=== PATIENT | female | born 1960 | race African-American/Black ===

== ENCOUNTER 2019-07-04 12:22 | Inpatient (IN) | payer OTHER ==
[2019-07-04 13:42] LABS: ABSOLUTE LYMPHOCYTES (AUTO) 1.2 10^3/uL (0.5-4.7); ABSOLUTE MONOCYTES (AUTO) 0.6 10^3/uL (0.1-1.4); ABSOLUTE NEUT (AUTO) 2.5 10^3/uL (1.7-8.2); BASOPHILS % (AUTO) 0.4 % (0-2); EOSINOPHILS % (AUTO) 0.9 % (0-6); HEMOGLOBIN 12.8 g/dL (12.0-15.5); LYMPHOCYTES % (AUTO) 27.7 % (13-45); MEAN CORPUSCULAR HEMOGLOBIN 32.1 pg (27.0-33.4); MEAN CORPUSCULAR HGB CONC 34.6 g/dL (32.0-36.0); MEAN CORPUSCULAR VOLUME 93 fl (80-97); MONOCYTES % (AUTO) 13.3 % (3-13); PLATELET COUNT 297 10^3/uL (150-450); RED BLOOD COUNT 3.99 10^6/uL (3.72-5.28); RED CELL DISTRIBUTION WIDTH 15.7 % (11.5-14.0); SEGMENTED NEUTROPHILS % (AUTO) 57.7 % (42-78); TOTAL CELLS COUNTED % (AUTO) 100 %; WHITE BLOOD COUNT 4.3 10^3/uL (4.0-10.5)
[2019-07-04] MEDS: NORMAL SALINE 1000 ML 1,000 ML IV PRN (13:52)
[2019-07-04 14:01] LABS: ALBUMIN 4.1 g/dL (3.5-5.0); ALKALINE PHOSPHATASE 257 U/L (38-126); ANION GAP 11 (5-19); ASPARTATE AMINO TRANSFERASE 298 U/L (14-36); BILIRUBIN,DIRECT 10.6 mg/dL (0.0-0.4); BILIRUBIN,TOTAL 12.2 mg/dL (0.2-1.3); BLOOD UREA NITROGEN 12 mg/dL (7-20); CALCIUM 9.6 mg/dL (8.4-10.2); CARBON DIOXIDE 29 mmol/L (22-30); CHLORIDE 94 mmol/L (98-107); GLUCOSE 91 mg/dL (75-110); POTASSIUM 3.5 mmol/L (3.6-5.0); TOTAL PROTEIN 7.4 g/dL (6.3-8.2)
[2019-07-04 14:25] LABS: APPEARANCE,URINE CLEAR; BILIRUBIN,URINE SMALL (NEGATIVE); COLOR,URINE DARK YELLOW; GLUCOSE, URINE NEGATIVE (NEGATIVE); KETONES,URINE TRACE mg/dL (NEGATIVE); LEUKOCYTE ESTERASE,URINE SMALL (NEGATIVE); NITRITE,URINE NEGATIVE (NEGATIVE); PROTEIN,URINE NEGATIVE (NEGATIVE); URINE SPECIFIC GRAVITY 1.005; UROBILINOGEN,URINE NEGATIVE mg/dL (<2.0)
--- NOTE | 2019-07-04 15:43 | RADIOLOGY REPORT (SQ) ---
EXAM DESCRIPTION: CHEST 2 VIEWS COMPLETED DATE/TIME: 07/04/2019 3:33 pm REASON FOR STUDY: abdominal pain COMPARISON: None. EXAM PARAMETERS: NUMBER OF VIEWS: two views TECHNIQUE: Digital Frontal and Lateral radiographic views of the chest acquired. RADIATION DOSE: NA LIMITATIONS: none FINDINGS: LUNGS AND PLEURA: No opacities, masses or pneumothorax. No pleural effusion. MEDIASTINUM AND HILAR STRUCTURES: No masses or contour abnormalities. HEART AND VASCULAR STRUCTURES: Heart normal size. No evidence for failure. BONES: No acute findings. HARDWARE: None in the chest. OTHER: No other significant finding. IMPRESSION: NO ACUTE RADIOGRAPHIC FINDING IN THE CHEST. TECHNICAL DOCUMENTATION: JOB ID: [id number] [employer]- All Rights Reserved Reading location - IP/workstation name: [email or web address]
--- NOTE | 2019-07-04 15:51 | RADIOLOGY REPORT (SQ) ---
EXAM DESCRIPTION: CT ABD/PELVIS WITH IV ONLY COMPLETED DATE/TIME: 07/04/2019 3:36 pm REASON FOR STUDY: abdominal pain COMPARISON: None. TECHNIQUE: CT scan of the abdomen and pelvis performed using helical scanning technique with dynamic intravenous contrast injection. No oral contrast. Images reviewed with lung, soft tissue, and bone windows. Reconstructed coronal and sagittal MPR images reviewed. Delayed images for evaluation of the urinary system also acquired. All images stored on PACS. All CT scanners at this facility use dose modulation, iterative reconstruction, and/or weight based d osing when appropriate to reduce radiation dose to as low as reasonably achievable (ALARA). [facility]: Dose Right [facility]: CareDose [facility]: Dose Right [facility]: Teradose 4D [facility]: VENNCOMM CONTRAST TYPE AND DOSE: contrast/concentration: Isovue 350.00 mg/ml; Total Contrast Delivered: 88.0 ml; Total Saline Delivered: 70.0 ml RENAL FUNCTION: BUN 12 creatinine 0.89. RADIATION DOSE: CT Rad equipment meets quality standard of care and radiation dose reduction techniq ues were employed. CTDIvol: 8.1 - 9.4 mGy. DLP: 908 mGy-cm.. LIMITATIONS: None. FINDINGS: LOWER CHEST: No significant findings. No nodules or infiltrates. LIVER: Normal size. No masses. Mild dilation of the intrahepatic bile ducts. The common bile duct i s distended with maximum transverse diameter of 1.5 cm. SPLEEN: Normal size. No focal lesions. PANCREAS: Indistinct low-attenuation lesion in the head and uncinate process, measuring approximately 2.3 x 3.1 cm. No significant calcifications. No adjacent inflammation or peripancreatic fluid collec tions. Pancreatic duct not dilated. GALLBLADDER: No identified stones by CT criteria. No inflammatory changes to suggest cholecystitis. ADRENAL GLANDS: No significant masses or asymmetry. RIGHT KIDNEY AND URETER: No solid masses. No significant calcifications. No hydronephrosis or hyd roureter. LEFT KIDNEY AND URETER: No solid masses. No significant calcifications. No hydronephrosis or hydr oureter. AORTA AND VESSELS: No aneurysm. No dissection. Renal arteries, SMA, celiac without stenosis. 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 Multiple serpiginous contrast filled vessels consistent with collateral vessels. The superior mesen teric vein and splenic vein are patent. RETROPERITONEUM: No retroperitoneal adenopathy, hemorrhage or masses. BOWEL AND PERITONEAL CAVITY: No masses or inflammatory changes. No free fluid or peritoneal masses. APPENDIX: Normal. PELVIS: No mass. No free fluid. Normal bladder. ABDOMINAL WALL: No masses. No hernias. BONES: No significant or acute findings. OTHER: No other significant finding. IMPRESSION: 1. INDISTINCT LOW-ATTENUATION LESION IN THE HEAD AND UNCINATE PROCESS OF THE PANCREAS CONCERNING FOR PANCREATIC TUMOR. THERE IS OCCLUSION OF THE PORTAL VEIN NEAR THE JUNCTION WITH THE SPLENIC VEIN AND SUPERIOR MESENTERIC VEIN WITH NUMEROUS COLLATERAL VESSELS. THERE IS ALSO DILATION OF THE COMMON BILE DUCT. RECOMMEND FURTHER EVALUATION WITH MRI OF THE PANCREAS AND MRCP. 2. NO OTHER SIGNIFICANT OR ACUTE FINDING IN THE ABDOMEN OR PELVIS ON CT SCAN WITH IV CONTRAST. TECHNICAL DOCUMENTATION: JOB ID: [id number] Quality ID # [id number]: Final reports with documentation of one or more dose reduction techniques (e.g., Au tomated exposure control, adjustment of the mA and/or kV according to patient size, use of iterative reconstruction technique) 2010 [employer]- All Rights Reserved Reading location - IP/workstation name: [email or web address]
[2019-07-04] MEDS ORDERED: PHYTONADIONE INJ 10 MG/1 ML AMPULE SUBCUT ONE (20:30)
--- NOTE | 2019-07-04 21:45 | PDOC H&P ---
History of Present Illness Admission Date/PCP: 07/04/19 12:22 JOSE ANTONIO FINNEY MD History of Present Illness: DICKSON PANIAGUA is a 59 year old female.Patient came to the office for the first time as a new patient to establish with us in the office, she has multiple complaints, she has a history of vitiligo which is widespread. She complained of abdominal pain, that radiated to the back, weight loss, she said she was in the emergency room at [facility], she was diagnosed with constipation, she was prescribed MiraLAX for constipation. On examination in the office she was very jaundiced, I was particularly concerned about the weight loss, with jaundice but the abdomen was benign on examination I suspected a pancreatic lesion, she was admitted directly from the office to the hospital for further evaluation., The blood work that was done demonstrated elevated serum bilirubin at 12.6 mostly direct bilirubin. The alkaline phosphatase was elevated, the liver enzymes were elevated as well. The CT scan of the abdomen and pelvis with contrast was obtained ,it demonstrated indistinct low attenuation lesion in the head and the uncinate process of the pancreas that measures 2.3 cm x 3.1 cm Past Medical History Cardiac Medical History: Reports: Hypertension Skin Medical History: Reports: Other - vitiligo Social History Smoking Status: Never Smoker Frequency of Alcohol Use: None Hx Recreational Drug Use: No Drugs: None Hx Prescription Drug Abuse: No Family History Parental Family History Reviewed: Yes Children Family History Reviewed: Yes Sibling(s) Family History Reviewed.: Yes Medication/Allergy Home Medications: Hydrochlorothiazide [Hydrodiuril 25 mg Tablet] 25 mg PO DAILY 07/04/19 Telmisartan [Micardis 80 mg Tablet] 80 mg PO DAILY 07/04/19 Allergies/Adverse Reactions: hydroxyzine [From Atarax] Allergy (Verified 07/04/19 13:45) sulfamethoxazole [From Septra] Allergy (Verified 07/04/19 13:45) trimethoprim [From Septra] Allergy (Verified 07/04/19 13:45) Review of Systems Constitutional: ABSENT: chills, fever(s), headache(s), weight gain, weight loss Eyes: ABSENT: visual disturbances Ears: ABSENT: hearing changes Cardiovascular: ABSENT: chest pain, dyspnea on exertion, edema, orthropnea, palpitations Respiratory: ABSENT: cough, hemoptysis Gastrointestinal: PRESENT: abdominal pain, constipation. ABSENT: diarrhea, hematemesis, hematochezia, nausea, vomiting Genitourinary: ABSENT: dysuria, hematuria Musculoskeletal: ABSENT: joint swelling Integumentary: ABSENT: rash, wounds Neurological: ABSENT: abnormal gait, abnormal speech, confusion, dizziness, focal weakness, syncope Psychiatric: ABSENT: anxiety, depression, homidical ideation, suicidal ideation Endocrine: ABSENT: cold intolerance, heat intolerance, menstrual abnormalities, polydipsia, polyuria Hematologic/Lymphatic: ABSENT: easy bleeding, easy bruising, lymphadenopathy Physical Exam Vital Signs: Temp Pulse Resp BP Pulse Ox 97.9 F 93 16 149/91 H 100 07/04/19 13:01 07/04/19 19:00 07/04/19 13:01 07/04/19 13:01 07/04/19 13:01 Intake & Output 07/03/19 07/04/19 07/05/19 06:59 06:59 06:59 Output Total 1050 Balance -1050 Weight 77.2 kg General appearance: PRESENT: no acute distress, well-developed, well-nourished Head exam: PRESENT: atraumatic, normocephalic Eye exam: PRESENT: PERRLA, scleral icterus Ear exam: PRESENT: normal external ear exam Mouth exam: PRESENT: moist, tongue midline Neck exam: PRESENT: full ROM Respiratory exam: PRESENT: clear to auscultation anoop Cardiovascular exam: PRESENT: RRR, +S1, +S2 Pulses: PRESENT: normal dorsalis pedis pul, +2 pedal pulses bilateral Vascular exam: PRESENT: normal capillary refill GI/Abdominal exam: PRESENT: normal bowel sounds, soft Rectal exam: PRESENT: deferred Neurological exam: PRESENT: alert, awake, oriented to person, oriented to place, oriented to time, oriented to situation, CN II-XII grossly intact Psychiatric exam: PRESENT: appropriate affect, normal mood Skin exam: PRESENT: dry, intact, warm Results Laboratory Results: 07/04/19 13:26 07/04/19 13:26 07/04/19 07/04/19 07/04/19 13:26 13:26 14:10 WBC 4.3 RBC 3.99 Hgb 12.8 Hct 37.0 MCV 93 MCH 32.1 MCHC 34.6 RDW 15.7 H Plt Count 297 Seg Neutrophils % 57.7 Lymphocytes % 27.7 Monocytes % 13.3 H Eosinophils % 0.9 Basophils % 0.4 Absolute Neutrophils 2.5 Absolute Lymphocytes 1.2 Absolute Monocytes 0.6 Absolute Eosinophils 0.0 Absolute Basophils 0.0 Sodium 133.5 L Potassium 3.5 L Chloride 94 L Carbon Dioxide 29 Anion Gap 11 BUN 12 Creatinine 0.89 Est GFR ( Amer) > 60 Est GFR (Non-Af Amer) > 60 Glucose 91 Calcium 9.6 Total Bilirubin 12.2 H AST 298 H Alkaline Phosphatase 257 H Total Protein 7.4 Albumin 4.1 Urine Color DARK YELLOW Urine Appearance CLEAR Urine pH 7.0 Ur Specific Abbott 1.005 Urine Protein NEGATIVE Urine Glucose (UA) NEGATIVE Urine Ketones TRACE H Urine Blood NEGATIVE Urine Nitrite NEGATIVE Ur Leukocyte Esterase SMALL H Urine WBC (Auto) 8 Urine RBC (Auto) 1 Impressions: Abdomen/Pelvis CT 07/04/19 00:00 IMPRESSION: 1. INDISTINCT LOW-ATTENUATION LESION IN THE HEAD AND UNCINATE PROCESS OF THE PANCREAS CONCERNING FOR PANCREATIC TUMOR. THERE IS OCCLUSION OF THE PORTAL VEIN NEAR THE JUNCTION WITH THE SPLENIC VEIN AND SUPERIOR MESENTERIC VEIN WITH NUMEROUS COLLATERAL VESSELS. THERE IS ALSO DILATION OF THE COMMON BILE DUCT. RECOMMEND FURTHER EVALUATION WITH MRI OF THE PANCREAS AND MRCP. 2. NO OTHER SIGNIFICANT OR ACUTE FINDING IN THE ABDOMEN OR PELVIS ON CT SCAN WITH IV CONTRAST. Chest X-Ray 07/04/19 00:00 IMPRESSION: NO ACUTE RADIOGRAPHIC FINDING IN THE CHEST. 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
[2019-07-04] MEDS: CEFAZOLIN 1 GM/D5W RTU 1 GM/50 ML RTUPB IV SCH (21:47)
[2019-07-04] MEDS: ENALAPRILAT DIHYDRATE INJ/PF 2.5 MG/2 ML SDV IV SCH (22:18)
[2019-07-04] MEDS: HYDROMORPHONE HCL INJ/PF 2 MG/ML AMPULE IV PRN (22:19)
[2019-07-05] MEDS: NORMAL SALINE 1000 ML 1,000 ML IV PRN ×3 (00:31→23:08)
[2019-07-05] MEDS: ENALAPRILAT DIHYDRATE INJ/PF 2.5 MG/2 ML SDV IV SCH ×4 (00:33→17:13)
[2019-07-05] MEDS: HYDROMORPHONE HCL INJ/PF 2 MG/ML AMPULE IV PRN ×2 (03:41→10:52)
[2019-07-05] MEDS: CEFAZOLIN 1 GM/D5W RTU 1 GM/50 ML RTUPB IV SCH ×4 (03:42→22:15)
[2019-07-05 06:33] LABS: INTERNATIONAL RATION (INR) 1.09; PROTHROMBIN TIME 14.1 SEC (11.4-15.4)
[2019-07-05] MEDS: ONDANSETRON HCL INJ/PF 4 MG/2 ML SDV IV PRN (11:00)
[2019-07-05] MEDS ORDERED: SUCCINYLCHOLINE CHLORIDE INJ 200 MG/10 ML VIAL ONE (12:51)
[2019-07-05] MEDS ORDERED: FENTANYL CITRATE INJ/PF 100 MCG/2 ML AMPUL ONE ×2 (18:18→19:53)
[2019-07-05] MEDS ORDERED: MIDAZOLAM 2 MG/2 ML INJ ONE (18:18)
[2019-07-05] MEDS ORDERED: PROPOFOL INJ 200 MG/20 ML VIAL IV ONE (18:18)
[2019-07-05] MEDS ORDERED: ONDANSETRON HCL INJ/PF 4 MG/2 ML SDV ONE (18:18)
[2019-07-05] MEDS ORDERED: FENTANYL CITRATE INJ/PF 100 MCG/2 ML AMPUL IV PRN ×3 (19:22)
[2019-07-05] MEDS ORDERED: OXYCODONE-ACETAMINOPHEN 5-325 MG TABLET PO PRN ×2 (19:22)
[2019-07-05] MEDS ORDERED: MEPERIDINE HCL/PF INJ 25 MG/1 ML DISP.SYRIN IV PRN (19:22)
[2019-07-05] MEDS ORDERED: MORPHINE SULFATE 10 MG/ML INJ IV PRN (19:22)
[2019-07-05] MEDS ORDERED: PROMETHAZINE HCL INJ 25 MG/1 ML VIAL IV PRN ×2 (19:22)
[2019-07-05] MEDS ORDERED: ONDANSETRON HCL INJ/PF 4 MG/2 ML SDV IV PRN (19:22)
[2019-07-05] MEDS ORDERED: DIPHENHYDRAMINE HCL 50 MG/ML VIAL IV PRN (19:22)
[2019-07-05] MEDS ORDERED: GLUCAGON,HUMAN RECOMB 1 MG INJ ONE (19:44)
--- NOTE | 2019-07-05 20:15 | PDOC CONSULTATION ---
Consultation Consult Date: 07/04/19 Provider Consulted: JOSE ANTONIO FINNEY History of Present Illness Admission Date/PCP: 07/04/19 12:22 JOSE ANTONIO FINNEY MD History of Present Illness: DICKSON PANIAGUA is a 59 year old female Patient who was admitted to the hospital on 07/04/2019 with jaundice, abdominal pain and weight loss. She has been having abdominal pain for the last 4 to 6 weeks. She has pain every day sometimes increasing after food but even without eating. She has lost about 20 pounds. Her urine is also been very dark. On admission a total bilirubin was 12 with a direct of 10, AST of 298 and alkaline phosphatase of 257. CAT scan of her abdomen showed a low-attenuation lesion in the head and uncinate process of the pancreas. 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 The common bile duct was also dilated. Past Medical History Cardiac Medical History: Reports: Hypertension Skin Medical History: Reports: Other - vitiligo Social History Smoking Status: Never Smoker Frequency of Alcohol Use: None Hx Recreational Drug Use: No Drugs: None Hx Prescription Drug Abuse: No Family History Parental Family History Reviewed: No Children Family History Reviewed: NA Sibling(s) Family History Reviewed.: NA Medication/Allergy Home Medications: Hydrochlorothiazide [Hydrodiuril 25 mg Tablet] 25 mg PO DAILY 07/04/19 Telmisartan [Micardis 80 mg Tablet] 80 mg PO DAILY 07/04/19 Allergies/Adverse Reactions: hydroxyzine [From Atarax] Allergy (Verified 07/04/19 13:45) sulfamethoxazole [From Septra] Allergy (Verified 07/04/19 13:45) trimethoprim [From Septra] Allergy (Verified 07/04/19 13:45) Review of Systems All systems: reviewed and no additional remarkable complaints except as stated Physical Exam Vital Signs: Temp Pulse Resp BP Pulse Ox 97.2 F 94 16 176/95 H 66 L 07/05/19 17:28 07/05/19 17:28 07/05/19 17:28 07/05/19 17:28 07/05/19 17:28 Intake & Output 07/04/19 07/05/19 07/06/19 06:59 06:59 06:59 Intake Total 1360 1100 Output Total 1450 1400 Balance -90 -300 Weight 80.8 kg Exam: General: Patient is alert and looks well. HEENT: There is no pallor but she is jaundiced. PERRLA. Oropharynx normal Respiratory: No chest deformity. No respiratory distress. Chest wall palpitation was unremarkable. Breath sounds were normal Cardiovascular: Heart sounds 1 and 2 normal with no murmurs. Abdominal: Not distended. Soft and nontender. Liver and spleen not palpable. No ascites demonstrated. Bowel sounds active. Rectal examination was deferred. Extremities: No edema Neurological: Alert and oriented x4. Grossly nonfocal. Normal speech Skin: No significant rash Psychological: Normal affect Results Laboratory Results: 07/04/19 13:26 07/04/19 13:26 Impressions: Abdomen/Pelvis CT 07/04/19 00:00 IMPRESSION: 1. INDISTINCT LOW-ATTENUATION LESION IN THE HEAD AND UNCINATE PROCESS OF THE PANCREAS CONCERNING FOR PANCREATIC TUMOR. THERE IS OCCLUSION OF THE PORTAL VEIN NEAR THE JUNCTION WITH THE SPLENIC VEIN AND SUPERIOR MESENTERIC VEIN WITH NUMEROUS COLLATERAL VESSELS. THERE IS ALSO DILATION OF THE COMMON BILE DUCT. RECOMMEND FURTHER EVALUATION WITH MRI OF THE PANCREAS AND MRCP. 2. NO OTHER SIGNIFICANT OR ACUTE FINDING IN THE ABDOMEN OR PELVIS ON CT SCAN WITH IV CONTRAST. Chest X-Ray 07/04/19 00:00 IMPRESSION: NO ACUTE RADIOGRAPHIC FINDING IN THE CHEST. Assessment & Plan - Diagnosis (1) Obstructive jaundice Is this a current diagnosis for this admission?: Yes Plan: She has a pancreatic lesion which likely explains her obstructive jaundice. The need for an ERCP with drainage was explained to the patient and her family and they are in agreement. She will eventually need an endoscopic ultrasound and more definite treatment for her disease. 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
--- NOTE | 2019-07-05 20:19 | Operative Report ---
Operative Report DATE OF SURGERY: 07/05/19 Operative Report: Pre-op diagnosis: Obstructive jaundice and pancreatic lesion on CAT scan Post-op diagnosis: 1. Normal proximal pancreatic duct 2. Common bile duct not cannulated Surgery: ERCP Medications: As per anesthesia Tissue removed: None Procedure: After informed consent obtained from patient, the throat was sprayed with Hurricane and conscious sedation was achieved. The ERCP endoscope was then inserted into the esophagus blindly and advanced into the stomach. The duodenum was entered and the ampulla was identified. Using the triple-lumen sphincterotomy catheter attempts were made to freely cannulate the common bile duct. The pancreatic duct was cannulated and the pancreatogram showed normal mid and proximal pancreatic duct. Multiple attempts at cannulating the common bile ducts were unsuccessful. Patient had a twisty duodenum which made it d ifficult to keep the ampulla in position. She did develop some periampullary edema. Findings Common bile duct: Not cannulated Intrahepatic ducts: Not opacified Pancreatic duct: Normal proximal and mid pancreatic duct Plan: We will suggest referral to [facility] for repeat ERCP, drainage and endoscopic ultrasound OPERATION: .
--- NOTE | 2019-07-05 20:48 | PDOC PROGRESS REPORT ---
Subjective Progress Note for:: 07/05/19 Subjective:: Patient was seen by the bedside, she had ERCP done today, the common bile duct could not be cannulated, the plan is to transfer patient to tertiary care Reason For Visit: JAUNDICE,ABDOMINAL PAIN,WEIGHT LOSS Physical Exam Vital Signs: Temp Pulse Resp BP Pulse Ox 97.2 F 94 16 176/95 H 66 L 07/05/19 17:28 07/05/19 17:28 07/05/19 17:28 07/05/19 17:28 07/05/19 17:28 Intake & Output 07/04/19 07/05/19 07/06/19 06:59 06:59 06:59 Intake Total 1360 1100 Output Total 1450 1400 Balance -90 -300 Weight 80.8 kg General appearance: PRESENT: no acute distress Eye exam: PRESENT: PERRLA Respiratory exam: PRESENT: clear to auscultation anoop Cardiovascular exam: PRESENT: +S1, +S2 GI/Abdominal exam: PRESENT: soft Neurological exam: PRESENT: alert Results Laboratory Results: 07/04/19 13:26 07/04/19 13:26 Impressions: Abdomen/Pelvis CT 07/04/19 00:00 IMPRESSION: 1. INDISTINCT LOW-ATTENUATION LESION IN THE HEAD AND UNCINATE PROCESS OF THE PANCREAS CONCERNING FOR PANCREATIC TUMOR. THERE IS OCCLUSION OF THE PORTAL VEIN NEAR THE JUNCTION WITH THE SPLENIC VEIN AND SUPERIOR MESENTERIC VEIN WITH NUMEROUS COLLATERAL VESSELS. THERE IS ALSO DILATION OF THE COMMON BILE DUCT. RECOMMEND FURTHER EVALUATION WITH MRI OF THE PANCREAS AND MRCP. 2. NO OTHER SIGNIFICANT OR ACUTE FINDING IN THE ABDOMEN OR PELVIS ON CT SCAN WITH IV CONTRAST. Chest X-Ray 07/04/19 00:00 IMPRESSION: NO ACUTE RADIOGRAPHIC FINDING IN THE CHEST. 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
[2019-07-05] MEDS ORDERED: METOCLOPRAMIDE HCL INJ/PF 10 MG/2 ML SDV ONE (21:23)
[2019-07-05 21:26] LABS: ALBUMIN 3.6 g/dL (3.5-5.0); ALKALINE PHOSPHATASE 223 U/L (38-126); ANION GAP 15 (5-19); ASPARTATE AMINO TRANSFERASE 271 U/L (14-36); BILIRUBIN,TOTAL 11.5 mg/dL (0.2-1.3); BLOOD UREA NITROGEN 12 mg/dL (7-20); CALCIUM 9.2 mg/dL (8.4-10.2); CARBON DIOXIDE 22 mmol/L (22-30); CHLORIDE 100 mmol/L (98-107); GLUCOSE 94 mg/dL (75-110); POTASSIUM 3.7 mmol/L (3.6-5.0); TOTAL PROTEIN 6.7 g/dL (6.3-8.2)
[2019-07-06] MEDS: ENALAPRILAT DIHYDRATE INJ/PF 2.5 MG/2 ML SDV IV SCH ×5 (00:23→23:49)
[2019-07-06] MEDS: HYDROMORPHONE HCL INJ/PF 2 MG/ML AMPULE IV PRN ×4 (01:58→20:58)
[2019-07-06] MEDS: CEFAZOLIN 1 GM/D5W RTU 1 GM/50 ML RTUPB IV SCH ×3 (03:41→15:10)
--- NOTE | 2019-07-06 08:20 | RADIOLOGY REPORT (SQ) ---
EXAM DESCRIPTION: NO CHG FLUORO; ENDO CATH/BILIARY DUCT COMPLETED DATE/TIME: 07/05/2019 8:29 pm REASON FOR STUDY: ERCP ATTEMPTED IN OR FLUOROSCOPY TIME: 1.5 minutes 3 Images saved to PACS TECHNIQUE: Intra-operative images acquired during surgical procedure to evaluate progress. NUMBER OF IMAGES: 3 LIMITATIONS: Limited intraoperative fluoroscopic images. FINDINGS: Limited intraoperative fluoroscopic images demonstrate evidence of ERCP. Endoscope overli es upper abdomen. There is cannulation of the CBD with partial opacification. Please see operative report for detailed description of the procedure. IMPRESSION: IMAGE(S) OBTAINED DURING PROCEDURE. COMMENT: Quality ID [id number]: Final reports for procedures using fluoroscopy that document radiation exp osure indices, or exposure time and number of fluorographic images (if radiation exposure indices are not available) Please consult full operative report of the attending physician for description of the procedure. TECHNICAL DOCUMENTATION: JOB ID: [id number] [employer]- All Rights Reserved COMPARISON: None. 07/04/2019 PROCEDURE: Limited intraoperative fluoroscopic images Reading location - IP/workstation name: [email or web address]
--- NOTE | 2019-07-06 08:20 | RADIOLOGY REPORT (SQ) ---
EXAM DESCRIPTION: NO CHG FLUORO; ENDO CATH/BILIARY DUCT COMPLETED DATE/TIME: 07/05/2019 8:29 pm REASON FOR STUDY: ERCP ATTEMPTED IN OR FLUOROSCOPY TIME: 1.5 minutes 3 Images saved to PACS TECHNIQUE: Intra-operative images acquired during surgical procedure to evaluate progress. NUMBER OF IMAGES: 3 LIMITATIONS: Limited intraoperative fluoroscopic images. FINDINGS: Limited intraoperative fluoroscopic images demonstrate evidence of ERCP. Endoscope overli es upper abdomen. There is cannulation of the CBD with partial opacification. Please see operative report for detailed description of the procedure. IMPRESSION: IMAGE(S) OBTAINED DURING PROCEDURE. COMMENT: Quality ID [id number]: Final reports for procedures using fluoroscopy that document radiation exp osure indices, or exposure time and number of fluorographic images (if radiation exposure indices are not available) Please consult full operative report of the attending physician for description of the procedure. TECHNICAL DOCUMENTATION: JOB ID: [id number] [employer]- All Rights Reserved COMPARISON: None. 07/04/2019 PROCEDURE: Limited intraoperative fluoroscopic images Reading location - IP/workstation name: [email or web address]
[2019-07-06] MEDS: NORMAL SALINE 1000 ML 1,000 ML IV PRN ×2 (09:12→20:19)
[2019-07-06] MEDS ORDERED: BISACODYL 5 MG TABEC PO ONE (13:00)
--- NOTE | 2019-07-06 14:40 | EKG REPORT ---
SEVERITY:- ABNORMAL ECG - SINUS RHYTHM BORDERLINE INFERIOR Q WAVES CONSIDER POSTERIOR INFARCT BORDERLINE PROLONGED QT INTERVAL : Confirmed by: Allan Johnson 06-Jul-2019 14:39:59
--- NOTE | 2019-07-06 16:13 | PDOC TRANSFER SUMMARY ---
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 Is this a current diagnosis for this admission?: Yes (4) Vitiligo Is this a current diagnosis for this admission?: Yes - Transfer Medications Home Medications: Hydrochlorothiazide [Hydrodiuril 25 mg Tablet] 25 mg PO DAILY 07/04/19 Telmisartan [Micardis 80 mg Tablet] 80 mg PO DAILY 07/04/19 Transfer Medications: Current Medications Dicyclomine HCl (Bentyl 20 Mg Tablet) 20 mg PO QID [facility] Stop: 08/05/19 16:59 Enalaprilat (Vasotec Inj/Pf 2.5 Mg/2 Ml Sdv) 2.5 mg IV Q6 [facility] Stop: 08/03/19 21:59 Last Admin: 07/06/19 12:05 Dose: 2.5 mg Documented by: Hydromorphone HCl (Dilaudid Inj/Pf 2 Mg/Ml Ampule) 1 mg IV Q4HP PRN PRN Reason: FOR PAIN Stop: 07/11/19 21:44 Last Admin: 07/06/19 09:07 Dose: 1 mg Documented by: Sodium Chloride (Nacl 0.9% 1000 Ml Iv Soln) 1,000 mls @ 100 mls/hr IV CONTINUOUS PRN PRN Reason: THIS MED IS NOT "PRN" Stop: 08/03/19 13:07 Last Admin: 07/06/19 09:12 Dose: 100 mls/hr Documented by: Cefazolin Sodium/Dextrose (Ancef Rtu 1 Gm/D5w 50 Ml Premix Bag) 1 gm in 50 mls @ 100 mls/hr IV Q6A [facility] Stop: 07/11/19 21:59 Last Admin: 07/06/19 15:10 Dose: 100 mls/hr Documented by: Ondansetron HCl (Zofran Inj/Pf 4 Mg/2 Ml Sdv) 4 mg IV Q4HP PRN PRN Reason: FOR NAUSEA/VOMITING Stop: 08/04/19 02:18 Last Admin: 07/05/19 11:00 Dose: 4 mg Documented by: - Allergies Allergies/Adverse Reactions: hydroxyzine [From Atarax] Allergy (Verified 07/04/19 13:45) sulfamethoxazole [From Septra] Allergy (Verified 07/04/19 13:45) trimethoprim [From Septra] Allergy (Verified 07/04/19 13:45) Hospital Course Hospital Course: Patient 59-year-old female she came to the office for the first time as a new patient to establish with us in the office, she has multiple complaints, she has a history of vitiligo, hypertension. She complain of abdominal pain, that radiated to the back, weight loss, she also stated that she was at the emergency room at [facility] for evaluation of abdominal pain, she said KUB was done and she was diagnosed with constipation she was then prescribed MiraLAX. On examination in the office she was found to be very jaundiced, I was particularly concerned about the weight loss and the jaundice, the abdominal examination in the office was benign, I suspected a pancreatic lesion she was admitted directly from the office to the hospital for further evaluation. The blood work that was done demonstrated elevated serum bilirubin at 12.6 mostly direct bilirubin, the alkaline phosphatase, liver enzymes were also elevated. The CAT scan of the abdomen and pelvis with contrast was obtained it demonstrated indistinct low-attenuation lesion at the head of the pancreas and the uncinate process that measures 2.3 cm x 3.1 cm .. She was seen by GI she underwent ERCP on 07/05/2019 with the intent to stent the common bile duct, it was difficult to cannulate the common bile duct. The plan is to transfer the patient to [facility] for essentially convolution of the common bile duct and also for endoscopy ultrasound of the lesion on the head of the pancreas to make a diagnosis. Physical Exam Vital Signs: Temp Pulse Resp BP Pulse Ox 97.6 F 98 18 149/85 H 99 07/06/19 11:51 07/06/19 14:00 07/06/19 11:51 07/06/19 11:51 07/06/19 11:51 Intake & Output 07/05/19 07/06/19 07/07/19 06:59 06:59 06:59 Intake Total 1360 4450 1050 Output Total 1450 3100 Balance -90 1350 1050 Weight 80.8 kg 81.6 kg General appearance: PRESENT: no acute distress, well-developed, well-nourished Head exam: PRESENT: atraumatic, normocephalic Eye exam: PRESENT: PERRLA, scleral icterus Ear exam: PRESENT: normal external ear exam Respiratory exam: PRESENT: clear to auscultation anoop Cardiovascular exam: PRESENT: RRR, +S1, +S2 Pulses: PRESENT: normal dorsalis pedis pul Vascular exam: PRESENT: normal capillary refill GI/Abdominal exam: PRESENT: normal bowel sounds, soft Rectal exam: PRESENT: deferred Extremities exam: PRESENT: full ROM Neurological exam: PRESENT: alert, awake, oriented to person, oriented to place, oriented to time, oriented to situation, CN II-XII grossly intact Psychiatric exam: PRESENT: appropriate affect, normal mood Skin exam: PRESENT: dry, intact, warm Results Laboratory Results: 07/04/19 13:26 07/05/19 05:52 07/05/19 05:52 Sodium 136.7 L Potassium 3.7 Chloride 100 Carbon Dioxide 22 Anion Gap 15 BUN 12 Creatinine 0.73 Est GFR ( Amer) > 60 Est GFR (Non-Af Amer) > 60 Glucose 94 Calcium 9.2 Total Bilirubin 11.5 H AST 271 H Alkaline Phosphatase 223 H Total Protein 6.7 Albumin 3.6 Impressions: Abdomen/Pelvis CT 07/04/19 00:00 IMPRESSION: 1. INDISTINCT LOW-ATTENUATION LESION IN THE HEAD AND UNCINATE PROCESS OF THE PANCREAS CONCERNING FOR PANCREATIC TUMOR. THERE IS OCCLUSION OF THE PORTAL VEIN NEAR THE JUNCTION WITH THE SPLENIC VEIN AND SUPERIOR MESENTERIC VEIN WITH NUMEROUS COLLATERAL VESSELS. THERE IS ALSO DILATION OF THE COMMON BILE DUCT. RECOMMEND FURTHER EVALUATION WITH MRI OF THE PANCREAS AND MRCP. 2. NO OTHER SIGNIFICANT OR ACUTE FINDING IN THE ABDOMEN OR PELVIS ON CT SCAN WITH IV CONTRAST. Chest X-Ray 07/04/19 00:00 IMPRESSION: NO ACUTE RADIOGRAPHIC FINDING IN THE CHEST. Catheter Placement 07/05/19 00:00 IMPRESSION: IMAGE(S) OBTAINED DURING PROCEDURE. Fluoroscopy 07/05/19 00:00
[2019-07-06] MEDS ORDERED: DICYCLOMINE HCL 20 MG TABLET PO ONE (16:15)
[2019-07-06] MEDS: DICYCLOMINE HCL 20 MG TABLET PO SCH (21:31)
[2019-07-07] MEDS: ENALAPRILAT DIHYDRATE INJ/PF 2.5 MG/2 ML SDV IV SCH ×4 (05:50→23:54)
[2019-07-07] MEDS: NORMAL SALINE 1000 ML 1,000 ML IV PRN ×2 (07:23→17:45)
[2019-07-07] MEDS: DICYCLOMINE HCL 20 MG TABLET PO SCH ×4 (09:21→21:16)
[2019-07-07] MEDS: HYDROMORPHONE HCL INJ/PF 2 MG/ML AMPULE IV PRN ×2 (11:45→22:41)
[2019-07-08] MEDS ORDERED: HYDROCHLOROTHIAZIDE 25 MG TABLET PO ONE ×2 (02:45→05:30)
[2019-07-08] MEDS: DICYCLOMINE HCL 20 MG TABLET PO SCH ×4 (09:23→22:04)
[2019-07-08] MEDS: LOSARTAN POTASSIUM 50 MG TABLET PO SCH (09:23)
[2019-07-08] MEDS ORDERED: (PENDING PHARMACY ID) (Telmisartan [Micardis 80 Mg Tablet] 80 MG) PO SCH (10:00)
[2019-07-08] MEDS: HYDROMORPHONE HCL INJ/PF 2 MG/ML AMPULE IV PRN ×2 (10:14→17:43)
[2019-07-08] MEDS: ONDANSETRON HCL INJ/PF 4 MG/2 ML SDV IV PRN ×2 (10:15→17:42)
[2019-07-09] MEDS: HYDROMORPHONE HCL INJ/PF 2 MG/ML AMPULE IV PRN ×5 (00:37→23:44)
[2019-07-09] MEDS: ONDANSETRON HCL INJ/PF 4 MG/2 ML SDV IV PRN ×3 (00:38→15:24)
[2019-07-09] MEDS: DICYCLOMINE HCL 20 MG TABLET PO SCH ×4 (09:05→21:00)
[2019-07-09] MEDS: HYDROCHLOROTHIAZIDE 25 MG TABLET PO SCH (09:05)
[2019-07-09] MEDS: LOSARTAN POTASSIUM 50 MG TABLET PO SCH (09:05)
--- NOTE | 2019-07-09 15:25 | PDOC PROGRESS REPORT ---
Subjective Progress Note for:: 07/09/19 Subjective:: Patient was supposed to be transferred to [facility] for further evaluation of obstructive jaundice, she was accepted in transfer that was back on Thursday of this week but no bed is available. I spoke to the transfer center at [facility] and they have me speak to the GI physician if patient could be transferred to [facility] on Thursday for diagnostic evaluation of the disease process and she will be transferred back to this hospital because there is no bed available to accept the patient The plan tentatively is for patient to leave on Thursday morning for [facility] endoscopy suite for ERCP with possible ultrasound endoscopy and stenting of the common bile duct and subsequently have patient transfer back to [facility] Reason For Visit: JAUNDICE,ABDOMINAL PAIN,WEIGHT LOSS Physical Exam Vital Signs: Temp Pulse Resp BP Pulse Ox 97.5 F 86 19 160/95 H 99 07/09/19 15:17 07/09/19 15:17 07/09/19 15:17 07/09/19 15:17 07/09/19 15:17 Intake & Output 07/08/19 07/09/19 07/10/19 06:59 06:59 06:59 Intake Total 2220 170 960 Output Total 3000 1900 300 Balance -780 -1730 660 Weight 78.7 kg 77.2 kg Results Laboratory Results: 07/04/19 13:26 07/05/19 05:52 Impressions: Abdomen/Pelvis CT 07/04/19 00:00 IMPRESSION: 1. INDISTINCT LOW-ATTENUATION LESION IN THE HEAD AND UNCINATE PROCESS OF THE PANCREAS CONCERNING FOR PANCREATIC TUMOR. THERE IS OCCLUSION OF THE PORTAL VEIN NEAR THE JUNCTION WITH THE SPLENIC VEIN AND SUPERIOR MESENTERIC VEIN WITH NUMEROUS COLLATERAL VESSELS. THERE IS ALSO DILATION OF THE COMMON BILE DUCT. RECOMMEND FURTHER EVALUATION WITH MRI OF THE PANCREAS AND MRCP. 2. NO OTHER SIGNIFICANT OR ACUTE FINDING IN THE ABDOMEN OR PELVIS ON CT SCAN WITH IV CONTRAST. Chest X-Ray 07/04/19 00:00 IMPRESSION: NO ACUTE RADIOGRAPHIC FINDING IN THE CHEST. Catheter Placement 07/05/19 00:00 IMPRESSION: IMAGE(S) OBTAINED DURING PROCEDURE. Fluoroscopy 07/05/19 00:00 IMPRESSION: IMAGE(S) OBTAINED DURING PROCEDURE. 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
[2019-07-09] MEDS ORDERED: DIPHENHYDRAMINE HCL 25 MG CAPSULE PO ONE (23:30)
[2019-07-10] MEDS: HYDROMORPHONE HCL INJ/PF 2 MG/ML AMPULE IV PRN ×4 (07:44→22:47)
[2019-07-10] MEDS: LOSARTAN POTASSIUM 50 MG TABLET PO SCH (09:18)
[2019-07-10] MEDS: HYDROCHLOROTHIAZIDE 25 MG TABLET PO SCH (09:18)
[2019-07-10] MEDS: DICYCLOMINE HCL 20 MG TABLET PO SCH ×4 (09:18→22:47)
[2019-07-10] MEDS: ONDANSETRON HCL INJ/PF 4 MG/2 ML SDV IV PRN (22:47)
[2019-07-11] MEDS: HYDROMORPHONE HCL INJ/PF 2 MG/ML AMPULE IV PRN ×2 (05:02→21:40)
[2019-07-11] MEDS: ONDANSETRON HCL INJ/PF 4 MG/2 ML SDV IV PRN (05:02)
[2019-07-11] MEDS: HYDROCHLOROTHIAZIDE 25 MG TABLET PO SCH (10:18)
[2019-07-11] MEDS: DICYCLOMINE HCL 20 MG TABLET PO SCH ×4 (10:18→21:29)
[2019-07-11] MEDS: LOSARTAN POTASSIUM 50 MG TABLET PO SCH (10:18)
[2019-07-12] MEDS: HYDROCHLOROTHIAZIDE 25 MG TABLET PO SCH (09:10)
[2019-07-12] MEDS: DICYCLOMINE HCL 20 MG TABLET PO SCH ×3 (09:10→17:27)
[2019-07-12] MEDS: LOSARTAN POTASSIUM 50 MG TABLET PO SCH (09:10)
[2019-07-12 10:16] LABS: ABSOLUTE BASOPHILS # (AUTO) 0.1 10^3/uL (0.0-0.2); ABSOLUTE MONOCYTES (AUTO) 0.7 10^3/uL (0.1-1.4); ABSOLUTE NEUT (AUTO) 9.6 10^3/uL (1.7-8.2); BASOPHILS % (AUTO) 0.7 % (0-2); EOSINOPHILS % (AUTO) 0.1 % (0-6); HEMATOCRIT 36.7 % (36.0-47.0); HEMOGLOBIN 12.6 g/dL (12.0-15.5); LYMPHOCYTES % (AUTO) 8.8 % (13-45); MEAN CORPUSCULAR HEMOGLOBIN 31.4 pg (27.0-33.4); MEAN CORPUSCULAR HGB CONC 34.3 g/dL (32.0-36.0); MEAN CORPUSCULAR VOLUME 91 fl (80-97); MONOCYTES % (AUTO) 6.5 % (3-13); PLATELET COUNT 334 10^3/uL (150-450); RED BLOOD COUNT 4.02 10^6/uL (3.72-5.28); RED CELL DISTRIBUTION WIDTH 16.5 % (11.5-14.0); SEGMENTED NEUTROPHILS % (AUTO) 83.9 % (42-78); TOTAL CELLS COUNTED % (AUTO) 100 %; WHITE BLOOD COUNT 11.5 10^3/uL (4.0-10.5)
[2019-07-12 10:36] LABS: ALBUMIN 3.9 g/dL (3.5-5.0); ALKALINE PHOSPHATASE 568 U/L (38-126); ANION GAP 15 (5-19); ASPARTATE AMINO TRANSFERASE 273 U/L (14-36); BILIRUBIN,DIRECT 11.1 mg/dL (0.0-0.4); BILIRUBIN,TOTAL 12.7 mg/dL (0.2-1.3); BLOOD UREA NITROGEN 27 mg/dL (7-20); CALCIUM 9.6 mg/dL (8.4-10.2); CARBON DIOXIDE 26 mmol/L (22-30); CHLORIDE 98 mmol/L (98-107); GLUCOSE 198 mg/dL (75-110); POTASSIUM 3.6 mmol/L (3.6-5.0); TOTAL PROTEIN 7.2 g/dL (6.3-8.2)
[2019-07-12] MEDS ORDERED: POLYETHYLENE GLYCOL 3350 POWDER 17 GM/1 PACKET PO PRN (11:54)
[2019-07-12] MEDS: ONDANSETRON HCL INJ/PF 4 MG/2 ML SDV IV PRN (15:43)
[2019-07-12 17:40] VITALS: BP 176/95
--- NOTE | 2019-07-12 17:51 | PDOC DISCHARGE SUMMARY ---
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 Is this a current diagnosis for this admission?: Yes (4) Vitiligo Is this a current diagnosis for this admission?: Yes (5) Obstruction of bile duct Is this a current diagnosis for this admission?: Yes - Additional Information Resuscitation Status: Full Code Home Medications: Hydrochlorothiazide [Hydrodiuril 25 mg Tablet] 25 mg PO DAILY 07/04/19 Telmisartan [Micardis 80 mg Tablet] 80 mg PO DAILY 07/04/19 History of Present Illness History of Present Illness: DICKSON PANIAGUA is a 59 year old female.Patient came to the office for the first time as a new patient to establish with us in the office, she has multiple complaints, she has a history of vitiligo which is widespread. She complained of abdominal pain, that radiated to the back, weight loss, she said she was in the emergency room at [facility], she was diagnosed with constipation, she was prescribed MiraLAX for constipation. On examination in the office she was very jaundiced, I was particularly concerned about the weight loss, with jaundice but the abdomen was benign on examination I suspected a pancreatic lesion, she was admitted directly from the office to the hospital for further evaluation., The blood work that was done demonstrated elevated serum bilirubin at 12.6 mostly direct bilirubin. The alkaline phosphatase was elevated, the liver enzymes were elevated as well. The CT scan of the abdomen and pelvis with contrast was obtained ,it demonstrated indistinct low attenuation lesion in the head and the uncinate process of the pancreas that measures 2.3 cm x 3.1 cm Hospital Course Hospital Course: Patient was admitted initially on July 04 from the office for evaluation of obstructive jaundice, CAT scan of the abdomen and pelvis with IV contrast was obtained it demonstrated a mass at the head of the pancreas, consultation was o btained from GI Dr. Long, ERCP was done but he could not cannulate the common bile duct he recommended that patient should be transferred to tertiary care. I called [facility] last Thursday, she was accepted in transfer but no bed was available, on Thursday the plan was change that patient be transferred to outpatient GI endoscopy suite for endoscopy ultrasonography. She went to [facility] yesterday for the procedure, the endosonographic finding, a round Rge mass was identified in the pancreatic head, the mass was hypoechoic, it measured 30 mm in maximal cross sectional diameter, the outer margins were irregular. Fine- needle biopsy was performed, final cytology results are pending. The endosonographic appearance was said to be consistent with adenocarcinoma ,ERCP was done, the common bile duct was cannulated with a short nose traction sphincterotome a stent was inserted in the common bile duct the stricture was a malignant stricture Physical Exam Vital Signs: Temp Pulse Resp BP Pulse Ox 97.7 F 105 H 18 166/89 H 98 07/12/19 15:24 07/12/19 15:24 07/12/19 15:24 07/12/19 15:24 07/12/19 15:24 Intake & Output 07/11/19 07/12/19 07/13/19 06:59 06:59 06:59 Intake Total 1142 Output Total 1400 Balance -258 Weight 79.5 kg General appearance: PRESENT: no acute distress, well-developed, well-nourished Head exam: PRESENT: atraumatic, normocephalic Eye exam: PRESENT: conjunctiva pink, EOMI, PERRLA Ear exam: PRESENT: normal external ear exam Mouth exam: PRESENT: moist, tongue midline Neck exam: PRESENT: full ROM Respiratory exam: PRESENT: clear to auscultation anoop Cardiovascular exam: PRESENT: RRR, +S1, +S2 Pulses: PRESENT: normal dorsalis pedis pul, +2 pedal pulses bilateral Vascular exam: PRESENT: normal capillary refill GI/Abdominal exam: PRESENT: normal bowel sounds, soft Rectal exam: PRESENT: deferred Neurological exam: PRESENT: alert, awake, oriented to person, oriented to place, oriented to time, oriented to situation, CN II-XII grossly intact Psychiatric exam: PRESENT: appropriate affect, normal mood Skin exam: PRESENT: dry, intact, warm Results Laboratory Results: 07/12/19 09:55 07/12/19 09:55 07/12/19 07/12/19 09:55 09:55 WBC 11.5 H RBC 4.02 Hgb 12.6 Hct 36.7 MCV 91 MCH 31.4 MCHC 34.3 RDW 16.5 H Plt Count 334 Seg Neutrophils % 83.9 H Lymphocytes % 8.8 L Monocytes % 6.5 Eosinophils % 0.1 Basophils % 0.7 Absolute Neutrophils 9.6 H Absolute Lymphocytes 1.0 Absolute Monocytes 0.7 Absolute Eosinophils 0.0 Absolute Basophils 0.1 Sodium 138.5 Potassium 3.6 Chloride 98 Carbon Dioxide 26 Anion Gap 15 BUN 27 H Creatinine 1.40 H Est GFR ( Amer) 47 L Est GFR (Non-Af Amer) 39 L Glucose 198 H Calcium 9.6 Total Bilirubin 12.7 H AST 273 H Alkaline Phosphatase 568 H Total Protein 7.2 Albumin 3.9 Impressions: Abdomen/Pelvis CT 07/04/19 00:00 IMPRESSION: 1. INDISTINCT LOW-ATTENUATION LESION IN THE HEAD AND UNCINATE PROCESS OF THE PANCREAS CONCERNING FOR PANCREATIC TUMOR. THERE IS OCCLUSION OF THE PORTAL VEIN NEAR THE JUNCTION WITH THE SPLENIC VEIN AND SUPERIOR MESENTERIC VEIN WITH NUMEROUS COLLATERAL VESSELS. THERE IS ALSO DILATION OF THE COMMON BILE DUCT. RECOMMEND FURTHER EVALUATION WITH MRI OF THE PANCREAS AND MRCP. 2. NO OTHER SIGNIFICANT OR ACUTE FINDING IN THE ABDOMEN OR PELVIS ON CT SCAN WITH IV CONTRAST. Chest X-Ray 07/04/19 00:00 IMPRESSION: NO ACUTE RADIOGRAPHIC FINDING IN THE CHEST. Catheter Placement 07/05/19 00:00 IMPRESSION: IMAGE(S) OBTAINED DURING PROCEDURE. Fluoroscopy 07/05/19 00:00 IMPRESSION: IMAGE(S) OBTAINED DURING PROCEDURE. Qualifiers - * PATIENT BEING DISCHARGED WITH ANY OF THE FOLLOWING DIAGNOSIS: No VTE patient discharged on overlapping Therapy?: No Reason(s) for not prescribing Overlap Therapy:: Not indicated Stroke Pt being discharged on Anti-thrombolytic therapy?: No Reason(s) for not prescribing Anti-thrombolytic therapy:: Not indicated Stroke Pt being discharged on Anti-coagulation therapy?: No Reason(s) for not prescribing Anti-coagulation therapy:: Not indicated Stroke Pt being discharged on Statins?: No Reason(s) for not prescribing Statins therapy:: Not indicated CO Pt being discharged on Aspirin therapy?: No Reason(s) for not prescribing Aspirin therapy:: Not indicated CO Pt being discharged on Statins?: No Reason(s) for not prescribing Statin therapy:: Not indicated CO Pt discharged ACEI/ARBS?: No Reason(s) for not prescribing ACEI/ARBS:: Not indicated Acute Heart Failure - Is this a Heart Failure Patient?: No d) Discharged on evidence-based Beta mehul(carvedilol, sustained release metoprolol succinate, or bisoprolol)?: Yes Reason(s) not discharged on Aldosterone antagonist for LVEF < 35%: Allergy Plan Discharge Plan: Patient will be referred to oncology outpatient for continuity of care
== END 2019-07-12 18:56 | disposition short-term general hospital (02) | DRG 374 ==
LOC: 3S 12:22
PROVIDERS: ADMIT Internal Medicine; ATTEND Internal Medicine
PROC: 0FJB8ZZ Inspection of Hepatobiliary Duct, Via Natural or Artificial Opening Endoscopic (ICD-10-PCS; principal; 2019-07-05 16:30)
DX: D37.8 Neoplasm of uncertain behavior of other specified digestive organs (principal); K83.1 Obstruction of bile duct; I10 Essential (primary) hypertension; L80 Vitiligo; K59.00 Constipation, unspecified; R63.4 Abnormal weight loss; Z88.1 Allergy status to other antibiotic agents; Z88.2 Allergy status to sulfonamides; Z88.8 Allergy status to other drugs, medicaments and biological substances; Z68.29 Body mass index [BMI] 29.0-29.9, adult
CPT/HCPCS: 36415; 43260; 71046; 732; 74177; 74328; 80048; 80053; 80076; 81001; 85025; 85610; 86301; 93005; 93010; J0330; J0690; J1170; J1610; J2250; J2405; J2704; J2765; J3010; J3430; J3490; J7030

== ENCOUNTER → 2019-07-24 | Outpatient (CLI) | payer OTHER ==
--- NOTE | 2019-07-25 14:30 | RADIOLOGY REPORT (SQ) ---
EXAM DESCRIPTION: MRI ABDOMEN COMBO COMPLETED DATE/TIME: 07/24/2019 7:02 pm REASON FOR STUDY: (C25.0)MALIGNANT NEOPLASM OF HEAD OF PANCREAS C25.0 MALIGNANT NEOPLASM OF HEAD OF PANCREAS COMPARISON: 07/04/2019 CT. 07/24/2019 CT images from PET-CT. TECHNIQUE: T1, T1 in and out of phase, T2 fat sat, T1 post gadolinium sequences with attention to th e pancreas. CONTRAST TYPE AND DOSE: 20 mL Dotarem. RENAL FUNCTION: Not needed. LIMITATIONS: None. FINDINGS: LIVER: Normal size. No masses. No dilated ducts. CBD normal. SPLEEN: Normal size. No focal lesions. PANCREAS: Enlarged pancreatic head and uncinate process, consistent with mass here. This measures up to 3.5 cm and maximal dimension in the transverse plane. Pancreatic body and tail look normal. Salomon creatic duct does not look significantly dilated. Regional peripancreatic soft tissue edema. Mass a ppears to involve the portal confluence, which is ill-defined. Enhancement is seen within the liver in the right and left portal veins, however. Left portal venous flow is probably diminished. There is artifact in the common duct which appears to be related to a stent. Mild pneumobilia noted. GALLBLADDER: Pneumobilia, otherwise unremarkable. ADRENAL GLANDS: No significant masses or asymmetry. RIGHT KIDNEY AND URETER: No masses. No hydronephrosis. LEFT KIDNEY AND URETER: No masses. No hydronephrosis. AORTA AND VESSELS: As above. Major arterial structures look patent. RETROPERITONEUM: No retroperitoneal adenopathy, hemorrhage or masses. BOWEL: Large amount of stool. No bowel obstruction suggested. ABDOMINAL WALL AND PERITONEUM: No hernias. No free fluid. BONES: No acute or significant findings. OTHER: No other significant finding. IMPRESSION: 1. Known pancreatic head mass. Peripancreatic edema without drainable collection. 2. Biliary stent now in place with pneumobilia. TECHNICAL DOCUMENTATION: JOB ID: [id number] [employer]- All Rights Reserved Reading location - IP/workstation name: [email or web address]
--- NOTE | 2019-07-26 11:14 | RADIOLOGY REPORT (SQ) ---
EXAM DESCRIPTION: PET CT SKULL/THIGH COMPLETED DATE/TIME: 07/24/2019 9:12 pm REASON FOR STUDY: (C25.0)MALIGNANT NEOPLASM OF HEAD OF PANCREAS C25.0 MALIGNANT NEOPLASM OF HEAD OF PANCREAS COMPARISON: MRI abdomen 07/24/2019 CT abdomen pelvis 07/04/2019 RADIONUCLIDE AND DOSE: 10.5 mCi F18 FDG The route of agent administration: Intravenous FASTING BLOOD SUGAR: 79 mg/dl CONTRAST TYPE AND DOSE: No CT contrast given. TECHNIQUE: Blood glucose level was verified. Above dose of FDG was injected intravenously. 2-D seg mented attenuation correction images were obtained from the base of the skull to the midthighs. Nonc ontrast CT images were obtained for attenuation correction and fusion with emission images. CT image s were performed without oral or intravenous contrast and are not sensitive for parenchymal lesions. A series of overlapping emission PET images were obtained. Images reviewed and manipulated at [facility] work station by the radiologist. Images stored on PACS. LIMITATIONS: None. FINDINGS: HEAD AND NECK: No areas of abnormal metabolic activity in the soft tissues of the head and neck. CHEST: No areas of abnormal metabolic activity in the chest. ABDOMEN AND PELVIS: Patient has a biopsy proven adenocarcinoma of the pancreatic head. Along the diane carrie aspect of the pancreatic head spur hypermetabolic 3 x 2 cm mass is present with SUV of 10.0. No upper abdominal hypermetabolic lymph nodes along the celiac, SMA or para aortic region. Patency o f the splenic vein/portal vein cannot be commented on, on this non contrasted study. No hypermetabol ic liver lesions worrisome for liver metastatic disease. There is air in the biliary tree from commo n bile duct wall stent placement. PROXIMAL LOWER EXTREMITIES: No areas of abnormal metabolic activity in the soft tissues of the lower extremities. BONES: No abnormal metabolic activity in the visualized skeleton. ADDITIONAL CT FINDINGS: 1 cm nodule left lower pole thyroid. OTHER: Liver background activity 2.7 SUV. Blood pool background activity 2.1 SUV IMPRESSION: No PET-CT evidence of widespread metastatic disease. Hypermetabolic pancreatic head les ion, known biopsy-proven pancreatic adenocarcinoma TECHNICAL DOCUMENTATION: JOB ID: [id number] [employer]- All Rights Reserved Reading location - IP/workstation name: [email or web address]
== END ==
LOC: RAD 16:12
PROVIDERS: ATTEND Internal Medicine
DX: C25.0 Malignant neoplasm of head of pancreas (principal); E04.1 Nontoxic single thyroid nodule
CPT/HCPCS: 74183; 78815; A9576; A9552

== ENCOUNTER 2019-08-02 10:11 | Day surgery (SDC) | payer OTHER ==
[~2019-08-02 10:11] MED LIST: ACETAMINOPHEN 325 MG TABLET PO PRN; BUPIVACAINE HCL 0.25% /EPINEPHRINE INJ/PF 30 ML SDV ONE; CEFAZOLIN 1 GM/D5W RTU 1 GM/50 ML RTUPB IV ONE; CEFAZOLIN 1 GM/D5W RTU 1 GM/50 ML RTUPB IV PRN
[2019-08-02] MEDS ORDERED: ONDANSETRON HCL INJ/PF 4 MG/2 ML SDV ONE ×2 (11:23→12:25)
[2019-08-02] MEDS ORDERED: METOCLOPRAMIDE HCL INJ/PF 10 MG/2 ML SDV ONE (11:23)
[2019-08-02] MEDS ORDERED: MIDAZOLAM 2 MG/2 ML INJ ONE (12:25)
[2019-08-02] MEDS ORDERED: PROPOFOL INJ 200 MG/20 ML VIAL IV ONE (12:25)
[2019-08-02] MEDS ORDERED: FENTANYL CITRATE INJ/PF 100 MCG/2 ML AMPUL ONE (12:25)
[2019-08-02] MEDS ORDERED: FENTANYL CITRATE INJ/PF 100 MCG/2 ML AMPUL IV PRN ×3 (13:16)
[2019-08-02] MEDS ORDERED: MORPHINE SULFATE 10 MG/ML INJ IV PRN (13:16)
[2019-08-02] MEDS ORDERED: PROMETHAZINE HCL INJ 25 MG/1 ML VIAL IV PRN ×2 (13:16)
[2019-08-02] MEDS ORDERED: HEPARIN SOD (PORCINE) 100 UNIT/ML 1 ML VIAL IV ONE (13:23)
[2019-08-02] MEDS ORDERED: BUPIVACAINE HCL 0.25% /EPINEPHRINE INJ/PF 30 ML SDV INFIL ONE (13:23)
--- NOTE | 2019-08-02 14:09 | Operative Report ---
Nonrecallable Operative Report DATE OF SURGERY: 08/02/19 PREOPERATIVE DIAGNOSIS: pancreatic cancer POSTOPERATIVE DIAGNOSIS: pancreatic cancer OPERATION: portacath placement left chest SURGEON: EFFIE SEPULVEDA ANESTHESIA: Moderate Sedation TISSUE REMOVED OR ALTERED: none COMPLICATIONS: none ESTIMATED BLOOD LOSS: 0 INTRAOPERATIVE FINDINGS: see procedure note PROCEDURE: Patient was brought to the operating when awake alert stable condition placed in the upper table supine position given IV sedation for the procedure. After appropriate timeout and site verification a subclavian stick was made in the left subclavian site and the subclavian area with access. Through the 16-gauge needle the J-wire was placed and confirmed to lie in the superior vena cava on fluoroscopy. The needle was removed. The dilator introducer was passed over the wire into the subclavian vein and then superior vena cava. The dilator was removed. The Port-A-Cath catheter was then placed into the introducer and confirmed good position and the introducer was peeled away. A second incision was made on the left anterior chest wall after anesthetizing the skin with 1% lidocaine with epinephrine. Incision was approximately 4 cm long a subcutaneous pocket was then fashioned with Bovie cautery to allow for the port. The port easily fit into the pocket. Using the tunnel maker supplied with the kit it was attached to the catheter at the subclavian stick site and tunneled from that site to the Port-A-Cath pocket. The catheter was then attached to the port. It was then flushed with normal saline and withdrew well and confirmed good position using fluoroscopy. The subcutaneous tissue was then closed over the port with interrupted 3-0 Vicryl sutures and the skin was closed with intracuticular 4-0 Monocryl Steri- Strips completed the procedure estimated blood loss was negligible, sponge and needle counts were correct x2 Patient was transferred recovery in stable condition
--- NOTE | 2019-08-02 14:12 | Discharge Summary ---
Discharge Summary (SDC) - Discharge Final Diagnosis: Pancreatic cancer Date of Surgery: 08/02/19 Discharge Date: 08/02/19 Condition: Fair Forms: ASU Anesthesia D/C Instruction, Discharge POC-Surgical Service Referrals: EFFIE SEPULVEDA MD [ACTIVE STAFF] - 08/10/19 8:45 am Discharge Diet: As Tolerated Discharge Activity: Activity As Tolerated Report the Following to Your Physician Immediately: Increase in Pain - Patient is a follow-up with me in 1 to 2 weeks, Unusual Bleeding
--- NOTE | 2019-08-02 14:45 | RADIOLOGY REPORT (SQ) ---
EXAM DESCRIPTION: CHEST SINGLE VIEW COMPLETED DATE/TIME: 08/02/2019 2:32 pm REASON FOR STUDY: Post Port-A-Cath placement COMPARISON: 07/04/2019 NUMBER OF VIEWS: One view. TECHNIQUE: Single frontal radiographic view of the chest acquired. LIMITATIONS: None. FINDINGS: LUNGS AND PLEURA: No opacities, masses or pneumothorax. No pleural effusion. MEDIASTINUM AND HILAR STRUCTURES: No masses. Contour normal. HEART AND VASCULAR STRUCTURES: Heart normal in size. Normal vasculature. BONES: No acute findings. HARDWARE: Kjsgko-W-Amud is in place. Port overlies the left medial chest wall. Catheter tip overlie s the SVC. OTHER: No other significant finding. IMPRESSION: No acute findings following port placement. TECHNICAL DOCUMENTATION: JOB ID: [id number] [employer]- All Rights Reserved Reading location - IP/workstation name: [email or web address]
--- NOTE | 2019-08-02 14:53 | RADIOLOGY REPORT (SQ) ---
EXAM DESCRIPTION: FLUORO/CV PLACEMENT COMPLETED DATE/TIME: 08/02/2019 2:45 pm REASON FOR STUDY: PORTACATH PLCMT LEFT SIDE ASST WITH FLUORO IN OR C25.0 MALIGNANT NEOPLASM OF HEAD OF PANCREAS COMPARISON: 07/04/2019 FLUOROSCOPY TIME: 1.2 minutes Spot images saved to PACS. TECHNIQUE: Intra-operative images acquired during surgical procedure to evaluate progress. NUMBER OF IMAGES: 3 LIMITATIONS: None. FINDINGS: Fluoroscopy was provided for intraoperative procedure. Please refer to the operative repo rt for further discussion. IMPRESSION: IMAGE(S) OBTAINED DURING PROCEDURE. COMMENT: Quality ID [id number]: Final reports for procedures using fluoroscopy that document radiation exp osure indices, or exposure time and number of fluorographic images (if radiation exposure indices are not available) Please consult full operative report of the attending physician for description of the procedure. TECHNICAL DOCUMENTATION: JOB ID: [id number] [employer]- All Rights Reserved Reading location - IP/workstation name: [email or web address]
[2019-08-02 15:55] VITALS: BP 159/98
--- NOTE | 2019-08-02 20:56 | EKG REPORT ---
SEVERITY:- BORDERLINE ECG - SINUS RHYTHM LVH BY VOLTAGE BORDERLINE PROLONGED QT INTERVAL : Confirmed by: Gabby Maguire MD 02-Aug-2019 20:55:23
== END 2019-08-02 15:35 | disposition home or self-care (01) ==
LOC: OROUT 10:11
PROVIDERS: ATTEND Surgery
DX: C25.0 Malignant neoplasm of head of pancreas (principal); I10 Essential (primary) hypertension; E11.9 Type 2 diabetes mellitus without complications; Z88.2 Allergy status to sulfonamides; Z79.899 Other long term (current) drug therapy
CPT/HCPCS: 36561; 36415; 82962; 84132; 77001; 71045; 93005; 93010; C1788; J2250; J3490; J0690; J3010; J2765; J2405; J2704; J1642

== ENCOUNTER 2019-09-28 09:42 | Inpatient (IN) | payer OTHER ==
[2019-09-28] MEDS ORDERED: ACETAMINOPHEN 325 MG TABLET PO ONE (10:25)
[2019-09-28] MEDS ORDERED: VANCOMYCIN HCL INJ 1000 MG VIAL IV ONE (10:37)
[2019-09-28] MEDS ORDERED: CEFEPIME 2 GM/D5W RTU 2 GM/50 ML RTUPB IV ONE (10:37)
[2019-09-28] MEDS ORDERED: NORMAL SALINE IV ONE (10:39)
[2019-09-28] MEDS ORDERED: KETOROLAC TROMETHAMINE INJ/PF 30 MG/1 ML SDV IV ONE (10:39)
[2019-09-28 11:09] LABS: VENOUS BLOOD BASE EXCESS 1.6 mmol/L; VENOUS BLOOD HCO3 24.8 mmol/L (20-32); VENOUS BLOOD PCO2 34.5 mmHg (35-63); VENOUS BLOOD PH 7.47 (7.30-7.42)
[2019-09-28 11:12] LABS: HEMATOCRIT 23.9 % (36.0-47.0); HEMOGLOBIN 8.2 g/dL (12.0-15.5); MEAN CORPUSCULAR HEMOGLOBIN 32.3 pg (27.0-33.4); MEAN CORPUSCULAR HGB CONC 34.2 g/dL (32.0-36.0); MEAN CORPUSCULAR VOLUME 95 fl (80-97); RED BLOOD COUNT 2.52 10^6/uL (3.72-5.28); RED CELL DISTRIBUTION WIDTH 18.6 % (11.5-14.0)
[2019-09-28 11:13] LABS: INTERNATIONAL RATION (INR) 1.38
[2019-09-28] MEDS ORDERED: ONDANSETRON HCL INJ/PF 4 MG/2 ML SDV IV ONE (11:25)
[2019-09-28] MEDS ORDERED: HYDROMORPHONE HCL INJ/PF 2 MG/ML AMPULE IV ONE (11:25)
--- NOTE | 2019-09-28 11:28 | RADIOLOGY REPORT (SQ) ---
EXAM DESCRIPTION: CHEST SINGLE VIEW COMPLETED DATE/TIME: 09/28/2019 10:54 am REASON FOR STUDY: febrile, neutropenic COMPARISON: 08/02/2019 NUMBER OF VIEWS: One view. TECHNIQUE: Single frontal radiographic view of the chest acquired. LIMITATIONS: None. FINDINGS: LUNGS AND PLEURA: No opacities, masses or pneumothorax. No pleural effusion. MEDIASTINUM AND HILAR STRUCTURES: No masses. Contour normal. HEART AND VASCULAR STRUCTURES: Heart normal in size. Normal vasculature. BONES: No acute findings. HARDWARE: [id number] remains in place. OTHER: No other significant finding. IMPRESSION: NO SIGNIFICANT RADIOGRAPHIC FINDING IN THE CHEST. TECHNICAL DOCUMENTATION: JOB ID: [id number] [employer]- All Rights Reserved Reading location - IP/workstation name: [email or web address]
[2019-09-28 11:31] LABS: ALBUMIN 3.1 g/dL (3.5-5.0); ALKALINE PHOSPHATASE 72 U/L (38-126); ANION GAP 12 (5-19); ASPARTATE AMINO TRANSFERASE 43 U/L (14-36); BILIRUBIN,DIRECT 0.3 mg/dL (0.0-0.4); BILIRUBIN,TOTAL 0.8 mg/dL (0.2-1.3); BLOOD UREA NITROGEN 11 mg/dL (7-20); CALCIUM 8.5 mg/dL (8.4-10.2); CARBON DIOXIDE 23 mmol/L (22-30); CHLORIDE 103 mmol/L (98-107); GLUCOSE 105 mg/dL (75-110); TOTAL PROTEIN 6.5 g/dL (6.3-8.2)
[2019-09-28 11:40] LABS: PLATELET COUNT 93 10^3/uL (150-450); POTASSIUM 2.8 mmol/L (3.6-5.0); WHITE BLOOD COUNT 1.8 10^3/uL (4.0-10.5)
[2019-09-28 11:43] LABS: ABSOLUTE LYMPHOCYTES# (MANUAL) 0.3 10^3/uL (0.5-4.7); ABSOLUTE MONOCYTES # (MANUAL) 0.5 10^3/uL (0.1-1.4); BASOPHILS % (MANUAL) 0 % (0-2); EOSINOPHILS % (MANUAL) 0 % (0-6); LYMPHOCYTES % (MANUAL) 8 % (13-45); SEGMENTED NEUTROPHILS % (MAN) 58 % (42-78); TOTAL CELLS COUNTED 50
[2019-09-28 11:46] LABS: ANISOCYTOSIS 1+; POLYCHROMASIA 1+
[2019-09-28 11:47] LABS: MONOCYTES % (MANUAL) 28 % (3-13); PLATELET COMMENT DECREASED; PLATELET LARGE PRESENT
[2019-09-28 12:34] LABS: A TYPE INFLUENZA AG NEGATIVE (NEGATIVE); B INFLUENZA AG NEGATIVE (NEGATIVE)
[2019-09-28] MEDS ORDERED: POTASSIUM CHLORIDE 10 MEQ CAPSULE.ER PO ONE (14:24)
[2019-09-28] MEDS ORDERED: POTASSI CL 20 MEQ/50 ML RIDER 20 MEQ/50 ML RTUPB IV ONE (14:24)
--- NOTE | 2019-09-28 14:55 | ER Document Report ---
Entered by TIARRA TSANG SCRIBE 09/28/19 1038 Acting as scribe for:LEONIE PANIAGUA IV, MD ED Fever - General Chief Complaint: Fever Stated Complaint: FEVER Time Seen by Provider: 09/28/19 10:21 Mode of Arrival: Ambulatory Information source: Patient Notes: 59-year-old female with stage III pancreatic cancer on FOLFIRINOX chemotherapy for two weeks that presents to the emergency department today with complaints of fevers. Patient's oncologist, Dr. Benjamin called ahead with concerns for sepsis. Patient had a temperature of 104 in his office with a heart rate of 125. Patient complains of generalized body aches with associated chills. TRAVEL OUTSIDE OF THE [place] IN LAST 30 DAYS: No - Related Data Allergies/Adverse Reactions: hydroxyzine [From Atarax] Allergy (Verified 09/28/19 09:55) sulfamethoxazole [From Septra] Allergy (Verified 09/28/19 09:55) trimethoprim [From Septra] Allergy (Verified 09/28/19 09:55) Past Medical History - General Information source: Patient - Social History Smoking Status: Never Smoker Cigarette use (# per day): No Chew tobacco use (# tins/day): No Frequency of alcohol use: None Drug Abuse: None Lives with: Family Family History: Reviewed & Not Pertinent Patient has suicidal ideation: No Patient has homicidal ideation: No - Past Medical History Cardiac Medical History: Reports: Hx Hypertension Malignancy Medical History: Reports: Hx Pancreatic Cancer - Immunizations Hx Diphtheria, Pertussis, Tetanus Vaccination: No Review of Systems - Review of Systems Constitutional: See HPI, Fever EENT: No symptoms reported Cardiovascular: No symptoms reported Respiratory: No symptoms reported Gastrointestinal: No symptoms reported Genitourinary: No symptoms reported Female Genitourinary: No symptoms reported Musculoskeletal: No symptoms reported Skin: No symptoms reported Hematologic/Lymphatic: No symptoms reported Neurological/Psychological: No symptoms reported -: Yes All other systems reviewed and negative Physical Exam - Vital signs Vitals: Temp Pulse Resp BP Pulse Ox 103.0 F H 127 H 24 H 148/87 H 94 09/28/19 09:47 09/28/19 09:47 09/28/19 09:47 09/28/19 09:47 09/28/19 09:47 - Notes Notes: Physical Exam: General: Alert, chronically ill-appearing, uncomfortable. HEENT: Normocephalic. Atraumatic. PERRL. Extraocular movements intact. Oropharynx clear. Neck: Supple. Non-tender. Respiratory: No respiratory distress. Clear and equal breath sounds bilaterally. Port in left upper chest. Cardiovascular: Regular rate and rhythm. Abdominal: Normal Inspection. Non-tender. No distension. Normal Bowel Sounds. Back: No gross abnormalities. Extremities: Moves all four extremities. Upper extremities: Normal inspection. Normal ROM. Lower extremities: Normal inspection. No edema. Normal ROM. Neurological: Normal cognition. AAOx4. Normal speech. Psychological: Normal affect. Normal Mood. Skin: Hot to the touch. Dry. Normal color. Course - Vital Signs Vital signs: Temp Pulse Resp BP Pulse Ox 103.0 F H 127 H 20 139/81 H 94 09/28/19 09:47 09/28/19 09:47 09/28/19 15:01 09/28/19 15:01 09/28/19 15:01 - Laboratory Result Diagrams: 09/28/19 10:40 09/28/19 10:40 Laboratory results interpreted by me: 09/28/19 09/28/19 09/28/19 10:40 10:40 10:40 WBC 1.8 L RBC 2.52 L Hgb 8.2 L Hct 23.9 L RDW 18.6 H Plt Count 93 L Lymphocytes % (Manual) 8 L Monocytes % (Manual) 28 H Abs Neuts (Manual) 1.0 L Abs Lymphs (Manual) 0.3 L PT 17.0 H VBG pH VBG pCO2 Potassium 2.8 L* Est GFR (MDRD) Non-Af 57 L POC Glucose AST 43 H Albumin 3.1 L 09/28/19 09/28/19 10:40 10:56 WBC RBC Hgb Hct RDW Plt Count Lymphocytes % (Manual) Monocytes % (Manual) Abs Neuts (Manual) Abs Lymphs (Manual) PT VBG pH 7.47 H VBG pCO2 34.5 L Potassium Est GFR (MDRD) Non-Af POC Glucose 119 H AST Albumin - Consults DR. BENJAMIN Time consulted: 09:36 - DR. BENJAMIN SPOKE WITH THIS MD VIA PHONE TO INFORM THAT PT WAS COMING POV FROM HER OFFICE RE: FEVER, NEUTROPENIA, WEAKNESS, STAGE 3 PANCREATIC CA, ON CHEMO Reason for consultation: 09/28/19 14:35 DR. BENJAMIN REQUESTED PT BE INITIALLY SEEN AND WORK UP/TREATMENT BE STARTED IN ED THEN ADMIT TO HOSPITALIST SERVICE; STATED HE WILL SEE PT IN CONSULT Consulted provider: will see as inpatient DR. HAMPTON Time consulted: 14:54 Reason for consultation: 09/28/19 14:54 ADMISSION FOR FEVER, NEUTROPENIA, HYPOKALEMIA, CHEMO PT Consulted provider: will see as inpatient Discharge - Discharge Clinical Impression: Neutropenia, Sepsis, Hypokalemia Condition: Serious Disposition: ADMITTED INPATIENT Admitting Provider: [facility] Admitted: [facility] I personally performed the services described in the documentation, reviewed and edited the documentation which was dictated to the scribe in my presence, and it accurately records my words and actions.
[2019-09-28] MEDS ORDERED: TIGECYCLINE IV SCH (15:30)
[2019-09-28] MEDS ORDERED: NORMAL SALINE IV SCH (15:30)
[2019-09-28] MEDS ORDERED: LORAZEPAM 0.5 MG TABLET PO PRN (15:40)
[2019-09-28] MEDS ORDERED: (PENDING PHARMACY ID) (Sennosides [Senokot] 17.2 MG) PO SCH (15:45)
[2019-09-28 16:17] LABS: APPEARANCE,URINE SLIGHTLY-CLOUDY; BILIRUBIN,URINE NEGATIVE (NEGATIVE); COLOR,URINE YELLOW; GLUCOSE, URINE 50 mg/dL (NEGATIVE); KETONES,URINE TRACE mg/dL (NEGATIVE); PROTEIN,URINE 30 mg/dL (NEGATIVE); URINE SPECIFIC GRAVITY 1.015; UROBILINOGEN,URINE NEGATIVE mg/dL (<2.0)
[2019-09-28 16:23] LABS: AMYLASE 36 U/L (30-110); ANION GAP 10 (5-19); BLOOD UREA NITROGEN 12 mg/dL (7-20); CALCIUM 7.6 mg/dL (8.4-10.2); CARBON DIOXIDE 21 mmol/L (22-30); CHLORIDE 106 mmol/L (98-107); GLUCOSE 117 mg/dL (75-110); PHOSPHORUS 3.4 mg/dL (2.5-4.5); POTASSIUM 3.1 mmol/L (3.6-5.0)
[2019-09-28 16:31] LABS: URINE AMPHETAMINES SCREEN NEGATIVE; URINE BARBITURATES SCREEN NEGATIVE; URINE BENZODIAZEPINES SCREEN NEGATIVE; URINE COCAINE SCREEN NEGATIVE; URINE METHADONE SCREEN NEGATIVE; URINE PHENCYCLIDINE SCREEN NEGATIVE
[2019-09-28 16:33] LABS: URINE MARIJUANA (THC) SCREEN UNCONFIRMED POSITIVE
[2019-09-28 16:41] LABS: INTERNATIONAL RATION (INR) 1.55; PROTHROMBIN TIME 18.8 SEC (11.4-15.4)
[2019-09-28 16:42] LABS: PARTIAL THROMBOPLASTIN TIME 37.7 SEC (23.5-35.8)
[2019-09-28 16:50] LABS: TROPONIN I 0.015 ng/mL
[2019-09-28 16:55] LABS: FREE T4 (FREE THYROXINE) 1.75 ng/dL (0.78-2.19)
[2019-09-28 16:57] LABS: CREATINE KINASE MB < 0.22 ng/mL (<4.55)
[2019-09-28 17:12] LABS: THYROID STIMULATING HORMONE < 0.01 uIU/mL (0.47-4.68)
[2019-09-28] MEDS ORDERED: PIPERACILLIN SODIUM/TAZOBACTAM 3.375 GM in NORMAL SALINE 100 ML IV SCH (18:00)
[2019-09-28] MEDS ORDERED: OXYCODONE HCL SR 10 MG TABLET PO SCH (18:00)
[2019-09-28] MEDS ORDERED: PROMETHAZINE HCL 25 MG TABLET PO SCH (18:00)
[2019-09-28] MEDS: DOCUSATE SODIUM 100 MG CAPSULE PO SCH (18:04)
[2019-09-28] MEDS: CEFEPIME 2 GM/D5W RTU 2 GM/50 ML RTUPB IV SCH (18:06)
[2019-09-28] MEDS: NORMAL SALINE 1000 ML 1,000 ML IV PRN (18:06)
--- NOTE | 2019-09-28 22:20 | PDOC H&P ---
History of Present Illness Admission Date/PCP: 09/28/19 15:11 ROZ HAMPTON MD History of Present Illness: DICKSON PANIAGUA is a 59 year old female, she has malignant neoplasm of the head of the pancreas on neoadjuvant chemotherapy, on active chemotherapy, she was at the oncologist office, Dr. Benjamin, she was referred to the emergency room because she had a high fever with temperature of 104 associated with pancytopenia. The white blood cell count was 1.8, absolute neutrophil count was 1000, there is no focal source of infection, because she is neutropenic associated with chemotherapy and fever, she was referred for inpatient care. Past Medical History Cardiac Medical History: Reports: Hypertension Malignancy Medical History: Reports: Pancreatic Cancer Social History Lives with: Family Smoking Status: Never Smoker Electronic Cigarette use?: No Frequency of Alcohol Use: None Hx Recreational Drug Use: Yes Drugs: Marijuana Hx Prescription Drug Abuse: No - Advance Directive Resuscitation Status: Full Code Family History Family History: Reviewed & Not Pertinent Parental Family History Reviewed: Yes Children Family History Reviewed: Yes Sibling(s) Family History Reviewed.: Yes Medication/Allergy Home Medications: Hydrochlorothiazide [Hydrodiuril 12.5 mg Tablet] 12.5 mg PO DAILY 09/28/19 Linaclotide [Linzess 145 Mcg Capsule] 145 mcg PO DAILY 09/28/19 Lorazepam [Ativan 0.5 mg Tablet] 0.52 mg PO Q6HP PRN 09/28/19 Metoclopramide HCl [Reglan 10 mg Tablet] 5 mg PO MEALS 09/28/19 Oxycodone HCl [Oxy-Ir 5 mg Tablet] 10 mg PO 5XDP PRN 09/28/19 Oxycodone HCl [Oxycodone HCl ER] 20 mg PO Q12 09/28/19 Potassium Chloride [Klor-Con M20] 20 meq PO BID 09/28/19 Promethazine HCl [Phenergan 25 mg Tablet] 25 mg PO Q6HP PRN 09/28/19 Valsartan [Diovan] 320 mg PO DAILY 09/28/19 Allergies/Adverse Reactions: hydroxyzine [From Atarax] Allergy (Verified 09/28/19 09:55) sulfamethoxazole [From Septra] Allergy (Verified 09/28/19 09:55) trimethoprim [From Septra] Allergy (Verified 09/28/19 09:55) Review of Systems Constitutional: PRESENT: fever(s) Eyes: ABSENT: visual disturbances Ears: ABSENT: hearing changes Cardiovascular: ABSENT: chest pain, dyspnea on exertion, edema, orthropnea, palpitations Respiratory: ABSENT: cough, hemoptysis Gastrointestinal: ABSENT: abdominal pain, constipation, diarrhea, hematemesis, hematochezia, nausea, vomiting Genitourinary: ABSENT: dysuria, hematuria Musculoskeletal: ABSENT: joint swelling Integumentary: ABSENT: rash, wounds Neurological: ABSENT: abnormal gait, abnormal speech, confusion, dizziness, focal weakness, syncope Psychiatric: ABSENT: anxiety, depression, homidical ideation, suicidal ideation Endocrine: ABSENT: cold intolerance, heat intolerance, menstrual abnormalities, polydipsia, polyuria Hematologic/Lymphatic: ABSENT: easy bleeding, easy bruising, lymphadenopathy Physical Exam Vital Signs: Temp Pulse Resp BP Pulse Ox 99.1 F 96 20 134/75 H 97 09/28/19 19:58 09/28/19 19:58 09/28/19 19:58 09/28/19 19:58 09/28/19 19:58 Intake & Output 09/27/19 09/28/19 09/29/19 06:59 06:59 06:59 Intake Total 2039 Balance 2039 Weight 66.3 kg General appearance: PRESENT: no acute distress, well-developed, well-nourished Head exam: PRESENT: atraumatic, normocephalic Eye exam: PRESENT: conjunctiva pink, EOMI, PERRLA Ear exam: PRESENT: normal external ear exam Mouth exam: PRESENT: moist, tongue midline Neck exam: PRESENT: full ROM Respiratory exam: PRESENT: clear to auscultation anoop Cardiovascular exam: PRESENT: RRR, +S1, +S2 Pulses: PRESENT: normal dorsalis pedis pul, +2 pedal pulses bilateral Vascular exam: PRESENT: normal capillary refill GI/Abdominal exam: PRESENT: normal bowel sounds, soft Rectal exam: PRESENT: deferred Neurological exam: PRESENT: alert, awake, oriented to person, oriented to place, oriented to time, oriented to situation, CN II-XII grossly intact Psychiatric exam: PRESENT: appropriate affect, normal mood Skin exam: PRESENT: dry, intact, warm Results Laboratory Results: 09/28/19 10:40 09/28/19 15:45 09/28/19 09/28/19 09/28/19 10:40 10:40 10:40 WBC 1.8 L RBC 2.52 L Hgb 8.2 L Hct 23.9 L MCV 95 MCH 32.3 MCHC 34.2 RDW 18.6 H Plt Count 93 L Seg Neutrophils % Not Reportable VBG pH VBG pCO2 VBG HCO3 VBG Base Excess Sodium 137.6 Potassium 2.8 L* Chloride 103 Carbon Dioxide 23 Anion Gap 12 BUN 11 Creatinine 1.00 Est GFR ( Amer) > 60 Glucose 105 Lactic Acid 1.2 Calcium 8.5 Phosphorus Magnesium Total Bilirubin 0.8 AST 43 H Alkaline Phosphatase 72 Ammonia Total Protein 6.5 Albumin 3.1 L Amylase Lipase TSH Free T4 Urine Color Urine Appearance Urine pH Ur Specific [place] Urine Protein Urine Glucose (UA) Urine Ketones Urine Blood Urine Nitrite Ur Leukocyte Esterase Urine WBC (Auto) Urine RBC (Auto) 09/28/19 09/28/19 09/28/19 10:40 15:40 15:45 WBC RBC Hgb Hct MCV MCH MCHC RDW Plt Count Seg Neutrophils % VBG pH 7.47 H VBG pCO2 34.5 L VBG HCO3 24.8 VBG Base Excess 1.6 Sodium 137.4 Potassium 3.1 L Chloride 106 Carbon Dioxide 21 L Anion Gap 10 BUN 12 Creatinine 0.96 Est GFR ( Amer) > 60 Glucose 117 H Lactic Acid Calcium 7.6 L Phosphorus 3.4 Magnesium 1.4 L Total Bilirubin AST Alkaline Phosphatase Ammonia Total Protein Albumin Amylase 36 Lipase 171.1 TSH Free T4 Urine Color YELLOW Urine Appearance SLIGHTLY-CLOUDY Urine pH 6.0 Ur Specific [place] 1.015 Urine Protein 30 H Urine Glucose (UA) 50 H Urine Ketones TRACE H Urine Blood NEGATIVE Urine Nitrite Ur Leukocyte Esterase Urine WBC (Auto) Urine RBC (Auto) 4 09/28/19 09/28/19 09/28/19 15:45 15:45 15:45 WBC RBC Hgb Hct MCV MCH MCHC RDW Plt Count Seg Neutrophils % VBG pH VBG pCO2 VBG HCO3 VBG Base Excess Sodium Potassium Chloride Carbon Dioxide Anion Gap BUN Creatinine Est GFR ( Amer) Glucose Lactic Acid Calcium Phosphorus Magnesium Total Bilirubin AST Alkaline Phosphatase Ammonia < 8.7 L Total Protein Albumin Amylase Lipase TSH < 0.01 L Free T4 1.75 Urine Color Cancelled Urine Appearance Cancelled Urine pH Cancelled Ur Specific [place] Cancelled Urine Protein Cancelled Urine Glucose (UA) Cancelled Urine Ketones Cancelled Urine Blood Cancelled Urine Nitrite Cancelled Ur Leukocyte Esterase Cancelled Urine WBC (Auto) Cancelled Urine RBC (Auto) Cancelled 09/28/19 09/28/19 09/28/19 10:40 15:45 15:45 Creatine Kinase 33 CK-MB (CK-2) Troponin I 0.018 NT-Pro-B Natriuret Pep 1820 H 09/28/19 09/28/19 15:45 21:37 Creatine Kinase 32 CK-MB (CK-2) < 0.22 Troponin I 0.015 NT-Pro-B Natriuret Pep Impressions: Chest X-Ray 09/28/19 10:41 IMPRESSION: NO SIGNIFICANT RADIOGRAPHIC FINDING IN THE CHEST. Assessment & Plan - Diagnosis (1) Neutropenic fever Is this a current diagnosis for this admission?: Yes Plan: She does not have absolute neutropenia defined as neutrophil below 500 but she has neutropenic fever, empirically on IV antibiotic ceftriaxone and vancomycin. There is no evidence of sepsis yet (2) Pancytopenia due to chemotherapy Is this a current diagnosis for this admission?: Yes (3) Adenocarcinoma of head of pancreas Is this a current diagnosis for this admission?: Yes Plan: Per oncology (4) Essential (primary) hypertension Is this a current diagnosis for this admission?: Yes
[2019-09-28 22:21] LABS: CREATINE KINASE MB < 0.22 ng/mL (<4.55); TROPONIN I < 0.012 ng/mL
[2019-09-28] MEDS: OXYCODONE HCL SR 10 MG TABLET PO SCH (22:59)
[2019-09-28] MEDS: PROMETHAZINE HCL INJ 25 MG/1 ML VIAL IV SCH (23:00)
[2019-09-28] MEDS: ONDANSETRON HCL INJ/PF 4 MG/2 ML SDV IV SCH (23:00)
[2019-09-28] MEDS: METOCLOPRAMIDE HCL INJ/PF 10 MG/2 ML SDV IV SCH (23:01)
--- NOTE | 2019-09-28 23:59 | EKG REPORT ---
SEVERITY:- OTHERWISE NORMAL ECG - SINUS TACHYCARDIA : Confirmed by: Allan Johnson 28-Sep-2019 23:58:44
[2019-09-29] MEDS: CEFEPIME 2 GM/D5W RTU 2 GM/50 ML RTUPB IV SCH ×3 (01:05→17:03)
[2019-09-29] MEDS: NORMAL SALINE 1000 ML 1,000 ML IV PRN (01:07)
[2019-09-29 05:58] LABS: HEMATOCRIT 22.3 % (36.0-47.0); MEAN CORPUSCULAR HEMOGLOBIN 32.6 pg (27.0-33.4); MEAN CORPUSCULAR HGB CONC 34.2 g/dL (32.0-36.0); MEAN CORPUSCULAR VOLUME 95 fl (80-97); RED BLOOD COUNT 2.34 10^6/uL (3.72-5.28); RED CELL DISTRIBUTION WIDTH 18.4 % (11.5-14.0)
[2019-09-29 06:04] LABS: PLATELET COUNT 86 10^3/uL (150-450)
[2019-09-29 06:24] LABS: ALBUMIN 2.7 g/dL (3.5-5.0); ALKALINE PHOSPHATASE 62 U/L (38-126); ASPARTATE AMINO TRANSFERASE 37 U/L (14-36); BILIRUBIN,DIRECT 0.3 mg/dL (0.0-0.4); BILIRUBIN,TOTAL 0.7 mg/dL (0.2-1.3); CHOLESTEROL 112.79 mg/dL (0-200); TRIGLYCERIDES 108 mg/dL (<150)
[2019-09-29 06:35] LABS: DIRECT LDL 48 mg/dL (<100)
[2019-09-29 06:37] LABS: ABSOLUTE MONOCYTES # (MANUAL) 1.1 10^3/uL (0.1-1.4); BAND NEUTROPHILS % (MANUAL) 2 % (3-5); BASOPHILS % (MANUAL) 1 % (0-2); EOSINOPHILS % (MANUAL) 0 % (0-6); LYMPHOCYTES % (MANUAL) 33 % (13-45); MONOCYTES % (MANUAL) 35 % (3-13); SEGMENTED NEUTROPHILS % (MAN) 29 % (42-78); TOTAL CELLS COUNTED 100
[2019-09-29 06:39] LABS: ANISOCYTOSIS 2+; PLATELET COMMENT DECREASED; POLYCHROMASIA SLIGHT; TOXIC VACUOLATION PRESENT
[2019-09-29 06:40] LABS: CREATINE KINASE MB < 0.22 ng/mL (<4.55); TROPONIN I < 0.012 ng/mL
[2019-09-29 06:41] LABS: HEMOGLOBIN 7.6 g/dL (12.0-15.5)
--- NOTE | 2019-09-29 07:59 | PDOC CONSULTATION ---
Consultation Consult Date: 09/29/19 Provider Consulted: ADELSO BENJAMIN Consult reason:: Hematology/Oncology consultation was requested for patient on active chemo for pancreatic cancer who presented with neutropenic fever. History of Present Illness Admission Date/PCP: 09/28/19 15:11 ROZ HAMPTON MD History of Present Illness: DICKSON PANIAGUA is a 59 year old female who was diagnosed with pancreatic cancer in Jun of this year after obstructive jaundice. Stent was placed, but surgical resection was not possible. She was started on valentin-adjuvant chemotherapy with FOLFOX9/09/2019. Most recent dose was cycle #4 on 09/14/2019. She presented to the office yesterday with fevers and chills and was sent to ED with concerns for neutropenic sepsis. She was found to have ANC of 1.0 and temp of 103.0. She was started on Cefapime and Vanc and cultures are now pending. Today, patient states that she is feeling better. No specific complaints. Breathing well. Pain controlled with meds. Nausea controlled with meds. Poor appetite, some increased mucus production with cough. Past Medical History Cardiac Medical History: Reports: Hypertension Denies: Coronary Artery Disease, Myocardial Infarction Pulmonary Medical History: Denies: Asthma, Bronchitis, Chronic Obstructive Pulmonary Disease (COPD), Pneumonia Neurological Medical History: Denies: Seizures Malignancy Medical History: Reports: Pancreatic Cancer Musculoskeltal Medical History: Denies: Arthritis Skin Medical History: Reports: Other - vitiligo Hematology: Denies: Anemia - BORDERLINE Past Surgical History Past Surgical History: Reports: Other - ERCP with biliary stent placement Social History Lives with: Family Smoking Status: Never Smoker Electronic Cigarette use?: No Frequency of Alcohol Use: None Hx Recreational Drug Use: Yes Drugs: Marijuana Hx Prescription Drug Abuse: No Past Social History Note: . 3 kids. - Advance Directive Resuscitation Status: Full Code Family History Family History: Reviewed & Not Pertinent Parental Family History Reviewed: Yes - Mother with lung cancer. Children Family History Reviewed: No Sibling(s) Family History Reviewed.: Yes - Brother and sister with cancers Medication/Allergy Home Medications: Hydrochlorothiazide [Hydrodiuril 12.5 mg Tablet] 12.5 mg PO DAILY 09/28/19 Linaclotide [Linzess 145 Mcg Capsule] 145 mcg PO DAILY 09/28/19 Lorazepam [Ativan 0.5 mg Tablet] 0.52 mg PO Q6HP PRN 09/28/19 Metoclopramide HCl [Reglan 10 mg Tablet] 5 mg PO MEALS 09/28/19 Oxycodone HCl [Oxy-Ir 5 mg Tablet] 10 mg PO 5XDP PRN 09/28/19 Oxycodone HCl [Oxycodone HCl ER] 20 mg PO Q12 09/28/19 Potassium Chloride [Klor-Con M20] 20 meq PO BID 09/28/19 Promethazine HCl [Phenergan 25 mg Tablet] 25 mg PO Q6HP PRN 09/28/19 Valsartan [Diovan] 320 mg PO DAILY 09/28/19 Allergies/Adverse Reactions: hydroxyzine [From Atarax] Allergy (Verified 09/28/19 09:55) sulfamethoxazole [From Septra] Allergy (Verified 09/28/19 09:55) trimethoprim [From Septra] Allergy (Verified 09/28/19 09:55) Review of Systems Constitutional: PRESENT: fever(s), headache(s) Eyes: ABSENT: visual disturbances Ears: ABSENT: hearing changes Nose, Mouth, and Throat: ABSENT: sore throat Cardiovascular: ABSENT: chest pain Respiratory: PRESENT: as per HPI Gastrointestinal: PRESENT: nausea Genitourinary: ABSENT: dysuria Integumentary: ABSENT: rash Neurological: PRESENT: weakness. ABSENT: confusion Hematologic/Lymphatic: ABSENT: easy bleeding Physical Exam Vital Signs: Temp Pulse Resp BP Pulse Ox 100.4 F 96 20 152/82 H 95 09/29/19 03:30 09/29/19 03:30 09/29/19 03:30 09/29/19 03:30 09/29/19 03:30 Intake & Output 09/28/19 09/29/19 09/30/19 06:59 06:59 06:59 Intake Total 3254 Balance 3254 Weight 69.5 kg General appearance: PRESENT: no acute distress, well-developed, well-nourished Exam: 59 tear old female with vitiligo. Head exam: PRESENT: normocephalic Eye exam: PRESENT: EOMI Mouth exam: PRESENT: tongue midline Neck exam: ABSENT: lymphadenopathy, tenderness Respiratory exam: PRESENT: clear to auscultation anoop, unlabored Cardiovascular exam: PRESENT: RRR GI/Abdominal exam: PRESENT: soft. ABSENT: tenderness Extremities exam: ABSENT: pedal edema Musculoskeletal exam: PRESENT: normal inspection Neurological exam: PRESENT: alert, awake Psychiatric exam: PRESENT: appropriate affect Skin exam: PRESENT: other - vitiligo Results Laboratory Results: 09/29/19 04:37 09/28/19 15:45 09/28/19 09/28/19 09/28/19 10:40 10:40 10:40 WBC 1.8 L RBC 2.52 L Hgb 8.2 L Hct 23.9 L MCV 95 MCH 32.3 MCHC 34.2 RDW 18.6 H Plt Count 93 L Seg Neutrophils % Not Reportable VBG pH VBG pCO2 VBG HCO3 VBG Base Excess Sodium 137.6 Potassium 2.8 L* Chloride 103 Carbon Dioxide 23 Anion Gap 12 BUN 11 Creatinine 1.00 Est GFR ( Amer) > 60 Glucose 105 Lactic Acid 1.2 Calcium 8.5 Phosphorus Magnesium Total Bilirubin 0.8 AST 43 H Alkaline Phosphatase 72 Ammonia Total Protein 6.5 Albumin 3.1 L Triglycerides Cholesterol LDL Cholesterol Direct VLDL Cholesterol HDL Cholesterol Amylase Lipase TSH Free T4 Urine Color Urine Appearance Urine pH Ur Specific [place] Urine Protein Urine Glucose (UA) Urine Ketones Urine Blood Urine Nitrite Ur Leukocyte Esterase Urine WBC (Auto) Urine RBC (Auto) 09/28/19 09/28/19 09/28/19 10:40 15:40 15:45 WBC RBC Hgb Hct MCV MCH MCHC RDW Plt Count Seg Neutrophils % VBG pH 7.47 H VBG pCO2 34.5 L VBG HCO3 24.8 VBG Base Excess 1.6 Sodium 137.4 Potassium 3.1 L Chloride 106 Carbon Dioxide 21 L Anion Gap 10 BUN 12 Creatinine 0.96 Est GFR ( Amer) > 60 Glucose 117 H Lactic Acid Calcium 7.6 L Phosphorus 3.4 Magnesium 1.4 L Total Bilirubin AST Alkaline Phosphatase Ammonia Total Protein Albumin Triglycerides Cholesterol LDL Cholesterol Direct VLDL Cholesterol HDL Cholesterol Amylase 36 Lipase 171.1 TSH Free T4 Urine Color YELLOW Urine Appearance SLIGHTLY-CLOUDY Urine pH 6.0 Ur Specific [place] 1.015 Urine Protein 30 H Urine Glucose (UA) 50 H Urine Ketones TRACE H Urine Blood NEGATIVE Urine Nitrite Ur Leukocyte Esterase Urine WBC (Auto) Urine RBC (Auto) 4 09/28/19 09/28/19 09/28/19 15:45 15:45 15:45 WBC RBC Hgb Hct MCV MCH MCHC RDW Plt Count Seg Neutrophils % VBG pH VBG pCO2 VBG HCO3 VBG Base Excess Sodium Potassium Chloride Carbon Dioxide Anion Gap BUN Creatinine Est GFR ( Amer) Glucose Lactic Acid Calcium Phosphorus Magnesium Total Bilirubin AST Alkaline Phosphatase Ammonia < 8.7 L Total Protein Albumin Triglycerides Cholesterol LDL Cholesterol Direct VLDL Cholesterol HDL Cholesterol Amylase Lipase TSH < 0.01 L Free T4 1.75 Urine Color Cancelled Urine Appearance Cancelled Urine pH Cancelled Ur Specific [place] Cancelled Urine Protein Cancelled Urine Glucose (UA) Cancelled Urine Ketones Cancelled Urine Blood Cancelled Urine Nitrite Cancelled Ur Leukocyte Esterase Cancelled Urine WBC (Auto) Cancelled Urine RBC (Auto) Cancelled 09/29/19 09/29/19 04:37 04:37 WBC 3.0 L RBC 2.34 L Hgb 7.6 L Hct 22.3 L MCV 95 MCH 32.6 MCHC 34.2 RDW 18.4 H Plt Count 86 L Seg Neutrophils % Not Reportable VBG pH VBG pCO2 VBG HCO3 VBG Base Excess Sodium Potassium Chloride Carbon Dioxide Anion Gap BUN Creatinine Est GFR ( Amer) Glucose Lactic Acid Calcium Phosphorus Magnesium Total Bilirubin 0.7 AST 37 H Alkaline Phosphatase 62 Ammonia Total Protein 6.0 L Albumin 2.7 L Triglycerides 108 Cholesterol 112.79 LDL Cholesterol Direct 48 VLDL Cholesterol 22.0 HDL Cholesterol 35 L Amylase Lipase TSH Free T4 Urine Color Urine Appearance Urine pH Ur Specific [place] Urine Protein Urine Glucose (UA) Urine Ketones Urine Blood Urine Nitrite Ur Leukocyte Esterase Urine WBC (Auto) Urine RBC (Auto) 09/28/19 09/28/19 09/28/19 10:40 15:45 15:45 Creatine Kinase 33 CK-MB (CK-2) Troponin I 0.018 NT-Pro-B Natriuret Pep 1820 H 09/28/19 09/28/19 09/28/19 15:45 21:37 21:37 Creatine Kinase 32 CK-MB (CK-2) < 0.22 < 0.22 Troponin I 0.015 < 0.012 NT-Pro-B Natriuret Pep 09/29/19 09/29/19 04:37 04:37 Creatine Kinase 30 CK-MB (CK-2) < 0.22 Troponin I < 0.012 NT-Pro-B Natriuret Pep Impressions: Chest X-Ray 09/28/19 10:41 IMPRESSION: NO SIGNIFICANT RADIOGRAPHIC FINDING IN THE CHEST. Assessment & Plan - Diagnosis (1) Neutropenia Qualifiers: Neutropenia type: secondary to cancer chemotherapy Qualified Code(s): D70.1 - Agranulocytosis secondary to cancer chemotherapy; T45.1X5A - Adverse effect of antineoplastic and immunosuppressive drugs, initial encounter Is this a current diagnosis for this admission?: Yes Plan: This should resolve within 24-48 hours. However, I believe she would do better overall with a few doses of G-CSF. I will start today and continue until ANC >1.0. Hopefully only 1-2 doses needed. (2) Sepsis Qualifiers: Sepsis type: sepsis due to unspecified organism Is this a current diagnosis for this admission?: Yes Plan: With neutropenia. She will continue Cefapime and Vanc. Await cultures. (3) Adenocarcinoma of head of pancreas Is this a current diagnosis for this admission?: Yes Plan: FOLFOX chemotherapy currently on hold. - Plan Summary Plan Summary: All questions answered. Dr. Benjamin will return tomorrow. Please call with any questions or concerns. Will continue her home pain and nausea regimen. Will offer blood transfusion to the patient, as this may help her overall fatigue.
[2019-09-29] MEDS: ONDANSETRON HCL INJ/PF 4 MG/2 ML SDV IV SCH ×3 (08:28→22:54)
[2019-09-29] MEDS: PROMETHAZINE HCL INJ 25 MG/1 ML VIAL IV SCH ×3 (08:28→22:54)
[2019-09-29] MEDS: METOCLOPRAMIDE HCL INJ/PF 10 MG/2 ML SDV IV SCH ×3 (08:28→22:54)
[2019-09-29] MEDS: DOCUSATE SODIUM 100 MG CAPSULE PO SCH (09:33)
[2019-09-29] MEDS: VANCOMYCIN HCL 1,250 MG in DEXTROSE 5%-WATER 250 ML IV SCH (11:25)
[2019-09-29] MEDS: OXYCODONE HCL SR 10 MG TABLET PO SCH ×2 (11:25→22:54)
--- NOTE | 2019-09-29 13:02 | PDOC PROGRESS REPORT ---
Subjective Progress Note for:: 09/29/19 Subjective:: Patient seen by the bedside, she has no fevers, the white blood cell is 3000 today Reason For Visit: PANCYTOPENIA,FEVER,MALIGNANT NEOPLASM OF THE HEAD Physical Exam Vital Signs: Temp Pulse Resp BP Pulse Ox 98.3 F 90 16 141/84 H 100 09/29/19 07:56 09/29/19 07:56 09/29/19 07:56 09/29/19 07:56 09/29/19 07:56 Intake & Output 09/28/19 09/29/19 09/30/19 06:59 06:59 06:59 Intake Total 3254 Balance 3254 Weight 69.5 kg General appearance: PRESENT: no acute distress Eye exam: PRESENT: PERRLA Respiratory exam: PRESENT: clear to auscultation anoop Cardiovascular exam: PRESENT: +S1, +S2 GI/Abdominal exam: PRESENT: soft Neurological exam: PRESENT: alert, CN II-XII grossly intact Results Laboratory Results: 09/29/19 04:37 09/28/19 15:45 09/28/19 09/28/19 09/28/19 15:40 15:45 15:45 WBC RBC Hgb Hct MCV MCH MCHC RDW Plt Count Seg Neutrophils % Sodium 137.4 Potassium 3.1 L Chloride 106 Carbon Dioxide 21 L Anion Gap 10 BUN 12 Creatinine 0.96 Est GFR ( Amer) > 60 Glucose 117 H Calcium 7.6 L Phosphorus 3.4 Magnesium 1.4 L Total Bilirubin AST Alkaline Phosphatase Ammonia Total Protein Albumin Triglycerides Cholesterol LDL Cholesterol Direct VLDL Cholesterol HDL Cholesterol Amylase 36 Lipase 171.1 TSH < 0.01 L Free T4 1.75 Urine Color YELLOW Urine Appearance SLIGHTLY-CLOUDY Urine pH 6.0 Ur Specific [place] 1.015 Urine Protein 30 H Urine Glucose (UA) 50 H Urine Ketones TRACE H Urine Blood NEGATIVE Urine Nitrite Ur Leukocyte Esterase Urine WBC (Auto) Urine RBC (Auto) 4 Blood Type Antibody Screen 09/28/19 09/28/19 09/29/19 15:45 15:45 04:37 WBC 3.0 L RBC 2.34 L Hgb 7.6 L Hct 22.3 L MCV 95 MCH 32.6 MCHC 34.2 RDW 18.4 H Plt Count 86 L Seg Neutrophils % Not Reportable Sodium Potassium Chloride Carbon Dioxide Anion Gap BUN Creatinine Est GFR ( Amer) Glucose Calcium Phosphorus Magnesium Total Bilirubin AST Alkaline Phosphatase Ammonia < 8.7 L Total Protein Albumin Triglycerides Cholesterol LDL Cholesterol Direct VLDL Cholesterol HDL Cholesterol Amylase Lipase TSH Free T4 Urine Color Cancelled Urine Appearance Cancelled Urine pH Cancelled Ur Specific [place] Cancelled Urine Protein Cancelled Urine Glucose (UA) Cancelled Urine Ketones Cancelled Urine Blood Cancelled Urine Nitrite Cancelled Ur Leukocyte Esterase Cancelled Urine WBC (Auto) Cancelled Urine RBC (Auto) Cancelled Blood Type Antibody Screen 09/29/19 09/29/19 04:37 10:10 WBC RBC Hgb Hct MCV MCH MCHC RDW Plt Count Seg Neutrophils % Sodium Potassium Chloride Carbon Dioxide Anion Gap BUN Creatinine Est GFR ( Amer) Glucose Calcium Phosphorus Magnesium Total Bilirubin 0.7 AST 37 H Alkaline Phosphatase 62 Ammonia Total Protein 6.0 L Albumin 2.7 L Triglycerides 108 Cholesterol 112.79 LDL Cholesterol Direct 48 VLDL Cholesterol 22.0 HDL Cholesterol 35 L Amylase Lipase TSH Free T4 Urine Color Urine Appearance Urine pH Ur Specific [place] Urine Protein Urine Glucose (UA) Urine Ketones Urine Blood Urine Nitrite Ur Leukocyte Esterase Urine WBC (Auto) Urine RBC (Auto) Blood Type A POSITIVE Antibody Screen NEGATIVE 09/28/19 09/28/19 09/28/19 10:40 15:45 15:45 Creatine Kinase 33 CK-MB (CK-2) Troponin I 0.018 NT-Pro-B Natriuret Pep 1820 H 09/28/19 09/28/19 09/28/19 15:45 21:37 21:37 Creatine Kinase 32 CK-MB (CK-2) < 0.22 < 0.22 Troponin I 0.015 < 0.012 NT-Pro-B Natriuret Pep 09/29/19 09/29/19 04:37 04:37 Creatine Kinase 30 CK-MB (CK-2) < 0.22 Troponin I < 0.012 NT-Pro-B Natriuret Pep Impressions: Chest X-Ray 09/28/19 10:41 IMPRESSION: NO SIGNIFICANT RADIOGRAPHIC FINDING IN THE CHEST. Assessment & Plan - Diagnosis (1) Neutropenic fever Is this a current diagnosis for this admission?: Yes Plan: Continue empiric treatment (2) Pancytopenia due to chemotherapy Is this a current diagnosis for this admission?: Yes (3) Adenocarcinoma of head of pancreas Is this a current diagnosis for this admission?: Yes Plan: Per oncology (4) Essential (primary) hypertension Is this a current diagnosis for this admission?: Yes - Time Time Spent with patient: 25-34 minutes
[2019-09-29 13:27] LABS: PATH REVIEW PATHOLOGIST REVIEWED
[2019-09-30] MEDS: CEFEPIME 2 GM/D5W RTU 2 GM/50 ML RTUPB IV SCH ×3 (01:51→18:37)
[2019-09-30 04:40] LABS: HEMOGLOBIN 9.7 g/dL (12.0-15.5); PLATELET COUNT 100 10^3/uL (150-450)
[2019-09-30 04:41] LABS: HEMATOCRIT 27.6 % (36.0-47.0); MEAN CORPUSCULAR HGB CONC 35.1 g/dL (32.0-36.0); MEAN CORPUSCULAR VOLUME 91 fl (80-97); RED BLOOD COUNT 3.02 10^6/uL (3.72-5.28); RED CELL DISTRIBUTION WIDTH 17.8 % (11.5-14.0); WHITE BLOOD COUNT 3.4 10^3/uL (4.0-10.5)
[2019-09-30 04:51] LABS: ALBUMIN 2.9 g/dL (3.5-5.0); ALKALINE PHOSPHATASE 71 U/L (38-126); ASPARTATE AMINO TRANSFERASE 39 U/L (14-36); BILIRUBIN,DIRECT 0.3 mg/dL (0.0-0.4); TOTAL PROTEIN 6.1 g/dL (6.3-8.2)
[2019-09-30 05:01] LABS: ABSOLUTE LYMPHOCYTES# (MANUAL) 0.9 10^3/uL (0.5-4.7); ABSOLUTE MONOCYTES # (MANUAL) 1.1 10^3/uL (0.1-1.4); BAND NEUTROPHILS % (MANUAL) 2 % (3-5); BASOPHILS % (MANUAL) 0 % (0-2); EOSINOPHILS % (MANUAL) 5 % (0-6); LYMPHOCYTES % (MANUAL) 26 % (13-45); MONOCYTES % (MANUAL) 31 % (3-13); NUCLEATED RED BLOOD CELLS 1 /100 WBC (0); SEGMENTED NEUTROPHILS % (MAN) 36 % (42-78); TOTAL CELLS COUNTED 100
[2019-09-30 05:02] LABS: ANISOCYTOSIS 2+; PLATELET COMMENT DECREASED; POLYCHROMASIA SLIGHT
[2019-09-30] MEDS: PROMETHAZINE HCL INJ 25 MG/1 ML VIAL IV SCH ×3 (06:30→22:26)
[2019-09-30] MEDS: ONDANSETRON HCL INJ/PF 4 MG/2 ML SDV IV SCH ×3 (06:30→22:26)
[2019-09-30] MEDS: METOCLOPRAMIDE HCL INJ/PF 10 MG/2 ML SDV IV SCH ×3 (06:30→22:26)
--- NOTE | 2019-09-30 08:58 | PDOC PROGRESS REPORT ---
Subjective Progress Note for:: 09/30/19 Subjective:: Pt doing better, looks much better today Reason For Visit: PANCYTOPENIA,FEVER,MALIGNANT NEOPLASM OF THE HEAD Physical Exam Vital Signs: Temp Pulse Resp BP Pulse Ox 98.8 F 88 16 138/87 H 97 09/30/19 08:00 09/30/19 08:00 09/30/19 08:00 09/30/19 08:00 09/30/19 08:00 Intake & Output 09/29/19 09/30/19 10/01/19 06:59 06:59 06:59 Intake Total 3254 2582 300 Balance 3254 2582 300 Weight 69.5 kg 70.4 kg General appearance: PRESENT: no acute distress, well-developed, well-nourished Head exam: PRESENT: atraumatic, normocephalic Eye exam: PRESENT: conjunctiva pink, EOMI, PERRLA. ABSENT: scleral icterus Ear exam: PRESENT: normal external ear exam Mouth exam: PRESENT: moist, tongue midline Neck exam: ABSENT: carotid bruit, JVD, lymphadenopathy, thyromegaly Respiratory exam: PRESENT: clear to auscultation anoop. ABSENT: rales, rhonchi, wheezes Cardiovascular exam: PRESENT: RRR. ABSENT: diastolic murmur, rubs, systolic murmur Pulses: PRESENT: normal dorsalis pedis pul Vascular exam: PRESENT: normal capillary refill GI/Abdominal exam: PRESENT: normal bowel sounds, soft. ABSENT: distended, guarding, mass, organolmegaly, rebound, tenderness Rectal exam: PRESENT: deferred Extremities exam: PRESENT: full ROM. ABSENT: calf tenderness, clubbing, pedal edema Neurological exam: PRESENT: alert, awake, oriented to person, oriented to place, oriented to time, oriented to situation, CN II-XII grossly intact. ABSENT: motor sensory deficit Psychiatric exam: PRESENT: appropriate affect, normal mood. ABSENT: homicidal ideation, suicidal ideation Skin exam: PRESENT: dry, intact, warm. ABSENT: cyanosis, rash Results Laboratory Results: 09/30/19 04:20 09/28/19 15:45 09/29/19 09/30/19 09/30/19 10:10 04:20 04:20 WBC 3.4 L RBC 3.02 L Hgb 9.7 L D Hct 27.6 L MCV 91 D MCH 32.0 MCHC 35.1 RDW 17.8 H Plt Count 100 L Seg Neutrophils % Not Reportable Total Bilirubin 1.0 AST 39 H Alkaline Phosphatase 71 Total Protein 6.1 L Albumin 2.9 L Blood Type A POSITIVE Antibody Screen NEGATIVE 09/28/19 09/28/19 09/28/19 10:40 15:45 15:45 Creatine Kinase 33 CK-MB (CK-2) Troponin I 0.018 NT-Pro-B Natriuret Pep 1820 H 09/28/19 09/28/19 09/28/19 15:45 21:37 21:37 Creatine Kinase 32 CK-MB (CK-2) < 0.22 < 0.22 Troponin I 0.015 < 0.012 NT-Pro-B Natriuret Pep 09/29/19 09/29/19 04:37 04:37 Creatine Kinase 30 CK-MB (CK-2) < 0.22 Troponin I < 0.012 NT-Pro-B Natriuret Pep Impressions: Chest X-Ray 09/28/19 10:41 IMPRESSION: NO SIGNIFICANT RADIOGRAPHIC FINDING IN THE CHEST. Assessment & Plan - Diagnosis (1) Neutropenic fever Is this a current diagnosis for this admission?: Yes Plan: Getting better, d/c vancomycin, cont cefepime for now. If pt fever free x 24 hours can d/c home w/ oral atbx (2) Pancytopenia due to chemotherapy Is this a current diagnosis for this admission?: Yes Plan: Transfusion given, no longer neutropenic so d/c'd precaustions - Time Time Spent with patient: 35 or more minutes
[2019-09-30] MEDS: SENNOSIDES/DOCUSATE 8.6-50 MG 1 EACH TABLET PO SCH (09:44)
[2019-09-30] MEDS: OXYCODONE HCL SR 10 MG TABLET PO SCH ×2 (10:22→22:27)
[2019-09-30] MEDS: VANCOMYCIN HCL 1,250 MG in DEXTROSE 5%-WATER 250 ML IV SCH (10:30)
--- NOTE | 2019-09-30 12:57 | PDOC PROGRESS REPORT ---
Subjective Progress Note for:: 09/30/19 Subjective:: She was seen by the bedside, she seems to be responding to treatment, the white blood cell increased the vancomycin was discontinued today Reason For Visit: PANCYTOPENIA,FEVER,MALIGNANT NEOPLASM OF THE HEAD Physical Exam Vital Signs: Temp Pulse Resp BP Pulse Ox 98.8 F 88 16 138/87 H 97 09/30/19 08:00 09/30/19 08:00 09/30/19 08:00 09/30/19 08:00 09/30/19 08:00 Intake & Output 09/29/19 09/30/19 10/01/19 06:59 06:59 06:59 Intake Total 3254 2582 710 Balance 3254 2582 710 Weight 69.5 kg 70.4 kg General appearance: PRESENT: no acute distress Eye exam: PRESENT: PERRLA Respiratory exam: PRESENT: clear to auscultation anoop Cardiovascular exam: PRESENT: +S1, +S2 GI/Abdominal exam: PRESENT: soft Neurological exam: PRESENT: alert Results Laboratory Results: 09/30/19 04:20 09/28/19 15:45 09/29/19 09/30/19 09/30/19 10:10 04:20 04:20 WBC 3.4 L RBC 3.02 L Hgb 9.7 L D Hct 27.6 L MCV 91 D MCH 32.0 MCHC 35.1 RDW 17.8 H Plt Count 100 L Seg Neutrophils % Not Reportable Total Bilirubin 1.0 AST 39 H Alkaline Phosphatase 71 Total Protein 6.1 L Albumin 2.9 L Blood Type A POSITIVE Antibody Screen NEGATIVE 09/28/19 15:40 Clean Catch Midstream Urine Culture - Final NO GROWTH 2 DAYS 09/28/19 09/28/19 09/28/19 10:40 15:45 15:45 Creatine Kinase 33 CK-MB (CK-2) Troponin I 0.018 NT-Pro-B Natriuret Pep 1820 H 09/28/19 09/28/19 09/28/19 15:45 21:37 21:37 Creatine Kinase 32 CK-MB (CK-2) < 0.22 < 0.22 Troponin I 0.015 < 0.012 NT-Pro-B Natriuret Pep 09/29/19 09/29/19 04:37 04:37 Creatine Kinase 30 CK-MB (CK-2) < 0.22 Troponin I < 0.012 NT-Pro-B Natriuret Pep Impressions: Chest X-Ray 09/28/19 10:41 IMPRESSION: NO SIGNIFICANT RADIOGRAPHIC FINDING IN THE CHEST. Assessment & Plan - Diagnosis (1) Neutropenic fever Is this a current diagnosis for this admission?: Yes Plan: Continue treatment (2) Pancytopenia due to chemotherapy Is this a current diagnosis for this admission?: Yes (3) Adenocarcinoma of head of pancreas Is this a current diagnosis for this admission?: Yes Plan: Per oncology (4) Essential (primary) hypertension Is this a current diagnosis for this admission?: Yes - Time Time Spent with patient: 35 or more minutes Level of Care: IMCU
[2019-09-30] MEDS: NORMAL SALINE 1000 ML 1,000 ML IV PRN (22:32)
[2019-10-01] MEDS: CEFEPIME 2 GM/D5W RTU 2 GM/50 ML RTUPB IV SCH ×3 (01:47→19:04)
[2019-10-01] MEDS: PROMETHAZINE HCL INJ 25 MG/1 ML VIAL IV SCH ×3 (06:03→22:08)
[2019-10-01] MEDS: METOCLOPRAMIDE HCL INJ/PF 10 MG/2 ML SDV IV SCH ×3 (06:03→22:08)
[2019-10-01] MEDS: ONDANSETRON HCL INJ/PF 4 MG/2 ML SDV IV SCH ×3 (06:03→22:08)
[2019-10-01 07:14] LABS: HEMATOCRIT 26.7 % (36.0-47.0); HEMOGLOBIN 9.3 g/dL (12.0-15.5); MEAN CORPUSCULAR HEMOGLOBIN 31.8 pg (27.0-33.4); MEAN CORPUSCULAR HGB CONC 34.9 g/dL (32.0-36.0); MEAN CORPUSCULAR VOLUME 91 fl (80-97); PLATELET COUNT 107 10^3/uL (150-450); RED BLOOD COUNT 2.93 10^6/uL (3.72-5.28); RED CELL DISTRIBUTION WIDTH 18.2 % (11.5-14.0); WHITE BLOOD COUNT 4.2 10^3/uL (4.0-10.5)
[2019-10-01 07:31] LABS: ALBUMIN 2.8 g/dL (3.5-5.0); ALKALINE PHOSPHATASE 61 U/L (38-126); ASPARTATE AMINO TRANSFERASE 38 U/L (14-36); BILIRUBIN,DIRECT 0.3 mg/dL (0.0-0.4)
[2019-10-01 07:55] LABS: ABSOLUTE LYMPHOCYTES# (MANUAL) 1.1 10^3/uL (0.5-4.7); ABSOLUTE MONOCYTES # (MANUAL) 1.1 10^3/uL (0.1-1.4); BASOPHILS % (MANUAL) 0 % (0-2); EOSINOPHILS % (MANUAL) 3 % (0-6); LYMPHOCYTES % (MANUAL) 26 % (13-45); METAMYELOCYTES % (MANUAL) 2 % (0-1); NUCLEATED RED BLOOD CELLS 2 /100 WBC (0); SEGMENTED NEUTROPHILS % (MAN) 44 % (42-78); TOTAL CELLS COUNTED 100
[2019-10-01 07:57] LABS: ANISOCYTOSIS 1+; HELMET CELLS SLIGHT; PLATELET COMMENT DECREASED; SMUDGE CELLS PRESENT
[2019-10-01 07:58] LABS: TOXIC GRANULATION 1+
[2019-10-01 08:01] LABS: MONOCYTES % (MANUAL) 25 % (3-13)
[2019-10-01] MEDS: OXYCODONE-ACETAMINOPHEN 5-325 MG TABLET PO PRN (10:06)
[2019-10-01] MEDS: SENNOSIDES/DOCUSATE 8.6-50 MG 1 EACH TABLET PO SCH (10:06)
[2019-10-01] MEDS: VANCOMYCIN HCL 1,250 MG in DEXTROSE 5%-WATER 250 ML IV SCH (10:07)
[2019-10-01] MEDS: OXYCODONE HCL SR 10 MG TABLET PO SCH ×2 (10:16→22:08)
[2019-10-01] MEDS ORDERED: LEVALBUTEROL HCL NEB 0.63 MG/3 ML AMPUL NEB PRN (10:20)
[2019-10-01] MEDS ORDERED: GUAIFENESIN SYRP 200 MG/10 ML UDC PO PRN (10:20)
--- NOTE | 2019-10-01 10:20 | PDOC PROGRESS REPORT ---
Subjective Progress Note for:: 10/01/19 Subjective:: Patient is currently doing fair Patient recently diagnosed with a pancreatic cancers not able to get the surgery started on chemotherapy patients came with a neutropenic fever and pancytopenia Patient initially put on IV antibiotics currently DC the vancomycin Patient is feeling very weak Patient is complaining some mucus secretions Denied any short of breath Discussed with the patient's family and the bedside and discussed with the patient's son regarding the patient's current condition and the CODE STATUS Reason For Visit: PANCYTOPENIA,FEVER,MALIGNANT NEOPLASM OF THE HEAD Physical Exam Vital Signs: Temp Pulse Resp BP Pulse Ox 98.5 F 92 18 159/84 H 98 10/01/19 07:40 10/01/19 07:40 10/01/19 07:40 10/01/19 07:40 10/01/19 07:40 Intake & Output 09/30/19 10/01/19 10/02/19 06:59 06:59 06:59 Intake Total 2582 2235 Output Total 2 Balance 2582 2233 Weight 70.4 kg 70.2 kg General appearance: PRESENT: no acute distress, thin Head exam: PRESENT: atraumatic, normocephalic Eye exam: PRESENT: conjunctiva pink, EOMI, PERRLA. ABSENT: scleral icterus Ear exam: PRESENT: normal external ear exam Mouth exam: PRESENT: moist, tongue midline Neck exam: PRESENT: full ROM. ABSENT: carotid bruit, JVD, lymphadenopathy, thyromegaly Respiratory exam: PRESENT: decreased breath sounds Cardiovascular exam: PRESENT: RRR. ABSENT: diastolic murmur, rubs, systolic murmur Pulses: PRESENT: normal dorsalis pedis pul, +2 pedal pulses bilateral Vascular exam: PRESENT: normal capillary refill GI/Abdominal exam: PRESENT: normal bowel sounds, soft. ABSENT: distended, guarding, mass, organolmegaly, rebound, tenderness Rectal exam: PRESENT: deferred Neurological exam: PRESENT: alert, awake, oriented to person. ABSENT: motor sensory deficit Psychiatric exam: PRESENT: appropriate affect, normal mood. ABSENT: homicidal ideation, suicidal ideation Skin exam: PRESENT: dry, intact, warm. ABSENT: cyanosis, rash Results Laboratory Results: 10/01/19 07:06 09/28/19 15:45 10/01/19 10/01/19 07:06 07:06 WBC 4.2 RBC 2.93 L Hgb 9.3 L Hct 26.7 L MCV 91 MCH 31.8 MCHC 34.9 RDW 18.2 H Plt Count 107 L Seg Neutrophils % Not Reportable Total Bilirubin 1.0 AST 38 H Alkaline Phosphatase 61 Total Protein 6.0 L Albumin 2.8 L 09/28/19 15:40 Clean Catch Midstream Urine Culture - Final NO GROWTH 2 DAYS 09/28/19 09/28/19 09/28/19 10:40 15:45 15:45 Creatine Kinase 33 CK-MB (CK-2) Troponin I 0.018 NT-Pro-B Natriuret Pep 1820 H 09/28/19 09/28/19 09/28/19 15:45 21:37 21:37 Creatine Kinase 32 CK-MB (CK-2) < 0.22 < 0.22 Troponin I 0.015 < 0.012 NT-Pro-B Natriuret Pep 09/29/19 09/29/19 04:37 04:37 Creatine Kinase 30 CK-MB (CK-2) < 0.22 Troponin I < 0.012 NT-Pro-B Natriuret Pep Impressions: Chest X-Ray 09/28/19 10:41 IMPRESSION: NO SIGNIFICANT RADIOGRAPHIC FINDING IN THE CHEST. Assessment & Plan - Diagnosis (1) Neutropenic fever Is this a current diagnosis for this admission?: Yes (2) Pancytopenia due to chemotherapy Is this a current diagnosis for this admission?: Yes (3) Adenocarcinoma of head of pancreas Is this a current diagnosis for this admission?: Yes (4) Essential (primary) hypertension Is this a current diagnosis for this admission?: Yes - Time Time Spent with patient: 15-24 minutes Level of Care: IMCU Medications reviewed and adjusted accordingly: Yes Anticipated discharge: Other Within: Other - Plan Summary Plan Summary: Continues to IV cefepime Reports some nebulizer treatment as needed for the mucus secretions Give liquid Mucinex
[2019-10-01] MEDS: NORMAL SALINE 1000 ML 1,000 ML IV PRN ×2 (13:00→22:07)
[2019-10-02] MEDS: CEFEPIME 2 GM/D5W RTU 2 GM/50 ML RTUPB IV SCH ×3 (01:49→17:46)
[2019-10-02 04:42] LABS: HEMATOCRIT 27.4 % (36.0-47.0); HEMOGLOBIN 9.5 g/dL (12.0-15.5); MEAN CORPUSCULAR HGB CONC 34.8 g/dL (32.0-36.0); MEAN CORPUSCULAR VOLUME 92 fl (80-97); PLATELET COUNT 114 10^3/uL (150-450); RED BLOOD COUNT 2.98 10^6/uL (3.72-5.28); RED CELL DISTRIBUTION WIDTH 17.7 % (11.5-14.0); WHITE BLOOD COUNT 5.2 10^3/uL (4.0-10.5)
[2019-10-02 04:58] LABS: ANION GAP 9 (5-19); BLOOD UREA NITROGEN 7 mg/dL (7-20); CALCIUM 8.5 mg/dL (8.4-10.2); CARBON DIOXIDE 20 mmol/L (22-30); CHLORIDE 113 mmol/L (98-107); GLUCOSE 75 mg/dL (75-110)
[2019-10-02 05:01] LABS: POTASSIUM 2.8 mmol/L (3.6-5.0)
[2019-10-02 05:35] LABS: ABSOLUTE LYMPHOCYTES# (MANUAL) 1.7 10^3/uL (0.5-4.7); ABSOLUTE MONOCYTES # (MANUAL) 0.8 10^3/uL (0.1-1.4); ANISOCYTOSIS 1+; BASOPHILS % (MANUAL) 0 % (0-2); EOSINOPHILS % (MANUAL) 2 % (0-6); LYMPHOCYTES % (MANUAL) 32 % (13-45); MONOCYTES % (MANUAL) 15 % (3-13); PLATELET COMMENT DECREASED; SEGMENTED NEUTROPHILS % (MAN) 51 % (42-78); TOTAL CELLS COUNTED 100
[2019-10-02] MEDS: POTASSIUM CHLORIDE 20 MEQ/50 ML RTU IV SCH ×2 (05:38→08:27)
[2019-10-02] MEDS: OXYCODONE-ACETAMINOPHEN 5-325 MG TABLET PO PRN ×2 (06:03→14:53)
[2019-10-02] MEDS: ONDANSETRON HCL INJ/PF 4 MG/2 ML SDV IV SCH ×3 (08:00→23:11)
[2019-10-02] MEDS: PROMETHAZINE HCL INJ 25 MG/1 ML VIAL IV SCH ×3 (08:00→23:11)
[2019-10-02] MEDS: METOCLOPRAMIDE HCL INJ/PF 10 MG/2 ML SDV IV SCH ×3 (08:00→23:11)
[2019-10-02] MEDS: NORMAL SALINE 1000 ML 1,000 ML IV PRN ×2 (08:17→19:41)
--- NOTE | 2019-10-02 09:19 | PDOC PROGRESS REPORT ---
Subjective Progress Note for:: 10/02/19 Subjective:: Patient is currently doing fair Patient's still has some secretion and cough Patient still have a sleep issue at night Patient's potassium is low Denied any chest pain no short of breath Reason For Visit: PANCYTOPENIA,FEVER,MALIGNANT NEOPLASM OF THE HEAD Physical Exam Vital Signs: Temp Pulse Resp BP Pulse Ox 98.1 F 89 18 150/82 H 97 10/02/19 07:23 10/02/19 07:23 10/02/19 07:23 10/02/19 07:23 10/02/19 07:23 Intake & Output 10/01/19 10/02/19 10/03/19 06:59 06:59 06:59 Intake Total 2235 2487 1050 Output Total 2 Balance 2233 2487 1050 Weight 70.2 kg 65.4 kg General appearance: PRESENT: no acute distress, well-developed, well-nourished Head exam: PRESENT: atraumatic, normocephalic Eye exam: PRESENT: conjunctiva pink, EOMI, PERRLA. ABSENT: scleral icterus Ear exam: PRESENT: normal external ear exam Mouth exam: PRESENT: moist, tongue midline Neck exam: PRESENT: full ROM. ABSENT: carotid bruit, JVD, lymphadenopathy, thyromegaly Respiratory exam: PRESENT: clear to auscultation anoop Cardiovascular exam: PRESENT: RRR. ABSENT: diastolic murmur, rubs, systolic murmur Pulses: PRESENT: normal dorsalis pedis pul, +2 pedal pulses bilateral Vascular exam: PRESENT: normal capillary refill GI/Abdominal exam: PRESENT: normal bowel sounds, soft. ABSENT: distended, guarding, mass, organolmegaly, rebound, tenderness Rectal exam: PRESENT: deferred Neurological exam: PRESENT: alert, awake, oriented to person, oriented to place, oriented to time, oriented to situation, CN II-XII grossly intact. ABSENT: motor sensory deficit Psychiatric exam: PRESENT: appropriate affect, normal mood. ABSENT: homicidal ideation, suicidal ideation Skin exam: PRESENT: dry, intact, warm. ABSENT: cyanosis, rash Results Laboratory Results: 10/02/19 03:55 10/02/19 03:55 10/02/19 10/02/19 03:55 03:55 WBC 5.2 RBC 2.98 L Hgb 9.5 L Hct 27.4 L MCV 92 MCH 32.0 MCHC 34.8 RDW 17.7 H Plt Count 114 L Seg Neutrophils % Not Reportable Sodium 142.4 Potassium 2.8 L* Chloride 113 H Carbon Dioxide 20 L Anion Gap 9 BUN 7 Creatinine 0.72 Est GFR ( Amer) > 60 Glucose 75 Calcium 8.5 09/28/19 09/28/19 09/28/19 10:40 15:45 15:45 Creatine Kinase 33 CK-MB (CK-2) Troponin I 0.018 NT-Pro-B Natriuret Pep 1820 H 09/28/19 09/28/19 09/28/19 15:45 21:37 21:37 Creatine Kinase 32 CK-MB (CK-2) < 0.22 < 0.22 Troponin I 0.015 < 0.012 NT-Pro-B Natriuret Pep 09/29/19 09/29/19 04:37 04:37 Creatine Kinase 30 CK-MB (CK-2) < 0.22 Troponin I < 0.012 NT-Pro-B Natriuret Pep Impressions: Chest X-Ray 09/28/19 10:41 IMPRESSION: NO SIGNIFICANT RADIOGRAPHIC FINDING IN THE CHEST. Assessment & Plan - Diagnosis (1) Neutropenic fever Is this a current diagnosis for this admission?: Yes Plan: Currently afebrile White count is stable Continues to IV antibiotic (2) Pancytopenia due to chemotherapy Is this a current diagnosis for this admission?: Yes Plan: Currently follow with the oncology (3) Adenocarcinoma of head of pancreas Is this a current diagnosis for this admission?: Yes (4) Essential (primary) hypertension Is this a current diagnosis for this admission?: Yes Plan: Currently all stable (5) Hypokalemia Is this a current diagnosis for this admission?: Yes Plan: Placed the potassium check a magnesium - Time Time Spent with patient: 15-24 minutes Level of Care: IMCU Medications reviewed and adjusted accordingly: Yes Anticipated discharge: Other Within: Other - Plan Summary Plan Summary: Replace the potassium Melatonin at night
[2019-10-02] MEDS ORDERED: POTASSIUM CHLORIDE 20 MEQ PACKET PO ONE (09:30)
[2019-10-02] MEDS: SENNOSIDES/DOCUSATE 8.6-50 MG 1 EACH TABLET PO SCH (09:56)
[2019-10-02] MEDS: OXYCODONE HCL SR 10 MG TABLET PO SCH ×2 (10:03→23:11)
[2019-10-02 14:57] LABS: POTASSIUM 3.5 mmol/L (3.6-5.0)
[2019-10-02] MEDS ORDERED: SENNOSIDES/DOCUSATE 8.6-50 MG 1 EACH TABLET PO ONE (21:15)
[2019-10-03] MEDS: CEFEPIME 2 GM/D5W RTU 2 GM/50 ML RTUPB IV SCH ×3 (01:39→17:01)
[2019-10-03] MEDS: NORMAL SALINE 1000 ML 1,000 ML IV PRN (04:47)
[2019-10-03] MEDS: NYSTATIN 500000 UNIT/5 ML UDCUP PO SCH ×3 (05:40→17:01)
[2019-10-03 06:03] LABS: HEMATOCRIT 24.9 % (36.0-47.0); HEMOGLOBIN 8.6 g/dL (12.0-15.5); MEAN CORPUSCULAR HEMOGLOBIN 31.9 pg (27.0-33.4); MEAN CORPUSCULAR HGB CONC 34.4 g/dL (32.0-36.0); MEAN CORPUSCULAR VOLUME 93 fl (80-97); PLATELET COUNT 125 10^3/uL (150-450); RED BLOOD COUNT 2.68 10^6/uL (3.72-5.28); RED CELL DISTRIBUTION WIDTH 18.3 % (11.5-14.0); WHITE BLOOD COUNT 5.4 10^3/uL (4.0-10.5)
[2019-10-03 06:23] LABS: ANION GAP 6 (5-19); BLOOD UREA NITROGEN 7 mg/dL (7-20); CALCIUM 8.2 mg/dL (8.4-10.2); CARBON DIOXIDE 22 mmol/L (22-30); CHLORIDE 110 mmol/L (98-107); POTASSIUM 3.1 mmol/L (3.6-5.0)
[2019-10-03 06:33] LABS: GLUCOSE 64 mg/dL (75-110)
[2019-10-03 06:35] LABS: ABSOLUTE LYMPHOCYTES# (MANUAL) 1.2 10^3/uL (0.5-4.7); ANISOCYTOSIS 1+; BAND NEUTROPHILS % (MANUAL) 5 % (3-5); BASOPHILS % (MANUAL) 0 % (0-2); EOSINOPHILS % (MANUAL) 3 % (0-6); HYPOCHROMASIA 1+; LYMPHOCYTES % (MANUAL) 23 % (13-45); MONOCYTES % (MANUAL) 19 % (3-13); PLATELET COMMENT DECREASED; SEGMENTED NEUTROPHILS % (MAN) 50 % (42-78); TOTAL CELLS COUNTED 100
--- NOTE | 2019-10-03 08:15 | PDOC PROGRESS REPORT ---
Subjective Progress Note for:: 10/03/19 Subjective:: Potassium was still low this morning I gave another 40 mEq of IV potassium. But I discussed with patient and family that she looks good enough to go home today. Reason For Visit: PANCYTOPENIA,FEVER,MALIGNANT NEOPLASM OF THE HEAD Physical Exam Vital Signs: Temp Pulse Resp BP Pulse Ox 97.6 F 85 20 157/84 H 97 10/03/19 04:19 10/03/19 07:00 10/03/19 04:19 10/03/19 04:19 10/03/19 04:19 Intake & Output 10/02/19 10/03/19 10/04/19 06:59 06:59 06:59 Intake Total 2487 4000 Balance 2487 4000 Weight 65.4 kg 63.3 kg General appearance: PRESENT: no acute distress, well-developed, well-nourished Head exam: PRESENT: atraumatic, normocephalic Eye exam: PRESENT: conjunctiva pink, EOMI, PERRLA. ABSENT: scleral icterus Ear exam: PRESENT: normal external ear exam Mouth exam: PRESENT: moist, tongue midline Neck exam: ABSENT: carotid bruit, JVD, lymphadenopathy, thyromegaly Respiratory exam: PRESENT: clear to auscultation anoop. ABSENT: rales, rhonchi, wheezes Cardiovascular exam: PRESENT: RRR. ABSENT: diastolic murmur, rubs, systolic murmur Pulses: PRESENT: normal dorsalis pedis pul Vascular exam: PRESENT: normal capillary refill GI/Abdominal exam: PRESENT: normal bowel sounds, soft. ABSENT: distended, guarding, mass, organolmegaly, rebound, tenderness Rectal exam: PRESENT: deferred Extremities exam: PRESENT: full ROM. ABSENT: calf tenderness, clubbing, pedal edema Neurological exam: PRESENT: alert, awake, oriented to person, oriented to place, oriented to time, oriented to situation, CN II-XII grossly intact. ABSENT: motor sensory deficit Psychiatric exam: PRESENT: appropriate affect, normal mood. ABSENT: homicidal ideation, suicidal ideation Skin exam: PRESENT: dry, intact, warm. ABSENT: cyanosis, rash Results Laboratory Results: 10/03/19 04:49 10/03/19 04:49 10/02/19 10/03/19 10/03/19 14:30 04:49 04:49 WBC 5.4 RBC 2.68 L Hgb 8.6 L Hct 24.9 L MCV 93 MCH 31.9 MCHC 34.4 RDW 18.3 H Plt Count 125 L Seg Neutrophils % Not Reportable Sodium 137.7 Potassium 3.5 L 3.1 L Chloride 110 H Carbon Dioxide 22 Anion Gap 6 BUN 7 Creatinine 0.69 Est GFR ( Amer) > 60 Glucose 64 L Calcium 8.2 L Magnesium 1.7 09/28/19 09/28/19 09/28/19 10:40 15:45 15:45 Creatine Kinase 33 CK-MB (CK-2) Troponin I 0.018 NT-Pro-B Natriuret Pep 1820 H 09/28/19 09/28/19 09/28/19 15:45 21:37 21:37 Creatine Kinase 32 CK-MB (CK-2) < 0.22 < 0.22 Troponin I 0.015 < 0.012 NT-Pro-B Natriuret Pep 09/29/19 09/29/19 04:37 04:37 Creatine Kinase 30 CK-MB (CK-2) < 0.22 Troponin I < 0.012 NT-Pro-B Natriuret Pep Impressions: Chest X-Ray 09/28/19 10:41 IMPRESSION: NO SIGNIFICANT RADIOGRAPHIC FINDING IN THE CHEST. Assessment & Plan - Diagnosis (1) Neutropenic fever Is this a current diagnosis for this admission?: Yes Plan: Improved, patient can have antibiotics changed to Levaquin now (2) Pancytopenia due to chemotherapy Is this a current diagnosis for this admission?: Yes Plan: Improved, plan for continued therapy this week if possible - Time Time Spent with patient: 35 or more minutes
[2019-10-03] MEDS: ONDANSETRON HCL INJ/PF 4 MG/2 ML SDV IV SCH ×2 (08:30→14:12)
[2019-10-03] MEDS: METOCLOPRAMIDE HCL INJ/PF 10 MG/2 ML SDV IV SCH ×2 (08:30→14:12)
[2019-10-03] MEDS: PROMETHAZINE HCL INJ 25 MG/1 ML VIAL IV SCH ×2 (08:30→14:12)
[2019-10-03] MEDS: OXYCODONE HCL SR 10 MG TABLET PO SCH (10:15)
[2019-10-03] MEDS: POTASSIUM CHLORIDE 20 MEQ/50 ML RTU IV SCH ×2 (10:15→14:12)
[2019-10-03] MEDS: SENNOSIDES/DOCUSATE 8.6-50 MG 1 EACH TABLET PO SCH ×2 (10:16→17:01)
[2019-10-03 19:12] LABS: ANION GAP 8 (5-19); BLOOD UREA NITROGEN 8 mg/dL (7-20); CARBON DIOXIDE 21 mmol/L (22-30); CHLORIDE 111 mmol/L (98-107); GLUCOSE 122 mg/dL (75-110); POTASSIUM 3.7 mmol/L (3.6-5.0)
[2019-10-03 20:16] VITALS: BP 138/87
--- NOTE | 2019-10-03 20:57 | PDOC DISCHARGE SUMMARY ---
Impression - Admit/DC Date/PCP Admission Date/Primary Care Provider: 09/28/19 15:11 ROZ HAMPTON MD Discharge Date: 10/03/19 - Discharge Diagnosis (1) Neutropenic fever Is this a current diagnosis for this admission?: Yes (2) Pancytopenia due to chemotherapy Is this a current diagnosis for this admission?: Yes (3) Adenocarcinoma of head of pancreas Is this a current diagnosis for this admission?: Yes (4) Essential (primary) hypertension Is this a current diagnosis for this admission?: Yes - Additional Information Resuscitation Status: Full Code Discharge Diet: As Tolerated Discharge Activity: Activity As Tolerated, Bedrest Referrals: ROZ HAMPTON MD [Primary Care Provider] - 10/13/19 2:15 pm Home Medications: RX: Hydrochlorothiazide [Hydrodiuril 12.5 mg Tablet] 12.5 mg PO DAILY 09/28/19 RX: Lorazepam [Ativan 0.5 mg Tablet] 0.52 mg PO Q6HP PRN 09/28/19 RX: Oxycodone HCl [Oxy-Ir 5 mg Tablet] 10 mg PO 5XDP PRN 09/28/19 RX: Oxycodone HCl [Oxycodone HCl ER] 20 mg PO Q12 09/28/19 RX: Potassium Chloride [Klor-Con M20] 20 meq PO BID 09/28/19 RX: Promethazine HCl [Phenergan 25 mg Tablet] 25 mg PO Q6HP PRN 09/28/19 RX: Valsartan [Diovan] 320 mg PO DAILY 09/28/19 History of Present Illiness History of Present Illness: DICKSON PANIAGUA is a 59 year old female, she has malignant neoplasm of the head of the pancreas on neoadjuvant chemotherapy, on active chemotherapy, she was at the oncologist office, Dr. Benjamin, she was referred to the emergency room because she had a high fever with temperature of 104 associated with pancytopenia. The white blood cell count was 1.8, absolute neutrophil count was 1000, there is no focal source of infection, because she is neutropenic associated with chemotherapy and fever, she was referred for inpatient care. Hospital Course Hospital Course: Patient was admitted for the management of neutropenic fever, she has history of malignant neoplasm of the head of the pancreas, she was empirically treated with intravenous antibiotic cefepime and vancomycin no specific bacteria was culture from the blood or from any body fluid. She responded very well to treatment, she was treated with blood transfusion she had pancytopenia related to chemotherapy. She was seen by our oncologist Dr. Benjamin on this admission. She had episode of hypokalemia this was replaced intravenously she be discharged home today for continued outpatient treatment. Physical Exam Vital Signs: Temp Pulse Resp BP Pulse Ox 98.7 F 90 18 138/87 H 97 10/03/19 20:09 10/03/19 20:09 10/03/19 20:09 10/03/19 20:09 10/03/19 20:09 Intake & Output 10/02/19 10/03/19 10/04/19 06:59 06:59 06:59 Intake Total 2487 4000 1920 Balance 2487 4000 1920 Weight 65.4 kg 63.3 kg General appearance: PRESENT: no acute distress Eye exam: PRESENT: PERRLA Respiratory exam: PRESENT: clear to auscultation anoop Cardiovascular exam: PRESENT: +S1, +S2 GI/Abdominal exam: PRESENT: soft Neurological exam: PRESENT: alert, CN II-XII grossly intact Results Laboratory Results: WBC 5.4 10^3/uL (4.0-10.5) 10/03/19 04:49 RBC 2.68 10^6/uL (3.72-5.28) L 10/03/19 04:49 Hgb 8.6 g/dL (12.0-15.5) L 10/03/19 04:49 Hct 24.9 % (36.0-47.0) L 10/03/19 04:49 MCV 93 fl (80-97) 10/03/19 04:49 MCH 31.9 pg (27.0-33.4) 10/03/19 04:49 MCHC 34.4 g/dL (32.0-36.0) 10/03/19 04:49 RDW 18.3 % (11.5-14.0) H 10/03/19 04:49 Plt Count 125 10^3/uL (150-450) L 10/03/19 04:49 Lymph % (Auto) Not Reportable 10/03/19 04:49 [place] % (Auto) Not Reportable 10/03/19 04:49 Eos % (Auto) Not Reportable 10/03/19 04:49 Baso % (Auto) Not Reportable 10/03/19 04:49 Absolute Neuts (auto) Not Reportable 10/03/19 04:49 Absolute Lymphs (auto) Not Reportable 10/03/19 04:49 Absolute Monos (auto) Not Reportable 10/03/19 04:49 Absolute Eos (auto) Not Reportable 10/03/19 04:49 Absolute Basos (auto) Not Reportable 10/03/19 04:49 Total Counted 100 10/03/19 04:49 Seg Neutrophils % Not Reportable 10/03/19 04:49 Seg Neuts % (Manual) 50 % (42-78) 10/03/19 04:49 Band Neutrophils % 5 % (3-5) 10/03/19 04:49 Lymphocytes % (Manual) 23 % (13-45) 10/03/19 04:49 Atypical Lymphs % 6 % (0) 09/28/19 10:40 Monocytes % (Manual) 19 % (3-13) H 10/03/19 04:49 Eosinophils % (Manual) 3 % (0-6) 10/03/19 04:49 Basophils % (Manual) 0 % (0-2) 10/03/19 04:49 Metamyelocytes % 2 % (0-1) H 10/01/19 07:06 Abs Neuts (Manual) 3.0 10^3/uL (1.7-8.2) 10/03/19 04:49 Abs Lymphs (Manual) 1.2 10^3/uL (0.5-4.7) 10/03/19 04:49 Abs Monocytes (Manual) 1.0 10^3/uL (0.1-1.4) 10/03/19 04:49 Absolute Eos (Manual) 0.2 10^3/uL (0.0-0.6) 10/03/19 04:49 Abs Basophils (Manual) 0.0 10^3/uL (0.0-0.2) 10/03/19 04:49 Nucleated RBCs 2 /100 WBC (0) 10/01/19 07:06 Smudge Cells PRESENT 10/01/19 07:06 Toxic Granulation 1+ 10/01/19 07:06 Toxic Vacuolation PRESENT 09/29/19 04:37 Dohle Bodies PRESENT 09/30/19 04:20 Large Platelets PRESENT 09/28/19 10:40 Platelet Comment DECREASED 10/03/19 04:49 Polychromasia SLIGHT 09/30/19 04:20 Hypochromasia 1+ 10/03/19 04:49 Anisocytosis 1+ 10/03/19 04:49 Helmet Cells SLIGHT 10/01/19 07:06 PT 18.8 SEC (11.4-15.4) H 09/28/19 16:25 INR 1.55 09/28/19 16:25 APTT 37.7 SEC (23.5-35.8) H 09/28/19 16:25 VBG pH 7.47 (7.30-7.42) H 09/28/19 10:40 VBG pCO2 34.5 mmHg (35-63) L 09/28/19 10:40 VBG HCO3 24.8 mmol/L (20-32) 09/28/19 10:40 VBG Base Excess 1.6 mmol/L 09/28/19 10:40 Sodium 140.4 mmol/L (137-145) 10/03/19 18:47 Potassium 3.7 mmol/L (3.6-5.0) 10/03/19 18:47 Chloride 111 mmol/L (98-107) H 10/03/19 18:47 Carbon Dioxide 21 mmol/L (22-30) L 10/03/19 18:47 Anion Gap 8 (5-19) 10/03/19 18:47 BUN 8 mg/dL (7-20) 10/03/19 18:47 Creatinine 0.72 mg/dL (0.52-1.25) 10/03/19 18:47 Est GFR ( Amer) > 60 (>60) 10/03/19 18:47 Est GFR (MDRD) Non-Af > 60 (>60) 10/03/19 18:47 Glucose 122 mg/dL (75-110) H 10/03/19 18:47 POC Glucose 106 mg/dL (70-110) 10/03/19 09:14 Hemoglobin A1c % 5.8 % (4.7-6.0) 09/29/19 04:37 Lactic Acid 1.2 mmol/L (0.7-2.1) 09/28/19 10:40 Calcium 9.0 mg/dL (8.4-10.2) 10/03/19 18:47 Phosphorus 3.4 mg/dL (2.5-4.5) 09/28/19 15:45 Magnesium 1.7 mg/dL (1.6-2.3) 10/02/19 14:30 Total Bilirubin 1.0 mg/dL (0.2-1.3) 10/01/19 07:06 Direct Bilirubin 0.3 mg/dL (0.0-0.4) 10/01/19 07:06 Neonat Total Bilirubin Not Reportable 10/01/19 07:06 Neonat Direct Bilirubin Not Reportable 10/01/19 07:06 Neonat Indirect Bili Not Reportable 10/01/19 07:06 AST 38 U/L (14-36) H 10/01/19 07:06 ALT 20 U/L (<35) 10/01/19 07:06 Alkaline Phosphatase 61 U/L (38-126) 10/01/19 07:06 Ammonia < 8.7 umol/L (9-33) L 09/28/19 15:45 Creatine Kinase 30 U/L (30-135) 09/29/19 04:37 CK-MB (CK-2) < 0.22 ng/mL (<4.55) 09/29/19 04:37 Troponin I < 0.012 ng/mL 09/29/19 04:37 NT-Pro-B Natriuret Pep 1820 pg/mL (<125) H 09/28/19 15:45 Total Protein 6.0 g/dL (6.3-8.2) L 10/01/19 07:06 Albumin 2.8 g/dL (3.5-5.0) L 10/01/19 07:06 Triglycerides 108 mg/dL (<150) 09/29/19 04:37 Cholesterol 112.79 mg/dL (0-200) 09/29/19 04:37 LDL Cholesterol Direct 48 mg/dL (<100) 09/29/19 04:37 VLDL Cholesterol 22.0 mg/dL (10-31) 09/29/19 04:37 HDL Cholesterol 35 mg/dL (>40) L 09/29/19 04:37 Amylase 36 U/L (30-110) 09/28/19 15:45 Lipase 171.1 U/L (23-300) 09/28/19 15:45 TSH < 0.01 uIU/mL (0.47-4.68) L 09/28/19 15:45 Free T4 1.75 ng/dL (0.78-2.19) 09/28/19 15:45 Urine Color Cancelled 09/28/19 15:45 Urine Appearance Cancelled 09/28/19 15:45 Urine pH Cancelled 09/28/19 15:45 Ur Specific [place] Cancelled 09/28/19 15:45 Urine Protein Cancelled 09/28/19 15:45 Urine Glucose (UA) Cancelled 09/28/19 15:45 Urine Ketones Cancelled 09/28/19 15:45 Urine Blood Cancelled 09/28/19 15:45 Urine Nitrite Cancelled 09/28/19 15:45 Urine Nitrite (Reflex) NEGATIVE (NEGATIVE) 09/28/19 15:40 Urine Bilirubin Cancelled 09/28/19 15:45 Urine Urobilinogen Cancelled 09/28/19 15:45 Ur Leukocyte Esterase Cancelled 09/28/19 15:45 Leukocyte Esterase Rfl LARGE (NEGATIVE) H 09/28/19 15:40 Urine WBC (Auto) Cancelled 09/28/19 15:45 Urine RBC (Auto) Cancelled 09/28/19 15:45 U Hyaline Cast (Auto) Cancelled 09/28/19 15:45 Urine Bacteria (Auto) Cancelled 09/28/19 15:45 Urine Red Cell Clumps Cancelled 09/28/19 15:45 Urine WBC (Reflex) 52 /HPF 09/28/19 15:40 Urine WBC Clumps Cancelled 09/28/19 15:45 Squamous Epi Cells Auto Cancelled 09/28/19 15:45 U Non-Squamous Epis Auto Cancelled 09/28/19 15:45 Calcium Carbonate Cryst Cancelled 09/28/19 15:45 Calcium Phosphate Cryst Cancelled 09/28/19 15:45 Calcium Oxalate Cr Auto Cancelled 09/28/19 15:45 Leucine Crystals Cancelled 09/28/19 15:45 Cystine Crystals Cancelled 09/28/19 15:45 Uric Acid Cryst (Auto) Cancelled 09/28/19 15:45 Triple Phos Cryst (Auto) Cancelled 09/28/19 15:45 Tyrosine Crystals Cancelled 09/28/19 15:45 Amorphous Sediment Auto Cancelled 09/28/19 15:45 Cellular Casts Cancelled 09/28/19 15:45 Epithelial Casts (Auto) Cancelled 09/28/19 15:45 Fatty Casts Cancelled 09/28/19 15:45 Granular Casts (Auto) Cancelled 09/28/19 15:45 Waxy Casts (Auto) Cancelled 09/28/19 15:45 Broad Casts Cancelled 09/28/19 15:45 RBC Casts (Auto) Cancelled 09/28/19 15:45 WBC Casts (Auto) Cancelled 09/28/19 15:45 Urine Mucus (Auto) Cancelled 09/28/19 15:45 U Trichomonas (Auto) Cancelled 09/28/19 15:45 Ur Yeast w Hyphae Cancelled 09/28/19 15:45 Urine Yeast (Budding) Cancelled 09/28/19 15:45 Urine Ascorbic Acid Cancelled 09/28/19 15:45 Urine Opiates Screen UNCONFIRMED POSITIVE 09/28/19 15:40 Urine Methadone Screen NEGATIVE 09/28/19 15:40 Ur Barbiturates Screen NEGATIVE 09/28/19 15:40 Ur Phencyclidine Scrn NEGATIVE 09/28/19 15:40 Ur Amphetamines Screen NEGATIVE 09/28/19 15:40 U Benzodiazepines Scrn NEGATIVE 09/28/19 15:40 Urine Cocaine Screen NEGATIVE 09/28/19 15:40 U Marijuana (THC) Screen UNCONFIRMED POSITIVE 09/28/19 15:40 Influenza A (Rapid) NEGATIVE (NEGATIVE) 09/28/19 11:54 Influenza B (Rapid) NEGATIVE (NEGATIVE) 09/28/19 11:54 Slides for Path Review PATHOLOGIST REVIEWED 09/28/19 10:40 Blood Type A POSITIVE 09/29/19 10:10 Blood Type Confirm A POSITIVE 09/29/19 10:16 Antibody Screen NEGATIVE 09/29/19 10:10 Crossmatch See Detail 09/29/19 10:10 09/28/19 09/28/19 09/28/19 10:40 15:45 15:45 CK-MB (CK-2) < 0.22 Troponin I 0.018 0.015 NT-Pro-B Natriuret Pep 1820 H 09/28/19 09/29/19 21:37 04:37 CK-MB (CK-2) < 0.22 < 0.22 Troponin I < 0.012 < 0.012 NT-Pro-B Natriuret Pep Impressions: Chest X-Ray 09/28/19 10:41 IMPRESSION: NO SIGNIFICANT RADIOGRAPHIC FINDING IN THE CHEST. Stroke Is this a Stroke Patient?: No Acute Heart Failure - Is this a Heart Failure Patient?: No
[2019-10-04 13:22] LABS: PATH REVIEW PATHOLOGIST REVIEWED
== END 2019-10-03 22:19 | disposition home or self-care (01) | DRG 809 ==
LOC: ER 09:42 → EH 15:11 → 3N 16:18
PROVIDERS: ADMIT Internal Medicine; ATTEND Internal Medicine
PROC: 30233N1 Transfusion of Nonautologous Red Blood Cells into Peripheral Vein, Percutaneous Approach (ICD-10-PCS; principal; 2019-09-29)
DX: D70.1 Agranulocytosis secondary to cancer chemotherapy (principal); C25.9 Malignant neoplasm of pancreas, unspecified; D61.810 Antineoplastic chemotherapy induced pancytopenia; T45.1X5A Adverse effect of antineoplastic and immunosuppressive drugs, initial encounter; R50.81 Fever presenting with conditions classified elsewhere; E87.6 Hypokalemia; I10 Essential (primary) hypertension; L80 Vitiligo
CPT/HCPCS: 36415; 36430; 71045; 80048; 80053; 80061; 80076; 80307; 81001; 82140; 82150; 82550; 82553; 82803; 82962; 83036; 83605; 83690; 83735; 83880; 84100; 84132; 84439; 84443; 84484; 85025; 85610; 85730; 86850; 86900; 86901; 86920; 87040; 87086; 87804; 93005; 93010; 96365; 96366; 96367; 96375; 99284; J0692; J1170; J1642; J1885; J2405; J2550; J2765; J3370; J3480; J3490; J7030; J7060; P9016

== ENCOUNTER 2019-11-01 14:12 | Inpatient (IN) | payer OTHER ==
[2019-11-01] MEDS ORDERED: NORMAL SALINE 1000 ML 1,000 ML IV ONE (14:29)
--- NOTE | 2019-11-01 14:31 | ER Document Report ---
ED Medical Screen (RME) - General Chief Complaint: Weakness Stated Complaint: WEAKNESS,DIZZINESS,ABDOMINAL PAIN Time Seen by Provider: 11/01/19 14:27 Primary Care Provider: ADELSO CAR MD [Primary Care Provider] - Follow up as needed Mode of Arrival: Ambulatory Notes: 59-year-old female presented to ED for possible admission for dehydration. She was sent over by Dr. Car her oncologist. He states he saw her yesterday and today and she got IV fluids both states that she was still dehydrated. He states she has been nausea and vomiting with diarrhea. He states if you had any questions for her care to please call [phone]. He states do not order any CAT scans. Patient is alert and oriented respirations regular nonlabored she is spitting into a bag. She is here with her . She is not vomiting at this time. I have greeted and performed a rapid initial assessment of this patient. A comprehensive ED assessment and evaluation of the patient, analysis of test results and completion of medical decision making process will be conducted by an additional ED providers. TRAVEL OUTSIDE OF THE [place] IN LAST 30 DAYS: No - Related Data Allergies/Adverse Reactions: hydroxyzine [From Atarax] Allergy (Verified 09/28/19 09:55) sulfamethoxazole [From Septra] Allergy (Verified 09/28/19 09:55) trimethoprim [From Septra] Allergy (Verified 09/28/19 09:55) Past Medical History - Past Medical History Cardiac Medical History: Reports: Hx Hypertension Denies: Hx Coronary Artery Disease, Hx Heart Attack Pulmonary Medical History: Denies: Hx Asthma, Hx Bronchitis, Hx COPD, Hx Pneumonia Neurological Medical History: Denies: Hx Cerebrovascular Accident, Hx Seizures Malignancy Medical History: Reports: Hx Pancreatic Cancer Musculoskeltal Medical History: Denies Hx Arthritis Past Surgical History: Reports: Other - ERCP with biliary stent placement - Immunizations Hx Diphtheria, Pertussis, Tetanus Vaccination: No Physical Exam - Vital signs Vitals: Temp Pulse Resp BP Pulse Ox 98.1 F 96 18 146/80 H 95 11/01/19 14:20 11/01/19 14:20 11/01/19 14:20 11/01/19 14:20 11/01/19 14:20 Course - Vital Signs Vital signs: Temp Pulse Resp BP Pulse Ox 98.1 F 96 18 146/80 H 95 11/01/19 14:20 11/01/19 14:20 11/01/19 14:20 11/01/19 14:20 11/01/19 14:20 Doctor's Discharge - Discharge Referrals: ADELSO CAR MD [Primary Care Provider] - Follow up as needed
[2019-11-01 16:21] LABS: HEMATOCRIT 26.6 % (36.0-47.0); MEAN CORPUSCULAR HEMOGLOBIN 32.6 pg (27.0-33.4); MEAN CORPUSCULAR VOLUME 96 fl (80-97); PLATELET COUNT 178 10^3/uL (150-450); RED BLOOD COUNT 2.77 10^6/uL (3.72-5.28); RED CELL DISTRIBUTION WIDTH 21.5 % (11.5-14.0); WHITE BLOOD COUNT 1.9 10^3/uL (4.0-10.5)
--- NOTE | 2019-11-01 16:38 | ER Document Report ---
ED General - General Chief Complaint: General Weakness Stated Complaint: WEAKNESS,DIZZINESS,ABDOMINAL PAIN Time Seen by Provider: 11/01/19 14:27 Mode of Arrival: Ambulatory Information source: Patient, Relative Notes: This 59-year-old female history of pancreatic cancer presents to the emergency department with complaints of diarrhea some nausea and vomiting. She reports little bit of vomiting not much. She also reports she took Imodium yesterday and it did help some. Patient just had 5 cycles of chemotherapy. Last chemo was October 26. She is under the care of Dr. Benjamin who gave her a total of 3 L of IV fluids in the past 2 days. Patient reports she is feels extremely fatigued and dehydrated. Patient was diagnosed with pancreatic cancer in June. She denies pain at this time. Reports she takes oxycodone for the pain is not due for another dose until 11:00 tonight. TRAVEL OUTSIDE OF THE [place] IN LAST 30 DAYS: No - HPI Onset: Other Onset/Duration: Persistent Quality of pain: No pain Associated symptoms: Diarrhea, Nausea, Vomiting Exacerbated by: Denies Relieved by: Denies Similar symptoms previously: Yes Recently seen / treated by doctor: Yes - Related Data Allergies/Adverse Reactions: hydroxyzine [From Atarax] Allergy (Verified 09/28/19 09:55) sulfamethoxazole [From Septra] Allergy (Verified 09/28/19 09:55) trimethoprim [From Septra] Allergy (Verified 09/28/19 09:55) Past Medical History - General Information source: Patient - Social History Smoking Status: Unknown if Ever Smoked Frequency of alcohol use: None Drug Abuse: None Lives with: Family Family History: Reviewed & Not Pertinent Patient has suicidal ideation: No Patient has homicidal ideation: No - Past Medical History Cardiac Medical History: Reports: Hx Hypertension Denies: Hx Coronary Artery Disease, Hx Heart Attack Pulmonary Medical History: Denies: Hx Asthma, Hx Bronchitis, Hx COPD, Hx Pneumonia Neurological Medical History: Denies: Hx Cerebrovascular Accident, Hx Seizures Malignancy Medical History: Reports: Hx Pancreatic Cancer Musculoskeletal Medical History: Denies Hx Arthritis Past Surgical History: Reports: Other - ERCP with biliary stent placement - Immunizations Hx Diphtheria, Pertussis, Tetanus Vaccination: No Review of Systems - Review of Systems Notes: Review HPI for review of systems., All other systems negative Physical Exam - Vital signs Vitals: Temp Pulse Resp BP Pulse Ox 98.1 F 96 18 146/80 H 95 11/01/19 14:20 11/01/19 14:20 11/01/19 14:20 11/01/19 14:20 11/01/19 14:20 - General General appearance: Alert In distress: None - HEENT Head: Normocephalic Extraocular movements intact: Yes Neck: Normal, Supple - Respiratory Respiratory status: No respiratory distress Chest status: Nontender Breath sounds: Normal Chest palpation: Normal - Cardiovascular Rhythm: Regular Heart sounds: Normal auscultation Murmur: No - Abdominal Inspection: Normal Distension: No distension Tenderness: Nontender - Extremities General upper extremity: Normal ROM General lower extremity: Normal ROM - Neurological Neuro grossly intact: Yes Cognition: Normal Orientation: AAOx4 [place] Coma Scale Eye Opening: Spontaneous [place] Coma Scale Verbal: Oriented [place] Coma Scale Motor: Obeys Commands [place] Coma Scale Total: 15 Speech: Normal - Psychological Associated symptoms: Normal affect, Normal mood - Skin Skin Temperature: Warm Skin Moisture: Dry Skin Color: Other - Vitiligo Course - Re-evaluation Re-evalutation: 11/01/19 16:41 This 59-year-old female with history of pancreatic cancer presents emergency department sent over by Dr. Nguyen for possible dehydration. Patient has had some nausea vomiting and diarrhea in the past couple days. She just finished 4 cycles of chemotherapy. She did take Imodium which helped a little bit. Repor ts nausea vomiting just a little bit. Patient reports she feels extremely fatigued and dehydrated. Denies pain at this time 11/01/19 17:[address] Nguyen reviewed patient labs. Patient neutropenic. He agree's patient should be admitted. Reverse isolation initiated. Contacted Qasim Garcia for admission he came to the ER right away and agrees with admission but we discovered that the patient is a patient of Dr. Huntley's. Dr. Huntley page through the hospital cell operator. Dr. Huntley consulted and agrees with admission. Patient to be admitted as inpatient to [facility]. Family aware. 11/01/19 16:00 11/01/19 16:00 MCV 96 fl (80-97) 11/01/19 16:00 MCH 32.6 pg (27.0-33.4) 11/01/19 16:00 MCHC 34.0 g/dL (32.0-36.0) 11/01/19 16:00 RDW 21.5 % (11.5-14.0) H 11/01/19 16:00 Seg Neutrophils % Not Reportable 11/01/19 16:00 Chloride 108 mmol/L (98-107) H 11/01/19 16:00 Carbon Dioxide 24 mmol/L (22-30) 11/01/19 16:00 Anion Gap 8 (5-19) 11/01/19 16:00 Est GFR ( Amer) > 60 (>60) 11/01/19 16:00 Glucose 78 mg/dL (75-110) 11/01/19 16:00 Calcium 8.3 mg/dL (8.4-10.2) L 11/01/19 16:00 Total Bilirubin 0.5 mg/dL (0.2-1.3) 11/01/19 16:00 AST 35 U/L (14-36) 11/01/19 16:00 Alkaline Phosphatase 49 U/L (38-126) 11/01/19 16:00 Total Protein 6.2 g/dL (6.3-8.2) L 11/01/19 16:00 Albumin 2.9 g/dL (3.5-5.0) L 11/01/19 16:00 Lipase 95.3 U/L (23-300) 11/01/19 16:00 Urine Color STRAW 11/01/19 17:20 Urine Appearance CLEAR 11/01/19 17:20 Urine pH 7.0 (5.0-9.0) 11/01/19 17:20 Ur Specific [place] 1.006 11/01/19 17:20 Urine Protein NEGATIVE mg/dL (NEGATIVE) 11/01/19 17:20 Urine Glucose (UA) NEGATIVE mg/dL (NEGATIVE) 11/01/19 17:20 Urine Ketones NEGATIVE mg/dL (NEGATIVE) 11/01/19 17:20 Urine Blood NEGATIVE (NEGATIVE) 11/01/19 17:20 Urine RBC (Auto) 0 /HPF 11/01/19 17:20 Dictation of this chart was performed using voice recognition software; therefore, there may be some unintended grammatical errors. - Vital Signs Vital signs: Temp Pulse Resp BP Pulse Ox 98.3 F 90 18 147/96 H 98 11/01/19 20:04 11/01/19 20:04 11/01/19 20:04 11/01/19 20:04 11/01/19 20:04 - Laboratory Result Diagrams: 11/01/19 16:00 11/01/19 16:00 Laboratory results interpreted by me: 11/01/19 11/01/19 16:00 16:00 WBC 1.9 L RBC 2.77 L Hgb 9.0 L Hct 26.6 L RDW 21.5 H Seg Neuts % (Manual) 38 L Lymphocytes % (Manual) 58 H Monocytes % (Manual) 2 L Abs Neuts (Manual) 0.7 L Abs Monocytes (Manual) 0.0 L Potassium 3.5 L Chloride 108 H Calcium 8.3 L Total Protein 6.2 L Albumin 2.9 L - Consults qasim garcia Time consulted: 17:36 Reason for consultation: 11/01/19 17:36 dehydration, fatigue, history of pancreatic cancer just finished 4 rounds of chemo. Consulted provider: will come to ER Dr. Huntley Time consulted: 17:40 Reason for consultation: 11/01/19 17:40 Pancreatic cancer dehydration fatigue Consulted provider: will see as inpatient Discharge - Discharge Clinical Impression: Dehydration Fatigue Qualifiers: Fatigue type: unspecified Qualified Code(s): R53.83 - Other fatigue Pancreatic cancer Qualifiers: Pancreatic malignancy location: unspecified Qualified Code(s): C25.9 - Malignant neoplasm of pancreas, unspecified Neutropenia Qualifiers: Neutropenia type: unspecified Qualified Code(s): D70.9 - Neutropenia, unspecified Condition: Stable Disposition: ADMITTED INPATIENT Admitting Provider: [place] Unit Admitted: [facility]
[2019-11-01 16:42] LABS: ALBUMIN 2.9 g/dL (3.5-5.0); ALKALINE PHOSPHATASE 49 U/L (38-126); ANION GAP 8 (5-19); ASPARTATE AMINO TRANSFERASE 35 U/L (14-36); BILIRUBIN,DIRECT 0.2 mg/dL (0.0-0.4); BILIRUBIN,TOTAL 0.5 mg/dL (0.2-1.3); BLOOD UREA NITROGEN 9 mg/dL (7-20); CALCIUM 8.3 mg/dL (8.4-10.2); CARBON DIOXIDE 24 mmol/L (22-30); CHLORIDE 108 mmol/L (98-107); GLUCOSE 78 mg/dL (75-110); POTASSIUM 3.5 mmol/L (3.6-5.0); TOTAL PROTEIN 6.2 g/dL (6.3-8.2)
[2019-11-01 16:48] LABS: ABSOLUTE LYMPHOCYTES# (MANUAL) 1.1 10^3/uL (0.5-4.7); BASOPHILS % (MANUAL) 2 % (0-2); EOSINOPHILS % (MANUAL) 0 % (0-6); LYMPHOCYTES % (MANUAL) 58 % (13-45); MONOCYTES % (MANUAL) 2 % (3-13); SEGMENTED NEUTROPHILS % (MAN) 38 % (42-78); TOTAL CELLS COUNTED 50
[2019-11-01 16:51] LABS: ANISOCYTOSIS 2+; PLATELET COMMENT ADEQUATE; TEAR DROP CELLS SLIGHT
[2019-11-01] MEDS ORDERED: ONDANSETRON HCL INJ/PF 4 MG/2 ML SDV IV ONE (17:32)
[2019-11-01 17:53] LABS: APPEARANCE,URINE CLEAR; BILIRUBIN,URINE NEGATIVE (NEGATIVE); COLOR,URINE STRAW; GLUCOSE, URINE NEGATIVE (NEGATIVE); KETONES,URINE NEGATIVE (NEGATIVE); PROTEIN,URINE NEGATIVE (NEGATIVE); URINE SPECIFIC GRAVITY 1.006; UROBILINOGEN,URINE NEGATIVE mg/dL (<2.0)
[2019-11-01] MEDS ORDERED: PROMETHAZINE HCL 25 MG TABLET PO PRN (21:24)
[2019-11-01] MEDS ORDERED: LORAZEPAM 0.5 MG TABLET PO PRN (21:24)
[2019-11-01] MEDS ORDERED: PROTEASE PO SCH (21:30)
[2019-11-01] MEDS ORDERED: LIPASE PO SCH (21:30)
[2019-11-01] MEDS ORDERED: AMYLASE PO SCH (21:30)
[2019-11-01] MEDS ORDERED: (PENDING PHARMACY ID) (Guaifenesin [Mucinex] 1,200 MG) PO SCH (21:30)
--- NOTE | 2019-11-01 21:30 | PDOC H&P ---
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 She was referred to the emergency room by the oncologist, she was evaluated, she was found to be dehydrated, the hemogram demonstrated bicytopenia with leukopenia and anemia. Because of the poor clinical state hospital admission was advised by the emergency room providers I was called to admit the patient to the hospital. Past Medical History Cardiac Medical History: Reports: Hypertension Malignancy Medical History: Reports: Pancreatic Cancer Past Surgical History Past Surgical History: Reports: Other - ERCP with biliary stent placement Social History Lives with: Family Smoking Status: Never Smoker Frequency of Alcohol Use: None Hx Recreational Drug Use: Yes Drugs: Marijuana Hx Prescription Drug Abuse: No - Advance Directive Resuscitation Status: Full Code Family History Family History: Reviewed & Not Pertinent Parental Family History Reviewed: Yes Children Family History Reviewed: Yes Sibling(s) Family History Reviewed.: Yes Medication/Allergy Home Medications: Guaifenesin [Mucinex] 1,200 mg PO Q12@0700,1900 11/01/19 Hydrochlorothiazide [Hydrodiuril 12.5 mg Tablet] 12.5 mg PO QAM 11/01/19 Lipase/Protease/Amylase [Creon Dr 12,000 Units Capsule] 2 cap PO MEALS 11/01/19 Lorazepam [Ativan 0.5 mg Tablet] 0.5 mg PO Q6HP PRN 11/01/19 Oxycodone HCl [Oxy-Ir 5 mg Tablet] 5 mg PO DAILY@2300 11/01/19 Oxycodone HCl [Oxycodone HCl ER] 10 mg PO DAILY@1100 11/01/19 Potassium Chloride [Klor-Con M20] 20 meq PO DAILY@1500 11/01/19 Promethazine HCl [Phenergan 25 mg Tablet] 25 mg PO Q6HP PRN 11/01/19 Valsartan [Diovan] 320 mg PO QAM 11/01/19 Allergies/Adverse Reactions: hydroxyzine [From Atarax] Allergy (Verified 09/28/19 09:55) sulfamethoxazole [From Septra] Allergy (Verified 09/28/19 09:55) trimethoprim [From Septra] Allergy (Verified 09/28/19 09:55) Review of Systems Constitutional: ABSENT: chills, fever(s), headache(s), weight gain, weight loss Eyes: ABSENT: visual disturbances Ears: ABSENT: hearing changes Cardiovascular: ABSENT: chest pain, dyspnea on exertion, edema, orthropnea, palpitations Respiratory: ABSENT: cough, hemoptysis Gastrointestinal: PRESENT: diarrhea, vomiting Genitourinary: ABSENT: dysuria, hematuria Musculoskeletal: ABSENT: joint swelling Integumentary: ABSENT: rash, wounds Neurological: ABSENT: abnormal gait, abnormal speech, confusion, dizziness, focal weakness, syncope Psychiatric: ABSENT: anxiety, depression, homidical ideation, suicidal ideation Endocrine: ABSENT: cold intolerance, heat intolerance, menstrual abnormalities, polydipsia, polyuria Hematologic/Lymphatic: ABSENT: easy bleeding, easy bruising, lymphadenopathy Physical Exam Vital Signs: Temp Pulse Resp BP Pulse Ox 98.3 F 90 18 147/96 H 98 11/01/19 20:04 11/01/19 20:04 11/01/19 20:04 11/01/19 20:04 11/01/19 20:04 Intake & Output 10/31/19 11/01/19 11/02/19 06:59 06:59 06:59 Intake Total 1000 Balance 1000 Weight 63.4 kg General appearance: PRESENT: no acute distress Eye exam: PRESENT: PERRLA Mouth exam: PRESENT: dry mucosa Respiratory exam: PRESENT: clear to auscultation anoop Cardiovascular exam: PRESENT: +S1, +S2 Vascular exam: PRESENT: normal capillary refill GI/Abdominal exam: PRESENT: normal bowel sounds, soft Rectal exam: PRESENT: deferred Neurological exam: PRESENT: alert, CN II-XII grossly intact Psychiatric exam: PRESENT: appropriate affect, normal mood Skin exam: PRESENT: dry, intact, warm Results Laboratory Results: 11/01/19 16:00 11/01/19 16:00 11/01/19 11/01/19 11/01/19 16:00 16:00 17:20 WBC 1.9 L RBC 2.77 L Hgb 9.0 L Hct 26.6 L MCV 96 MCH 32.6 MCHC 34.0 RDW 21.5 H Plt Count 178 Seg Neutrophils % Not Reportable Sodium 139.8 Potassium 3.5 L Chloride 108 H Carbon Dioxide 24 Anion Gap 8 BUN 9 Creatinine 0.55 Est GFR ( Amer) > 60 Glucose 78 Calcium 8.3 L Total Bilirubin 0.5 AST 35 Alkaline Phosphatase 49 Total Protein 6.2 L Albumin 2.9 L Lipase 95.3 Urine Color STRAW Urine Appearance CLEAR Urine pH 7.0 Ur Specific [place] 1.006 Urine Protein NEGATIVE Urine Glucose (UA) NEGATIVE Urine Ketones NEGATIVE Urine Blood NEGATIVE Urine RBC (Auto) 0 Assessment & Plan - Diagnosis (1) Dehydration Is this a current diagnosis for this admission?: Yes Plan: This is secondary to chemotherapy, treated with IV fluid for rehydration (2) Bicytopenia Is this a current diagnosis for this admission?: Yes (3) Anemia Qualifiers: Anemia type: bone marrow failure Bone marrow failure anemia type: pancytopenia, antineoplastic chemotherapy-induced Qualified Code(s): D61.810 - Antineoplastic chemotherapy induced pancytopenia; T45.1X5A - Adverse effect of antineoplastic and immunosuppressive drugs, initial encounter Is this a current diagnosis for this admission?: Yes (4) Neutropenia Qualifiers: Neutropenia type: unspecified Qualified Code(s): D70.9 - Neutropenia, unspecified Is this a current diagnosis for this admission?: Yes (5) Adenocarcinoma of head of pancreas Is this a current diagnosis for this admission?: Yes Plan: Per oncology
[2019-11-01 22:41] LABS: INTERNATIONAL RATION (INR) 1.05; PROTHROMBIN TIME 13.7 SEC (11.4-15.4)
[2019-11-01 22:42] LABS: PARTIAL THROMBOPLASTIN TIME 31.7 SEC (23.5-35.8)
[2019-11-01] MEDS: POTASSI CL 20 MEQ/D5NS 1L 20 MEQ/1,000 ML RTUINJ IV PRN (23:00)
[2019-11-01] MEDS: ENOXAPARIN SODIUM INJ 40 MG/0.4 ML DISP.SYRIN SUBCUT SCH (23:00)
[2019-11-01] MEDS ORDERED: OXYCODONE HCL IR 5 MG TABLET PO SCH (23:00)
[2019-11-01 23:14] LABS: AMYLASE < 30 U/L (30-110)
[2019-11-01 23:28] LABS: FREE T4 (FREE THYROXINE) 0.89 ng/dL (0.78-2.19)
[2019-11-01 23:42] LABS: THYROID STIMULATING HORMONE 0.77 uIU/mL (0.47-4.68)
[2019-11-02 05:14] LABS: HEMATOCRIT 22.7 % (36.0-47.0); MEAN CORPUSCULAR HEMOGLOBIN 32.6 pg (27.0-33.4); MEAN CORPUSCULAR HGB CONC 34.4 g/dL (32.0-36.0); MEAN CORPUSCULAR VOLUME 95 fl (80-97); PLATELET COUNT 137 10^3/uL (150-450); RED BLOOD COUNT 2.39 10^6/uL (3.72-5.28); RED CELL DISTRIBUTION WIDTH 21.1 % (11.5-14.0)
[2019-11-02 05:41] LABS: ALBUMIN 2.4 g/dL (3.5-5.0); ALKALINE PHOSPHATASE 48 U/L (38-126); ANION GAP 8 (5-19); ASPARTATE AMINO TRANSFERASE 27 U/L (14-36); BILIRUBIN,DIRECT 0.2 mg/dL (0.0-0.4); BILIRUBIN,TOTAL 0.4 mg/dL (0.2-1.3); BLOOD UREA NITROGEN 6 mg/dL (7-20); CALCIUM 7.9 mg/dL (8.4-10.2); CARBON DIOXIDE 23 mmol/L (22-30); CHLORIDE 110 mmol/L (98-107); CHOLESTEROL 124.28 mg/dL (0-200); GLUCOSE 91 mg/dL (75-110); TOTAL PROTEIN 5.2 g/dL (6.3-8.2); TRIGLYCERIDES 122 mg/dL (<150)
[2019-11-02 05:44] LABS: HEMOGLOBIN 7.8 g/dL (12.0-15.5)
[2019-11-02 05:50] LABS: BASOPHILS % (MANUAL) 0 % (0-2); EOSINOPHILS % (MANUAL) 3 % (0-6); LYMPHOCYTES % (MANUAL) 50 % (13-45); MONOCYTES % (MANUAL) 2 % (3-13); SEGMENTED NEUTROPHILS % (MAN) 44 % (42-78); TOTAL CELLS COUNTED 100
[2019-11-02 05:52] LABS: ANISOCYTOSIS 3+; DIRECT LDL 56 mg/dL (<100); PLATELET COMMENT DECREASED
[2019-11-02 05:53] LABS: VLDL CHOLESTEROL 24.4 mg/dL (10-31)
[2019-11-02 05:56] LABS: OVALOCYTES SLIGHT; TEAR DROP CELLS SLIGHT
[2019-11-02] MEDS ORDERED: ACETAMINOPHEN 650 MG SUPP.RECT PR PRN ×2 (06:41→06:43)
[2019-11-02] MEDS ORDERED: (PENDING PHARMACY ID) (Valsartan [Diovan] 320 MG) PO SCH (08:00)
[2019-11-02 08:37] LABS: APPEARANCE,URINE CLEAR; BILIRUBIN,URINE NEGATIVE (NEGATIVE); COLOR,URINE STRAW; GLUCOSE, URINE NEGATIVE (NEGATIVE); KETONES,URINE NEGATIVE (NEGATIVE); LEUKOCYTE ESTERASE,URINE NEGATIVE (NEGATIVE); NITRITE,URINE NEGATIVE (NEGATIVE); PROTEIN,URINE NEGATIVE (NEGATIVE); UROBILINOGEN,URINE NEGATIVE mg/dL (<2.0)
[2019-11-02] MEDS ORDERED: ACETAMINOPHEN 325 MG TABLET PO PRN (08:47)
[2019-11-02] MEDS ORDERED: DIPHENHYDRAMINE HCL 50 MG/ML VIAL IV PRN (08:48)
[2019-11-02] MEDS: VALSARTAN 160 MG TABLET PO SCH (08:53)
[2019-11-02 09:08] LABS: URINE AMPHETAMINES SCREEN NEGATIVE; URINE BARBITURATES SCREEN NEGATIVE; URINE BENZODIAZEPINES SCREEN NEGATIVE; URINE COCAINE SCREEN NEGATIVE; URINE MARIJUANA (THC) SCREEN NEGATIVE; URINE METHADONE SCREEN NEGATIVE; URINE PHENCYCLIDINE SCREEN NEGATIVE
[2019-11-02] MEDS: GUAIFENESIN 600 MG TABLET.SA PO SCH ×2 (09:14→18:22)
[2019-11-02] MEDS: POTASSIUM CHLORIDE 10 MEQ TABLET.ER PO SCH ×5 (09:14→18:22)
--- NOTE | 2019-11-02 09:21 | PDOC CONSULTATION ---
Consultation Consult Date: 11/02/19 Attending physician:: ROZ HAMPTON Provider Consulted: ADELSO CAR Consult reason:: Severe dehydration, weakness in the setting of stage III pancreatic cancer History of Present Illness Admission Date/PCP: 11/01/19 17:47 Patient complains of: Dehydration, weakness History of Present Illness: DICKSON PANIAGUA is a 59 year old female with known history of stage III unresectable pancreatic cancer received thus far 7 cycles of FOLFOX chemotherapy, has had improvement in symptoms and looked good last week, we gave her her seventh dose and she was supposed to go to [facility] for another surgical evaluation in November 14. Unfortunately, after getting chemo last week she ended up coming in with severe dehydration and weakness, she came Thursday initially and we gave her 2 L of IV fluids with antiemetics, hoping she would improve and she came yesterday we can give her 2 L in the office but still she was so weak she could not get out of the wheelchair, therefore we sent her to the ED for admission. There she was given hydration and a contacted Dr. Hampton for admission. She fit criteria for admission because of the severe dehydration. Past Medical History Cardiac Medical History: Reports: Hypertension Denies: Coronary Artery Disease, Myocardial Infarction Pulmonary Medical History: Denies: Asthma, Bronchitis, Chronic Obstructive Pulmonary Disease (COPD), Pneumonia Neurological Medical History: Denies: Seizures Malignancy Medical History: Reports: Pancreatic Cancer Musculoskeltal Medical History: Denies: Arthritis Hematology: Denies: Anemia - BORDERLINE Past Surgical History Past Surgical History: Reports: Other - ERCP with biliary stent placement Social History Information Source: Patient Lives with: Family Smoking Status: Never Smoker Frequency of Alcohol Use: None Hx Recreational Drug Use: Yes Drugs: None Hx Prescription Drug Abuse: No - Advance Directive Resuscitation Status: Full Code Family History Family History: Reviewed & Not Pertinent Parental Family History Reviewed: Yes Children Family History Reviewed: Yes Sibling(s) Family History Reviewed.: Yes Medication/Allergy Home Medications: Guaifenesin [Mucinex] 1,200 mg PO Q12@0700,1900 11/01/19 Hydrochlorothiazide [Hydrodiuril 12.5 mg Tablet] 12.5 mg PO QAM 11/01/19 Lipase/Protease/Amylase [Creon Dr 12,000 Units Capsule] 4 cap PO MEALS 11/01/19 Lorazepam [Ativan 0.5 mg Tablet] 0.5 mg PO Q6HP PRN 11/01/19 Oxycodone HCl [Oxy-Ir 5 mg Tablet] 5 mg PO DAILY@2300 11/01/19 Oxycodone HCl [Oxycodone HCl ER] 10 mg PO DAILY@1100 11/01/19 Potassium Chloride [Klor-Con M20] 20 meq PO DAILY@1500 11/01/19 Promethazine HCl [Phenergan 25 mg Tablet] 25 mg PO Q6HP PRN 11/01/19 Valsartan [Diovan] 320 mg PO QAM 11/01/19 Allergies/Adverse Reactions: hydroxyzine [From Atarax] Allergy (Verified 09/28/19 09:55) sulfamethoxazole [From Septra] Allergy (Verified 09/28/19 09:55) trimethoprim [From Septra] Allergy (Verified 09/28/19 09:55) Review of Systems Constitutional: ABSENT: chills, fever(s), headache(s), weight gain, weight loss Eyes: ABSENT: visual disturbances Ears: ABSENT: hearing changes Cardiovascular: ABSENT: chest pain, dyspnea on exertion, edema, orthropnea, palpitations Respiratory: ABSENT: cough, hemoptysis Gastrointestinal: ABSENT: abdominal pain, constipation, diarrhea, hematemesis, hematochezia, nausea, vomiting Genitourinary: ABSENT: dysuria, hematuria Musculoskeletal: ABSENT: joint swelling Integumentary: ABSENT: rash, wounds Neurological: ABSENT: abnormal gait, abnormal speech, confusion, dizziness, focal weakness, syncope Psychiatric: ABSENT: anxiety, depression, homidical ideation, suicidal ideation Endocrine: ABSENT: cold intolerance, heat intolerance, polydipsia, polyuria Hematologic/Lymphatic: ABSENT: easy bleeding, easy bruising Physical Exam Vital Signs: Temp Pulse Resp BP Pulse Ox 98.3 F 83 17 149/83 H 99 11/02/19 07:43 11/02/19 07:43 11/02/19 07:43 11/02/19 07:43 11/02/19 07:43 Intake & Output 11/01/19 11/02/19 11/03/19 06:59 06:59 06:59 Intake Total 1747 Balance 1747 Weight 65.8 kg General appearance: PRESENT: no acute distress, well-developed, well-nourished Head exam: PRESENT: atraumatic, normocephalic Eye exam: PRESENT: conjunctiva pink, EOMI, PERRLA. ABSENT: scleral icterus Ear exam: PRESENT: normal external ear exam Mouth exam: PRESENT: moist, tongue midline Neck exam: ABSENT: carotid bruit, JVD, lymphadenopathy, thyromegaly Respiratory exam: PRESENT: clear to auscultation anoop. ABSENT: rales, rhonchi, wheezes Cardiovascular exam: PRESENT: RRR. ABSENT: diastolic murmur, rubs, systolic murmur Pulses: PRESENT: normal dorsalis pedis pul Vascular exam: PRESENT: normal capillary refill GI/Abdominal exam: PRESENT: normal bowel sounds, soft. ABSENT: distended, guarding, mass, organolmegaly, rebound, tenderness Rectal exam: PRESENT: deferred Extremities exam: PRESENT: full ROM. ABSENT: calf tenderness, clubbing, pedal edema Neurological exam: PRESENT: alert, awake, oriented to person, oriented to place, oriented to time, oriented to situation, CN II-XII grossly intact. ABSENT: motor sensory deficit Psychiatric exam: PRESENT: appropriate affect, normal mood. ABSENT: homicidal ideation, suicidal ideation Skin exam: PRESENT: dry, intact, warm. ABSENT: cyanosis, rash Results Laboratory Results: 11/02/19 04:40 11/02/19 04:40 11/01/19 11/01/19 11/01/19 16:00 16:00 17:20 WBC 1.9 L RBC 2.77 L Hgb 9.0 L Hct 26.6 L MCV 96 MCH 32.6 MCHC 34.0 RDW 21.5 H Plt Count 178 Seg Neutrophils % Not Reportable Sodium 139.8 Potassium 3.5 L Chloride 108 H Carbon Dioxide 24 Anion Gap 8 BUN 9 Creatinine 0.55 Est GFR ( Amer) > 60 Glucose 78 Calcium 8.3 L Phosphorus Magnesium Total Bilirubin 0.5 AST 35 Alkaline Phosphatase 49 Total Protein 6.2 L Albumin 2.9 L Triglycerides Cholesterol LDL Cholesterol Direct VLDL Cholesterol HDL Cholesterol Amylase Lipase 95.3 TSH Free T4 Urine Color STRAW Urine Appearance CLEAR Urine pH 7.0 Ur Specific [place] 1.006 Urine Protein NEGATIVE Urine Glucose (UA) NEGATIVE Urine Ketones NEGATIVE Urine Blood NEGATIVE Urine Nitrite Ur Leukocyte Esterase Urine WBC (Auto) Urine RBC (Auto) 0 11/01/19 11/01/19 11/02/19 22:24 22:24 04:40 WBC 2.0 L RBC 2.39 L Hgb 7.8 L Hct 22.7 L MCV 95 MCH 32.6 MCHC 34.4 RDW 21.1 H Plt Count 137 L Seg Neutrophils % Not Reportable Sodium Potassium Chloride Carbon Dioxide Anion Gap BUN Creatinine Est GFR ( Amer) Glucose Calcium Phosphorus 2.0 L Magnesium 1.8 Total Bilirubin AST Alkaline Phosphatase Total Protein Albumin Triglycerides Cholesterol LDL Cholesterol Direct VLDL Cholesterol HDL Cholesterol Amylase < 30 L Lipase 100.2 TSH 0.77 Free T4 0.89 Urine Color Urine Appearance Urine pH Ur Specific [place] Urine Protein Urine Glucose (UA) Urine Ketones Urine Blood Urine Nitrite Ur Leukocyte Esterase Urine WBC (Auto) Urine RBC (Auto) 11/02/19 11/02/19 04:40 05:56 WBC RBC Hgb Hct MCV MCH MCHC RDW Plt Count Seg Neutrophils % Sodium 140.5 Potassium 3.0 L* Chloride 110 H Carbon Dioxide 23 Anion Gap 8 BUN 6 L Creatinine 0.56 Est GFR ( Amer) > 60 Glucose 91 Calcium 7.9 L Phosphorus Magnesium Total Bilirubin 0.4 AST 27 Alkaline Phosphatase 48 Total Protein 5.2 L Albumin 2.4 L Triglycerides 122 Cholesterol 124.28 LDL Cholesterol Direct 56 VLDL Cholesterol 24.4 HDL Cholesterol 42 Amylase Lipase TSH Free T4 Urine Color STRAW Urine Appearance CLEAR Urine pH 7.0 Ur Specific [place] 1.010 Urine Protein NEGATIVE Urine Glucose (UA) NEGATIVE Urine Ketones NEGATIVE Urine Blood NEGATIVE Urine Nitrite NEGATIVE Ur Leukocyte Esterase NEGATIVE Urine WBC (Auto) 1 Urine RBC (Auto) 1 11/01/19 11/01/19 11/01/19 22:24 22:24 22:24 Creatine Kinase 25 L CK-MB (CK-2) 0.26 Troponin I < 0.012 11/02/19 11/02/19 04:00 04:40 Creatine Kinase 21 L CK-MB (CK-2) Troponin I < 0.012 Assessment & Plan - Diagnosis (1) Dehydration Is this a current diagnosis for this admission?: Yes Plan: GERD and nausea, chemo induced, severe, needs another 24 hours of hydration at least. She is getting better. (2) Nausea Is this a current diagnosis for this admission?: Yes Plan: Secondary to both the pancreatic cancer as well as dehydration from the chemo, continue with hydration and antiemetics as needed (3) Pancreatic cancer Qualifiers: Pancreatic malignancy location: body of pancreas Qualified Code(s): C25.1 - Malignant neoplasm of body of pancreas Is this a current diagnosis for this admission?: Yes Plan: Patient will be getting surgical evaluation soon (4) Pain, neoplasm-related Is this a current diagnosis for this admission?: Yes Plan: Continue with home oxycodone regimen (5) Anemia Qualifiers: Anemia type: bone marrow failure Bone marrow failure anemia type: pancytopenia, antineoplastic chemotherapy-induced Qualified Code(s): D61.810 - Antineoplastic chemotherapy induced pancytopenia; T45.1X5A - Adverse effect of antineoplastic and immunosuppressive drugs, initial encounter Is this a current diagnosis for this admission?: Yes Plan: Anemia related to chemotherapy, neutropenia related to chemotherapy, give 1 unit of packed red blood cell today, patient is afebrile so no antibiotics needed, will follow. - Time Time Spent: Greater than 70 Minutes - Inpatient Certification Based on my medical assessment, after consideration of the patient's comorbidities, presenting symptoms, or acuity I expect that the services needed warrant INPATIENT care.: Yes I certify that my determination is in accordance with my understanding of Medicare's requirements for reasonable and necessary INPATIENT services [42 CFR 412.3e].: Yes Medical Necessity: Risk of Complication if Not Cared For in Hospital
[2019-11-02] MEDS: OXYCODONE HCL IR 5 MG TABLET PO PRN (09:31)
[2019-11-02] MEDS: POTASSI CL 20 MEQ/D5NS 1L 20 MEQ/1,000 ML RTUINJ IV PRN ×2 (10:38→22:17)
[2019-11-02] MEDS: ENOXAPARIN SODIUM INJ 40 MG/0.4 ML DISP.SYRIN SUBCUT SCH (12:41)
[2019-11-02] MEDS: OXYCODONE HCL SR 10 MG TABLET PO SCH (12:53)
[2019-11-02 14:23] LABS: APPEARANCE,URINE CLEAR; BILIRUBIN,URINE NEGATIVE (NEGATIVE); COLOR,URINE STRAW; GLUCOSE, URINE NEGATIVE (NEGATIVE); KETONES,URINE NEGATIVE (NEGATIVE); LEUKOCYTE ESTERASE,URINE SMALL (NEGATIVE); NITRITE,URINE NEGATIVE (NEGATIVE); PROTEIN,URINE NEGATIVE (NEGATIVE); URINE SPECIFIC GRAVITY 1.008; UROBILINOGEN,URINE NEGATIVE mg/dL (<2.0)
[2019-11-02] MEDS ORDERED: (PENDING PHARMACY ID) (Potassium Chloride [Klor-Con M20] 20 MEQ) PO SCH (15:00)
--- NOTE | 2019-11-02 17:18 | PDOC PROGRESS REPORT ---
Subjective Progress Note for:: 11/02/19 Subjective:: Patient seen by the bedside, the blood work showed hypokalemia Reason For Visit: CHEMOTHERAPY RELATED BICYTOPENIA, MALIGNANT Physical Exam Vital Signs: Temp Pulse Resp BP Pulse Ox 98.0 F 73 17 171/92 H 99 11/02/19 16:01 11/02/19 16:01 11/02/19 16:01 11/02/19 16:01 11/02/19 16:01 Intake & Output 11/01/19 11/02/19 11/03/19 06:59 06:59 06:59 Intake Total 1747 300 Balance 1747 300 Weight 65.8 kg General appearance: PRESENT: no acute distress Eye exam: PRESENT: PERRLA Respiratory exam: PRESENT: clear to auscultation anoop Cardiovascular exam: PRESENT: +S1, +S2 GI/Abdominal exam: PRESENT: soft Neurological exam: PRESENT: alert Results Laboratory Results: 11/02/19 04:40 11/02/19 04:40 11/01/19 11/01/19 11/01/19 17:20 22:24 22:24 WBC RBC Hgb Hct MCV MCH MCHC RDW Plt Count Seg Neutrophils % Sodium Potassium Chloride Carbon Dioxide Anion Gap BUN Creatinine Est GFR ( Amer) Glucose Calcium Phosphorus 2.0 L Magnesium 1.8 Total Bilirubin AST Alkaline Phosphatase Total Protein Albumin Triglycerides Cholesterol LDL Cholesterol Direct VLDL Cholesterol HDL Cholesterol Amylase < 30 L Lipase 100.2 TSH 0.77 Free T4 0.89 Urine Color STRAW Urine Appearance CLEAR Urine pH 7.0 Ur Specific [place] 1.006 Urine Protein NEGATIVE Urine Glucose (UA) NEGATIVE Urine Ketones NEGATIVE Urine Blood NEGATIVE Urine Nitrite Ur Leukocyte Esterase Urine WBC (Auto) Urine RBC (Auto) 0 Blood Type Antibody Screen 11/02/19 11/02/19 11/02/19 04:40 04:40 05:56 WBC 2.0 L RBC 2.39 L Hgb 7.8 L Hct 22.7 L MCV 95 MCH 32.6 MCHC 34.4 RDW 21.1 H Plt Count 137 L Seg Neutrophils % Not Reportable Sodium 140.5 Potassium 3.0 L* Chloride 110 H Carbon Dioxide 23 Anion Gap 8 BUN 6 L Creatinine 0.56 Est GFR ( Amer) > 60 Glucose 91 Calcium 7.9 L Phosphorus Magnesium Total Bilirubin 0.4 AST 27 Alkaline Phosphatase 48 Total Protein 5.2 L Albumin 2.4 L Triglycerides 122 Cholesterol 124.28 LDL Cholesterol Direct 56 VLDL Cholesterol 24.4 HDL Cholesterol 42 Amylase Lipase TSH Free T4 Urine Color STRAW Urine Appearance CLEAR Urine pH 7.0 Ur Specific [place] 1.010 Urine Protein NEGATIVE Urine Glucose (UA) NEGATIVE Urine Ketones NEGATIVE Urine Blood NEGATIVE Urine Nitrite NEGATIVE Ur Leukocyte Esterase NEGATIVE Urine WBC (Auto) 1 Urine RBC (Auto) 1 Blood Type Antibody Screen 11/02/19 11/02/19 09:58 13:17 WBC RBC Hgb Hct MCV MCH MCHC RDW Plt Count Seg Neutrophils % Sodium Potassium Chloride Carbon Dioxide Anion Gap BUN Creatinine Est GFR ( Amer) Glucose Calcium Phosphorus Magnesium Total Bilirubin AST Alkaline Phosphatase Total Protein Albumin Triglycerides Cholesterol LDL Cholesterol Direct VLDL Cholesterol HDL Cholesterol Amylase Lipase TSH Free T4 Urine Color STRAW Urine Appearance CLEAR Urine pH 7.0 Ur Specific [place] 1.008 Urine Protein NEGATIVE Urine Glucose (UA) NEGATIVE Urine Ketones NEGATIVE Urine Blood NEGATIVE Urine Nitrite NEGATIVE Ur Leukocyte Esterase SMALL H Urine WBC (Auto) 7 Urine RBC (Auto) 0 Blood Type A POSITIVE Antibody Screen NEGATIVE 11/01/19 11/01/19 11/01/19 22:24 22:24 22:24 Creatine Kinase 25 L CK-MB (CK-2) 0.26 Troponin I < 0.012 11/02/19 11/02/19 11/02/19 04:00 04:40 09:58 Creatine Kinase 21 L 22 L CK-MB (CK-2) Troponin I < 0.012 11/02/19 09:58 Creatine Kinase CK-MB (CK-2) Troponin I < 0.012 Assessment & Plan - Diagnosis (1) Dehydration Is this a current diagnosis for this admission?: Yes (2) Bicytopenia Is this a current diagnosis for this admission?: Yes (3) Anemia Qualifiers: Anemia type: bone marrow failure Bone marrow failure anemia type: pancytopenia, antineoplastic chemotherapy-induced Qualified Code(s): D61.810 - Antineoplastic chemotherapy induced pancytopenia; T45.1X5A - Adverse effect of antineoplastic and immunosuppressive drugs, initial encounter Is this a current diagnosis for this admission?: Yes Plan: Transfuse packed red blood cells (4) Neutropenia Qualifiers: Neutropenia type: unspecified Qualified Code(s): D70.9 - Neutropenia, unspecified Is this a current diagnosis for this admission?: Yes (5) Adenocarcinoma of head of pancreas Is this a current diagnosis for this admission?: Yes (6) Hypokalemia Is this a current diagnosis for this admission?: Yes Plan: Replace potassium - Time Time Spent with patient: 35 or more minutes Level of Care: IMCU
[2019-11-03] MEDS: OXYCODONE HCL IR 5 MG TABLET PO PRN ×2 (00:42→22:15)
[2019-11-03 05:34] LABS: ABSOLUTE EOSINOPHILS # (AUTO) 0.1 10^3/uL (0.0-0.6); ABSOLUTE MONOCYTES (AUTO) 0.2 10^3/uL (0.1-1.4); ABSOLUTE NEUT (AUTO) 1.6 10^3/uL (1.7-8.2); BASOPHILS % (AUTO) 0.5 % (0-2); EOSINOPHILS % (AUTO) 2.8 % (0-6); HEMATOCRIT 27.7 % (36.0-47.0); HEMOGLOBIN 9.4 g/dL (12.0-15.5); LYMPHOCYTES % (AUTO) 33.9 % (13-45); MEAN CORPUSCULAR HEMOGLOBIN 31.2 pg (27.0-33.4); MEAN CORPUSCULAR HGB CONC 34.1 g/dL (32.0-36.0); MEAN CORPUSCULAR VOLUME 92 fl (80-97); MONOCYTES % (AUTO) 8.2 % (3-13); PLATELET COUNT 133 10^3/uL (150-450); RED BLOOD COUNT 3.02 10^6/uL (3.72-5.28); RED CELL DISTRIBUTION WIDTH 22.7 % (11.5-14.0); SEGMENTED NEUTROPHILS % (AUTO) 54.6 % (42-78); TOTAL CELLS COUNTED % (AUTO) 100 %
[2019-11-03 05:55] LABS: ALBUMIN 2.4 g/dL (3.5-5.0); ALKALINE PHOSPHATASE 47 U/L (38-126); ASPARTATE AMINO TRANSFERASE 26 U/L (14-36); BILIRUBIN,DIRECT 0.1 mg/dL (0.0-0.4); BILIRUBIN,TOTAL 0.3 mg/dL (0.2-1.3); BLOOD UREA NITROGEN 3 mg/dL (7-20); CALCIUM 8.4 mg/dL (8.4-10.2); CARBON DIOXIDE 24 mmol/L (22-30); CHLORIDE 112 mmol/L (98-107); GLUCOSE 139 mg/dL (75-110); POTASSIUM 4.1 mmol/L (3.6-5.0); TOTAL PROTEIN 5.3 g/dL (6.3-8.2)
[2019-11-03 06:29] LABS: ANION GAP 4 (5-19)
[2019-11-03] MEDS: POTASSI CL 20 MEQ/D5NS 1L 20 MEQ/1,000 ML RTUINJ IV PRN (08:11)
[2019-11-03] MEDS: VALSARTAN 160 MG TABLET PO SCH (08:53)
[2019-11-03] MEDS: GUAIFENESIN 600 MG TABLET.SA PO SCH ×2 (08:54→21:37)
[2019-11-03] MEDS: OXYCODONE HCL SR 10 MG TABLET PO SCH (11:08)
[2019-11-03] MEDS: ENOXAPARIN SODIUM INJ 40 MG/0.4 ML DISP.SYRIN SUBCUT SCH (11:10)
[2019-11-03] MEDS: POTASSIUM CHLORIDE 10 MEQ TABLET.ER PO SCH (14:59)
--- NOTE | 2019-11-03 19:59 | PDOC DISCHARGE SUMMARY ---
Impression - Admit/DC Date/PCP Admission Date/Primary Care Provider: 11/01/19 17:47 Discharge Date: 11/04/19 - Discharge Diagnosis (1) Dehydration Is this a current diagnosis for this admission?: Yes (2) Bicytopenia Is this a current diagnosis for this admission?: Yes (3) Anemia Is this a current diagnosis for this admission?: Yes (4) Neutropenia Is this a current diagnosis for this admission?: Yes (5) Adenocarcinoma of head of pancreas Is this a current diagnosis for this admission?: Yes (6) Hypokalemia Is this a current diagnosis for this admission?: Yes - Additional Information Resuscitation Status: Full Code Referrals: ADELSO CAR MD [ACTIVE STAFF] - Follow up as needed Home Medications: Guaifenesin [Mucinex] 1,200 mg PO Q12@0700,1900 11/01/19 Hydrochlorothiazide [Hydrodiuril 12.5 mg Tablet] 12.5 mg PO QAM 11/01/19 Lipase/Protease/Amylase [Creon Dr 12,000 Units Capsule] 2 cap PO MEALS 11/01/19 Lorazepam [Ativan 0.5 mg Tablet] 0.5 mg PO Q6HP PRN 11/01/19 Oxycodone HCl [Oxy-Ir 5 mg Tablet] 5 mg PO DAILY@2300 11/01/19 Oxycodone HCl [Oxycodone HCl ER] 10 mg PO DAILY@1100 11/01/19 Potassium Chloride [Klor-Con M20] 20 meq PO DAILY@1500 11/01/19 Promethazine HCl [Phenergan 25 mg Tablet] 25 mg PO Q6HP PRN 11/01/19 Valsartan [Diovan] 320 mg PO QAM 11/01/19 History of Present Illiness History of Present Illness: DICKSON PANIAGUA is a 59 year old female, She has malignant neoplasm of the head of the pancreas on active chemotherapy, she developed vomiting ,diarrhea related to the chemotherapy, she was seen at the oncology office she was treated with IV fluid despite the intervention she remains dehydrated with extreme fatigue, no energy. She was referred to the emergency room by the oncologist, she was evaluated, she was found to be dehydrated, the hemogram demonstrated bicytopenia with leukopenia and anemia. Because of the poor clinical state hospital admission was advised by the emergency room providers I was called to admit the patient to the hospital. Hospital Course Hospital Course: Patient was admitted for the management of dehydration, chemotherapy related, history of malignant neoplasm of the of the pancreas. She was treated with IV fluid, normal saline with denominational of volume there was associated hypokalemia,This was corrected with replacement therapy. She was also seen by the treating oncologist, she received a unit of red blood cells Physical Exam Vital Signs: Temp Pulse Resp BP Pulse Ox 97.9 F 89 17 167/101 H 99 11/03/19 15:10 11/03/19 15:10 11/03/19 15:10 11/03/19 15:10 11/03/19 15:10 Intake & Output 11/02/19 11/03/19 11/04/19 06:59 06:59 06:59 Intake Total 1747 1300 2287 Balance 1747 1300 2287 Weight 65.8 kg 66.2 kg General appearance: PRESENT: no acute distress Eye exam: PRESENT: PERRLA Respiratory exam: PRESENT: clear to auscultation anoop Cardiovascular exam: PRESENT: +S1, +S2 GI/Abdominal exam: PRESENT: soft Neurological exam: PRESENT: alert, CN II-XII grossly intact Results Laboratory Results: WBC 3.0 10^3/uL (4.0-10.5) L 11/03/19 04:35 RBC 3.02 10^6/uL (3.72-5.28) L 11/03/19 04:35 Hgb 9.4 g/dL (12.0-15.5) L 11/03/19 04:35 Hct 27.7 % (36.0-47.0) L 11/03/19 04:35 MCV 92 fl (80-97) 11/03/19 04:35 MCH 31.2 pg (27.0-33.4) 11/03/19 04:35 MCHC 34.1 g/dL (32.0-36.0) 11/03/19 04:35 RDW 22.7 % (11.5-14.0) H 11/03/19 04:35 Plt Count 133 10^3/uL (150-450) L 11/03/19 04:35 Lymph % (Auto) 33.9 % (13-45) 11/03/19 04:35 [place] % (Auto) 8.2 % (3-13) 11/03/19 04:35 Eos % (Auto) 2.8 % (0-6) 11/03/19 04:35 Baso % (Auto) 0.5 % (0-2) 11/03/19 04:35 Absolute Neuts (auto) 1.6 10^3/uL (1.7-8.2) L 11/03/19 04:35 Absolute Lymphs (auto) 1.0 10^3/uL (0.5-4.7) 11/03/19 04:35 Absolute Monos (auto) 0.2 10^3/uL (0.1-1.4) 11/03/19 04:35 Absolute Eos (auto) 0.1 10^3/uL (0.0-0.6) 11/03/19 04:35 Absolute Basos (auto) 0.0 10^3/uL (0.0-0.2) 11/03/19 04:35 Total Counted 100 11/02/19 04:40 Seg Neutrophils % 54.6 % (42-78) 11/03/19 04:35 Seg Neuts % (Manual) 44 % (42-78) 11/02/19 04:40 Lymphocytes % (Manual) 50 % (13-45) H 11/02/19 04:40 Atypical Lymphs % 1 % (0) 11/02/19 04:40 Monocytes % (Manual) 2 % (3-13) L 11/02/19 04:40 Eosinophils % (Manual) 3 % (0-6) 11/02/19 04:40 Basophils % (Manual) 0 % (0-2) 11/02/19 04:40 Abs Neuts (Manual) 0.9 10^3/uL (1.7-8.2) L 11/02/19 04:40 Abs Lymphs (Manual) 1.0 10^3/uL (0.5-4.7) 11/02/19 04:40 Abs Monocytes (Manual) 0.0 10^3/uL (0.1-1.4) L 11/02/19 04:40 Absolute Eos (Manual) 0.1 10^3/uL (0.0-0.6) 11/02/19 04:40 Abs Basophils (Manual) 0.0 10^3/uL (0.0-0.2) 11/02/19 04:40 Platelet Comment DECREASED 11/02/19 04:40 Anisocytosis 3+ 11/02/19 04:40 Tear Drop Cells SLIGHT 11/02/19 04:40 Ovalocytes SLIGHT 11/02/19 04:40 PT 13.7 SEC (11.4-15.4) 11/01/19 22:24 INR 1.05 11/01/19 22:24 APTT 31.7 SEC (23.5-35.8) 11/01/19 22:24 Sodium 139.9 mmol/L (137-145) 11/03/19 05:00 Potassium 4.1 mmol/L (3.6-5.0) 11/03/19 05:00 Chloride 112 mmol/L (98-107) H 11/03/19 05:00 Carbon Dioxide 24 mmol/L (22-30) 11/03/19 05:00 Anion Gap 4 (5-19) L 11/03/19 05:00 BUN 3 mg/dL (7-20) L 11/03/19 05:00 Creatinine 0.57 mg/dL (0.52-1.25) 11/03/19 05:00 Est GFR ( Amer) > 60 (>60) 11/03/19 05:00 Est GFR (MDRD) Non-Af > 60 (>60) 11/03/19 05:00 Glucose 139 mg/dL (75-110) H 11/03/19 05:00 Hemoglobin A1c % 5.6 % (4.7-6.0) 11/02/19 04:40 Calcium 8.4 mg/dL (8.4-10.2) 11/03/19 05:00 Phosphorus 2.0 mg/dL (2.5-4.5) L 11/01/19 22:24 Magnesium 1.8 mg/dL (1.6-2.3) 11/01/19 22:24 Total Bilirubin 0.3 mg/dL (0.2-1.3) 11/03/19 05:00 Direct Bilirubin 0.1 mg/dL (0.0-0.4) 11/03/19 05:00 Neonat Total Bilirubin Not Reportable 11/03/19 05:00 Neonat Direct Bilirubin Not Reportable 11/03/19 05:00 Neonat Indirect Bili Not Reportable 11/03/19 05:00 AST 26 U/L (14-36) 11/03/19 05:00 ALT 18 U/L (<35) 11/03/19 05:00 Alkaline Phosphatase 47 U/L (38-126) 11/03/19 05:00 Creatine Kinase 22 U/L (30-135) L 11/02/19 09:58 CK-MB (CK-2) 0.26 ng/mL (<4.55) 11/01/19 22:24 Troponin I < 0.012 ng/mL 11/02/19 09:58 Total Protein 5.3 g/dL (6.3-8.2) L 11/03/19 05:00 Albumin 2.4 g/dL (3.5-5.0) L 11/03/19 05:00 Triglycerides 122 mg/dL (<150) 11/02/19 04:40 Cholesterol 124.28 mg/dL (0-200) 11/02/19 04:40 LDL Cholesterol Direct 56 mg/dL (<100) 11/02/19 04:40 VLDL Cholesterol 24.4 mg/dL (10-31) 11/02/19 04:40 HDL Cholesterol 42 mg/dL (>40) 11/02/19 04:40 Amylase < 30 U/L (30-110) L 11/01/19 22:24 Lipase 100.2 U/L (23-300) 11/01/19 22:24 TSH 0.77 uIU/mL (0.47-4.68) 11/01/19 22:24 Free T4 0.89 ng/dL (0.78-2.19) 11/01/19 22:24 Urine Color STRAW 11/02/19 13:17 Urine Appearance CLEAR 11/02/19 13:17 Urine pH 7.0 (5.0-9.0) 11/02/19 13:17 Ur Specific Bronson 1.008 11/02/19 13:17 Urine Protein NEGATIVE mg/dL (NEGATIVE) 11/02/19 13:17 Urine Glucose (UA) NEGATIVE mg/dL (NEGATIVE) 11/02/19 13:17 Urine Ketones NEGATIVE mg/dL (NEGATIVE) 11/02/19 13:17 Urine Blood NEGATIVE (NEGATIVE) 11/02/19 13:17 Urine Nitrite NEGATIVE (NEGATIVE) 11/02/19 13:17 Urine Nitrite (Reflex) NEGATIVE (NEGATIVE) 11/01/19 17:20 Urine Bilirubin NEGATIVE (NEGATIVE) 11/02/19 13:17 Urine Urobilinogen NEGATIVE mg/dL (<2.0) 11/02/19 13:17 Ur Leukocyte Esterase SMALL (NEGATIVE) H 11/02/19 13:17 Leukocyte Esterase Rfl NEGATIVE (NEGATIVE) 11/01/19 17:20 Urine WBC (Auto) 7 /HPF 11/02/19 13:17 Urine RBC (Auto) 0 /HPF 11/02/19 13:17 U Hyaline Cast (Auto) 1 /LPF 11/01/19 17:20 Urine Bacteria (Auto) TRACE /HPF 11/02/19 13:17 Urine WBC (Reflex) < 1 /HPF 11/01/19 17:20 Squamous Epi Cells Auto 2 /HPF 11/02/19 13:17 Urine Mucus (Auto) RARE /LPF 11/02/19 13:17 Urine Ascorbic Acid NEGATIVE (NEGATIVE) 11/02/19 13:17 Urine Opiates Screen NEGATIVE 11/02/19 05:56 Urine Methadone Screen NEGATIVE 11/02/19 05:56 Ur Barbiturates Screen NEGATIVE 11/02/19 05:56 Ur Phencyclidine Scrn NEGATIVE 11/02/19 05:56 Ur Amphetamines Screen NEGATIVE 11/02/19 05:56 U Benzodiazepines Scrn NEGATIVE 11/02/19 05:56 Urine Cocaine Screen NEGATIVE 11/02/19 05:56 U Marijuana (THC) Screen NEGATIVE 11/02/19 05:56 Blood Type A POSITIVE 11/02/19 09:58 Antibody Screen NEGATIVE 11/02/19 09:58 Crossmatch See Detail 11/02/19 09:58 11/01/19 11/01/19 11/02/19 22:24 22:24 04:00 CK-MB (CK-2) 0.26 Troponin I < 0.012 < 0.012 11/02/19 09:58 CK-MB (CK-2) Troponin I < 0.012 Stroke Is this a Stroke Patient?: No Acute Heart Failure - Is this a Heart Failure Patient?: No
[2019-11-04 06:12] LABS: ABSOLUTE EOSINOPHILS # (AUTO) 0.1 10^3/uL (0.0-0.6); ABSOLUTE LYMPHOCYTES (AUTO) 1.3 10^3/uL (0.5-4.7); ABSOLUTE MONOCYTES (AUTO) 0.4 10^3/uL (0.1-1.4); ABSOLUTE NEUT (AUTO) 1.8 10^3/uL (1.7-8.2); BASOPHILS % (AUTO) 0.4 % (0-2); EOSINOPHILS % (AUTO) 2.5 % (0-6); HEMATOCRIT 28.1 % (36.0-47.0); HEMOGLOBIN 9.7 g/dL (12.0-15.5); LYMPHOCYTES % (AUTO) 36.4 % (13-45); MEAN CORPUSCULAR HEMOGLOBIN 31.5 pg (27.0-33.4); MEAN CORPUSCULAR HGB CONC 34.6 g/dL (32.0-36.0); MEAN CORPUSCULAR VOLUME 91 fl (80-97); MONOCYTES % (AUTO) 12.2 % (3-13); PLATELET COUNT 125 10^3/uL (150-450); RED BLOOD COUNT 3.08 10^6/uL (3.72-5.28); RED CELL DISTRIBUTION WIDTH 22.7 % (11.5-14.0); SEGMENTED NEUTROPHILS % (AUTO) 48.5 % (42-78); TOTAL CELLS COUNTED % (AUTO) 100 %; WHITE BLOOD COUNT 3.7 10^3/uL (4.0-10.5)
[2019-11-04] MEDS: GUAIFENESIN 600 MG TABLET.SA PO SCH (06:17)
[2019-11-04 06:37] LABS: ALBUMIN 2.6 g/dL (3.5-5.0); ALKALINE PHOSPHATASE 55 U/L (38-126); ASPARTATE AMINO TRANSFERASE 31 U/L (14-36); BILIRUBIN,DIRECT 0.3 mg/dL (0.0-0.4); BILIRUBIN,TOTAL 0.6 mg/dL (0.2-1.3); BLOOD UREA NITROGEN 5 mg/dL (7-20); CALCIUM 8.8 mg/dL (8.4-10.2); POTASSIUM 3.8 mmol/L (3.6-5.0); TOTAL PROTEIN 5.5 g/dL (6.3-8.2)
[2019-11-04 06:42] LABS: CARBON DIOXIDE 25 mmol/L (22-30); CHLORIDE 111 mmol/L (98-107)
[2019-11-04 06:58] LABS: ANION GAP 4 (5-19); GLUCOSE 61 mg/dL (75-110)
[2019-11-04] MEDS: OXYCODONE HCL IR 5 MG TABLET PO PRN (08:00)
[2019-11-04] MEDS: VALSARTAN 160 MG TABLET PO SCH (08:00)
[2019-11-04 08:25] VITALS: BP 158/98
--- NOTE | 2019-11-04 08:40 | PDOC PROGRESS REPORT ---
Subjective Progress Note for:: 11/04/19 Subjective:: Patient is planned to be discharged today, was doing better over the last 24 hours. Reason For Visit: CHEMOTHERAPY RELATED BICYTOPENIA, MALIGNANT Physical Exam Vital Signs: Temp Pulse Resp BP Pulse Ox 98.2 F 97 16 158/98 H 98 11/04/19 08:06 11/04/19 08:06 11/04/19 08:06 11/04/19 08:06 11/04/19 08:06 Intake & Output 11/03/19 11/04/19 11/05/19 06:59 06:59 06:59 Intake Total 1300 2287 Balance 1300 2287 Weight 66.2 kg 65.4 kg General appearance: PRESENT: no acute distress, well-developed, well-nourished Head exam: PRESENT: atraumatic, normocephalic Eye exam: PRESENT: conjunctiva pink, EOMI, PERRLA. ABSENT: scleral icterus Ear exam: PRESENT: normal external ear exam Mouth exam: PRESENT: moist, tongue midline Neck exam: ABSENT: carotid bruit, JVD, lymphadenopathy, thyromegaly Respiratory exam: PRESENT: clear to auscultation anoop. ABSENT: rales, rhonchi, wheezes Cardiovascular exam: PRESENT: RRR. ABSENT: diastolic murmur, rubs, systolic murmur Pulses: PRESENT: normal dorsalis pedis pul Vascular exam: PRESENT: normal capillary refill GI/Abdominal exam: PRESENT: normal bowel sounds, soft. ABSENT: distended, guarding, mass, organolmegaly, rebound, tenderness Rectal exam: PRESENT: deferred Extremities exam: PRESENT: full ROM. ABSENT: calf tenderness, clubbing, pedal edema Neurological exam: PRESENT: alert, awake, oriented to person, oriented to place, oriented to time, oriented to situation, CN II-XII grossly intact. ABSENT: motor sensory deficit Psychiatric exam: PRESENT: appropriate affect, normal mood. ABSENT: homicidal ideation, suicidal ideation Skin exam: PRESENT: dry, intact, warm. ABSENT: cyanosis, rash Results Laboratory Results: 11/04/19 05:30 11/04/19 05:30 11/04/19 11/04/19 05:30 05:30 WBC 3.7 L RBC 3.08 L Hgb 9.7 L Hct 28.1 L MCV 91 MCH 31.5 MCHC 34.6 RDW 22.7 H Plt Count 125 L Seg Neutrophils % 48.5 Sodium 139.8 Potassium 3.8 Chloride 111 H Carbon Dioxide 25 Anion Gap 4 L BUN 5 L Creatinine 0.63 Est GFR ( Amer) > 60 Glucose 61 L Calcium 8.8 Total Bilirubin 0.6 AST 31 Alkaline Phosphatase 55 Total Protein 5.5 L Albumin 2.6 L 11/01/19 11/01/19 11/01/19 22:24 22:24 22:24 Creatine Kinase 25 L CK-MB (CK-2) 0.26 Troponin I < 0.012 11/02/19 11/02/19 11/02/19 04:00 04:40 09:58 Creatine Kinase 21 L 22 L CK-MB (CK-2) Troponin I < 0.012 11/02/19 09:58 Creatine Kinase CK-MB (CK-2) Troponin I < 0.012 Assessment & Plan - Diagnosis (1) Dehydration Is this a current diagnosis for this admission?: Yes Plan: Improved, plan for fluids though on Thursday next week (2) Nausea Is this a current diagnosis for this admission?: Yes Plan: Continue with oral antiemetics at home (3) Pancreatic cancer Qualifiers: Pancreatic malignancy location: body of pancreas Qualified Code(s): C25.1 - Malignant neoplasm of body of pancreas Is this a current diagnosis for this admission?: Yes Plan: Next follow-up will be at [facility] on 11/14. But she will see us next week for continued hydration. (4) Pain, neoplasm-related Is this a current diagnosis for this admission?: Yes Plan: Continue with oral pain medication she has enough at home (5) Anemia Qualifiers: Anemia type: bone marrow failure Bone marrow failure anemia type: pancytopenia, antineoplastic chemotherapy-induced Qualified Code(s): D61.810 - Antineoplastic chemotherapy induced pancytopenia; T45.1X5A - Adverse effect of antineoplastic and immunosuppressive drugs, initial encounter Is this a current diagnosis for this admission?: Yes Plan: Count stable - Time Time Spent with patient: 25-34 minutes
[2019-11-04] MEDS: ENOXAPARIN SODIUM INJ 40 MG/0.4 ML DISP.SYRIN SUBCUT SCH (09:23)
== END 2019-11-04 10:20 | disposition home or self-care (01) | DRG 809 ==
LOC: ER 14:12 → EH 17:47 → 3W 21:32
PROVIDERS: ADMIT Internal Medicine; ATTEND Internal Medicine
PROC: 30233N1 Transfusion of Nonautologous Red Blood Cells into Peripheral Vein, Percutaneous Approach (ICD-10-PCS; principal; 2019-11-02)
DX: D61.810 Antineoplastic chemotherapy induced pancytopenia (principal); C25.1 Malignant neoplasm of body of pancreas; E86.0 Dehydration; G89.3 Neoplasm related pain (acute) (chronic); E87.6 Hypokalemia; I10 Essential (primary) hypertension; T45.1X5A Adverse effect of antineoplastic and immunosuppressive drugs, initial encounter; R19.7 Diarrhea, unspecified; R11.2 Nausea with vomiting, unspecified; Z88.2 Allergy status to sulfonamides; Z88.8 Allergy status to other drugs, medicaments and biological substances
CPT/HCPCS: 36415; 36430; 80053; 80061; 80307; 81001; 82150; 82550; 82553; 82962; 83036; 83690; 83735; 84100; 84439; 84443; 84484; 85025; 85610; 85730; 86850; 86900; 86901; 86920; 87040; 87086; 96360; 99284; J1200; J1650; J3480; J7030; P9016

== ENCOUNTER → 2020-02-07 | Outpatient (CLI) | payer OTHER ==
--- NOTE | 2020-02-07 11:25 | RADIOLOGY REPORT (SQ) ---
EXAM DESCRIPTION: CT CHEST WITH; CT ABD/PELVIS WITH IV ONLY COMPLETED DATE/TIME: 02/07/2020 9:18 am REASON FOR STUDY: (C25.0)MALIGNANT NEOPLASM OF HEAD OF PANCREAS C25.0 MALIGNANT NEOPLASM OF HEAD OF PANCREAS COMPARISON: CT abdomen pelvis 07/04/2019 PET-CT 07/24/2019 MRI abdomen 07/24/2019 CONTRAST TYPE AND DOSE: contrast/concentration: Isovue 350.00 mg/ml; Total Contrast Delivered: 71.0 ml; Total Saline Delivered: 66.0 ml RENAL FUNCTION: GFR > 60. TECHNIQUE: CT scan of the chest performed using helical scanning technique with dynamic intravenous contrast injection. Images reviewed with lung, soft tissue and bone windows. Reconstructed coronal a nd sagittal MPR images reviewed. All images stored on PACS. CT scan of the abdomen and pelvis performed with intravenous and without oral contrastusing helical s nori technique with dynamic intravenous contrast injection. Images reviewed with lung, soft tissu e and bone windows. Reconstructed coronal and sagittal MPR images reviewed. Delayed images for eval uation of the urinary system also acquired and evaluated. All images stored on PACS. All CT scanners at this facility use dose modulation, iterative reconstruction, and/or weight based d osing when appropriate to reduce radiation dose to as low as reasonably achievable (ALARA). [facility]: Dose Right [facility]: CareDose [facility]: Dose Right [facility]: Teradose 4D [facility]: [employer] RADIATION DOSE: CT Rad equipment meets quality standard of care and radiation dose reduction techniq ues were employed. CTDIvol: 4.4 - 4.6 mGy. DLP: 877 mGy-cm. . LIMITATIONS: None. FINDINGS: CHEST: LUNGS AND PLEURA: No opacities, nodules, masses. No pneumothorax. No effusions. HILAR AND MEDIASTINAL STRUCTURES: No identified masses or abnormal nodes. HEART AND VASCULAR STRUCTURES: No aneurysm or dissection. No central pulmonary emboli. No pericardi al effusion. HARDWARE: Left permanent central line tip superior vena cava THYROID AND OTHER SOFT TISSUES: Heterogeneous enlarged thyroid BONES: No significant finding. OTHER: No other significant finding. ABDOMEN AND PELVIS: LIVER: There is air in left-sided intrahepatic bile ducts due to patent common bile duct stent. No b iliary ductal dilatation.No gross liver parenchymal metastatic lesions. There is re- cannulization o f the portal vein with heterogeneous liver profusion. SPLEEN: 14 cm in length. No focal lesions. Spontaneous left splenorenal shunt best shown on coronal images 39-43 PANCREAS: Tumor at the pancreatic head encasing the distal common bile duct stent measures 5 cm trans verse by 2.8 cm AP (was 3 x 2.3 cm on 07/04/2019) remainder of the pancreas otherwise unremarkable GALLBLADDER: No ADRENAL GLANDS: No significant masses or asymmetry. RIGHT KIDNEY AND URETER: No solid masses. No significant calcification. No hydronephrosis or hydroure ter. LEFT KIDNEY AND URETER: No solid masses. No significant calcification. No hydronephrosis or hydrouret er. AORTA AND VESSELS: No aneurysm. No dissection. Renal arteries, SMA, celiac without stenosis. RETROPERITONEUM: No retroperitoneal adenopathy, hemorrhage or masses. BOWEL AND PERITONEAL CAVITY: No masses or inflammatory changes. No free fluid or peritoneal masses. APPENDIX: Normal. ABDOMINAL WALL: No masses. No hernias. PELVIS: No mass or free fluid. Normal bladder. Fibroid uterus BONES: No significant or acute findings. OTHER: No other significant finding. IMPRESSION: Increase in size of primary pancreatic mass No CT evidence of widespread metastatic disease to the chest abdomen or pelvis TECHNICAL DOCUMENTATION: JOB ID: [id number] Quality ID # [id number]: Final reports with documentation of one or more dose reduction techniques (e.g., Au tomated exposure control, adjustment of the mA and/or kV according to patient size, use of iterative reconstruction technique) 2010 [employer]- All Rights Reserved Reading location - IP/workstation name: [id number]
== END ==
LOC: RAD 08:25
PROVIDERS: ATTEND Physician Assistant Medical
DX: C25.0 Malignant neoplasm of head of pancreas (principal)
CPT/HCPCS: 71260; 74177; 82565

== ENCOUNTER → 2020-04-03 | Outpatient (CLI) | payer OTHER ==
--- NOTE | 2020-04-03 09:26 | RADIOLOGY REPORT (SQ) ---
EXAM DESCRIPTION: CT CHEST WITH; CT ABD/PELVIS WITH IV ONLY IMAGES COMPLETED DATE/TIME: 04/03/2020 8:39 am REASON FOR STUDY: PANCREATIC CA (C25.0) C25.0 MALIGNANT NEOPLASM OF HEAD OF PANCREAS CONTRAST TYPE AND DOSE: contrast/concentration: Isovue 350.00 mg/ml; Total Contrast Delivered: 62.0 ml; Total Saline Delivered: 65.0 ml RENAL FUNCTION: Creatinine 0.7 COMPARISON: None. TECHNIQUE: CT scan of the chest performed using helical scanning technique with dynamic intravenous contrast injection. Images reviewed with lung, soft tissue and bone windows. Reconstructed coronal a nd sagittal MPR images reviewed. All images stored on PACS. All CT scanners at this facility use dose modulation, iterative reconstruction, and/or weight based d osing when appropriate to reduce radiation dose to as low as reasonably achievable (ALARA). [facility]: Dose Right [facility]: CareDose [facility]: Dose Right [facility]: Teradose 4D [facility]: [employer] RADIATION DOSE: CT Rad equipment meets quality standard of care and radiation dose reduction techniq ues were employed. CTDIvol: 4.5 - 5.2 mGy. DLP: 899 mGy-cm. . LIMITATIONS: None. FINDINGS: AXILLAE: No adenopathy. CHEST WALL: No masses. No subcutaneous air. LUNGS: No nodules or masses. No pneumothorax. No infiltrates. PLEURA: No effusions. No calcifications. THYROID: Stable in appearance with small bilateral thyroid nodules. HILAR AND MEDIASTINAL STRUCTURES: No identified masses or abnormal nodes. AORTA AND GREAT VESSELS: No aneurysm. No dissection. PULMONARY ARTERIES: No identified pulmonary emboli. Study not optimized for the pulmonary arteries. HEART: No pericardial effusion. HARDWARE AND LIFELINES: [id number] is in place. BONES: No significant finding. OTHER: No other significant finding. IMPRESSION: Stable CT of the chest. No evidence of metastatic disease. Stable thyroid nodules. COMPARISON: None. RADIATION DOSE: CT Rad equipment meets quality standard of care and radiation dose reduction techniq ues were employed. CTDIvol: 4.5 - 5.2 mGy. DLP: 899 mGy-cm. mGy. TECHNIQUE: CT scan of the abdomen and pelvis performed with intravenous and oral contrast using shira franc scanning technique with dynamic intravenous contrast injection. Images reviewed with lung, soft tissue and bone windows. Reconstructed coronal and sagittal MPR images reviewed. Delayed images for evaluation of the urinary system also acquired and evaluated. All images stored on PACS. All CT scanners at this facility use dose modulation, iterative reconstruction, and/or weight based d osing when appropriate to reduce radiation dose to as low as reasonably achievable (ALARA). [facility]: Dose Right [facility]: [employer] [facility]: Dose Right [facility]: Teradose 4D [facility]: [employer] FINDINGS: LIVER: Persistent pneumobilia. Common bile duct stent remains in place. SPLEEN: Normal size. No focal lesions. PANCREAS: Persistent fullness around the pancreatic head with some peripancreatic edema. There is be en very little change in appearance of the pancreas and surrounding tissue since prior study. Measur ed at the same level pancreatic lesion now measures 2.8 x 4.3 cm compared to 2.8 x 4.[address] udy. GALLBLADDER: Contracted. ADRENAL GLANDS: No significant masses or asymmetry. RIGHT KIDNEY AND URETER: No solid masses. No significant calcifications. No hydronephrosis or hyd roureter. LEFT KIDNEY AND URETER: No solid masses. No significant calcifications. No hydronephrosis or hydr oureter. AORTA AND VESSELS: No aneurysm. No dissection. Renal arteries, SMA, celiac without stenosis. RETROPERITONEUM: No retroperitoneal adenopathy, hemorrhage or masses. LARGE AND SMALL BOWEL: No dilatation. No masses. No wall thickening. APPENDIX: Not visualized. ABDOMINAL WALL: No hernia or masses. PERITONEAL CAVITY: Small peritoneal lymph nodes are identified. Largest measures approximate 11.6 mm . These are nonspecific but most likely reactive. PELVIS: Calcified uterine fibroids. BONES: No significant or acute findings. OTHER: No other significant finding. IMPRESSION: Pancreatic head mass is slightly smaller in size. Common bile duct stent remains patent . Pneumobilia is unchanged. TECHNICAL DOCUMENTATION: JOB ID: [id number] Quality ID # [id number]: Final reports with documentation of one or more dose reduction techniques (e.g., Au tomated exposure control, adjustment of the mA and/or kV according to patient size, use of iterative reconstruction technique) 2010 [employer]- All Rights Reserved Reading location - IP/workstation name: [email or web address]
== END ==
LOC: RAD 07:59
PROVIDERS: ATTEND Internal Medicine
DX: C25.0 Malignant neoplasm of head of pancreas (principal)
CPT/HCPCS: 71260; 74177; 82565

== ENCOUNTER → 2020-06-01 | Outpatient (CLI) | payer OTHER ==
--- NOTE | 2020-06-01 11:38 | RADIOLOGY REPORT (SQ) ---
EXAM DESCRIPTION: CT CHEST WITH IMAGES COMPLETED DATE/TIME: 06/01/2020 10:04 am REASON FOR STUDY: C25.0 MALIGNANT NEOPLASM OF HEAD OF PANCREAS C25.0 MALIGNANT NEOPLASM OF HEAD OF PANCREAS COMPARISON: CT of the chest with contrast from 04/03/2020. TECHNIQUE: CT scan of the chest performed using helical scanning technique with dynamic intravenous contrast injection. Images reviewed with lung, soft tissue and bone windows. Reconstructed coronal and sagittal MPR and MIP images reviewed. All images stored on PACS. All CT scanners at this facility use dose modulation, iterative reconstruction, and/or weight based d osing when appropriate to reduce radiation dose to as low as reasonably achievable (ALARA). [facility]: Dose Right [facility]: CareDose [facility]: Dose Right [facility]: Teradose 4D [facility]: [employer] CONTRAST TYPE AND DOSE: 74 mL Omnipaque 350- low osmolar. RENAL FUNCTION: Creatinine 0.7 milligrams/deciliter LIMITATIONS: None. FINDINGS: LUNGS AND PLEURA: The trachea and main bronchi are patent. There are several bilateral pu lmonary nodules that are new or have increased in size from from the 04/03/2020 CT ; these include the nodular opacity in the right upper lobe that abuts the interlobar fissure, the 5 mm perifissural nod ule in the right upper lobe (image 50 of series 6), the 4 mm nodule in the right middle lobe (image 6 4 of series 6), the subpleural nodular opacities in the right lower lobe (images 70 and 73 of series 6), the 4 mm irregular nodule in the superior segment of the right lower lobe (image 47 of series 6), the 5 mm nodule in the right lower lobe (image 86 of series 6), and the 9 mm nodular opacity in the left upper lobe that abuts the pleura (image 41 of series 6). There is no acute consolidation, ground-glass opacification of pleural effusion. HILAR AND MEDIASTINAL STRUCTURES: There is no adenopathy or mass. HEART AND VASCULAR STRUCTURES: No aneurysm or dissection of the abdominal aorta. HARDWARE: The tip of the left subclavian vein approach single-lumen port terminates within the SVC. UPPER ABDOMEN: Refer to the separate report of the CT of the abdomen. THYROID AND OTHER SOFT TISSUES: The thyroid gland is heterogeneous. There is no supraclavicular or a xillary adenopathy. BONES: No fracture or osseous lesion. OTHER: No other finding. IMPRESSION: There are several new and/or enlarging pulmonary nodules that are concerning for metasta ses. TECHNICAL DOCUMENTATION: JOB ID: [id number] Quality ID # [id number]: Final reports with documentation of one or more dose reduction techniques (e.g., Au tomated exposure control, adjustment of the mA and/or kV according to patient size, use of iterative reconstruction technique) 2010 [employer]- All Rights Reserved Reading location - IP/workstation name: [email or web address]
--- NOTE | 2020-06-01 12:43 | RADIOLOGY REPORT (SQ) ---
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 TECHNIQUE: CT scan of the abdomen and pelvis performed using helical scanning technique with dynamic intravenous contrast injection. No oral contrast. Images reviewed with lung, soft tissue, and bone windows. Reconstructed coronal and sagittal MPR images reviewed. Delayed images for evaluation of the urinary system also acquired. All images stored on PACS. All CT scanners at this facility use dose modulation, iterative reconstruction, and/or weight based d osing when appropriate to reduce radiation dose to as low as reasonably achievable (ALARA). [facility]: Dose Right [facility]: CareDose [facility]: Dose Right [facility]: Teradose 4D [facility]: [employer] CONTRAST TYPE AND DOSE: Contrast/concentration: Isovue 350.00 mmol/ml; Total Contrast Delivered: 74. 0 ml; Total Saline Delivered: 67.0 ml RENAL FUNCTION: Creatinine 0.7 milligrams/deciliter RADIATION DOSE: CT Rad equipment meets quality standard of care and radiation dose reduction techniq ues were employed. CTDIvol: 4.6 - 5.5 mGy. DLP: 988 mGy-cm. LIMITATIONS: None. FINDINGS: LOWER CHEST: Refer to the separate report of the CT of the chest. LIVER: Heterogeneous enhancement pattern of the hepatic parenchyma with pneumobilia. The portal vein s are patent. There is no discrete hepatic mass. SPLEEN: The spleen is borderline enlarged and it measures 13 cm in the craniocaudal diameter. There is an 11 mm accessory splenule medial to the spleen. PANCREAS: The area of low attenuation in the region of the pancreatic head has decreased in size and it measures 2.6 cm in transverse diameter compared to 4.3 cm on the prior CT. The degree of dilatati on of the pancreatic duct has increased and it measures 4.5 mm compared to less than 3 mm on the prio r CT. GALLBLADDER: Stable CBD stent and pneumobilia. There is no abnormality of the gallbladder that is ap parent on CT. ADRENAL GLANDS: No mass or asymmetry. RIGHT KIDNEY AND URETER: No solid mass, hydronephrosis, nephrolithiasis, hydroureter or ureterolithia sis. LEFT KIDNEY AND URETER: No solid mass, hydronephrosis, nephrolithiasis, hydroureter or ureterolithias is. 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 RETROPERITONEUM: No retroperitoneal adenopathy, hemorrhage or mass. BOWEL AND PERITONEAL CAVITY: Trace amount of free intraperitoneal fluid and stable nonenlarged based on size criteria mesenteric lymph nodes. There is no bowel obstruction, bowel wall thickening or per icolonic/ perienteric inflammation. APPENDIX: Normal. PELVIS: Calcified uterine fibroids. The urinary bladder is nondistended. ABDOMINAL WALL: No mass or hernia. BONES: Degenerative spondylosis and facet arthropathy of the lumbar spine. OTHER: No other finding. IMPRESSION: The area of low attenuation in the region of the pancreatic head has decreased in size c ompared to the prior CT and it measures 2.6 cm in transverse diameter compared to 4.3. The degree of dilatation of the pancreatic duct has increased and it measures 4.5 mm compared to less than 3 mm on the prior CT. The position of the metallic stent in the CBD is unchanged as is the heterogeneous en hancement pattern of the hepatic parenchyma, pneumobilia, and occlusion of the extrahepatic portal ve in and splenic vein. TECHNICAL DOCUMENTATION: JOB ID: [id number] Quality ID # [id number]: Final reports with documentation of one or more dose reduction techniques (e.g., Au tomated exposure control, adjustment of the mA and/or kV according to patient size, use of iterative reconstruction technique) 2010 [employer]- All Rights Reserved Reading location - IP/workstation name: [email or web address]
== END ==
LOC: RAD 09:14
PROVIDERS: ATTEND Internal Medicine
DX: C25.0 Malignant neoplasm of head of pancreas (principal); R91.8 Other nonspecific abnormal finding of lung field
CPT/HCPCS: 71260; 74177; 82565

== ENCOUNTER → 2020-09-07 | Outpatient (CLI) | payer OTHER ==
--- NOTE | 2020-09-07 11:10 | RADIOLOGY REPORT (SQ) ---
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 Images reviewed with lung, soft tissue and bone windows. Reconstructed coronal and sagittal MPR and MIP images reviewed. All images stored on PACS. All CT scanners at this facility use dose modulation, iterative reconstruction, and/or weight based d osing when appropriate to reduce radiation dose to as low as reasonably achievable (ALARA). [facility]: Dose Right [facility]: CareDose [facility]: Dose Right [facility]: Teradose 4D [facility]: Smart [employer] CONTRAST TYPE AND DOSE: See abdomen RENAL FUNCTION: Creatinine 1.2 RADIATION DOSE: . LIMITATIONS: None. FINDINGS: LUNGS AND PLEURA: There are multiple bilateral pulmonary nodules, some of which demonstrat e minimal interval increase in size. Previously resonance previously referenced right upper lobe nod ule along the major fissure measures 7.7 mm, previously 5 mm (series 6, image 49). Minimal interval change in the right middle lobe nodule measuring 4.7 mm, previously 4 mm (series 6, image 67). Stabl e previously described subpleural nodules along the right lower lobe. Stable 4 mm nodule along the s uperior segment of the right lower lobe (series 6, image 42). Minimal interval change in the right l ower lobe nodule measuring 6.5 mm, previously 5 mm (series 6, image 80). Stable 9 mm left upper lobe pulmonary nodule abutting the pleural surface medially (series 6, image 42). There are multiple ill -defined nodular opacities within the left lower lobe which demonstrate minimal interval change. For reference left lower lobe subpleural nodule measuring 7 mm (series 6, image 69), previously 5 mm. N o definite new discrete nodules or masses. No focal consolidation. No pleural effusion or pneumotho rax. HILAR AND MEDIASTINAL STRUCTURES: No identified masses or abnormal nodes. HEART AND VASCULAR STRUCTURES: No aneurysm or dissection. No central pulmonary emboli. No pericardi al effusion. HARDWARE: Left-sided chest for with catheter tip at SVC. UPPER ABDOMEN: See separate report of the CT of the abdomen. THYROID AND OTHER SOFT TISSUES: No masses. No adenopathy. BONES: No significant finding. OTHER: No other significant finding. IMPRESSION: 1. No evidence of acute intrathoracic process. 2. Multiple bilateral pulmonary nodules, some of which demonstrate minimal interval increase in size compared to prior exam and as detailed above. No new discrete nodules or masses. TECHNICAL DOCUMENTATION: JOB ID: [id number] Quality ID # [id number]: Final reports with documentation of one or more dose reduction techniques (e.g., Au tomated exposure control, adjustment of the mA and/or kV according to patient size, use of iterative reconstruction technique) 2010 [employer]- All Rights Reserved Reading location - IP/workstation name: [email or web address]
--- NOTE | 2020-09-07 11:35 | RADIOLOGY REPORT (SQ) ---
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 No oral contrast. Images reviewed with lung, soft tissue, and bone windows. Reconstructed coronal and sagittal MPR images reviewed. Delayed images for evaluation of the urinary system also acquired. All images stored on PACS. All CT scanners at this facility use dose modulation, iterative reconstruction, and/or weight based d osing when appropriate to reduce radiation dose to as low as reasonably achievable (ALARA). [facility]: Dose Right [facility]: CareDose [facility]: Dose Right [facility]: Teradose 4D [facility]: [employer] CONTRAST TYPE AND DOSE: contrast/concentration: Isovue 350.00 mmol/ml; Total Contrast Delivered: 80. 0 ml; Total Saline Delivered: 40.0 ml RENAL FUNCTION: Creatinine 1.2 RADIATION DOSE: CT Rad equipment meets quality standard of care and radiation dose reduction techniq ues were employed. CTDIvol: 4.4 - 4.5 mGy. DLP: 807 mGy-cm.. LIMITATIONS: None. FINDINGS: LOWER CHEST: See separate report of the CT of the chest. LIVER: Pneumobilia within the left hepatic lobe. There is increased biliary ductal dilation within t he right hepatic lobe compared to prior exam. CBD stent appears in unchanged position and appears pa tent. No new discrete hepatic lesions. SPLEEN: Normal size. No focal lesions. PANCREAS: Pancreatic atrophy with increased dilation of the pancreatic duct measuring 9.2 mm, previou sly 4.5 mm. Unchanged fullness at the pancreatic head. No peripancreatic fluid. GALLBLADDER: Gas within the gallbladder lumen, likely from CBD stent. ADRENAL GLANDS: No significant masses or asymmetry. RIGHT KIDNEY AND URETER: No solid masses. No significant calcifications. No hydronephrosis or hyd roureter. LEFT KIDNEY AND URETER: No solid masses. No significant calcifications. No hydronephrosis or hydr oureter. AORTA AND VESSELS: No aneurysm. Scattered vascular calcifications. Occlusion of the portal vein, st able. Prominence of the left renal vein, possibly secondary to mass effect from the pancreatic lesio n. Celiac, SMA and bilateral renal arteries are patent. RADHA is opacified. RETROPERITONEUM: No retroperitoneal hemorrhage or mass. BOWEL AND PERITONEAL CAVITY: No evidence of intestinal obstruction. No focal bowel wall thickening. Moderate stool throughout the colon. CBD stent with distal tip in the duodenum lumen. APPENDIX: Normal. PELVIS: Multiple uterine leiomyoma, some of which demonstrate calcifications. Urinary bladder is dec ompressed. No pelvic free fluid. ABDOMINAL WALL: No masses. No hernias. BONES: No acute bony abnormality. No suspicious lytic or blastic osseous lesions. Lower lumbar face t arthropathy. OTHER: No other significant finding. IMPRESSION: 1. Mildly increased right hepatic lobe biliary ductal dilatation. Recommend correlatio n with LFTs. CBD stent appears patent and in expected location. 2. Pancreatic atrophy with increased ductal dilation measuring 9.2 mm, previously 4.5 mm. Grossly s table ill-defined fullness of the pancreatic head lesion. 3. No other evidence of intra-abdominal/pelvic metastatic disease. TECHNICAL DOCUMENTATION: JOB ID: [id number] Quality ID # 436: Final reports with documentation of one or more dose reduction techniques (e.g., Au tomated exposure control, adjustment of the mA and/or kV according to patient size, use of iterative reconstruction technique) 2010 [employer]- All Rights Reserved Reading location - IP/workstation name: [email or web address]
== END ==
LOC: RAD 08:59
PROVIDERS: ATTEND Physician Assistant Medical
DX: C25.0 Malignant neoplasm of head of pancreas (principal); R91.8 Other nonspecific abnormal finding of lung field
CPT/HCPCS: 71260; 74177; 82565

== ENCOUNTER 2020-10-20 14:55 | Inpatient (IN) | payer OTHER ==
--- NOTE | 2020-10-20 15:05 | ER Document Report ---
ED Medical Screen (RME) - General Chief Complaint: Flank Pain Stated Complaint: RIGHT FLANK PAIN Time Seen by Provider: 10/20/20 15:02 Primary Care Provider: CHELO IRVING PA-C [Primary Care Provider] - Follow up as needed Mode of Arrival: Wheelchair Information source: Patient Notes: 60-year-old female presented to ED for increasing pain in her right flank upper abdomen area. She does have pancreatic cancer stage IV diabetes. Is on Gemzar chemo she is also on insulin. States she is also having vaginal bleeding and both of her feet are swollen. Will get blood urine put her on the monitor and she will be seen by another provider. Is on oxycodone 10 mg long-acting twice a day and OxyContin 5 mg every 4 hours as needed. Will be ordered to hold mo rphine IV at this time as well as labs and IV fluids. I have greeted and performed a rapid initial assessment of this patient. A comprehensive ED assessment and evaluation of the patient, analysis of test results and completion of medical decision making process will be conducted by an additional ED providers. TRAVEL OUTSIDE OF THE [place] IN LAST 30 DAYS: No - Related Data Allergies/Adverse Reactions: hydroxyzine [From Atarax] Allergy (Verified 09/28/19 09:55) sulfamethoxazole [From Septra] Allergy (Verified 09/28/19 09:55) trimethoprim [From Septra] Allergy (Verified 09/28/19 09:55) Past Medical History - Past Medical History Cardiac Medical History: Reports: Hx Hypertension Denies: Hx Coronary Artery Disease, Hx Heart Attack Pulmonary Medical History: Denies: Hx Asthma, Hx Bronchitis, Hx COPD, Hx Pneumonia Neurological Medical History: Denies: Hx Cerebrovascular Accident, Hx Seizures Malignancy Medical History: Reports: Hx Pancreatic Cancer Musculoskeltal Medical History: Denies Hx Arthritis Past Surgical History: Reports: Other - ERCP with biliary stent placement - Immunizations Hx Diphtheria, Pertussis, Tetanus Vaccination: No Physical Exam - Vital signs Vitals: Temp Pulse Resp BP Pulse Ox 98 F 120 H 22 H 128/59 H 100 10/20/20 14:58 10/20/20 14:58 10/20/20 14:58 10/20/20 14:58 10/20/20 14:58 Course - Vital Signs Vital signs: Temp Pulse Resp BP Pulse Ox 98 F 120 H 22 H 128/59 H 100 10/20/20 14:58 10/20/20 14:58 10/20/20 14:58 10/20/20 14:58 10/20/20 14:58 Doctor's Discharge - Discharge Referrals: CHELO IRVING, [facility] [Primary Care Provider] - Follow up as needed
[2020-10-20] MEDS ORDERED: MORPHINE SULFATE 10 MG/ML INJ IV ONE (15:06)
[2020-10-20] MEDS ORDERED: NORMAL SALINE 1000 ML 1,000 ML IV ONE (15:06)
[2020-10-20] MEDS ORDERED: HYDROMORPHONE HCL INJ/PF 2 MG/ML AMPULE IV ONE ×3 (15:39→19:18)
--- NOTE | 2020-10-20 15:41 | ER Document Report ---
ED General - General Chief Complaint: Flank Pain Stated Complaint: RIGHT FLANK PAIN Time Seen by Provider: 10/20/20 15:02 Mode of Arrival: Wheelchair Notes: Patient presents with history of pancreatic cancer on chemotherapy biliary stent in the past, coming in with abdominal pain right side rating around the right flank going on for about 3 days worsening to the point where now she cannot eat or drink anything and is nauseated. This is refractory to her home doses of oxycodone. She is getting chemotherapy and is a patient of Dr. Gordon hinson. She had a normal bowel movement today and takes Linzess. She also has had vaginal bleeding for over 2 months known to be from endometrial polyps which are slightly increased in the last few days. Not on a blood thinner. Already seeing [facility] for this. Denies fever jaundice or icterus. TRAVEL OUTSIDE OF THE [place] IN LAST 30 DAYS: No - Related Data Allergies/Adverse Reactions: hydroxyzine [From Atarax] Allergy (Verified 09/28/19 09:55) sulfamethoxazole [From Septra] Allergy (Verified 09/28/19 09:55) trimethoprim [From Septra] Allergy (Verified 09/28/19 09:55) Past Medical History - General Information source: Patient - Social History Smoking Status: Unknown if Ever Smoked Family History: Reviewed & Not Pertinent - Past Medical History Cardiac Medical History: Reports: Hx Hypertension Denies: Hx Coronary Artery Disease, Hx Heart Attack Pulmonary Medical History: Denies: Hx Asthma, Hx Bronchitis, Hx COPD, Hx Pneumonia Neurological Medical History: Denies: Hx Cerebrovascular Accident, Hx Seizures Malignancy Medical History: Reports: Hx Pancreatic Cancer Musculoskeletal Medical History: Denies Hx Arthritis Past Surgical History: Reports: Other - ERCP with biliary stent placement - Immunizations Hx Diphtheria, Pertussis, Tetanus Vaccination: No Review of Systems - Review of Systems Notes: REVIEW OF SYSTEMS GEN: Denies fever, chills, weight loss ENT: Denies sore throat, nasal discharge, ear pain EYES: Denies blurry vision, eye pain, discharge CV: Denies chest pain, palpitations, edema RESP: Denies cough, shortness of breath, wheezing GI: See HPI MSK: Denies joint pain/swelling, edema, SKIN: Denies rash, skin lesions LYMPH: Denies swollen glands/lymph nodes NEURO: Denies headache, focal weakness or numbness, dizziness PSYCH: Denies depression, suicidal or homicidal ideation PHYSICAL EXAMINATION General: No acute distress, well-nourished Head: Atraumatic, normocephalic ENT: Mouth normal, oropharynx moist, no exudates or tonsillar enlargement Eyes: Conjunctiva normal, pupils equal, lids normal Neck: No JVD, supple, no guarding CVS: Normal rate, regular rhythm, no murmurs Resp: No resp distress, equal and normal breath sounds bilaterally GI: Diffuse right-sided abdominal pain g Ext: No deformities, no edema, normal range of motion in upper and lower ext Back: No CVA or midline TTP Skin: No rash, warm Lymphatic: No lymphadeopathy noted Neuro: Awake, alert. Face symmetric. GCS 15. Physical Exam - Vital signs Vitals: Temp Pulse Resp BP Pulse Ox 98 F 120 H 22 H 128/59 H 100 10/20/20 14:58 10/20/20 14:58 10/20/20 14:58 10/20/20 14:58 10/20/20 14:58 Course - Re-evaluation Re-evalutation: 10/20/20 19:35 Patient presents with uncontrolled abdominal pain related to pancreatic cancer as well as dehydration. Given fluids and Dilaudid several times. She does have a biliary stent but her LFTs do not indicate stent obstruction or cholangitis. Her white count is coming down and she had chemo 5 days ago so I expect will continue to drop. I discussed her with Dr. Squires from hematology oncology who agrees with admission for uncontrolled pain if necessary. The CT is read and shows an enlarging mass with slightly worse intrahepatic biliary obstruction. She was discussed with [facility] to admit. - Vital Signs Vital signs: Temp Pulse Resp BP Pulse Ox 98 F 120 H 22 H 128/59 H 100 10/20/20 14:58 10/20/20 14:58 10/20/20 14:58 10/20/20 14:58 10/20/20 14:58 - Laboratory Result Diagrams: 10/20/20 16:10 10/20/20 16:10 Laboratory results interpreted by me: 10/20/20 10/20/20 16:10 16:10 WBC 3.5 L RBC 2.68 L Hgb 8.3 L Hct 25.0 L RDW 18.6 H Band Neutrophils % 7 H Chloride 112 H Carbon Dioxide 15 L BUN 27 H Est GFR ( Amer) 53 L Est GFR (MDRD) Non-Af 44 L Glucose 177 H Direct Bilirubin 0.7 H Alkaline Phosphatase 201 H Albumin 3.0 L Lipase < 10.0 L - Diagnostic Test Radiology reviewed: Image reviewed, Reports reviewed Discharge - Discharge Clinical Impression: Cancer related pain Condition: Fair Disposition: ADMITTED INPATIENT Admitting Provider: [facility] Unit Admitted: Medical Floor
[2020-10-20 16:44] LABS: HEMOGLOBIN 8.3 g/dL (12.0-15.5); MEAN CORPUSCULAR HEMOGLOBIN 31.1 pg (27.0-33.4); MEAN CORPUSCULAR HGB CONC 33.3 g/dL (32.0-36.0); MEAN CORPUSCULAR VOLUME 94 fl (80-97); PLATELET COUNT 236 10^3/uL (150-450); RED BLOOD COUNT 2.68 10^6/uL (3.72-5.28); RED CELL DISTRIBUTION WIDTH 18.6 % (11.5-14.0); WHITE BLOOD COUNT 3.5 10^3/uL (4.0-10.5)
[2020-10-20 17:06] LABS: ABSOLUTE LYMPHOCYTES# (MANUAL) 0.5 10^3/uL (0.5-4.7); ABSOLUTE MONOCYTES # (MANUAL) 0.3 10^3/uL (0.1-1.4); BAND NEUTROPHILS % (MANUAL) 7 % (3-5); BASOPHILS % (MANUAL) 0 % (0-2); EOSINOPHILS % (MANUAL) 0 % (0-6); LYMPHOCYTES % (MANUAL) 13 % (13-45); MONOCYTES % (MANUAL) 9 % (3-13); SEGMENTED NEUTROPHILS % (MAN) 70 % (42-78); TOTAL CELLS COUNTED 100
[2020-10-20 17:08] LABS: ANISOCYTOSIS 1+; OVALOCYTES SLIGHT; PLATELET COMMENT ADEQUATE
[2020-10-20 17:24] LABS: ALKALINE PHOSPHATASE 201 U/L (38-126); ANION GAP 14 (5-19); ASPARTATE AMINO TRANSFERASE 19 U/L (14-36); BILIRUBIN,DIRECT 0.7 mg/dL (0.0-0.4); BILIRUBIN,TOTAL 1.3 mg/dL (0.2-1.3); BLOOD UREA NITROGEN 27 mg/dL (7-20); CALCIUM 8.7 mg/dL (8.4-10.2); CARBON DIOXIDE 15 mmol/L (22-30); CHLORIDE 112 mmol/L (98-107); GLUCOSE 177 mg/dL (75-110); POTASSIUM 3.6 mmol/L (3.6-5.0); TOTAL PROTEIN 7.1 g/dL (6.3-8.2)
--- NOTE | 2020-10-20 18:55 | RADIOLOGY REPORT (SQ) ---
EXAM DESCRIPTION: CT ABDOMEN and pelvis IV CONTRAST ONLY IMAGES COMPLETED DATE/TIME: 10/20/2020 5:15 pm REASON FOR STUDY: panc CA h/o anoop stent. COMPARISON: 09/07/2020. 06/01/2020. 04/03/2020. 02/07/2020. PET CT, 07/24/2019. CT abdomen and pelvi s 07/04/2019. TECHNIQUE: CT scan of the abdomen and pelvis performed with intravenous and without oral contrast us ing helical scanning technique with dynamic intravenous contrast injection. Images reviewed with lung , soft tissue, and bone windows. Reconstructed coronal and sagittal MPR images reviewed. Delayed imag es for evaluation of the urinary system also acquired and evaluated. All images stored on PACS. All CT scanners at this facility use dose modulation, iterative reconstruc tion, and/or weight based dosing when appropriate to reduce radiation dose to as low as reasonably ac hievable (ALARA). [facility]: Dose Right [facility]: CareDose [facility]: Dose Right [facility]: Teradose 4D [facility]: [employer] CONTRAST TYPE AND DOSE: contrast/concentration: Isovue 350.00 mmol/ml; Total Contrast Delivered: 65. 0 ml; Total Saline Delivered: 65.0 ml RENAL FUNCTION: Creatinine 1.25 today. RADIATION DOSE: CT Rad equipment meets quality standard of care and radiation dose reduction techniq ues were employed. CTDIvol: 4.8 - 5.3 mGy. DLP: 543 mGy-cm. . LIMITATIONS: None. FINDINGS: LOWER CHEST: Patchy ground-glass nodules/opacities in the left lower lobe and right middle lobe have increased in number and size since previous examination. No focal confluent consolidation or pleural effusion. LIVER: Liver has normal size and contour. No focal hepatic mass. Diffuse periportal edema/soft tiss ue unchanged from prior. There is persistent pneumobilia. The pancreatic stent remains present in t he common bile duct. 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 Hepatic veins are patent. SPLEEN: Normal size. No focal lesions. PANCREAS: There is worsening ductal dilation in the pancreas with pancreatic duct measuring up to 12 mm diameter. An ill-defined pancreatic head mass has increased in size since August, difficult to m easure separately from the pancreatic parenchyma, however the pancreatic head measures 5.3 x 3.6 cm, previously 4.4 x 3.1 cm. There is soft tissue encasing the IVC at the level of the pancreatic head a nd partially encasing the superior mesenteric vein. This is similar to previous. GALLBLADDER: Moderate gallbladder distention with no calcified gallstones. There is diffuse gallblad brittanie wall thickening and pericholecystic fluid. ADRENAL GLANDS: No significant masses or asymmetry. RIGHT KIDNEY AND URETER: No solid masses. No significant calcifications. No hydronephrosis or hyd roureter. LEFT KIDNEY AND URETER: No solid masses. No significant calcifications. No hydronephrosis or hydr oureter. AORTA AND VESSELS: No aneurysm. No dissection. Renal arteries, SMA, celiac without stenosis. RETROPERITONEUM: No retroperitoneal adenopathy, hemorrhage or masses. BOWEL AND PERITONEAL CAVITY: There is diffuse colon wall thickening. Interval development of a small amount of ascites. No definite peritoneal nodularity. No pneumoperitoneum. No bowel obstruction. APPENDIX: Not visualized. ABDOMINAL WALL: No masses. No hernias. PELVIS: Leiomyomatous uterus. No adnexal mass. Urinary bladder has normal contour. No bladder wal l thickening or intraluminal bladder mass. Calcified pelvic phleboliths. No pelvic adenopathy. BONES: Spondylosis and degenerative disc disease in the thoracolumbar spine. No suspicious bone lesi on. OTHER: Leiomyomatous uterus. Urinary bladder has normal contour and appearance. No bladder wall thi ckening, intraluminal bladder mass or debris. IMPRESSION: 1. There is increasing size of the ill-defined mass at the pancreatic head since previous examination 09/07/2020. Worsening pancreatic ductal dilation. No evidence of biliary obstruction. 2. New small amount of ascites. 3. Gallbladder wall thickening and diffuse colon wall thickening is probably reactive secondary to as cites. Cannot entirely exclude colitis or cholecystitis. Clinical correlation with patient's labora tory values recommended. 4. Increasing patchy ground-glass nodules in the lower lungs bilaterally may represent increasing met astatic disease. Infectious/inflammatory process is not entirely excluded. COVID 19 pneumonia could have this appearance. TECHNICAL DOCUMENTATION: JOB ID: [id number] Quality ID # [id number]: Final reports with documentation of one or more dose reduction techniques (e.g., Au tomated exposure control, adjustment of the mA and/or kV according to patient size, use of iterative reconstruction technique) 2010 [employer]- All Rights Reserved Reading location - IP/workstation name: [email or web address]
[2020-10-20 19:32] LABS: APPEARANCE,URINE SLIGHTLY-CLOUDY; BILIRUBIN,URINE NEGATIVE (NEGATIVE); COLOR,URINE YELLOW; GLUCOSE, URINE NEGATIVE (NEGATIVE); KETONES,URINE NEGATIVE (NEGATIVE); LEUKOCYTE ESTERASE,URINE NEGATIVE (NEGATIVE); NITRITE,URINE NEGATIVE (NEGATIVE); PROTEIN,URINE 30 mg/dL (NEGATIVE); URINE SPECIFIC GRAVITY 1.025
[2020-10-20 19:44] LABS: URINE AMPHETAMINES SCREEN NEGATIVE; URINE BARBITURATES SCREEN NEGATIVE; URINE BENZODIAZEPINES SCREEN NEGATIVE; URINE COCAINE SCREEN NEGATIVE; URINE MARIJUANA (THC) SCREEN NEGATIVE; URINE METHADONE SCREEN NEGATIVE; URINE PHENCYCLIDINE SCREEN NEGATIVE
[2020-10-20] MEDS: HYDROMORPHONE HCL INJ/PF 2 MG/ML AMPULE IV PRN ×2 (22:42→23:34)
[2020-10-21] MEDS: HYDROMORPHONE HCL INJ/PF 2 MG/ML AMPULE IV PRN ×5 (02:30→12:17)
[2020-10-21] MEDS ORDERED: OXYCODONE HCL IR 5 MG TABLET PO PRN (06:47)
[2020-10-21] MEDS ORDERED: (PENDING PHARMACY ID) (Linaclotide 145 MCG Capsule) PO SCH (07:00)
[2020-10-21] MEDS: NORMAL SALINE 1000 ML 1,000 ML IV PRN ×3 (08:48→18:22)
[2020-10-21] MEDS ORDERED: OXYCODONE HCL SR 10 MG TABLET PO SCH (10:00)
[2020-10-21] MEDS: ENOXAPARIN SODIUM INJ 40 MG/0.4 ML DISP.SYRIN SUBCUT SCH (10:25)
--- NOTE | 2020-10-21 12:49 | PDOC CONSULTATION ---
Consultation Consult Date: 10/21/20 Provider Consulted: JOSE TEJADA Consult reason:: Hematology/Oncology consultation was requested for patient undergoing active treatment for metastatic cancer who presents with acute abdominal pain. History of Present Illness Admission Date/PCP: 10/20/20 19:26 CHELO MANNING PA-C History of Present Illness: DICKSON PANIAGUA is a 60 year old female with metastatic pancreatic cancer. She has been receiving palliative chemotherpy with gemcitabine - most recent about 1 week ago. She presented with increased abdominal pain. No nasuea, diarrhea. No dyspnea or cougn. No fevers. She has a pancreatic/biliary stent bot no evidence of obstruction on labs or CT scans. Today, she reports pain is better with the IV dilaudid. Past Medical History Cardiac Medical History: Reports: Hypertension Denies: Coronary Artery Disease, Myocardial Infarction Pulmonary Medical History: Denies: Asthma, Bronchitis, Chronic Obstructive Pulmonary Disease (COPD), Pneumonia Neurological Medical History: Denies: Seizures Malignancy Medical History: Reports: Pancreatic Cancer Musculoskeltal Medical History: Denies: Arthritis Psychiatric Medical History: Denies: Depression Hematology: Denies: Anemia - BORDERLINE Past Surgical History Past Surgical History: Reports: Other - ERCP with biliary stent placement Social History Smoking Status: Never Smoker Electronic Cigarette use?: No Frequency of Alcohol Use: None Hx Recreational Drug Use: No Drugs: None Hx Prescription Drug Abuse: No Family History Family History: Reviewed & Not Pertinent Parental Family History Reviewed: Yes Children Family History Reviewed: No Sibling(s) Family History Reviewed.: No Medication/Allergy Home Medications: Oxycodone HCl [Oxy-Ir 5 mg Tablet] 5 mg PO PRN PRN 11/01/19 Oxycodone HCl [Oxycodone HCl ER] 20 mg PO BID 11/01/19 Potassium Chloride [Klor-Con M20] 20 meq PO DAILY@1500 11/01/19 Promethazine HCl [Phenergan 25 mg Tablet] 25 mg PO Q6HP PRN 11/01/19 Gemcitabine HCl [Gemzar Inj 1000 mg Vial] 1,000 mg IV [id number] 10/21/20 Insulin Aspart [Novolog Flexpen] 5 unit SUBCUT AC 10/21/20 Insulin Glargine,Hum.rec.anlog [Lantus Insulin 100 Unit/mL Insulin Pen] 5 unit SUBCUT QHS 10/21/20 Linaclotide [Linzess 145 Mcg Capsule] 145 mcg PO 10/21/20 Losartan/Hydrochlorothiazide [Losartan-Hctz 100-25 mg Tab] 1 each PO DAILY 10/21/20 Methylphenidate HCl [Ritalin 5 Mg Tablet] 5 mg PO 10/21/20 Potassium Chloride [Potassium Chloride 20 Meq Packet] 20 meq PO 10/21/20 Allergies/Adverse Reactions: hydroxyzine [From Atarax] Allergy (Verified 09/28/19 09:55) sulfamethoxazole [From Septra] Allergy (Verified 09/28/19 09:55) trimethoprim [From Septra] Allergy (Verified 09/28/19 09:55) Review of Systems Constitutional: ABSENT: fever(s), headache(s) Eyes: ABSENT: visual disturbances Ears: ABSENT: hearing changes Nose, Mouth, and Throat: ABSENT: sore throat Cardiovascular: ABSENT: chest pain Respiratory: ABSENT: dyspnea Gastrointestinal: PRESENT: as per HPI Genitourinary: PRESENT: other - vaginal bleeding. ABSENT: dysuria Integumentary: ABSENT: rash Neurological: PRESENT: weakness Hematologic/Lymphatic: ABSENT: easy bleeding Physical Exam Vital Signs: Temp Pulse Resp BP Pulse Ox 97.9 F 124 H 20 139/81 H 99 10/21/20 11:16 10/21/20 11:16 10/21/20 11:16 10/21/20 11:16 10/21/20 11:16 Intake & Output 10/20/20 10/21/20 10/22/20 06:59 06:59 06:59 Intake Total 1030 880 Output Total 0 Balance 1030 880 Weight 56.8 kg General appearance: PRESENT: no acute distress Head exam: PRESENT: normocephalic Eye exam: PRESENT: EOMI Mouth exam: PRESENT: moist Neck exam: ABSENT: lymphadenopathy, tenderness Respiratory exam: PRESENT: clear to auscultation anoop, unlabored Cardiovascular exam: PRESENT: RRR GI/Abdominal exam: PRESENT: guarding, rebound, soft, tenderness Extremities exam: ABSENT: pedal edema Musculoskeletal exam: PRESENT: normal inspection Neurological exam: PRESENT: alert, awake Psychiatric exam: PRESENT: flat affect Skin exam: PRESENT: other - vitaligo. Nothing new. Results Laboratory Results: 10/20/20 16:10 10/20/20 16:10 10/20/20 10/20/20 10/20/20 16:10 16:10 19:12 WBC 3.5 L RBC 2.68 L Hgb 8.3 L Hct 25.0 L MCV 94 MCH 31.1 MCHC 33.3 RDW 18.6 H Plt Count 236 Seg Neutrophils % Not Reportable Sodium 140.9 Potassium 3.6 Chloride 112 H Carbon Dioxide 15 L Anion Gap 14 BUN 27 H Creatinine 1.25 Est GFR ( Amer) 53 L Glucose 177 H Calcium 8.7 Total Bilirubin 1.3 AST 19 Alkaline Phosphatase 201 H Total Protein 7.1 Albumin 3.0 L Lipase < 10.0 L Urine Color YELLOW Urine Appearance SLIGHTLY-CLOUDY Urine pH 5.0 Ur Specific [place] 1.025 Urine Protein 30 H Urine Glucose (UA) NEGATIVE Urine Ketones NEGATIVE Urine Blood LARGE H Urine Nitrite NEGATIVE Ur Leukocyte Esterase NEGATIVE Urine WBC (Auto) 3 Urine RBC (Auto) 123 Impressions: Abdomen CT 10/20/20 15:39 IMPRESSION: 1. There is increasing size of the ill-defined mass at the pancreatic head since previous examination 09/07/2020. Worsening pancreatic ductal dilation. No evidence of biliary obstruction. 2. New small amount of ascites. 3. Gallbladder wall thickening and diffuse colon wall thickening is probably reactive secondary to ascites. Cannot entirely exclude colitis or cholecystitis. Clinical correlation with patient's laboratory values recommended. 4. Increasing patchy ground-glass nodules in the lower lungs bilaterally may represent increasing metastatic disease. Infectious/inflammatory process is not entirely excluded. COVID 19 pneumonia could have this appearance. Status: Image reviewed by me Assessment & Plan - Diagnosis (1) Pain, neoplasm-related Is this a current diagnosis for this admission?: Yes Plan: Will add dilaudid MAJOR DONOR COORDINATOR for pain control. Monitor dose and adjust as needed. (2) Pancreatic cancer Qualifiers: Pancreatic malignancy location: body of pancreas Is this a current diagnosis for this admission?: Yes Plan: Chemo was given last week. Watch blood counts and transfuse as needed. Supportive care. I will also add ABX as this could be due to infectious process. Her WBC were elevated last week. - Plan Summary Plan Summary: Thank you for this consultation. Will continue to follow. Please call with any concerns. Patient was discussed with Dr. Rodrigues.
[2020-10-21] MEDS: HYDROMORPHONE HCL 30 MG/60 ML RTUINJ IV PRN (13:35)
[2020-10-21] MEDS ORDERED: DEXTROSE 50%-WATER SYRINGE 12.5 GM/25 ML DOSE IV PRN (15:00)
[2020-10-21] MEDS ORDERED: DEXTROSE 40% GEL 15 GM TUBE PO PRN (15:00)
[2020-10-21] MEDS ORDERED: DEXTROSE 50%-WATER SYRINGE 25 GM/50 ML DOSE IV PRN (15:00)
[2020-10-21] MEDS ORDERED: DEXTROSE 40% GEL 15 GM TUBE X 2 PO PRN (15:00)
[2020-10-21] MEDS ORDERED: GLUCAGON,HUMAN RECOMB 1 MG INJ IM PRN (15:00)
[2020-10-21] MEDS: INSULIN REG, HUMAN 100 UNIT/ML 3 ML VIAL (PYX) SUBCUT SCH ×2 (16:20→22:03)
[2020-10-21] MEDS: METHYLPHENIDATE HCL 5 MG TABLET PO SCH (16:23)
[2020-10-21] MEDS ORDERED: ONDANSETRON HCL 8 MG TABLET PO PRN (17:10)
--- NOTE | 2020-10-21 17:10 | PDOC H&P ---
History of Present Illness Admission Date/PCP: 10/20/20 19:26 CHELO MANNING PA-C History of Present Illness: DICKSON PANIAGUA is a 60 year old female She has the metastatic pancreatic cancer on palliative chemotherapy she came to the emergency room for evaluation of abdominal pain in the emergency room CAT scan of the abdomen and pelvis with IV contrast was obtained, it demonstrated patchy groundglass nodules/opacities in the left lower lobe and right middle lobe of the lung have increased in number and size since prior examination. No focal confluent consolidation or pleural effusion. The liver was normal in size no focal hepatic mass. The pancreatic stent remains present in the common bile duct. 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 An ill-defined pancreatic head mass has increased in size since August said to be difficult to measure separately from the pancreatic parenchyma however the pancreatic head measures 5.3 x 3.6 cm Previously 4.4 x 3.0 cm. There is soft tissue encasing the inferior vena cava at the level of the pancreatic head and partially encasing the superior mesenteric vein that is similar to the previous imaging there is moderate gallbladder distention with stones there is diffuse gallbladder wall thickening and pericholecystic fluid On the bowel there is diffuse colonic wall thickening. Interval development of a small amount of ascites no definite p eritoneal nodularity. No pneumothorax no bowel obstruction. Past Medical History Cardiac Medical History: Reports: Hypertension Endocrine Medical History: Reports: Diabetes Mellitus Type 2 Malignancy Medical History: Reports: Pancreatic Cancer Past Surgical History Past Surgical History: Reports: Other - ERCP with biliary stent placement Social History Smoking Status: Never Smoker Electronic Cigarette use?: No Frequency of Alcohol Use: None Hx Recreational Drug Use: No Drugs: None Hx Prescription Drug Abuse: No Family History Family History: Reviewed & Not Pertinent Parental Family History Reviewed: Yes Children Family History Reviewed: Yes Sibling(s) Family History Reviewed.: Yes Medication/Allergy Home Medications: Oxycodone HCl [Oxycodone HCl ER] 20 mg PO Q12 11/01/19 Potassium Chloride [Klor-Con M20] 20 meq PO DAILY 11/01/19 Promethazine HCl [Phenergan 25 mg Tablet] 25 mg PO Q6HP PRN 11/01/19 Gemcitabine HCl [Gemzar Inj 1000 mg Vial] 1,000 mg IV [id number] 10/21/20 Insulin Aspart [Novolog Flexpen] 5 unit SUBCUT AC 10/21/20 Insulin Glargine,Hum.rec.anlog [Lantus Insulin 100 Unit/mL Insulin Pen] 5 unit SUBCUT DAILY@1500 10/21/20 Linaclotide [Linzess 145 Mcg Capsule] 145 mcg PO DAILY 10/21/20 Losartan/Hydrochlorothiazide [Losartan-Hctz 100-25 mg Tab] 1 each PO DAILY 10/21/20 Megestrol Acetate [Megace Fadumo 400 mg/10 ml Udcup] 800 mg PO DAILY 10/21/20 Methylphenidate HCl [Ritalin 5 Mg Tablet] 5 mg PO Q12 10/21/20 Ondansetron HCl [Zofran 8 mg Tablet] 8 mg PO Q8HP PRN 10/21/20 Sennosides [Senna] 8.6 mg PO DAILY 10/21/20 Allergies/Adverse Reactions: hydroxyzine [From Atarax] Allergy (Verified 09/28/19 09:55) sulfamethoxazole [From Septra] Allergy (Verified 09/28/19 09:55) trimethoprim [From Septra] Allergy (Verified 09/28/19 09:55) Review of Systems Constitutional: ABSENT: chills, fever(s), headache(s), weight gain, weight loss Eyes: ABSENT: visual disturbances Ears: ABSENT: hearing changes Cardiovascular: ABSENT: chest pain, dyspnea on exertion, edema, orthropnea, palpitations Respiratory: ABSENT: cough, hemoptysis Gastrointestinal: PRESENT: abdominal pain. ABSENT: constipation, diarrhea, hematemesis, hematochezia, nausea, vomiting Genitourinary: ABSENT: dysuria, hematuria Musculoskeletal: ABSENT: joint swelling Integumentary: ABSENT: rash, wounds Neurological: ABSENT: abnormal gait, abnormal speech, confusion, dizziness, focal weakness, syncope Psychiatric: ABSENT: anxiety, depression, homidical ideation, suicidal ideation Endocrine: ABSENT: cold intolerance, heat intolerance, menstrual abnormalities, polydipsia, polyuria Hematologic/Lymphatic: ABSENT: easy bleeding, easy bruising, lymphadenopathy Physical Exam Vital Signs: Temp Pulse Resp BP Pulse Ox 97.6 F 112 H 12 121/85 99 10/21/20 15:08 10/21/20 15:27 10/21/20 15:30 10/21/20 15:08 10/21/20 15:30 Intake & Output 10/20/20 10/21/20 10/22/20 06:59 06:59 06:59 Intake Total 1030 880 Output Total 0 Balance 1030 880 Weight 56.8 kg General appearance: PRESENT: no acute distress Eye exam: PRESENT: PERRLA Respiratory exam: PRESENT: clear to auscultation anoop Cardiovascular exam: PRESENT: +S1, +S2 GI/Abdominal exam: PRESENT: soft Neurological exam: PRESENT: alert, CN II-XII grossly intact Skin exam: PRESENT: other - Vitiligo Results Laboratory Results: 10/20/20 16:10 10/20/20 16:10 10/20/20 10/20/20 10/20/20 16:10 16:10 19:12 WBC 3.5 L RBC 2.68 L Hgb 8.3 L Hct 25.0 L MCV 94 MCH 31.1 MCHC 33.3 RDW 18.6 H Plt Count 236 Seg Neutrophils % Not Reportable Sodium 140.9 Potassium 3.6 Chloride 112 H Carbon Dioxide 15 L Anion Gap 14 BUN 27 H Creatinine 1.25 Est GFR ( Amer) 53 L Glucose 177 H Calcium 8.7 Total Bilirubin 1.3 AST 19 Alkaline Phosphatase 201 H Total Protein 7.1 Albumin 3.0 L Lipase < 10.0 L Urine Color YELLOW Urine Appearance SLIGHTLY-CLOUDY Urine pH 5.0 Ur Specific [place] 1.025 Urine Protein 30 H Urine Glucose (UA) NEGATIVE Urine Ketones NEGATIVE Urine Blood LARGE H Urine Nitrite NEGATIVE Ur Leukocyte Esterase NEGATIVE Urine WBC (Auto) 3 Urine RBC (Auto) 123 Impressions: Abdomen CT 10/20/20 15:39 IMPRESSION: 1. There is increasing size of the ill-defined mass at the pancreatic head since previous examination 09/07/2020. Worsening pancreatic ductal dilation. No evidence of biliary obstruction. 2. New small amount of ascites. 3. Gallbladder wall thickening and diffuse colon wall thickening is probably reactive secondary to ascites. Cannot entirely exclude colitis or cholecystitis. Clinical correlation with patient's laboratory values recomm ended. 4. Increasing patchy ground-glass nodules in the lower lungs bilaterally may represent increasing metastatic disease. Infectious/inflammatory process is not entirely excluded. COVID 19 pneumonia could have this appearance. Assessment & Plan - Diagnosis (1) Pancreatic cancer Qualifiers: Pancreatic malignancy location: head of pancreas Qualified Code(s): C25.0 - Malignant neoplasm of head of pancreas Is this a current diagnosis for this admission?: Yes Plan: Patient on palliative chemotherapy, consult oncology (2) Acute cholecystitis Is this a current diagnosis for this admission?: Yes Plan: The CAT scan demonstrated distended gallbladder with no calcified gallstones, there is diffuse gallbladder wall thickening and pericholecystic fluid this suggests acute cholecystitis, it will be very challenging for this patient to undergo laparoscopic cholecystectomy with a background of metastatic pancreatic cancer, she will be started on IV antibiotic, will consult surgery for guidance (3) Secondary diabetes Is this a current diagnosis for this admission?: Yes Plan: 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
[2020-10-21] MEDS ORDERED: LOSARTAN PO SCH (17:15)
[2020-10-21] MEDS ORDERED: HYDROCHLOROTHIAZIDE PO SCH (17:15)
[2020-10-21] MEDS ORDERED: [UNRECOGNIZED DRUG - OTHER] PO SCH (17:15)
[2020-10-21] MEDS ORDERED: AMPICILLIN SOD/SULBACTAM 3 GM VIAL IV PRN (18:11)
--- NOTE | 2020-10-21 19:02 | PDOC CONSULTATION ---
Consultation Consult Date: 10/21/20 Provider Consulted: SURGICAL SURGICALIST MD Consult reason:: Abdominal pain History of Present Illness Admission Date/PCP: 10/20/20 19:26 CHELO MANNING PA-C History of Present Illness: DICKSON PANIAGUA is a 60 year old female seen in consultation at the request of Dr. Huntley. The patient has stage IV, metastatic pancreatic cancer. She was admitted for worsening abdominal pain after chemotherapy administration. The patient has leukopenia. She reports nausea, vomiting, and abdominal pain. Her abdominal pain is worst in the right lower quadrant, although she does have right upper quadrant and left upper quadrant pain as well. Her pain is sharp and stabbing. It occurs constantly. Pain medication makes it better. Movement and palpation make it worse. She denies chest pain, shortness of breath, dizziness, orthostasis, blurry vision, melena, hematochezia, or hematemesis. She does report malaise, fatigue, weakness. Past Medical History Cardiac Medical History: Reports: Hypertension Denies: Coronary Artery Disease, Myocardial Infarction Pulmonary Medical History: Denies: Asthma, Bronchitis, Chronic Obstructive Pulmonary Disease (COPD), Pneumonia Neurological Medical History: Denies: Seizures Endocrine Medical History: Reports: Diabetes Mellitus Type 2 Malignancy Medical History: Reports: Pancreatic Cancer Musculoskeltal Medical History: Denies: Arthritis Psychiatric Medical History: Denies: Depression Hematology: Denies: Anemia - BORDERLINE Past Surgical History Past Surgical History: Reports: Other - ERCP with biliary stent placement Social History Smoking Status: Never Smoker Electronic Cigarette use?: No Frequency of Alcohol Use: None Hx Recreational Drug Use: No Drugs: None Hx Prescription Drug Abuse: No Family History Family History: Reviewed & Not Pertinent Parental Family History Reviewed: Yes Children Family History Reviewed: Yes Sibling(s) Family History Reviewed.: Yes Medication/Allergy Home Medications: Oxycodone HCl [Oxycodone HCl ER] 20 mg PO Q12 11/01/19 Potassium Chloride [Klor-Con M20] 20 meq PO DAILY 11/01/19 Promethazine HCl [Phenergan 25 mg Tablet] 25 mg PO Q6HP PRN 11/01/19 Gemcitabine HCl [Gemzar Inj 1000 mg Vial] 1,000 mg IV [id number] 10/21/20 Insulin Aspart [Novolog Flexpen] 5 unit SUBCUT AC 10/21/20 Insulin Glargine,Hum.rec.anlog [Lantus Insulin 100 Unit/mL Insulin Pen] 5 unit SUBCUT DAILY@1500 10/21/20 Linaclotide [Linzess 145 Mcg Capsule] 145 mcg PO DAILY 10/21/20 Losartan/Hydrochlorothiazide [Losartan-Hctz 100-25 mg Tab] 1 each PO DAILY 10/21/20 Megestrol Acetate [Megace Fadumo 400 mg/10 ml Udcup] 800 mg PO DAILY 10/21/20 Methylphenidate HCl [Ritalin 5 Mg Tablet] 5 mg PO Q12 10/21/20 Ondansetron HCl [Zofran 8 mg Tablet] 8 mg PO Q8HP PRN 10/21/20 Sennosides [Senna] 8.6 mg PO DAILY 10/21/20 Allergies/Adverse Reactions: hydroxyzine [From Atarax] Allergy (Verified 09/28/19 09:55) sulfamethoxazole [From Septra] Allergy (Verified 09/28/19 09:55) trimethoprim [From Septra] Allergy (Verified 09/28/19 09:55) Review of Systems Constitutional: PRESENT: anorexia, fatigue Eyes: ABSENT: visual disturbances Ears: ABSENT: hearing changes Nose, Mouth, and Throat: ABSENT: sore throat Cardiovascular: ABSENT: chest pain Respiratory: ABSENT: cough Gastrointestinal: PRESENT: abdominal pain, bloating, nausea, vomiting. ABSENT: hematemesis, hematochezia, melena Genitourinary: ABSENT: dysuria Musculoskeletal: PRESENT: back pain Integumentary: ABSENT: pruritus, rash Neurological: PRESENT: weakness. ABSENT: confusion, convulsions, dizziness Psychiatric: ABSENT: hallucinations Endocrine: ABSENT: cold intolerance, heat intolerance Hematologic/Lymphatic: ABSENT: easy bleeding, easy bruising Physical Exam Vital Signs: Temp Pulse Resp BP Pulse Ox 97.6 F 112 H 14 121/85 99 10/21/20 15:08 10/21/20 15:27 10/21/20 17:30 10/21/20 15:08 10/21/20 17:30 Intake & Output 10/20/20 10/21/20 10/22/20 06:59 06:59 06:59 Intake Total 1030 1837 Output Total 0 100 Balance 1030 1737 Weight 56.8 kg General appearance: PRESENT: cooperative, thin Head exam: PRESENT: atraumatic, normocephalic Eye exam: PRESENT: EOMI, PERRLA. ABSENT: scleral icterus Mouth exam: PRESENT: moist, neck supple Neck exam: ABSENT: meningismus, tenderness, thyromegaly, tracheal deviation Respiratory exam: PRESENT: unlabored. ABSENT: tachypnea, wheezes Cardiovascular exam: PRESENT: tachycardia - Mild Vascular exam: ABSENT: pallor GI/Abdominal exam: PRESENT: soft, tenderness - Right lower quadrant, right upper quadrant, left upper quadrant. ABSENT: distended Rectal exam: PRESENT: deferred Extremities exam: ABSENT: clubbing Musculoskeletal exam: ABSENT: deformity Neurological exam: PRESENT: alert, awake, oriented to person, oriented to place, oriented to time, oriented to situation, CN II-XII grossly intact Psychiatric exam: ABSENT: agitated, anxious Focused psych exam: ABSENT: delusional Skin exam: ABSENT: cyanosis, erythema, jaundice Results Laboratory Results: 10/20/20 16:10 10/20/20 16:10 10/20/20 19:12 Urine Color YELLOW Urine Appearance SLIGHTLY-CLOUDY Urine pH 5.0 Ur Specific [place] 1.025 Urine Protein 30 H Urine Glucose (UA) NEGATIVE Urine Ketones NEGATIVE Urine Blood LARGE H Urine Nitrite NEGATIVE Ur Leukocyte Esterase NEGATIVE Urine WBC (Auto) 3 Urine RBC (Auto) 123 Impressions: Abdomen CT 10/20/20 15:39 IMPRESSION: 1. There is increasing size of the ill-defined mass at the pancreatic head since previous examination 09/07/2020. Worsening pancreatic ductal dilation. No evidence of biliary obstruction. 2. New small amount of ascites. 3. Gallbladder wall thickening and diffuse colon wall thickening is probably reactive secondary to ascites. Cannot entirely exclude colitis or cholecystitis. Clinical correlation with patient's laboratory values recommended. 4. Increasing patchy ground-glass nodules in the lower lungs bilaterally may represent increasing metastatic disease. Infectious/inflammatory process is not entirely excluded. COVID 19 pneumonia could have this appearance. Assessment & Plan - Diagnosis (1) Typhlitis Is this a current diagnosis for this admission?: Yes - Plan Summary Plan Summary: 60-year-old female who recently received chemotherapy. She is neutropenic, and now complains of right-sided abdominal pain. On exam, her pain is much worse in the right lower quadrant. I have reviewed her CT scan. There is diffuse thickening of the right and transverse colons. I believe her symptoms and CT scan to be consistent with typhlitis. I would recommend continuation of her antibiotics (Unasyn and Flagyl are adequate). There is a question of gallbladder wall thickening. I believe this to be secondary to her other inflammatory processes. She does have abdominal pain, but I am not entirely convinced that the gallbladder is the source of her issues. If her pain localizes to her right upper quadrant alone, percutaneous cholecystectomy may provide her with symptomatic relief. HIDA scan would be helpful to rule out cholecystitis (if gallbladder filling is identified on HIDA), however nonvisualization of the gallbladder is nonspecific. I believe the best course of action is to continue her antibiotics, and monitor her response. She certainly does not qualify for any surgical intervention. Surgery will follow with you.
[2020-10-21] MEDS: AMPICILLIN SODIUM/SULBACTAM NA 3 GM in NORMAL SALINE 100 ML IV SCH (19:44)
[2020-10-21] MEDS ORDERED: INSULIN GLARGINE,HUM.REC.ANLOG 1,000 UNIT/10 ML VIAL (PYX) SUBCUT SCH (22:00)
[2020-10-21] MEDS: METRONIDAZOLE 500 MG TABLET PO SCH (22:01)
[2020-10-21] MEDS: INSULIN GLARGINE,HUM.REC.ANLOG 1,000 UNIT/10 ML VIAL SUBCUT SCH (22:08)
[2020-10-22] MEDS: AMPICILLIN SODIUM/SULBACTAM NA 3 GM in NORMAL SALINE 100 ML IV SCH ×5 (00:48→23:43)
[2020-10-22] MEDS: MEGESTROL ACETATE SUSP 400 MG/10 ML UDCUP PO SCH ×2 (01:42→10:15)
[2020-10-22] MEDS: NORMAL SALINE 1000 ML 1,000 ML IV PRN ×2 (05:54→22:22)
--- NOTE | 2020-10-22 08:45 | PDOC PROGRESS REPORT ---
Subjective Date:: 10/22/20 Subjective:: Patient states that she only needs to extra pain medication when she has to get up to the bedside commode. Otherwise, pain is well controlled. She has very little appetite and has not had a BM in the past 24 hours. No other complaints today. No family at bedside. Reason For Visit: PANCREATIC CANCER,ABDOMINAL PAIN Physical Exam Vital Signs: Temp Pulse Resp BP Pulse Ox 97.6 F 104 H 16 128/79 H 99 10/22/20 04:19 10/22/20 04:19 10/22/20 07:25 10/22/20 04:19 10/22/20 07:25 Intake & Output 10/21/20 10/22/20 10/23/20 06:59 06:59 06:59 Intake Total 1030 2867 Output Total 0 400 Balance 1030 2467 Weight 56.8 kg 60 kg General appearance: PRESENT: no acute distress Head exam: PRESENT: normocephalic Respiratory exam: PRESENT: unlabored GI/Abdominal exam: PRESENT: soft, tenderness Neurological exam: PRESENT: altered, awake, other - A bit loopy due to pain medication, but still oriented. Skin exam: PRESENT: normal color Results Laboratory Results: 10/20/20 16:10 10/20/20 16:10 Impressions: Abdomen CT 10/20/20 15:39 IMPRESSION: 1. There is increasing size of the ill-defined mass at the pancreatic head since previous examination 09/07/2020. Worsening pancreatic ductal dilation. No evidence of biliary obstruction. 2. New small amount of ascites. 3. Gallbladder wall thickening and diffuse colon wall thickening is probably reactive secondary to ascites. Cannot entirely exclude colitis or cholecystitis. Clinical correlation with patient's laboratory values recommended. 4. Increasing patchy ground-glass nodules in the lower lungs bilaterally may represent increasing metastatic disease. Infectious/inflammatory process is not entirely excluded. COVID 19 pneumonia could have this appearance. 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 Hopefully, will be able to wean this off soon. Still not sure what is causing the pain, but most likely is inflammation or cancer. (2) Pancreatic cancer Qualifiers: Pancreatic malignancy location: head of pancreas Qualified Code(s): C25.0 - Malignant neoplasm of head of pancreas Is this a current diagnosis for this admission?: Yes Plan: Continue ABX for now to see if pain improves. No chemo planned during this hospitalization. Further discussion as to results of CT scan per Dr. Benjamin. - Time Time Spent with patient: Less than 15 minutes
[2020-10-22] MEDS: HYDROCHLOROTHIAZIDE 25 MG TABLET PO SCH (10:14)
[2020-10-22] MEDS: LOSARTAN POTASSIUM 50 MG TABLET PO SCH (10:14)
[2020-10-22] MEDS: METRONIDAZOLE 500 MG TABLET PO SCH ×2 (10:14→22:25)
[2020-10-22] MEDS: ENOXAPARIN SODIUM INJ 40 MG/0.4 ML DISP.SYRIN SUBCUT SCH (10:14)
[2020-10-22] MEDS: POTASSIUM CHLORIDE 10 MEQ TABLET.ER PO SCH (10:14)
[2020-10-22 10:15] LABS: INTERNATIONAL RATION (INR) 1.71; PROTHROMBIN TIME 20.2 SEC (11.4-15.4)
[2020-10-22] MEDS: SENNOSIDES/DOCUSATE 8.6-50 MG 1 EACH TABLET PO SCH ×2 (10:15→18:29)
[2020-10-22] MEDS: METHYLPHENIDATE HCL 5 MG TABLET PO SCH (10:15)
[2020-10-22 10:16] LABS: PARTIAL THROMBOPLASTIN TIME 41.9 SEC (23.5-35.8)
[2020-10-22] MEDS: INSULIN LISPRO 100 UNIT/ML 3 ML VIAL SUBCUT SCH ×3 (10:30→19:58)
[2020-10-22] MEDS: INSULIN REG, HUMAN 100 UNIT/ML 3 ML VIAL (PYX) SUBCUT SCH ×4 (10:51→22:38)
--- NOTE | 2020-10-22 11:37 | PDOC PROGRESS REPORT ---
Subjective Date:: 10/22/20 Reason For Visit: PANCREATIC CANCER,ABDOMINAL PAIN Patient receiving narcotics; declined a Weiss catheter; has not eaten this morning. Still having a lot of right-sided abdominal pain Physical Exam Vital Signs: Temp Pulse Resp BP Pulse Ox 97.5 F 99 16 113/79 99 10/22/20 07:38 10/22/20 07:38 10/22/20 07:38 10/22/20 07:38 10/22/20 07:38 Intake & Output 10/21/20 10/22/20 10/23/20 06:59 06:59 06:59 Intake Total 1030 2867 Output Total 0 400 400 Balance 1030 2467 -400 Weight 56.8 kg 60 kg General appearance: PRESENT: other - Moderate distress. GI/Abdominal exam: PRESENT: other - Abdomen examined. Significant right upper quadrant and right mid and lower abdominal tenderness with guarding Results Laboratory Results: 10/20/20 16:10 10/20/20 16:10 Impressions: Abdomen CT 10/20/20 15:39 IMPRESSION: 1. There is increasing size of the ill-defined mass at the pancreatic head since previous examination 09/07/2020. Worsening pancreatic ductal dilation. No evidence of biliary obstruction. 2. New small amount of ascites. 3. Gallbladder wall thickening and diffuse colon wall thickening is probably reactive secondary to ascites. Cannot entirely exclude colitis or cho lecystitis. Clinical correlation with patient's laboratory values recommended. 4. Increasing patchy ground-glass nodules in the lower lungs bilaterally may represent increasing metastatic disease. Infectious/inflammatory process is not entirely excluded. COVID 19 pneumonia could have this appearance. Assessment & Plan - Diagnosis (1) Acute cholecystitis Is this a current diagnosis for this admission?: Yes Plan: Impression: I believe patient's abdominal pain be due to both sick gallbladder and diseased right colon. Reviewed the CT scan, and discussed patient with Sourav Durham, and [place]. Recommendations: 1. We will check rapid Covid test; continue IV fluids, intravenous antibiotics 2. I have spoken with Dr. Shawn funes, interventional radiologist, who was offered to place a percutaneous cholecystostomy drainage tube in the gallbladder. Hopefully this will give her some relief, and reduce her risk of overt sepsis. 3. With regards to the colon, continued intravenous antibiotics seems appropriate. However emergent surgical intervention may be required if patient deteriorates acutely. My understanding is that the patient is a full code. 4. We will continue to follow the patient with you. (2) Typhlitis Is this a current diagnosis for this admission?: Yes (3) Pain, neoplasm-related Is this a current diagnosis for this admission?: Yes (4) Dehydration Is this a current diagnosis for this admission?: Yes (5) Pancreatic cancer Qualifiers: Pancreatic malignancy location: head of pancreas Qualified Code(s): C25.0 - Malignant neoplasm of head of pancreas - Time Anticipated Discharge Disposition: Home with Home Health Anticipated Discharge Timeframe: within 72 hours Medications reviewed and adjusted accordingly: Yes
[2020-10-22] MEDS ORDERED: MIDAZOLAM 2 MG/2 ML INJ ONE (13:53)
[2020-10-22] MEDS ORDERED: FENTANYL CITRATE INJ/PF 100 MCG/2 ML AMPUL ONE (13:53)
--- NOTE | 2020-10-22 15:11 | RADIOLOGY REPORT (SQ) ---
EXAM DESCRIPTION: CT DRAINAGE RETRO/PERITONEAL IMAGES COMPLETED DATE/TIME: 10/22/2020 2:53 pm REASON FOR STUDY: Maintenance of distended gallbladder COMPARISON: CT dated 10/20/2020 FLUORO TIME: 15.9 seconds 167 images saved to PACS. LIMITATIONS: None. PROCEDURE: After obtaining informed consent, the patient was brought to the CT suite and was placed supine on the CT gurney. The patient was prepped and draped in the usual sterile fashion . Axial reese ges were obtained for targeting of thegallbladder and pericholecystic fluid collection. An appropriat e access site was selected. IV conscious sedation was administered and physician direction by the re gistered nurse using 1.0 milligrams of Versed and 50 micrograms of fentanyl. Physiologic monitoring w as provided before, during, and after sedation. The total sedation time was 20 minutes. Documentation face to face time, the performing proceduralist, spent monitoring the patient: 30minute s. Using CT fluoroscopic guidance the gallbladder was cannulated. A guidewire was placed. Sequential d ilatation performed and a 10 [place] APD catheter was placed. Purulent fluid was aspirated from the g allbladder. Catheter was secured to the skin and connected to accordion drainage bag. The pair E coli cystic fluid collection was then cannulated. A guidewire was placed. Sequential dil atation performed and an 8 [place] APD catheter placed. Again purulent fluid was aspirated. Catheter was secured to the skin and connected to accordion drainage bag. There were no complications. The patient was returned to the floor in stable condition. IMPRESSION: 1. Successful percutaneous cholecystostomy tube placement. 2. Successful catheter placement in the pericholecystic fluid collection. 3. Purulent fluid was aspirated from both the gallbladder and pericholecystic fluid collections. Th timur were sent to pathology for evaluation. COMMENT: Patient medication list reviewed:Yes- Quality ID# [id number]:Eligible professional attests to docu menting in the medical record they obtained, updated, or reviewed the patient's current medications. Quality ID #76: The patient was prepped and draped using maximum sterile barrier technique including cap, mask, sterile gown, sterile gloves, a large sterile sheet, hand hygiene, and 2% Chlorhexidine fo r cutaneous antisepsis. When ultrasound is used, sterile ultrasound techniques are followed requiring sterile gel and sterile probes. Quality ID 145: Final reports for procedures using fluoroscopy that document radiation exposure moises ele, or exposure time and number of fluorographic images (if radiation exposure indices are not avail able) Quality ID# [id number]: Final reports with documentation of one or more dose reduction techniques (e.g., Aut omated exposure control, adjustment of the mA and/or kV according to patient size, use of iterative r econstruction technique) TECHNICAL DOCUMENTATION: JOB ID: [id number] 2010 [employer]- All Rights Reserved Reading location - IP/workstation name: [email or web address]
[2020-10-22] MEDS ORDERED: HYDROMORPHONE HCL INJ/PF 2 MG/ML AMPULE IV ONE (16:30)
--- NOTE | 2020-10-22 20:46 | PDOC PROGRESS REPORT ---
Subjective Date:: 10/22/20 Subjective:: Patient seen by the bedside, she had catheter drainage of the gallbladder done t jina, on IV antibiotic for the acute cholecystitis. Reason For Visit: PANCREATIC CANCER,ABDOMINAL PAIN Physical Exam Vital Signs: Temp Pulse Resp BP Pulse Ox 98.3 F 120 H 16 146/89 H 98 10/22/20 17:45 10/22/20 17:45 10/22/20 19:00 10/22/20 17:45 10/22/20 19:00 Intake & Output 10/21/20 10/22/20 10/23/20 06:59 06:59 06:59 Intake Total 1030 2867 0 Output Total 0 400 400 Balance 1030 2467 -400 Weight 56.8 kg 60 kg General appearance: PRESENT: no acute distress Eye exam: PRESENT: PERRLA Respiratory exam: PRESENT: clear to auscultation anoop Cardiovascular exam: PRESENT: +S1, +S2 GI/Abdominal exam: PRESENT: soft Neurological exam: PRESENT: alert Results Laboratory Results: 10/20/20 16:10 10/20/20 16:10 Impressions: Abdomen CT 10/20/20 15:39 IMPRESSION: 1. There is increasing size of the ill-defined mass at the pancreatic head since previous examination 09/07/2020. Worsening pancreatic ductal dilation. No evidence of biliary obstruction. 2. New small amount of ascites. 3. Gallbladder wall thickening and diffuse colon wall thickening is probably reactive secondary to ascites. Cannot entirely exclude colitis or cholecystitis. Clinical correlation with patient's laboratory values recommended. 4. Increasing patchy ground-glass nodules in the lower lungs bilaterally may represent increasing metastatic disease. Infectious/inflammatory process is not entirely excluded. COVID 19 pneumonia could have this appearance. Retroperitoneal Abscess Drainage 10/22/20 10:32 IMPRESSION: 1. Successful percutaneous cholecystostomy tube placement. 2. Successful catheter placement in the pericholecystic fluid collection. 3. Purulent fluid was aspirated from both the gallbladder and pericholecystic fluid collections. These were sent to pathology for evaluation. Assessment & Plan - Diagnosis (1) Pancreatic cancer Qualifiers: Pancreatic malignancy location: head of pancreas Qualified Code(s): C25.0 - Malignant neoplasm of head of pancreas Is this a current diagnosis for this admission?: Yes Plan: Per oncology (2) Acute cholecystitis Is this a current diagnosis for this admission?: Yes Plan: Patient on IV antibiotic, there is a drain in place (3) Secondary diabetes Is this a current diagnosis for this admission?: Yes Plan: She had episode of hypoglycemia, insulin on hold (4) Pain, neoplasm-related Is this a current diagnosis for this admission?: Yes Plan: Pain medicine per oncology - Time Time Spent with patient: 35 or more minutes Level of Care: MEDICAL Medications reviewed and adjusted accordingly: Yes Anticipated discharge: Home Anticipated DC Timeframe: Other
[2020-10-22] MEDS: INSULIN GLARGINE,HUM.REC.ANLOG 1,000 UNIT/10 ML VIAL SUBCUT SCH (22:37)
[2020-10-23] MEDS: HYDROMORPHONE HCL 30 MG/60 ML RTUINJ IV PRN (03:12)
[2020-10-23] MEDS: AMPICILLIN SODIUM/SULBACTAM NA 3 GM in NORMAL SALINE 100 ML IV SCH ×4 (05:33→23:47)
--- NOTE | 2020-10-23 08:58 | PDOC PROGRESS REPORT ---
Subjective Date:: 10/23/20 Subjective:: Pt seems slightly better w/ pain post drain placement but no BMx 7 days. D/w Dr. Sales, reviewed imaging with him and there is severe constipation on going w/ some colonic inflammation along w/ necrotic gallbladder. Will placed order for mineral oil enema now then BID until BM acheieved per surgery, also changed diet to clear liquid diet. D/w who understands plan. Drain will need to stay in for now until inflammation reduces. Reason For Visit: PANCREATIC CANCER,ABDOMINAL PAIN Physical Exam Vital Signs: Temp Pulse Resp BP Pulse Ox 98.4 F 104 H 18 152/90 H 97 10/23/20 04:55 10/23/20 04:55 10/23/20 06:08 10/23/20 04:55 10/23/20 06:08 Intake & Output 10/22/20 10/23/20 10/24/20 06:59 06:59 06:59 Intake Total 2867 1000 Output Total 400 1100 Balance 2467 -100 Weight 60 kg 62.5 kg General appearance: PRESENT: no acute distress, well-developed, well-nourished Head exam: PRESENT: atraumatic, normocephalic Eye exam: PRESENT: conjunctiva pink, EOMI, PERRLA. ABSENT: scleral icterus Ear exam: PRESENT: normal external ear exam Mouth exam: PRESENT: moist, tongue midline Neck exam: ABSENT: carotid bruit, JVD, lymphadenopathy, thyromegaly Respiratory exam: PRESENT: clear to auscultation anoop. ABSENT: rales, rhonchi, wheezes Cardiovascular exam: PRESENT: RRR. ABSENT: diastolic murmur, rubs, systolic murmur Pulses: PRESENT: normal dorsalis pedis pul Vascular exam: PRESENT: normal capillary refill GI/Abdominal exam: PRESENT: normal bowel sounds, soft. ABSENT: distended, guarding, mass, organolmegaly, rebound, tenderness Rectal exam: PRESENT: deferred Extremities exam: PRESENT: full ROM. ABSENT: calf tenderness, clubbing, pedal edema Neurological exam: PRESENT: alert, awake, oriented to person, oriented to place, oriented to time, oriented to situation, CN II-XII grossly intact. ABSENT: motor sensory deficit Psychiatric exam: PRESENT: appropriate affect, normal mood. ABSENT: homicidal ideation, suicidal ideation Skin exam: PRESENT: dry, intact, warm. ABSENT: cyanosis, rash Results Laboratory Results: 10/20/20 16:10 10/20/20 16:10 Impressions: Abdomen CT 10/20/20 15:39 IMPRESSION: 1. There is increasing size of the ill-defined mass at the pancreatic head since previous examination 09/07/2020. Worsening pancreatic ductal dilation. No evidence of biliary obstruction. 2. New small amount of ascites. 3. Gallbladder wall thickening and diffuse colon wall thickening is probably reactive secondary to ascites. Cannot entirely exclude colitis or cholecystitis. Clinical correlation with patient's laboratory values recommended. 4. Increasing patchy ground-glass nodules in the lower lungs bilaterally may represent increasing metastatic disease. Infectious/inflammatory process is not entirely excluded. COVID 19 pneumonia could have this appearance. Retroperitoneal Abscess Drainage 10/22/20 10:32 IMPRESSION: 1. Successful percutaneous cholecystostomy tube placement. 2. Successful catheter placement in the pericholecystic fluid collection. 3. Purulent fluid was aspirated from both the gallbladder and pericholecystic fluid collections. These were sent to pathology for evaluation. Assessment & Plan - Diagnosis (1) Acute cholecystitis Is this a current diagnosis for this admission?: Yes Plan: S/.p perc drain, cont per surgical and primary team. (2) Adenocarcinoma of head of pancreas Is this a current diagnosis for this admission?: Yes Plan: All chemo on hold until pt improves. (3) Pain, neoplasm-related Is this a current diagnosis for this admission?: Yes Plan: Cont current IV pain regimen until we know pt is tolerating po well and having BMs (4) Constipation Qualifiers: Constipation type: drug induced constipation Qualified Code(s): K59.03 - Drug induced constipation Is this a current diagnosis for this admission?: Yes Plan: 2nd opiods chronic use, start aggressive enema plan today. - Time Time Spent with patient: 35 or more minutes - Inpatient Certification Based on my medical assessment, after consideration of the patient's comorbidities, presenting symptoms, or acuity I expect that the services needed warrant INPATIENT care.: Yes I certify that my determination is in accordance with my understanding of Medicare's requirements for reasonable and necessary INPATIENT services [42 CFR 412.3e].: Yes Medical Necessity: Risk of Complication if Not Cared For in Hospital
[2020-10-23] MEDS: INSULIN LISPRO 100 UNIT/ML 3 ML VIAL SUBCUT SCH ×3 (09:53→16:00)
[2020-10-23] MEDS: INSULIN REG, HUMAN 100 UNIT/ML 3 ML VIAL (PYX) SUBCUT SCH ×4 (09:56→21:31)
[2020-10-23 09:58] LABS: HEMATOCRIT 23.6 % (36.0-47.0); MEAN CORPUSCULAR HEMOGLOBIN 29.9 pg (27.0-33.4); MEAN CORPUSCULAR HGB CONC 32.6 g/dL (32.0-36.0); MEAN CORPUSCULAR VOLUME 92 fl (80-97); PLATELET COUNT 126 10^3/uL (150-450); RED BLOOD COUNT 2.57 10^6/uL (3.72-5.28); RED CELL DISTRIBUTION WIDTH 19.1 % (11.5-14.0); WHITE BLOOD COUNT 16.7 10^3/uL (4.0-10.5)
[2020-10-23 10:02] LABS: HEMOGLOBIN 7.7 g/dL (12.0-15.5)
[2020-10-23 10:07] LABS: ALBUMIN 2.6 g/dL (3.5-5.0); ALKALINE PHOSPHATASE 160 U/L (38-126); ANION GAP 8 (5-19); ASPARTATE AMINO TRANSFERASE 24 U/L (14-36); BILIRUBIN,DIRECT 0.5 mg/dL (0.0-0.4); BILIRUBIN,TOTAL 0.7 mg/dL (0.2-1.3); BLOOD UREA NITROGEN 26 mg/dL (7-20); CALCIUM 8.2 mg/dL (8.4-10.2); CARBON DIOXIDE 18 mmol/L (22-30); CHLORIDE 117 mmol/L (98-107); GLUCOSE 80 mg/dL (75-110); POTASSIUM 3.5 mmol/L (3.6-5.0); TOTAL PROTEIN 6.1 g/dL (6.3-8.2)
--- NOTE | 2020-10-23 10:32 | PDOC PROGRESS REPORT ---
Subjective Date:: 10/23/20 Subjective:: still with abd pain rt side drains with min op Reason For Visit: PANCREATIC CANCER,ABDOMINAL PAIN Physical Exam Vital Signs: Temp Pulse Resp BP Pulse Ox 98.4 F 104 H 18 152/90 H 97 10/23/20 04:55 10/23/20 04:55 10/23/20 06:08 10/23/20 04:55 10/23/20 06:08 Intake & Output 10/22/20 10/23/20 10/24/20 06:59 06:59 06:59 Intake Total 2867 1000 Output Total 400 1100 Balance 2467 -100 Weight 60 kg 62.5 kg General appearance: PRESENT: mild distress Head exam: PRESENT: atraumatic Eye exam: PRESENT: EOMI Ear exam: PRESENT: normal external ear exam Mouth exam: PRESENT: moist Teeth exam: PRESENT: poor dentation Neck exam: PRESENT: full ROM Respiratory exam: PRESENT: clear to auscultation anoop Cardiovascular exam: PRESENT: RRR Pulses: PRESENT: normal radial pulses, normal femoral pulses Vascular exam: PRESENT: normal capillary refill Breast: PRESENT: Normal GI/Abdominal exam: PRESENT: tenderness - mild tenderess ruq and rt abd no rebound tenderness Rectal exam: PRESENT: deferred Extremities exam: PRESENT: full ROM Musculoskeletal exam: PRESENT: full ROM Neurological exam: PRESENT: alert, awake, oriented to place Psychiatric exam: PRESENT: appropriate affect Skin exam: PRESENT: dry Results Laboratory Results: 10/23/20 09:29 10/23/20 09:29 WBC 16.7 H D RBC 2.57 L Hgb 7.7 L Hct 23.6 L MCV 92 MCH 29.9 MCHC 32.6 RDW 19.1 H Plt Count 126 L Impressions: Abdomen CT 10/20/20 15:39 IMPRESSION: 1. There is increasing size of the ill-defined mass at the pancreatic head since previous examination 09/07/2020. Worsening pancreatic ductal dilation. No evidence of biliary obstruction. 2. New small amount of ascites. 3. Gallbladder wall thickening and diffuse colon wall thickening is probably reactive secondary to ascites. Cannot entirely exclude colitis or cholecystitis . Clinical correlation with patient's laboratory values recommended. 4. Increasing patchy ground-glass nodules in the lower lungs bilaterally may represent increasing metastatic disease. Infectious/inflammatory process is not entirely excluded. COVID 19 pneumonia could have this appearance. Retroperitoneal Abscess Drainage 10/22/20 10:32 IMPRESSION: 1. Successful percutaneous cholecystostomy tube placement. 2. Successful catheter placement in the pericholecystic fluid collection. 3. Purulent fluid was aspirated from both the gallbladder and pericholecystic f luid collections. These were sent to pathology for evaluation. Assessment & Plan - Time Anticipated Discharge Disposition: unk Anticipated Discharge Timeframe: unk - Plan Summary Plan Summary: colitis, choleystitis s/p cholecystostomy tube and peritioneal drain pus noted from choleystostomy tube, pt also constipated with no bm for 1 wk metastatic pancreatic cancer' case discussed with Dr villanueva will add enemas and cont to follow drains would try to rx cholecystitis medically
[2020-10-23] MEDS: POTASSIUM CHLORIDE 10 MEQ TABLET.ER PO SCH (11:38)
[2020-10-23] MEDS: LOSARTAN POTASSIUM 50 MG TABLET PO SCH (11:38)
[2020-10-23] MEDS: HYDROCHLOROTHIAZIDE 25 MG TABLET PO SCH (11:39)
[2020-10-23] MEDS: METHYLPHENIDATE HCL 5 MG TABLET PO SCH (11:40)
[2020-10-23] MEDS: METRONIDAZOLE 500 MG TABLET PO SCH ×2 (11:40→21:31)
[2020-10-23] MEDS: SENNOSIDES/DOCUSATE 8.6-50 MG 1 EACH TABLET PO SCH ×2 (11:40→17:59)
[2020-10-23] MEDS: MEGESTROL ACETATE SUSP 400 MG/10 ML UDCUP PO SCH (11:41)
[2020-10-23] MEDS: ENOXAPARIN SODIUM INJ 40 MG/0.4 ML DISP.SYRIN SUBCUT SCH (11:44)
[2020-10-23] MEDS: NORMAL SALINE 1000 ML 1,000 ML IV PRN ×2 (12:22→23:46)
[2020-10-23] MEDS: MINERAL OIL ENEMA 133 ML PR SCH ×2 (17:53→23:12)
--- NOTE | 2020-10-23 19:46 | PDOC PROGRESS REPORT ---
Subjective Date:: 10/23/20 Subjective:: Patient seen by the bedside, she is very lethargic from the opioids, she is cons tipated, she was seen earlier by oncology, ordered enema Reason For Visit: PANCREATIC CANCER,ABDOMINAL PAIN Physical Exam Vital Signs: Temp Pulse Resp BP Pulse Ox 98.2 F 110 H 15 148/90 H 96 10/23/20 16:00 10/23/20 16:00 10/23/20 17:51 10/23/20 16:00 10/23/20 17:51 Intake & Output 10/22/20 10/23/20 10/24/20 06:59 06:59 06:59 Intake Total 2867 1000 1890 Output Total 400 1100 365 Balance 2467 -100 1525 Weight 60 kg 62.5 kg 62.5 kg General appearance: PRESENT: no acute distress Eye exam: PRESENT: PERRLA Respiratory exam: PRESENT: clear to auscultation anoop Cardiovascular exam: PRESENT: +S1, +S2 GI/Abdominal exam: PRESENT: soft Neurological exam: PRESENT: alert, CN II-XII grossly intact Results Laboratory Results: 10/23/20 09:29 10/23/20 09:29 10/23/20 10/23/20 09:29 09:29 WBC 16.7 H D RBC 2.57 L Hgb 7.7 L Hct 23.6 L MCV 92 MCH 29.9 MCHC 32.6 RDW 19.1 H Plt Count 126 L Sodium 143.1 Potassium 3.5 L Chloride 117 H Carbon Dioxide 18 L Anion Gap 8 BUN 26 H Creatinine 1.09 Est GFR ( Amer) > 60 Glucose 80 Calcium 8.2 L Total Bilirubin 0.7 AST 24 Alkaline Phosphatase 160 H Total Protein 6.1 L Albumin 2.6 L Impressions: Abdomen CT 10/20/20 15:39 IMPRESSION: 1. There is increasing size of the ill-defined mass at the pancreatic head since previous examination 09/07/2020. Worsening pancreatic ductal dilation. No evidence of biliary obstruction. 2. New small amount of ascites. 3. Gallbladder wall thickening and diffuse colon wall thickening is probably reactive secondary to ascites. Cannot entirely exclude colitis or cholecystitis. Clinical correlation with patient's laboratory values recommended. 4. Increasing patchy ground-glass nodules in the lower lungs bilaterally may represent increasing metastatic disease. Infectious/inflammatory process is not entirely excluded. COVID 19 pneumonia could have this appearance. Retroperitoneal Abscess Drainage 10/22/20 10:32 IMPRESSION: 1. Successful percutaneous cholecystostomy tube placement. 2. Successful catheter placement in the pericholecystic fluid collection. 3. Purulent fluid was aspirated from both the gallbladder and pericholecystic fluid collections. These were sent to pathology for evaluation. Assessment & Plan - Diagnosis (1) Pancreatic cancer Qualifiers: Pancreatic malignancy location: head of pancreas Qualified Code(s): C25.0 - Malignant neoplasm of head of pancreas Is this a current diagnosis for this admission?: Yes Plan: Per oncology (2) Acute cholecystitis Is this a current diagnosis for this admission?: Yes Plan: She has a drain, on antibiotic (3) Secondary diabetes Is this a current diagnosis for this admission?: Yes (4) Pain, neoplasm-related Is this a current diagnosis for this admission?: Yes - Time Time Spent with patient: 35 or more minutes Level of Care: MEDICAL Medications reviewed and adjusted accordingly: Yes Anticipated discharge: Home - Inpatient Certification Based on my medical assessment, after consideration of the patient's comorbidities, presenting symptoms, or acuity I expect that the services needed warrant INPATIENT care.: Yes I certify that my determination is in accordance with my understanding of Medicare's requirements for reasonable and necessary INPATIENT services [42 CFR 412.3e].: Yes
[2020-10-23] MEDS: INSULIN GLARGINE,HUM.REC.ANLOG 1,000 UNIT/10 ML VIAL SUBCUT SCH (21:32)
--- NOTE | 2020-10-23 22:26 | CDI QUERY ---
CDI Query CDI Review: We are seeking further clarification of documentation to reflect the severity of illness of your patient. Per Surgical Consult Note: Typhlitis Is this a current diagnosis for this admission?: Yes - Plan Summary Plan Summary: 60-year-old female who recently received chemotherapy. She is neutropenic, and now complains of right-sided abdominal pain. On exam, her pain is much worse in the right lower quadrant. I have reviewed her CT scan. There is diffuse thickening of the right and transverse colons. I believe her symptoms and CT scan to be consistent with typhlitis. I would recommend continuation of her antibiotics (Unasyn and Flagyl are adequate). There is a question of gallbladder wall thickening. I believe this to be secondary to her other inflammatory processes. She does have abdominal pain, but I am not entirely convinced that the gallbladder is the source of her issues. If her pain localizes to her right upper quadrant alone, percutaneous cholecystectomy may provide her with symptomatic relief. HIDA scan would be helpful to rule out cholecystitis (if gallbladder filling is identified on HIDA), however nonvisualization of the gallbladder is nonspecific. I believe the best course of action is to continue her antibiotics, and monitor her response. She certainly does not qualify for any surgical intervention. Surgery will follow with you. Based on your medical judgement, can you further clarify in the Progress Notes if you agree with this diagnosis: Typhlitis 2/2 to chemotherapy Agranulocytosis 2/2 to chemotherapy Adverse effect of antineoplastic and immunosuppressive drug Unable to determine Other Thank you for your consideration. YOLANDA Jolly RN Clinical Home Decorator Physician Advisor
[2020-10-24] MEDS: AMPICILLIN SODIUM/SULBACTAM NA 3 GM in NORMAL SALINE 100 ML IV SCH (05:30)
[2020-10-24] MEDS: HYDROMORPHONE HCL 30 MG/60 ML RTUINJ IV PRN (07:48)
[2020-10-24] MEDS: INSULIN LISPRO 100 UNIT/ML 3 ML VIAL SUBCUT SCH ×3 (08:22→18:10)
[2020-10-24] MEDS: INSULIN REG, HUMAN 100 UNIT/ML 3 ML VIAL (PYX) SUBCUT SCH ×4 (08:22→22:54)
--- NOTE | 2020-10-24 08:44 | PDOC PROGRESS REPORT ---
Subjective Date:: 10/24/20 Subjective:: Pt was more lethargic and slow respiration overnight. We planned on reducing pain meds today. Still no BM but only had 1 enema yesterday. tolerated some broth. Did not get up yet Reason For Visit: PANCREATIC CANCER,ABDOMINAL PAIN Physical Exam Vital Signs: Temp Pulse Resp BP Pulse Ox 98.9 F 106 H 12 144/87 H 97 10/24/20 05:14 10/24/20 05:14 10/24/20 07:45 10/24/20 05:14 10/24/20 07:45 Intake & Output 10/23/20 10/24/20 10/25/20 06:59 06:59 06:59 Intake Total 1000 2890 Output Total 1100 615 Balance -100 2275 Weight 62.5 kg 62.4 kg General appearance: PRESENT: no acute distress, well-developed, well-nourished Head exam: PRESENT: atraumatic, normocephalic Eye exam: PRESENT: conjunctiva pink, EOMI, PERRLA. ABSENT: scleral icterus Ear exam: PRESENT: normal external ear exam Mouth exam: PRESENT: moist, tongue midline Neck exam: ABSENT: carotid bruit, JVD, lymphadenopathy, thyromegaly Respiratory exam: PRESENT: clear to auscultation anoop. ABSENT: rales, rhonchi, wheezes Cardiovascular exam: PRESENT: RRR. ABSENT: diastolic murmur, rubs, systolic murmur Pulses: PRESENT: normal dorsalis pedis pul Vascular exam: PRESENT: normal capillary refill GI/Abdominal exam: PRESENT: normal bowel sounds, soft. ABSENT: distended, guarding, mass, organolmegaly, rebound, tenderness Rectal exam: PRESENT: deferred Extremities exam: PRESENT: full ROM. ABSENT: calf tenderness, clubbing, pedal edema Neurological exam: PRESENT: alert, awake, oriented to person, oriented to place, oriented to time, oriented to situation, CN II-XII grossly intact. ABSENT: motor sensory deficit Psychiatric exam: PRESENT: appropriate affect, normal mood. ABSENT: homicidal ideation, suicidal ideation Skin exam: PRESENT: dry, intact, warm. ABSENT: cyanosis, rash Results Laboratory Results: 10/23/20 09:29 10/23/20 09:29 10/23/20 10/23/20 09:29 09:29 WBC 16.7 H D RBC 2.57 L Hgb 7.7 L Hct 23.6 L MCV 92 MCH 29.9 MCHC 32.6 RDW 19.1 H Plt Count 126 L Sodium 143.1 Potassium 3.5 L Chloride 117 H Carbon Dioxide 18 L Anion Gap 8 BUN 26 H Creatinine 1.09 Est GFR ( Amer) > 60 Glucose 80 Calcium 8.2 L Total Bilirubin 0.7 AST 24 Alkaline Phosphatase 160 H Total Protein 6.1 L Albumin 2.6 L Impressions: Abdomen CT 10/20/20 15:39 IMPRESSION: 1. There is increasing size of the ill-defined mass at the pancreatic head since previous examination 09/07/2020. Worsening pancreatic ductal dilation. No evidence of biliary obstruction. 2. New small amount of ascites. 3. Gallbladder wall thickening and diffuse colon wall thickening is probably reactive secondary to ascites. Cannot entirely exclude colitis or cholecystitis. Clinical correlation with patient's laboratory values recommended. 4. Increasing patchy ground-glass nodules in the lower lungs bilaterally may represent increasing metastatic disease. Infectious/inflammatory process is not entirely excluded. COVID 19 pneumonia could have this appearance. Retroperitoneal Abscess Drainage 10/22/20 10:32 IMPRESSION: 1. Successful percutaneous cholecystostomy tube placement. 2. Successful catheter placement in the pericholecystic fluid collection. 3. Purulent fluid was aspirated from both the gallbladder and pericholecystic fluid collections. These were sent to pathology for evaluation. Assessment & Plan - Diagnosis (1) Acute cholecystitis Is this a current diagnosis for this admission?: Yes Plan: Change atbx from unasyn to cefepime as pseudomonas noted. Cont w/ tube per surgery and primary team. 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
[2020-10-24] MEDS: HYDROMORPHONE HCL INJ/PF 2 MG/ML AMPULE IV PRN ×6 (10:38→22:12)
[2020-10-24] MEDS: CEFEPIME 1 GM/D5W RTU 1 GM/50 ML RTUPB IV SCH ×2 (10:41→22:12)
[2020-10-24] MEDS: SENNOSIDES/DOCUSATE 8.6-50 MG 1 EACH TABLET PO SCH ×2 (10:41→18:26)
[2020-10-24] MEDS: LOSARTAN POTASSIUM 50 MG TABLET PO SCH (10:42)
[2020-10-24] MEDS: HYDROCHLOROTHIAZIDE 25 MG TABLET PO SCH (10:42)
[2020-10-24] MEDS: POTASSIUM CHLORIDE 10 MEQ TABLET.ER PO SCH (10:42)
[2020-10-24] MEDS: METRONIDAZOLE 500 MG TABLET PO SCH ×2 (10:42→22:12)
[2020-10-24] MEDS: METHYLPHENIDATE HCL 5 MG TABLET PO SCH (10:42)
[2020-10-24] MEDS: NORMAL SALINE 1000 ML 1,000 ML IV PRN (12:13)
[2020-10-24] MEDS: ENOXAPARIN SODIUM INJ 40 MG/0.4 ML DISP.SYRIN SUBCUT SCH (12:15)
[2020-10-24] MEDS: MEGESTROL ACETATE SUSP 400 MG/10 ML UDCUP PO SCH ×2 (12:15→14:33)
[2020-10-24] MEDS: MINERAL OIL ENEMA 133 ML PR SCH ×2 (12:30→18:45)
--- NOTE | 2020-10-24 12:34 | PDOC PROGRESS REPORT ---
Subjective Date:: 10/24/20 Subjective:: 60-year-old female with colonic inflammation and acute cholecystitis, seen on CT scan. The patient is status post percutaneous cholecystostomy. Upon my entry into the room today, she is having a bowel movement. She reports that her pain is improved, however it is still present. She denies chest pain, shortness of breath, headache, nausea, vomiting. She is tolerating liquids. Reason For Visit: PANCREATIC CANCER,ABDOMINAL PAIN Physical Exam Vital Signs: Temp Pulse Resp BP Pulse Ox 97.4 F 106 H 15 137/89 H 100 10/24/20 08:37 10/24/20 08:37 10/24/20 08:37 10/24/20 08:37 10/24/20 08:45 Intake & Output 10/23/20 10/24/20 10/25/20 06:59 06:59 06:59 Intake Total 1000 2890 1000 Output Total 1100 615 250 Balance -100 2275 750 Weight 62.5 kg 62.4 kg General appearance: PRESENT: no acute distress, cooperative Head exam: PRESENT: atraumatic, normocephalic Eye exam: PRESENT: EOMI, PERRLA. ABSENT: scleral icterus Mouth exam: PRESENT: moist, neck supple Neck exam: ABSENT: meningismus, tenderness Respiratory exam: PRESENT: unlabored. ABSENT: tachypnea Cardiovascular exam: PRESENT: tachycardia - Mild GI/Abdominal exam: PRESENT: distended - Mild, soft, tenderness - Moderate right- sided abdominal tenderness. ABSENT: rebound, rigid Rectal exam: PRESENT: deferred Extremities exam: ABSENT: clubbing Musculoskeletal exam: ABSENT: deformity Neurological exam: PRESENT: alert, awake, oriented to person, oriented to place, oriented to time, oriented to situation Psychiatric exam: ABSENT: agitated, anxious, depressed Focused psych exam: ABSENT: delusional Skin exam: ABSENT: cyanosis, erythema, jaundice Results Laboratory Results: 10/23/20 09:29 10/23/20 09:29 Impressions: Abdomen CT 10/20/20 15:39 IMPRESSION: 1. There is increasing size of the ill-defined mass at the pancreatic head since previous examination 09/07/2020. Worsening pancreatic ductal dilation. No evidence of biliary obstruction. 2. New small amount of ascites. 3. Gallbladder wall thickening and diffuse colon wall thickening is probably reactive secondary to ascites. Cannot entirely exclude colitis or cholecystitis. Clinical correlation with patient's laboratory values recommended. 4. Increasing patchy ground-glass nodules in the lower lungs bilaterally may represent increasing metastatic disease. Infectious/inflammatory process is not entirely excluded. COVID 19 pneumonia could have this appearance. Retroperitoneal Abscess Drainage 10/22/20 10:32 IMPRESSION: 1. Successful percutaneous cholecystostomy tube placement. 2. Successful catheter placement in the pericholecystic fluid collection. 3. Purulent fluid was aspirated from both the gallbladder and pericholecystic fluid collections. These were sent to pathology for evaluation. Assessment & Plan - Diagnosis (1) Typhlitis Is this a current diagnosis for this admission?: Yes (2) Acute cholecystitis Is this a current diagnosis for this admission?: Yes - Time Anticipated Discharge Disposition: unknown Anticipated Discharge Timeframe: unknown - Plan Summary Plan Summary: 60-year-old female with evidence of acute cholecystitis and colitis on CT scan. She is status post percutaneous cholecystostomy. Her drains are productive of serosanguineous fluid. In terms of her cholecystitis, this should be adequate therapy. The patient is not a candidate for any surgical intervention. Continue antibiotics. Continue supportive care. Would consider hospice consult. Leave drains in place for the foreseeable future, as removal of her drains could precipitate another episode of acute cholecystitis. Surgery has little more to add to her care at this time. I will sign off. Please renotify with any questions or concerns.
--- NOTE | 2020-10-24 20:14 | PDOC PROGRESS REPORT ---
Subjective Date:: 10/24/20 Subjective:: Patient was seen by the bedside, she continues to be constipated, she has a drai n, cholecystotomy tube, the secretion from the drain grew Pseudomonas, antibiotic was changed She has underlining metastatic pancreatic cancer Reason For Visit: PANCREATIC CANCER,ABDOMINAL PAIN Physical Exam Vital Signs: Temp Pulse Resp BP Pulse Ox 97.6 F 123 H 20 110/94 H 99 10/24/20 15:24 10/24/20 15:24 10/24/20 15:24 10/24/20 15:24 10/24/20 15:24 Intake & Output 10/23/20 10/24/20 10/25/20 06:59 06:59 06:59 Intake Total 1000 2890 1300 Output Total 1100 615 270 Balance -100 2275 1030 Weight 62.5 kg 62.4 kg General appearance: PRESENT: no acute distress Eye exam: PRESENT: PERRLA Respiratory exam: PRESENT: clear to auscultation anoop Cardiovascular exam: PRESENT: +S1, +S2 GI/Abdominal exam: PRESENT: soft Neurological exam: PRESENT: alert Results Laboratory Results: 10/23/20 09:29 10/23/20 09:29 Impressions: Abdomen CT 10/20/20 15:39 IMPRESSION: 1. There is increasing size of the ill-defined mass at the pancreatic head since previous examination 09/07/2020. Worsening pancreatic ductal dilation. No evidence of biliary obstruction. 2. New small amount of ascites. 3. Gallbladder wall thickening and diffuse colon wall thickening is probably reactive secondary to ascites. Cannot entirely exclude colitis or cholecystitis. Clinical correlation with patient's laboratory values recommended. 4. Increasing patchy ground-glass nodules in the lower lungs bilaterally may represent increasing metastatic disease. Infectious/inflammatory process is not entirely excluded. COVID 19 pneumonia could have this appearance. Retroperitoneal Abscess Drainage 10/22/20 10:32 IMPRESSION: 1. Successful percutaneous cholecystostomy tube placement. 2. Successful catheter placement in the pericholecystic fluid collection. 3. Purulent fluid was aspirated from both the gallbladder and pericholecystic fluid collections. These were sent to pathology for evaluation. Assessment & Plan - Diagnosis (1) Pancreatic cancer Qualifiers: Pancreatic malignancy location: head of pancreas Qualified Code(s): C25.0 - Malignant neoplasm of head of pancreas Is this a current diagnosis for this admission?: Yes (2) Acute cholecystitis Is this a current diagnosis for this admission?: Yes Plan: Continue antibiotic (3) Secondary diabetes Is this a current diagnosis for this admission?: Yes (4) Pain, neoplasm-related Is this a current diagnosis for this admission?: Yes - Time Time Spent with patient: 25-34 minutes Level of Care: MEDICAL Medications reviewed and adjusted accordingly: Yes Anticipated discharge: Home
[2020-10-24 22:30] LABS: ALBUMIN 2.3 g/dL (3.5-5.0); ALKALINE PHOSPHATASE 161 U/L (38-126); ANION GAP 8 (5-19); ASPARTATE AMINO TRANSFERASE 29 U/L (14-36); BILIRUBIN,DIRECT 0.5 mg/dL (0.0-0.4); BILIRUBIN,TOTAL 0.9 mg/dL (0.2-1.3); BLOOD UREA NITROGEN 25 mg/dL (7-20); CALCIUM 8.4 mg/dL (8.4-10.2); CARBON DIOXIDE 15 mmol/L (22-30); CHLORIDE 117 mmol/L (98-107); GLUCOSE 102 mg/dL (75-110); POTASSIUM 3.5 mmol/L (3.6-5.0); TOTAL PROTEIN 5.7 g/dL (6.3-8.2)
[2020-10-24 22:32] LABS: HEMATOCRIT 24.9 % (36.0-47.0); MEAN CORPUSCULAR HEMOGLOBIN 29.7 pg (27.0-33.4); MEAN CORPUSCULAR HGB CONC 32.2 g/dL (32.0-36.0); MEAN CORPUSCULAR VOLUME 92 fl (80-97); PLATELET COUNT 137 10^3/uL (150-450); RED CELL DISTRIBUTION WIDTH 19.5 % (11.5-14.0); WHITE BLOOD COUNT 24.3 10^3/uL (4.0-10.5)
[2020-10-24] MEDS: INSULIN GLARGINE,HUM.REC.ANLOG 1,000 UNIT/10 ML VIAL SUBCUT SCH (22:55)
[2020-10-24 22:57] LABS: ABSOLUTE LYMPHOCYTES# (MANUAL) 1.5 10^3/uL (0.5-4.7); BAND NEUTROPHILS % (MANUAL) 1 % (3-5); BASOPHILS % (MANUAL) 0 % (0-2); EOSINOPHILS % (MANUAL) 0 % (0-6); LYMPHOCYTES % (MANUAL) 5 % (13-45); MONOCYTES % (MANUAL) 4 % (3-13); SEGMENTED NEUTROPHILS % (MAN) 89 % (42-78); TOTAL CELLS COUNTED 100
[2020-10-24 23:03] LABS: ANISOCYTOSIS 2+; PLATELET COMMENT DECREASED; POLYCHROMASIA SLIGHT
[2020-10-25] MEDS: NORMAL SALINE 1000 ML 1,000 ML IV PRN ×2 (01:12→16:46)
[2020-10-25] MEDS: HYDROMORPHONE HCL INJ/PF 2 MG/ML AMPULE IV PRN ×9 (01:17→22:17)
[2020-10-25 06:30] LABS: HEMATOCRIT 25.7 % (36.0-47.0); HEMOGLOBIN 8.4 g/dL (12.0-15.5); MEAN CORPUSCULAR HEMOGLOBIN 30.1 pg (27.0-33.4); MEAN CORPUSCULAR HGB CONC 32.6 g/dL (32.0-36.0); MEAN CORPUSCULAR VOLUME 92 fl (80-97); PLATELET COUNT 142 10^3/uL (150-450); RED BLOOD COUNT 2.78 10^6/uL (3.72-5.28); RED CELL DISTRIBUTION WIDTH 19.4 % (11.5-14.0); WHITE BLOOD COUNT 24.6 10^3/uL (4.0-10.5)
[2020-10-25 06:31] LABS: ALBUMIN 2.1 g/dL (3.5-5.0); ALKALINE PHOSPHATASE 147 U/L (38-126); ANION GAP 9 (5-19); ASPARTATE AMINO TRANSFERASE 26 U/L (14-36); BILIRUBIN,DIRECT 0.6 mg/dL (0.0-0.4); BILIRUBIN,TOTAL 0.8 mg/dL (0.2-1.3); BLOOD UREA NITROGEN 24 mg/dL (7-20); CALCIUM 7.9 mg/dL (8.4-10.2); CARBON DIOXIDE 16 mmol/L (22-30); CHLORIDE 118 mmol/L (98-107); GLUCOSE 98 mg/dL (75-110); POTASSIUM 3.5 mmol/L (3.6-5.0); TOTAL PROTEIN 4.9 g/dL (6.3-8.2)
[2020-10-25 07:19] LABS: ABSOLUTE LYMPHOCYTES# (MANUAL) 0.5 10^3/uL (0.5-4.7); ABSOLUTE MONOCYTES # (MANUAL) 1.5 10^3/uL (0.1-1.4); BASOPHILS % (MANUAL) 0 % (0-2); EOSINOPHILS % (MANUAL) 1 % (0-6); LYMPHOCYTES % (MANUAL) 1 % (13-45); METAMYELOCYTES % (MANUAL) 1 % (0-1); MONOCYTES % (MANUAL) 6 % (3-13); NUCLEATED RED BLOOD CELLS 1 /100 WBC (0); SEGMENTED NEUTROPHILS % (MAN) 90 % (42-78); TOTAL CELLS COUNTED 100
[2020-10-25 07:20] LABS: ANISOCYTOSIS 2+; BURR CELLS SLIGHT; OVALOCYTES SLIGHT; PLATELET COMMENT DECREASED; POIKILOCYTOSIS SLIGHT; POLYCHROMASIA SLIGHT; SCHISTOCYTES SLIGHT; TOXIC GRANULATION SLIGHT
--- NOTE | 2020-10-25 08:44 | PDOC PROGRESS REPORT ---
Subjective Date:: 10/25/20 Subjective:: Patient did have chili have several bowel movements yesterday, having a lot of pain this morning however. Reason For Visit: PANCREATIC CANCER,ABDOMINAL PAIN Physical Exam Vital Signs: Temp Pulse Resp BP Pulse Ox 98.0 F 117 H 24 H 143/84 H 100 10/25/20 08:36 10/25/20 04:46 10/25/20 04:46 10/25/20 06:20 10/25/20 04:46 Intake & Output 10/24/20 10/25/20 10/26/20 06:59 06:59 06:59 Intake Total 2890 2700 Output Total 615 820 30 Balance 2275 1880 -30 Weight 62.4 kg 61.2 kg General appearance: PRESENT: no acute distress, well-developed, well-nourished Head exam: PRESENT: atraumatic, normocephalic Eye exam: PRESENT: conjunctiva pink, EOMI, PERRLA. ABSENT: scleral icterus Ear exam: PRESENT: normal external ear exam Mouth exam: PRESENT: moist, tongue midline Neck exam: ABSENT: carotid bruit, JVD, lymphadenopathy, thyromegaly Respiratory exam: PRESENT: clear to auscultation anoop. ABSENT: rales, rhonchi, wheezes Cardiovascular exam: PRESENT: RRR. ABSENT: diastolic murmur, rubs, systolic murmur Pulses: PRESENT: normal dorsalis pedis pul Vascular exam: PRESENT: normal capillary refill GI/Abdominal exam: PRESENT: normal bowel sounds, soft. ABSENT: distended, guard ing, mass, organolmegaly, rebound, tenderness Rectal exam: PRESENT: deferred Extremities exam: PRESENT: full ROM. ABSENT: calf tenderness, clubbing, pedal edema Neurological exam: PRESENT: alert, awake, oriented to person, oriented to place, oriented to time, oriented to situation, CN II-XII grossly intact. ABSENT: motor sensory deficit Psychiatric exam: PRESENT: appropriate affect, normal mood. ABSENT: homicidal ideation, suicidal ideation Skin exam: PRESENT: dry, intact, warm. ABSENT: cyanosis, rash Results Laboratory Results: 10/25/20 05:44 10/25/20 05:44 10/24/20 10/24/20 10/25/20 22:00 22:15 05:44 WBC 24.3 H RBC 2.70 L Hgb 8.0 L Hct 24.9 L MCV 92 MCH 29.7 MCHC 32.2 RDW 19.5 H Plt Count 137 L Seg Neutrophils % Not Reportable Sodium 140.4 142.7 Potassium 3.5 L 3.5 L Chloride 117 H 118 H Carbon Dioxide 15 L 16 L Anion Gap 8 9 BUN 25 H 24 H Creatinine 1.11 1.12 Est GFR ( Amer) > 60 > 60 Glucose 102 98 Calcium 8.4 7.9 L Total Bilirubin 0.9 0.8 AST 29 26 Alkaline Phosphatase 161 H 147 H Total Protein 5.7 L 4.9 L Albumin 2.3 L 2.1 L 10/25/20 05:44 WBC 24.6 H RBC 2.78 L Hgb 8.4 L Hct 25.7 L MCV 92 MCH 30.1 MCHC 32.6 RDW 19.4 H Plt Count 142 L Seg Neutrophils % Not Reportable Sodium Potassium Chloride Carbon Dioxide Anion Gap BUN Creatinine Est GFR ( Amer) Glucose Calcium Total Bilirubin AST Alkaline Phosphatase Total Protein Albumin Impressions: Abdomen CT 10/20/20 15:39 IMPRESSION: 1. There is increasing size of the ill-defined mass at the pancreatic head since previous examination 09/07/2020. Worsening pancreatic ductal dilation. No evidence of biliary obstruction. 2. New small amount of ascites. 3. Gallbladder wall thickening and diffuse colon wall thickening is probably reactive secondary to ascites. Cannot entirely exclude colitis or cholecystitis. Clinical correlation with patient's laboratory values recommende d. 4. Increasing patchy ground-glass nodules in the lower lungs bilaterally may represent increasing metastatic disease. Infectious/inflammatory process is not entirely excluded. COVID 19 pneumonia could have this appearance. Retroperitoneal Abscess Drainage 10/22/20 10:32 IMPRESSION: 1. Successful percutaneous cholecystostomy tube placement. 2. Successful catheter placement in the pericholecystic fluid collection. 3. Purulent fluid was aspirated from both the gallbladder and pericholecystic fluid collections. These were sent to pathology for evaluation. Assessment & Plan - Diagnosis (1) Acute cholecystitis Is this a current diagnosis for this admission?: Yes Plan: Drainage is minimal. Continue to monitor, antibiotics continued. (2) Adenocarcinoma of head of pancreas Is this a current diagnosis for this admission?: Yes Plan: Holding on therapy (3) Pain, neoplasm-related Is this a current diagnosis for this admission?: Yes Plan: Pain changes made. (4) Constipation Qualifiers: Constipation type: drug induced constipation Qualified Code(s): K59.03 - Drug induced constipation Is this a current diagnosis for this admission?: Yes Plan: [facility] to keep pushing for the bowel movements. - Time Time Spent with patient: 35 or more minutes
[2020-10-25] MEDS: INSULIN LISPRO 100 UNIT/ML 3 ML VIAL SUBCUT SCH ×3 (09:57→16:19)
[2020-10-25] MEDS: INSULIN REG, HUMAN 100 UNIT/ML 3 ML VIAL (PYX) SUBCUT SCH ×4 (09:59→22:17)
[2020-10-25] MEDS: SENNOSIDES/DOCUSATE 8.6-50 MG 1 EACH TABLET PO SCH ×2 (10:07→18:16)
[2020-10-25] MEDS: METHYLPHENIDATE HCL 5 MG TABLET PO SCH (10:07)
[2020-10-25] MEDS: METRONIDAZOLE 500 MG TABLET PO SCH ×2 (10:08→22:18)
[2020-10-25] MEDS: HYDROCHLOROTHIAZIDE 25 MG TABLET PO SCH (10:08)
[2020-10-25] MEDS: LOSARTAN POTASSIUM 50 MG TABLET PO SCH (10:08)
[2020-10-25] MEDS: POTASSIUM CHLORIDE 10 MEQ TABLET.ER PO SCH (10:08)
[2020-10-25] MEDS: CEFEPIME 1 GM/D5W RTU 1 GM/50 ML RTUPB IV SCH ×2 (10:10→22:19)
[2020-10-25] MEDS: ENOXAPARIN SODIUM INJ 40 MG/0.4 ML DISP.SYRIN SUBCUT SCH (10:10)
[2020-10-25] MEDS: FENTANYL 25 MCG/HR PATCH.TD72 TD SCH (10:46)
[2020-10-25] MEDS: MINERAL OIL ENEMA 133 ML PR SCH ×2 (10:46→18:17)
[2020-10-25] MEDS: MEGESTROL ACETATE SUSP 400 MG/10 ML UDCUP PO SCH (11:12)
--- NOTE | 2020-10-25 21:14 | PDOC PROGRESS REPORT ---
Subjective Date:: 10/25/20 Subjective:: Patient seen by the bedside, She is sedated on pain medication Reason For Visit: PANCREATIC CANCER,ABDOMINAL PAIN Physical Exam Vital Signs: Temp Pulse Resp BP Pulse Ox 97.4 F 113 H 20 153/90 H 100 10/25/20 15:47 10/25/20 15:47 10/25/20 15:47 10/25/20 15:47 10/25/20 15:47 Intake & Output 10/24/20 10/25/20 10/26/20 06:59 06:59 06:59 Intake Total 2890 2700 1350 Output Total 615 820 300 Balance 2275 1880 1050 Weight 62.4 kg 61.2 kg General appearance: PRESENT: no acute distress Eye exam: PRESENT: PERRLA Respiratory exam: PRESENT: clear to auscultation anoop Cardiovascular exam: PRESENT: +S1, +S2 GI/Abdominal exam: PRESENT: soft Neurological exam: PRESENT: alert Results Laboratory Results: 10/25/20 05:44 10/25/20 05:44 10/24/20 10/24/20 10/25/20 22:00 22:15 05:44 WBC 24.3 H RBC 2.70 L Hgb 8.0 L Hct 24.9 L MCV 92 MCH 29.7 MCHC 32.2 RDW 19.5 H Plt Count 137 L Seg Neutrophils % Not Reportable Sodium 140.4 142.7 Potassium 3.5 L 3.5 L Chloride 117 H 118 H Carbon Dioxide 15 L 16 L Anion Gap 8 9 BUN 25 H 24 H Creatinine 1.11 1.12 Est GFR ( Amer) > 60 > 60 Glucose 102 98 Calcium 8.4 7.9 L Total Bilirubin 0.9 0.8 AST 29 26 Alkaline Phosphatase 161 H 147 H Total Protein 5.7 L 4.9 L Albumin 2.3 L 2.1 L 10/25/20 05:44 WBC 24.6 H RBC 2.78 L Hgb 8.4 L Hct 25.7 L MCV 92 MCH 30.1 MCHC 32.6 RDW 19.4 H Plt Count 142 L Seg Neutrophils % Not Reportable Sodium Potassium Chloride Carbon Dioxide Anion Gap BUN Creatinine Est GFR ( Amer) Glucose Calcium Total Bilirubin AST Alkaline Phosphatase Total Protein Albumin 10/20/20 17:45 Blood Blood Culture - Final NO GROWTH IN 5 DAYS 10/20/20 16:10 Blood Blood Culture - Final NO GROWTH IN 5 DAYS 10/22/20 14:33 Abdominal Fluid Gram Stain - Final 10/22/20 14:33 Abdomen - Abscess Gram Stain - Final Impressions: Abdomen CT 10/20/20 15:39 IMPRESSION: 1. There is increasing size of the ill-defined mass at the pancreatic head since previous examination 09/07/2020. Worsening pancreatic ductal dilation. No evidence of biliary obstruction. 2. New small amount of ascites. 3. Gallbladder wall thickening and diffuse colon wall thickening is probably reactive secondary to ascites. Cannot entirely exclude colitis or cholecystitis. Clinical correlation with patient's laboratory values recommended. 4. Increasing patchy ground-glass nodules in the lower lungs bilaterally may represent increasing metastatic disease. Infectious/inflammatory process is not entirely excluded. COVID 19 pneumonia could have this appearance. Retroperitoneal Abscess Drainage 10/22/20 10:32 IMPRESSION: 1. Successful percutaneous cholecystostomy tube placement. 2. Successful catheter placement in the pericholecystic fluid collection. 3. Purulent fluid was aspirated from both the gallbladder and pericholecystic fluid collections. These were sent to pathology for evaluation. Assessment & Plan - Diagnosis (1) Pancreatic cancer Qualifiers: Pancreatic malignancy location: head of pancreas Qualified Code(s): C25.0 - Malignant neoplasm of head of pancreas Is this a current diagnosis for this admission?: Yes Plan: Per oncology (2) Acute cholecystitis Is this a current diagnosis for this admission?: Yes Plan: Continue IV antibiotic (3) Secondary diabetes Is this a current diagnosis for this admission?: Yes (4) Pain, neoplasm-related Is this a current diagnosis for this admission?: Yes - Time Time Spent with patient: 25-34 minutes Level of Care: MEDICAL Medications reviewed and adjusted accordingly: Yes Anticipated discharge: Home Anticipated DC Timeframe: Other
[2020-10-25] MEDS: INSULIN GLARGINE,HUM.REC.ANLOG 1,000 UNIT/10 ML VIAL SUBCUT SCH (22:16)
[2020-10-26] MEDS: HYDROMORPHONE HCL INJ/PF 2 MG/ML AMPULE IV PRN ×11 (01:23→22:31)
[2020-10-26] MEDS: NORMAL SALINE 1000 ML 1,000 ML IV PRN (03:36)
[2020-10-26] MEDS: INSULIN REG, HUMAN 100 UNIT/ML 3 ML VIAL (PYX) SUBCUT SCH ×3 (08:06→17:18)
--- NOTE | 2020-10-26 08:39 | PDOC PROGRESS REPORT ---
Subjective Date:: 10/26/20 Subjective:: Slightly better this am, having BMs yesterday, she wants to advance diet so we will advance to full liquids then maybe soft diet/bland diet. Reason For Visit: PANCREATIC CANCER,ABDOMINAL PAIN Physical Exam Vital Signs: Temp Pulse Resp BP Pulse Ox 97.4 F 131 H 22 H 157/91 H 99 10/26/20 03:22 10/26/20 03:22 10/26/20 03:22 10/26/20 06:32 10/26/20 03:22 Intake & Output 10/25/20 10/26/20 10/27/20 06:59 06:59 06:59 Intake Total 2700 2350 Output Total 820 525 Balance 1880 1825 Weight 61.2 kg 67 kg General appearance: PRESENT: no acute distress, well-developed, well-nourished Head exam: PRESENT: atraumatic, normocephalic Eye exam: PRESENT: conjunctiva pink, EOMI, PERRLA. ABSENT: scleral icterus Ear exam: PRESENT: normal external ear exam Mouth exam: PRESENT: moist, tongue midline Neck exam: ABSENT: carotid bruit, JVD, lymphadenopathy, thyromegaly Respiratory exam: PRESENT: clear to auscultation anoop. ABSENT: rales, rhonchi, wheezes Cardiovascular exam: PRESENT: RRR. ABSENT: diastolic murmur, rubs, systolic murmur Pulses: PRESENT: normal dorsalis pedis pul Vascular exam: PRESENT: normal capillary refill GI/Abdominal exam: PRESENT: normal bowel sounds, soft. ABSENT: distended, guarding, mass, organolmegaly, rebound, tenderness Rectal exam: PRESENT: deferred Extremities exam: PRESENT: full ROM. ABSENT: calf tenderness, clubbing, pedal edema Neurological exam: PRESENT: alert, awake, oriented to person, oriented to place, oriented to time, oriented to situation, CN II-XII grossly intact. ABSENT: motor sensory deficit Psychiatric exam: PRESENT: appropriate affect, normal mood. ABSENT: homicidal ideation, suicidal ideation Skin exam: PRESENT: dry, intact, warm. ABSENT: cyanosis, rash Results Laboratory Results: 10/25/20 05:44 10/25/20 05:44 10/22/20 14:33 Abdominal Fluid Gram Stain - Final 10/22/20 14:33 Abdominal Fluid Body Fluid Culture - Final Group F Beta Streptococcus Pseudomonas Aeruginosa Enterococcus Faecalis(Group D) No Anaerobic Organisms 10/22/20 14:33 Abdomen - Abscess Gram Stain - Final 10/22/20 14:33 Abdomen - Abscess Body Fluid Culture - Final Group F Beta Streptococcus Enterococcus Faecalis(Group D) No Anaerobic Organisms 10/20/20 17:45 Blood Blood Culture - Final NO GROWTH IN 5 DAYS 10/20/20 16:10 Blood Blood Culture - Final NO GROWTH IN 5 DAYS Impressions: Abdomen CT 10/20/20 15:39 IMPRESSION: 1. There is increasing size of the ill-defined mass at the pancreatic head since previous examination 09/07/2020. Worsening pancreatic ductal dilation. No evidence of biliary obstruction. 2. New small amount of ascites. 3. Gallbladder wall thickening and diffuse colon wall thickening is probably reactive secondary to ascites. Cannot entirely exclude colitis or cholecystitis. Clinical correlation with patient's laboratory values recommended. 4. Increasing patchy ground-glass nodules in the lower lungs bilaterally may represent increasing metastatic disease. Infectious/inflammatory process is not entirely excluded. COVID 19 pneumonia could have this appearance. Retroperitoneal Abscess Drainage 10/22/20 10:32 IMPRESSION: 1. Successful percutaneous cholecystostomy tube placement. 2. Successful catheter placement in the pericholecystic fluid collection. 3. Purulent fluid was aspirated from both the gallbladder and pericholecystic fluid collections. These were sent to pathology for evaluation. Assessment & Plan - Diagnosis (1) Acute cholecystitis Is this a current diagnosis for this admission?: Yes Plan: Seems better, less oupt from tube (2) Adenocarcinoma of head of pancreas Is this a current diagnosis for this admission?: Yes Plan: No rx for now but hopeful resumption as ouptt (3) Pain, neoplasm-related Is this a current diagnosis for this admission?: Yes Plan: Cont current regimen, will need to optimize over next 24-48 hoiurs (4) Constipation Qualifiers: Constipation type: drug induced constipation Qualified Code(s): K59.03 - Drug induced constipation Is this a current diagnosis for this admission?: Yes Plan: Improving - Time Time Spent with patient: 35 or more minutes
[2020-10-26] MEDS: INSULIN LISPRO 100 UNIT/ML 3 ML VIAL SUBCUT SCH ×3 (08:52→17:17)
[2020-10-26] MEDS: POTASSIUM CHLORIDE 10 MEQ TABLET.ER PO SCH (10:26)
[2020-10-26] MEDS: SENNOSIDES/DOCUSATE 8.6-50 MG 1 EACH TABLET PO SCH ×2 (10:26→18:21)
[2020-10-26] MEDS: METRONIDAZOLE 500 MG TABLET PO SCH ×2 (10:27→21:59)
[2020-10-26] MEDS: LOSARTAN POTASSIUM 50 MG TABLET PO SCH (10:28)
[2020-10-26] MEDS: METHYLPHENIDATE HCL 5 MG TABLET PO SCH (10:28)
[2020-10-26] MEDS: HYDROCHLOROTHIAZIDE 25 MG TABLET PO SCH (10:30)
[2020-10-26] MEDS: CEFEPIME 1 GM/D5W RTU 1 GM/50 ML RTUPB IV SCH ×2 (10:31→21:59)
[2020-10-26] MEDS: ENOXAPARIN SODIUM INJ 40 MG/0.4 ML DISP.SYRIN SUBCUT SCH (10:31)
[2020-10-26 11:27] LABS: MEAN CORPUSCULAR HEMOGLOBIN 30.1 pg (27.0-33.4); MEAN CORPUSCULAR HGB CONC 32.3 g/dL (32.0-36.0); MEAN CORPUSCULAR VOLUME 93 fl (80-97); PLATELET COUNT 150 10^3/uL (150-450); RED BLOOD COUNT 2.47 10^6/uL (3.72-5.28); RED CELL DISTRIBUTION WIDTH 19.4 % (11.5-14.0); WHITE BLOOD COUNT 21.5 10^3/uL (4.0-10.5)
[2020-10-26 11:47] LABS: HEMOGLOBIN 7.4 g/dL (12.0-15.5)
[2020-10-26 11:51] LABS: ABSOLUTE LYMPHOCYTES# (MANUAL) 2.2 10^3/uL (0.5-4.7); ABSOLUTE MONOCYTES # (MANUAL) 0.4 10^3/uL (0.1-1.4); ANISOCYTOSIS 2+; BASOPHILS % (MANUAL) 1 % (0-2); EOSINOPHILS % (MANUAL) 1 % (0-6); LYMPHOCYTES % (MANUAL) 10 % (13-45); MONOCYTES % (MANUAL) 2 % (3-13); PLATELET COMMENT ADEQUATE; SEGMENTED NEUTROPHILS % (MAN) 86 % (42-78); TOTAL CELLS COUNTED 100
[2020-10-26 11:52] LABS: PLATELET LARGE PRESENT; POLYCHROMASIA 1+
[2020-10-26 11:53] LABS: BURR CELLS 1+; HYPOCHROMASIA 1+; OVALOCYTES SLIGHT; POIKILOCYTOSIS 1+
[2020-10-26 12:01] LABS: ALBUMIN 2.1 g/dL (3.5-5.0); ALKALINE PHOSPHATASE 153 U/L (38-126); ANION GAP 11 (5-19); ASPARTATE AMINO TRANSFERASE 24 U/L (14-36); BILIRUBIN,DIRECT 0.5 mg/dL (0.0-0.4); BILIRUBIN,TOTAL 0.6 mg/dL (0.2-1.3); BLOOD UREA NITROGEN 24 mg/dL (7-20); CALCIUM 7.8 mg/dL (8.4-10.2); CARBON DIOXIDE 12 mmol/L (22-30); CHLORIDE 119 mmol/L (98-107); GLUCOSE 90 mg/dL (75-110); POTASSIUM 3.3 mmol/L (3.6-5.0)
[2020-10-26] MEDS: MEGESTROL ACETATE SUSP 400 MG/10 ML UDCUP PO SCH (12:50)
[2020-10-26] MEDS: MINERAL OIL ENEMA 133 ML PR SCH ×2 (12:51→18:21)
--- NOTE | 2020-10-26 21:43 | PDOC PROGRESS REPORT ---
Subjective Date:: 10/26/20 Subjective:: Patient with abdominal pain Reason For Visit: PANCREATIC CANCER,ABDOMINAL PAIN Physical Exam Vital Signs: Temp Pulse Resp BP Pulse Ox 97.4 F 116 H 22 H 136/93 H 96 10/26/20 20:55 10/26/20 16:09 10/26/20 16:09 10/26/20 16:09 10/26/20 16:09 Intake & Output 10/25/20 10/26/20 10/27/20 06:59 06:59 06:59 Intake Total 2700 2400 320 Output Total 820 525 150 Balance 1880 1875 170 Weight 61.2 kg 67 kg 67 kg General appearance: PRESENT: no acute distress Eye exam: PRESENT: PERRLA Respiratory exam: PRESENT: clear to auscultation anoop Cardiovascular exam: PRESENT: +S1, +S2 GI/Abdominal exam: PRESENT: soft Neurological exam: PRESENT: alert Results Laboratory Results: 10/26/20 11:05 10/26/20 11:05 10/26/20 10/26/20 11:05 11:05 WBC 21.5 H RBC 2.47 L Hgb 7.4 L Hct 23.0 L MCV 93 MCH 30.1 MCHC 32.3 RDW 19.4 H Plt Count 150 Seg Neutrophils % Not Reportable Sodium 142.1 Potassium 3.3 L Chloride 119 H Carbon Dioxide 12 L Anion Gap 11 BUN 24 H Creatinine 1.17 Est GFR ( Amer) 57 L Glucose 90 Calcium 7.8 L Total Bilirubin 0.6 AST 24 Alkaline Phosphatase 153 H Total Protein 5.0 L Albumin 2.1 L 10/22/20 14:33 Abdominal Fluid Gram Stain - Final 10/22/20 14:33 Abdominal Fluid Body Fluid Culture - Final Group F Beta Streptococcus Pseudomonas Aeruginosa Enterococcus Faecalis(Group D) No Anaerobic Organisms 10/22/20 14:33 Abdomen - Abscess Gram Stain - Final 10/22/20 14:33 Abdomen - Abscess Body Fluid Culture - Final Group F Beta Streptococcus Enterococcus Faecalis(Group D) No Anaerobic Organisms 10/20/20 17:45 Blood Blood Culture - Final NO GROWTH IN 5 DAYS Impressions: Abdomen CT 10/20/20 15:39 IMPRESSION: 1. There is increasing size of the ill-defined mass at the pancreatic head since previous examination 09/07/2020. Worsening pancreatic ductal dilation. No evidence of biliary obstruction. 2. New small amount of ascites. 3. Gallbladder wall thickening and diffuse colon wall thickening is probably reactive secondary to ascites. Cannot entirely exclude colitis or cholecystitis. Clinical correlation with patient's laboratory values rec ommended. 4. Increasing patchy ground-glass nodules in the lower lungs bilaterally may represent increasing metastatic disease. Infectious/inflammatory process is not entirely excluded. COVID 19 pneumonia could have this appearance. Retroperitoneal Abscess Drainage 10/22/20 10:32 IMPRESSION: 1. Successful percutaneous cholecystostomy tube placement. 2. Successful catheter placement in the pericholecystic fluid collection. 3. Purulent fluid was aspirated from both the gallbladder and pericholecystic fluid collections. These were sent to pathology for evaluation. Assessment & Plan - Diagnosis (1) Pancreatic cancer Qualifiers: Pancreatic malignancy location: head of pancreas Qualified Code(s): C25.0 - Malignant neoplasm of head of pancreas Is this a current diagnosis for this admission?: Yes Plan: Per oncology (2) Acute cholecystitis Is this a current diagnosis for this admission?: Yes Plan: She has cholecystotomy tube in place (3) Secondary diabetes Is this a current diagnosis for this admission?: Yes Plan: Patient not requiring insulin partly because of reduced intake (4) Pain, neoplasm-related Is this a current diagnosis for this admission?: Yes - Time Time Spent with patient: 25-34 minutes Level of Care: MEDICAL Medications reviewed and adjusted accordingly: Yes Anticipated discharge: Home Anticipated DC Timeframe: within 72 hours
[2020-10-26] MEDS: INSULIN GLARGINE,HUM.REC.ANLOG 1,000 UNIT/10 ML VIAL SUBCUT SCH (22:43)
[2020-10-26] MEDS ORDERED: ONDANSETRON HCL INJ/PF 4 MG/2 ML SDV ONE (23:28)
[2020-10-27] MEDS: PROMETHAZINE HCL 25 MG TABLET PO PRN ×2 (00:43→16:32)
[2020-10-27] MEDS: NORMAL SALINE 1000 ML 1,000 ML IV PRN ×3 (00:47→21:21)
[2020-10-27] MEDS: HYDROMORPHONE HCL INJ/PF 2 MG/ML AMPULE IV PRN ×7 (03:12→20:28)
[2020-10-27] MEDS: DILTIAZEM HCL 30 MG TABLET PO SCH ×4 (05:53→22:05)
[2020-10-27] MEDS: INSULIN REG, HUMAN 100 UNIT/ML 3 ML VIAL (PYX) SUBCUT SCH ×5 (06:11→22:08)
[2020-10-27 07:09] LABS: HEMATOCRIT 23.5 % (36.0-47.0); MEAN CORPUSCULAR HEMOGLOBIN 29.5 pg (27.0-33.4); MEAN CORPUSCULAR HGB CONC 31.9 g/dL (32.0-36.0); MEAN CORPUSCULAR VOLUME 93 fl (80-97); PLATELET COUNT 206 10^3/uL (150-450); RED BLOOD COUNT 2.54 10^6/uL (3.72-5.28); RED CELL DISTRIBUTION WIDTH 19.9 % (11.5-14.0); WHITE BLOOD COUNT 19.9 10^3/uL (4.0-10.5)
[2020-10-27 07:22] LABS: ALBUMIN 2.2 g/dL (3.5-5.0); ALKALINE PHOSPHATASE 184 U/L (38-126); ANION GAP 12 (5-19); ASPARTATE AMINO TRANSFERASE 23 U/L (14-36); BILIRUBIN,DIRECT 0.5 mg/dL (0.0-0.4); BILIRUBIN,TOTAL 0.7 mg/dL (0.2-1.3); BLOOD UREA NITROGEN 25 mg/dL (7-20); CALCIUM 8.1 mg/dL (8.4-10.2); CARBON DIOXIDE 14 mmol/L (22-30); CHLORIDE 117 mmol/L (98-107); GLUCOSE 115 mg/dL (75-110); POTASSIUM 3.5 mmol/L (3.6-5.0); TOTAL PROTEIN 5.5 g/dL (6.3-8.2)
[2020-10-27 07:55] LABS: ABSOLUTE LYMPHOCYTES# (MANUAL) 1.2 10^3/uL (0.5-4.7); ABSOLUTE MONOCYTES # (MANUAL) 0.8 10^3/uL (0.1-1.4); BASOPHILS % (MANUAL) 0 % (0-2); EOSINOPHILS % (MANUAL) 0 % (0-6); LYMPHOCYTES % (MANUAL) 6 % (13-45); MONOCYTES % (MANUAL) 4 % (3-13); SEGMENTED NEUTROPHILS % (MAN) 90 % (42-78); TOTAL CELLS COUNTED 100
[2020-10-27 08:00] LABS: ANISOCYTOSIS 2+; POLYCHROMASIA SLIGHT
[2020-10-27 08:01] LABS: HEMOGLOBIN 7.5 g/dL (12.0-15.5); PLATELET COMMENT ADEQUATE
--- NOTE | 2020-10-27 09:32 | PDOC PROGRESS REPORT ---
Subjective Date:: 10/27/20 Subjective:: Patient is currently doing same Patient is complaining some nauseating this morning Patient hemoglobin is 7.4 Patient heart rate is 122 Patient also complains of some nausea Patient is requiring every hour pain medications discussed with the very extensively regarding the patient's current condition and the bedside Discussed about the CODE STATUS will discuss with the patient discussed with the oncology Reason For Visit: PANCREATIC CANCER,ABDOMINAL PAIN Physical Exam Vital Signs: Temp Pulse Resp BP Pulse Ox 98.0 F 116 H 14 146/87 H 97 10/27/20 07:58 10/27/20 07:58 10/27/20 07:58 10/27/20 07:58 10/27/20 07:58 Intake & Output 10/26/20 10/27/20 10/28/20 06:59 06:59 06:59 Intake Total 2400 1610 Output Total 525 550 Balance 1875 1060 Weight 67 kg 70.5 kg General appearance: PRESENT: no acute distress Eye exam: PRESENT: PERRLA Respiratory exam: PRESENT: decreased breath sounds Cardiovascular exam: PRESENT: +S1, +S2 GI/Abdominal exam: PRESENT: normal bowel sounds, soft, tenderness Neurological exam: PRESENT: alert, awake, oriented to person, oriented to place Results Laboratory Results: 10/27/20 06:44 10/27/20 06:44 10/26/20 10/26/20 10/27/20 11:05 11:05 06:44 WBC 21.5 H 19.9 H RBC 2.47 L 2.54 L Hgb 7.4 L 7.5 L Hct 23.0 L 23.5 L MCV 93 93 MCH 30.1 29.5 MCHC 32.3 31.9 L RDW 19.4 H 19.9 H Plt Count 150 206 Seg Neutrophils % Not Reportable Not Reportable Sodium 142.1 Potassium 3.3 L Chloride 119 H Carbon Dioxide 12 L Anion Gap 11 BUN 24 H Creatinine 1.17 Est GFR ( Amer) 57 L Glucose 90 Calcium 7.8 L Total Bilirubin 0.6 AST 24 Alkaline Phosphatase 153 H Total Protein 5.0 L Albumin 2.1 L 10/27/20 06:44 WBC RBC Hgb Hct MCV MCH MCHC RDW Plt Count Seg Neutrophils % Sodium 142.6 Potassium 3.5 L Chloride 117 H Carbon Dioxide 14 L Anion Gap 12 BUN 25 H Creatinine 1.21 Est GFR ( Amer) 55 L Glucose 115 H Calcium 8.1 L Total Bilirubin 0.7 AST 23 Alkaline Phosphatase 184 H Total Protein 5.5 L Albumin 2.2 L 10/22/20 14:33 Abdominal Fluid Gram Stain - Final 10/22/20 14:33 Abdominal Fluid Body Fluid Culture - Final Group F Beta Streptococcus Pseudomonas Aeruginosa Enterococcus Faecalis(Group D) No Anaerobic Organisms 10/22/20 14:33 Abdomen - Abscess Gram Stain - Final 10/22/20 14:33 Abdomen - Abscess Body Fluid Culture - Final Group F Beta Streptococcus Enterococcus Faecalis(Group D) No Anaerobic Organisms Impressions: Abdomen CT 10/20/20 15:39 IMPRESSION: 1. There is increasing size of the ill-defined mass at the pancreatic head since previous examination 09/07/2020. Worsening pancreatic ductal dilation. No evidence of biliary obstruction. 2. New small amount of ascites. 3. Gallbladder wall thickening and diffuse colon wall thickening is probably reactive secondary to ascites. Cannot entirely exclude colitis or cholecystitis. Clinical correlation with patient's laboratory values recommended. 4. Increasing patchy ground-glass nodules in the lower lungs bilaterally may represent increasing metastatic disease. Infectious/inflammatory process is not entirely excluded. COVID 19 pneumonia could have this appearance. Retroperitoneal Abscess Drainage 10/22/20 10:32 IMPRESSION: 1. Successful percutaneous cholecystostomy tube placement. 2. Successful catheter placement in the pericholecystic fluid collection. 3. Purulent fluid was aspirated from both the gallbladder and pericholecystic fluid collections. These were sent to pathology for evaluation. Assessment & Plan - Diagnosis (1) Pain, neoplasm-related Is this a current diagnosis for this admission?: Yes (2) Secondary diabetes Is this a current diagnosis for this admission?: Yes (3) Adenocarcinoma of head of pancreas Is this a current diagnosis for this admission?: Yes (4) Anemia Qualifiers: Anemia type: bone marrow failure Bone marrow failure anemia type: pancytopenia, antineoplastic chemotherapy-induced Qualified Code(s): D61.810 - Antineoplastic chemotherapy induced pancytopenia; T45.1X5A - Adverse effect of antineoplastic and immunosuppressive drugs, initial encounter Is this a current diagnosis for this admission?: Yes (5) Cholestatic liver disease Is this a current diagnosis for this admission?: Yes (6) Dehydration Is this a current diagnosis for this admission?: Yes - Time Time Spent with patient: 25-34 minutes Level of Care: IMCU Medications reviewed and adjusted accordingly: Yes Anticipated DC Timeframe: Other - Plan Summary Plan Summary: Continues to pain medications We discontinued the hydrochlorothiazide in the setting of the dehydration's Will start on a Cardizem 30 mg p.o. every 8 Continues to current other medications Discussed with the regarding the patient's current conditions discussed with the oncology
[2020-10-27] MEDS: INSULIN LISPRO 100 UNIT/ML 3 ML VIAL SUBCUT SCH ×3 (10:13→16:40)
[2020-10-27] MEDS: METRONIDAZOLE 500 MG TABLET PO SCH ×2 (10:39→21:23)
[2020-10-27] MEDS: ONDANSETRON HCL INJ/PF 4 MG/2 ML SDV IV PRN ×2 (10:49→20:37)
[2020-10-27] MEDS: MEGESTROL ACETATE SUSP 400 MG/10 ML UDCUP PO SCH (10:50)
[2020-10-27] MEDS: CEFEPIME 1 GM/D5W RTU 1 GM/50 ML RTUPB IV SCH ×2 (10:50→21:29)
[2020-10-27] MEDS: ENOXAPARIN SODIUM INJ 40 MG/0.4 ML DISP.SYRIN SUBCUT SCH (10:50)
[2020-10-27] MEDS: POTASSIUM CHLORIDE 10 MEQ TABLET.ER PO SCH (10:51)
[2020-10-27] MEDS: METHYLPHENIDATE HCL 5 MG TABLET PO SCH (10:51)
[2020-10-27] MEDS: SENNOSIDES/DOCUSATE 8.6-50 MG 1 EACH TABLET PO SCH ×2 (10:52→17:46)
[2020-10-27] MEDS: MINERAL OIL ENEMA 133 ML PR SCH ×2 (11:05→17:46)
[2020-10-27] MEDS: LOSARTAN POTASSIUM 50 MG TABLET PO SCH (11:20)
--- NOTE | 2020-10-27 11:23 | ADVANCED CARE ---
- Diagnosis (1) Acute cholecystitis Diagnosis Current: Yes (2) Adenocarcinoma of head of pancreas Diagnosis Current: Yes (3) Pain, neoplasm-related Diagnosis Current: Yes (4) Constipation Diagnosis Current: Yes Attendance: pt and lisseth Resuscitation Status: Do Not Resuscitate Discussion: agree to DNR
--- NOTE | 2020-10-27 11:27 | PDOC PROGRESS REPORT ---
Subjective Date:: 10/27/20 Subjective:: Patient looks much worse over the last 24 hours, this morning is very lethargic, tachycardic and hypotensive, and not doing well. Had a long discussion with as well as patient, and they discussed over last 24 hours that she was tired and wants to be just comfortable. So today I put comfort care orders and discontinued most of her medications, but patient is still in considerable pain and having nausea so she can go home right now. If these can be under control over the next 48 hours she may be able to go home by Thursday on hospice. Reason For Visit: PANCREATIC CANCER,ABDOMINAL PAIN Physical Exam Vital Signs: Temp Pulse Resp BP Pulse Ox 98.0 F 116 H 14 146/87 H 97 10/27/20 07:58 10/27/20 07:58 10/27/20 07:58 10/27/20 07:58 10/27/20 07:58 Intake & Output 10/26/20 10/27/20 10/28/20 06:59 06:59 06:59 Intake Total 2400 1660 1000 Output Total 525 550 Balance 1875 1110 1000 Weight 67 kg 70.5 kg General appearance: PRESENT: no acute distress, well-developed, well-nourished Head exam: PRESENT: atraumatic, normocephalic Eye exam: PRESENT: conjunctiva pink, EOMI, PERRLA. ABSENT: scleral icterus Ear exam: PRESENT: normal external ear exam Mouth exam: PRESENT: moist, tongue midline Neck exam: ABSENT: carotid bruit, JVD, lymphadenopathy, thyromegaly Respiratory exam: PRESENT: clear to auscultation anoop. ABSENT: rales, rhonchi, wheezes Cardiovascular exam: PRESENT: RRR. ABSENT: diastolic murmur, rubs, systolic murmur Pulses: PRESENT: normal dorsalis pedis pul Vascular exam: PRESENT: normal capillary refill GI/Abdominal exam: PRESENT: normal bowel sounds, soft. ABSENT: distended, guarding, mass, organolmegaly, rebound, tenderness Rectal exam: PRESENT: deferred Extremities exam: PRESENT: full ROM. ABSENT: calf tenderness, clubbing, pedal edema Neurological exam: PRESENT: alert, awake, oriented to person, oriented to place, oriented to time, oriented to situation, CN II-XII grossly intact. ABSENT: motor sensory deficit Psychiatric exam: PRESENT: appropriate affect, normal mood. ABSENT: homicidal ideation, suicidal ideation Skin exam: PRESENT: dry, intact, warm. ABSENT: cyanosis, rash Results Laboratory Results: 10/27/20 06:44 10/27/20 06:44 10/26/20 10/26/20 10/27/20 11:05 11:05 06:44 WBC 21.5 H 19.9 H RBC 2.47 L 2.54 L Hgb 7.4 L 7.5 L Hct 23.0 L 23.5 L MCV 93 93 MCH 30.1 29.5 MCHC 32.3 31.9 L RDW 19.4 H 19.9 H Plt Count 150 206 Seg Neutrophils % Not Reportable Not Reportable Sodium 142.1 Potassium 3.3 L Chloride 119 H Carbon Dioxide 12 L Anion Gap 11 BUN 24 H Creatinine 1.17 Est GFR ( Amer) 57 L Glucose 90 Calcium 7.8 L Total Bilirubin 0.6 AST 24 Alkaline Phosphatase 153 H Total Protein 5.0 L Albumin 2.1 L 10/27/20 06:44 WBC RBC Hgb Hct MCV MCH MCHC RDW Plt Count Seg Neutrophils % Sodium 142.6 Potassium 3.5 L Chloride 117 H Carbon Dioxide 14 L Anion Gap 12 BUN 25 H Creatinine 1.21 Est GFR ( Amer) 55 L Glucose 115 H Calcium 8.1 L Total Bilirubin 0.7 AST 23 Alkaline Phosphatase 184 H Total Protein 5.5 L Albumin 2.2 L 10/22/20 14:33 Abdominal Fluid Gram Stain - Final 10/22/20 14:33 Abdominal Fluid Body Fluid Culture - Final Group F Beta Streptococcus Pseudomonas Aeruginosa Enterococcus Faecalis(Group D) No Anaerobic Organisms 10/22/20 14:33 Abdomen - Abscess Gram Stain - Final 10/22/20 14:33 Abdomen - Abscess Body Fluid Culture - Final Group F Beta Streptococcus Enterococcus Faecalis(Group D) No Anaerobic Organisms Impressions: Abdomen CT 10/20/20 15:39 IMPRESSION: 1. There is increasing size of the ill-defined mass at the pancreatic head since previous examination 09/07/2020. Worsening pancreatic ductal dilation. No evidence of biliary obstruction. 2. New small amount of ascites. 3. Gallbladder wall thickening and diffuse colon wall thickening is probably reactive secondary to ascites. Cannot entirely exclude colitis or cholecystitis. Clinical correlation with patient's laboratory values recommended. 4. Increasing patchy ground-glass nodules in the lower lungs bilaterally may represent increasing metastatic disease. Infectious/inflammatory process is not entirely excluded. COVID 19 pneumonia could have this appearance. Retroperitoneal Abscess Drainage 10/22/20 10:32 IMPRESSION: 1. Successful percutaneous cholecystostomy tube placement. 2. Successful catheter placement in the pericholecystic fluid collection. 3. Purulent fluid was aspirated from both the gallbladder and pericholecystic fluid collections. These were sent to pathology for evaluation. Assessment & Plan - Diagnosis (1) Acute cholecystitis Is this a current diagnosis for this admission?: Yes Plan: DC drain tubes, they are just making her uncomfortable and not draining anything. Stopping antibiotics for comfort care measures. (2) Adenocarcinoma of head of pancreas Is this a current diagnosis for this admission?: Yes Plan: No further treatment plan, for now proceed with inpatient hospice, if nausea and pain can get under control with potential oral medication, she may be able to go home but we will see by Thursday. (3) Pain, neoplasm-related Is this a current diagnosis for this admission?: Yes Plan: Start Dilaudid [employer], continue with fentanyl patch. (4) Constipation Qualifiers: Constipation type: drug induced constipation Qualified Code(s): K59.03 - Drug induced constipation Is this a current diagnosis for this admission?: Yes Plan: Continue medications for this. - Time Time Spent with patient: 35 or more minutes Anticipated discharge: Hospice
[2020-10-27] MEDS: INSULIN GLARGINE,HUM.REC.ANLOG 1,000 UNIT/10 ML VIAL SUBCUT SCH (22:09)
[2020-10-28] MEDS: HYDROMORPHONE HCL INJ/PF 2 MG/ML AMPULE IV PRN ×7 (01:30→23:35)
[2020-10-28] MEDS: DILTIAZEM HCL 30 MG TABLET PO SCH ×3 (05:09→21:55)
[2020-10-28] MEDS: ONDANSETRON HCL INJ/PF 4 MG/2 ML SDV IV PRN ×2 (05:25→14:30)
--- NOTE | 2020-10-28 09:20 | PDOC PROGRESS REPORT ---
Subjective Date:: 10/28/20 Subjective:: Patient is currently comfortable Patient received a 3 dose of IV pain medications last night Discussed with the expressed to go home with the possible hospice Discussed with the oncology makes the management Patient is currently comfort care and DNR Reason For Visit: PANCREATIC CANCER,ABDOMINAL PAIN Physical Exam Vital Signs: Temp Pulse Resp BP Pulse Ox 98.0 F 114 H 15 150/91 H 100 10/28/20 08:42 10/27/20 15:11 10/27/20 15:11 10/27/20 15:11 10/27/20 15:11 Intake & Output 10/27/20 10/28/20 10/29/20 06:59 06:59 06:59 Intake Total 1660 2130 Output Total 550 1140 Balance 1110 990 Weight 70.5 kg General appearance: PRESENT: no acute distress Eye exam: PRESENT: PERRLA Mouth exam: PRESENT: neck supple Respiratory exam: PRESENT: decreased breath sounds Cardiovascular exam: PRESENT: +S1, +S2 GI/Abdominal exam: PRESENT: normal bowel sounds Neurological exam: PRESENT: altered Results Laboratory Results: 10/27/20 06:44 10/27/20 06:44 Impressions: Abdomen CT 10/20/20 15:39 IMPRESSION: 1. There is increasing size of the ill-defined mass at the pancreatic head since previous examination 09/07/2020. Worsening pancreatic ductal dilation. No evidence of biliary obstruction. 2. New small amount of ascites. 3. Gallbladder wall thickening and diffuse colon wall thickening is probably reactive secondary to ascites. Cannot entirely exclude colitis or cholecystitis. Clinical correlation with patient's laboratory values recommended. 4. Increasing patchy ground-glass nodules in the lower lungs bilaterally may represent increasing metastatic disease. Infectious/inflammatory process is not entirely excluded. COVID 19 pneumonia could have this appearance. Retroperitoneal Abscess Drainage 10/22/20 10:32 IMPRESSION: 1. Successful percutaneous cholecystostomy tube placement. 2. Successful catheter placement in the pericholecystic fluid collection. 3. Purulent fluid was aspirated from both the gallbladder and pericholecystic fluid collections. These were sent to pathology for evaluation. Assessment & Plan - Diagnosis (1) Pain, neoplasm-related Is this a current diagnosis for this admission?: Yes (2) Secondary diabetes Is this a current diagnosis for this admission?: Yes (3) Adenocarcinoma of head of pancreas Is this a current diagnosis for this admission?: Yes (4) Anemia Qualifiers: Anemia type: bone marrow failure Bone marrow failure anemia type: pancytopenia, antineoplastic chemotherapy-induced Qualified Code(s): D61.810 - Antineoplastic chemotherapy induced pancytopenia; T45.1X5A - Adverse effect of antineoplastic and immunosuppressive drugs, initial encounter Is this a current diagnosis for this admission?: Yes (5) Cholestatic liver disease Is this a current diagnosis for this admission?: Yes (6) Dehydration Is this a current diagnosis for this admission?: Yes - Time Time Spent with patient: 15-24 minutes Level of Care: IMCU Anticipated discharge: Hospice Anticipated DC Timeframe: Other - Plan Summary Plan Summary: Continues to comfort care as per discussed with the oncology possible hospice arrangement tomorrow
[2020-10-28] MEDS: FENTANYL 25 MCG/HR PATCH.TD72 TD SCH (09:43)
[2020-10-28] MEDS: LOSARTAN POTASSIUM 50 MG TABLET PO SCH (09:44)
[2020-10-28] MEDS: SENNOSIDES/DOCUSATE 8.6-50 MG 1 EACH TABLET PO SCH ×2 (09:45→18:31)
[2020-10-28] MEDS: POTASSIUM CHLORIDE 10 MEQ TABLET.ER PO SCH (09:45)
[2020-10-28] MEDS: CEFEPIME 1 GM/D5W RTU 1 GM/50 ML RTUPB IV SCH ×2 (09:46→21:54)
[2020-10-28] MEDS: ENOXAPARIN SODIUM INJ 40 MG/0.4 ML DISP.SYRIN SUBCUT SCH (09:46)
[2020-10-28] MEDS: MEGESTROL ACETATE SUSP 400 MG/10 ML UDCUP PO SCH (09:46)
[2020-10-28] MEDS: METRONIDAZOLE 500 MG TABLET PO SCH (10:14)
[2020-10-28] MEDS: INSULIN LISPRO 100 UNIT/ML 3 ML VIAL SUBCUT SCH ×3 (11:18→18:28)
[2020-10-28] MEDS: INSULIN REG, HUMAN 100 UNIT/ML 3 ML VIAL (PYX) SUBCUT SCH ×4 (11:19→22:07)
[2020-10-28] MEDS: MINERAL OIL ENEMA 133 ML PR SCH (12:10)
[2020-10-28] MEDS: METHYLPHENIDATE HCL 5 MG TABLET PO SCH (12:10)
[2020-10-28] MEDS: NORMAL SALINE 1000 ML 1,000 ML IV PRN (18:37)
[2020-10-28] MEDS: INSULIN GLARGINE,HUM.REC.ANLOG 1,000 UNIT/10 ML VIAL SUBCUT SCH (22:07)
[2020-10-28] MEDS ORDERED: LORAZEPAM INJ 2 MG/1 ML VIAL IV PRN (22:39)
[2020-10-29] MEDS: HYDROMORPHONE HCL INJ/PF 2 MG/ML AMPULE IV PRN ×4 (04:00→10:31)
[2020-10-29] MEDS: ONDANSETRON HCL INJ/PF 4 MG/2 ML SDV IV PRN (05:01)
[2020-10-29] MEDS: NORMAL SALINE 1000 ML 1,000 ML IV PRN ×2 (05:05→14:59)
[2020-10-29] MEDS: DILTIAZEM HCL 30 MG TABLET PO SCH ×2 (05:38→21:45)
--- NOTE | 2020-10-29 08:09 | PDOC PROGRESS REPORT ---
Subjective Date:: 10/29/20 Subjective:: Pt comfortable on current pain regimen. Can't take any PO so will need IV pain pump for home hospice. lisseth is interested in home hospice. D/c planning consult placed. Asked nursing to d/c biliary drains. Reason For Visit: PANCREATIC CANCER,ABDOMINAL PAIN Physical Exam Vital Signs: Temp Pulse Resp BP Pulse Ox 98.3 F 101 H 16 158/79 H 100 10/28/20 22:00 10/28/20 20:45 10/28/20 20:45 10/28/20 20:45 10/28/20 20:45 Intake & Output 10/28/20 10/29/20 10/30/20 06:59 06:59 06:59 Intake Total 2130 2100 Output Total 1140 1050 50 Balance 990 1050 -50 General appearance: PRESENT: no acute distress, well-developed, well-nourished Head exam: PRESENT: atraumatic, normocephalic Eye exam: PRESENT: conjunctiva pink, EOMI, PERRLA. ABSENT: scleral icterus Ear exam: PRESENT: normal external ear exam Mouth exam: PRESENT: moist, tongue midline Neck exam: ABSENT: carotid bruit, JVD, lymphadenopathy, thyromegaly Respiratory exam: PRESENT: clear to auscultation anoop. ABSENT: rales, rhonchi, wheezes Cardiovascular exam: PRESENT: RRR. ABSENT: diastolic murmur, rubs, systolic murmur Pulses: PRESENT: normal dorsalis pedis pul Vascular exam: PRESENT: normal capillary refill GI/Abdominal exam: PRESENT: normal bowel sounds, soft. ABSENT: distended, guarding, mass, organolmegaly, rebound, tenderness Rectal exam: PRESENT: deferred Extremities exam: PRESENT: full ROM. ABSENT: calf tenderness, clubbing, pedal edema Neurological exam: PRESENT: alert, awake, oriented to person, oriented to place, oriented to time, oriented to situation, CN II-XII grossly intact. ABSENT: motor sensory deficit Psychiatric exam: PRESENT: appropriate affect, normal mood. ABSENT: homicidal ideation, suicidal ideation Skin exam: PRESENT: dry, intact, warm. ABSENT: cyanosis, rash Results Laboratory Results: 10/27/20 06:44 10/27/20 06:44 Impressions: Abdomen CT 10/20/20 15:39 IMPRESSION: 1. There is increasing size of the ill-defined mass at the pancreatic head since previous examination 09/07/2020. Worsening pancreatic ductal dilation. No evidence of biliary obstruction. 2. New small amount of ascites. 3. Gallbladder wall thickening and diffuse colon wall thickening is probably reactive secondary to ascites. Cannot entirely exclude colitis or cholecystitis. Clinical correlation with patient's laboratory values recommended. 4. Increasing patchy ground-glass nodules in the lower lungs bilaterally may represent increasing metastatic disease. Infectious/inflammatory process is not entirely excluded. COVID 19 pneumonia could have this appearance. Retroperitoneal Abscess Drainage 10/22/20 10:32 IMPRESSION: 1. Successful percutaneous cholecystostomy tube placement. 2. Successful catheter placement in the pericholecystic fluid collection. 3. Purulent fluid was aspirated from both the gallbladder and pericholecystic fluid collections. These were sent to pathology for evaluation. Assessment & Plan - Diagnosis (1) Acute cholecystitis Is this a current diagnosis for this admission?: Yes Plan: D/c drains today (2) Adenocarcinoma of head of pancreas Is this a current diagnosis for this admission?: Yes Plan: no further rx possible. Now stabilized w/ pain, could do home hospice, needs IV pain pump and hospital bed at home (3) Pain, neoplasm-related Is this a current diagnosis for this admission?: Yes Plan: Cont current regimen (4) Constipation Qualifiers: Constipation type: drug induced constipation Qualified Code(s): K59.03 - Drug induced constipation Is this a current diagnosis for this admission?: Yes Plan: no further intervention planned. NO BM or gas passed x 72 hours - Time Time Spent with patient: 35 or more minutes
[2020-10-29] MEDS: HYDROMORPHONE HCL 30 MG/60 ML RTUINJ IV PRN (11:25)
--- NOTE | 2020-10-29 19:53 | PDOC PROGRESS REPORT ---
Subjective Date:: 10/29/20 Subjective:: Patient with terminal cancer of the pancreas on comfort care measures, plan is f or patient be discharged with hospice Reason For Visit: PANCREATIC CANCER,ABDOMINAL PAIN Physical Exam Vital Signs: Temp Pulse Resp BP Pulse Ox 97.4 F 79 9 L 136/82 H 99 10/29/20 08:05 10/29/20 13:40 10/29/20 13:40 10/29/20 08:05 10/29/20 13:40 Intake & Output 10/28/20 10/29/20 10/30/20 06:59 06:59 06:59 Intake Total 2130 2100 990 Output Total 1140 1050 850 Balance 990 1050 140 Weight 70.5 kg Results Laboratory Results: 10/27/20 06:44 10/27/20 06:44 Impressions: Abdomen CT 10/20/20 15:39 IMPRESSION: 1. There is increasing size of the ill-defined mass at the pancreatic head since previous examination 09/07/2020. Worsening pancreatic ductal dilation. No evidence of biliary obstruction. 2. New small amount of ascites. 3. Gallbladder wall thickening and diffuse colon wall thickening is probably reactive secondary to ascites. Cannot entirely exclude colitis or cholecystitis. Clinical correlation with patient's laboratory values recommended. 4. Increasing patchy ground-glass nodules in the lower lungs bilaterally may represent increasing metastatic disease. Infectious/inflammatory process is not entirely excluded. COVID 19 pneumonia could have this appearance. Retroperitoneal Abscess Drainage 10/22/20 10:32 IMPRESSION: 1. Successful percutaneous cholecystostomy tube placement. 2. Successful catheter placement in the pericholecystic fluid collection. 3. Purulent fluid was aspirated from both the gallbladder and pericholecystic fluid collections. These were sent to pathology for evaluation. Assessment & Plan - Diagnosis (1) Pancreatic cancer Qualifiers: Pancreatic malignancy location: head of pancreas Qualified Code(s): C25.0 - Malignant neoplasm of head of pancreas Is this a current diagnosis for this admission?: Yes (2) Acute cholecystitis Is this a current diagnosis for this admission?: Yes (3) Secondary diabetes Is this a current diagnosis for this admission?: Yes (4) Pain, neoplasm-related Is this a current diagnosis for this admission?: Yes - Time Time Spent with patient: Less than 15 minutes Level of Care: MEDICAL - Inpatient Certification Based on my medical assessment, after consideration of the patient's comorbidities, presenting symptoms, or acuity I expect that the services needed warrant INPATIENT care.: No I certify that my determination is in accordance with my understanding of Medicare's requirements for reasonable and necessary INPATIENT services [42 CFR 412.3e].: No
[2020-10-30] MEDS: NORMAL SALINE 1000 ML 1,000 ML IV PRN ×3 (00:29→20:35)
[2020-10-30] MEDS: DILTIAZEM HCL 30 MG TABLET PO SCH ×4 (05:46→21:13)
[2020-10-30] MEDS: MINERAL OIL ENEMA 133 ML PR SCH ×2 (07:31→07:33)
[2020-10-30] MEDS: INSULIN REG, HUMAN 100 UNIT/ML 3 ML VIAL (PYX) SUBCUT SCH ×2 (07:31→07:32)
[2020-10-30] MEDS: LOSARTAN POTASSIUM 50 MG TABLET PO SCH ×2 (07:43→10:51)
[2020-10-30] MEDS: MEGESTROL ACETATE SUSP 400 MG/10 ML UDCUP PO SCH ×2 (07:43→10:51)
--- NOTE | 2020-10-30 08:02 | PDOC PROGRESS REPORT ---
Subjective Date:: 10/30/20 Subjective:: Patient seems more comfortable, continuing on Dilaudid [employer], has been deciding on home hospice company Reason For Visit: PANCREATIC CANCER,ABDOMINAL PAIN Physical Exam Vital Signs: Temp Pulse Resp BP Pulse Ox 97.4 F 102 H 18 122/67 98 10/29/20 20:37 10/29/20 20:03 10/30/20 06:00 10/29/20 20:03 10/30/20 06:00 Intake & Output 10/29/20 10/30/20 10/31/20 06:59 06:59 06:59 Intake Total 2100 1940 Output Total 1050 1000 Balance 1050 940 Weight 70.5 kg General appearance: PRESENT: no acute distress, well-developed, well-nourished Head exam: PRESENT: atraumatic, normocephalic Eye exam: PRESENT: conjunctiva pink, EOMI, PERRLA. ABSENT: scleral icterus Ear exam: PRESENT: normal external ear exam Mouth exam: PRESENT: moist, tongue midline Neck exam: ABSENT: carotid bruit, JVD, lymphadenopathy, thyromegaly Respiratory exam: PRESENT: clear to auscultation anoop. ABSENT: rales, rhonchi, wheezes Cardiovascular exam: PRESENT: RRR. ABSENT: diastolic murmur, rubs, systolic murmur Pulses: PRESENT: normal dorsalis pedis pul Vascular exam: PRESENT: normal capillary refill GI/Abdominal exam: PRESENT: normal bowel sounds, soft. ABSENT: distended, guarding, mass, organolmegaly, rebound, tenderness Rectal exam: PRESENT: deferred Extremities exam: PRESENT: full ROM. ABSENT: calf tenderness, clubbing, pedal edema Neurological exam: PRESENT: alert, awake, oriented to person, oriented to place, oriented to time, oriented to situation, CN II-XII grossly intact. ABSENT: motor sensory deficit Psychiatric exam: PRESENT: appropriate affect, normal mood. ABSENT: homicidal ideation, suicidal ideation Skin exam: PRESENT: dry, intact, warm. ABSENT: cyanosis, rash Results Laboratory Results: 10/27/20 06:44 10/27/20 06:44 Impressions: Abdomen CT 10/20/20 15:39 IMPRESSION: 1. There is increasing size of the ill-defined mass at the pancreatic head since previous examination 09/07/2020. Worsening pancreatic ductal dilation. No evidence of biliary obstruction. 2. New small amount of ascites. 3. Gallbladder wall thickening and diffuse colon wall thickening is probably reactive secondary to ascites. Cannot entirely exclude colitis or cholecystitis. Clinical correlation with patient's laboratory values recommended. 4. Increasing patchy ground-glass nodules in the lower lungs bilaterally may represent increasing metastatic disease. Infectious/inflammatory process is not entirely excluded. COVID 19 pneumonia could have this appearance. Retroperitoneal Abscess Drainage 10/22/20 10:32 IMPRESSION: 1. Successful percutaneous cholecystostomy tube placement. 2. Successful catheter placement in the pericholecystic fluid collection. 3. Purulent fluid was aspirated from both the gallbladder and pericholecystic fluid collections. These were sent to pathology for evaluation. Assessment & Plan - Diagnosis (1) Acute cholecystitis Is this a current diagnosis for this admission?: Yes Plan: Tube removed. (2) Adenocarcinoma of head of pancreas Is this a current diagnosis for this admission?: Yes Plan: No further treatment, hospice appropriate working on home hospice (3) Pain, neoplasm-related Is this a current diagnosis for this admission?: Yes Plan: On Dilaudid [employer] this will need to continue on home hospice (4) Constipation Qualifiers: Constipation type: drug induced constipation Qualified Code(s): K59.03 - Drug induced constipation Is this a current diagnosis for this admission?: Yes Plan: Further intervention plan - Time Time Spent with patient: 35 or more minutes
[2020-10-30] MEDS ORDERED: MINERAL OIL ENEMA 133 ML PR PRN (13:42)
--- NOTE | 2020-10-30 18:49 | PDOC PROGRESS REPORT ---
Subjective Date:: 10/30/20 Subjective:: Patient with terminal cancer of the pancreas on comfort care measures, plan is f or patient be discharge with hospice tomorrow Reason For Visit: PANCREATIC CANCER,ABDOMINAL PAIN Physical Exam Vital Signs: Temp Pulse Resp BP Pulse Ox 97.8 F 80 16 130/78 H 98 10/30/20 10:57 10/30/20 10:57 10/30/20 10:57 10/30/20 10:57 10/30/20 10:57 Intake & Output 10/29/20 10/30/20 10/31/20 06:59 06:59 06:59 Intake Total 2100 1940 1100 Output Total 1050 1000 300 Balance 1050 940 800 Weight 70.5 kg Results Laboratory Results: 10/27/20 06:44 10/27/20 06:44 Impressions: Abdomen CT 10/20/20 15:39 IMPRESSION: 1. There is increasing size of the ill-defined mass at the pancreatic head since previous examination 09/07/2020. Worsening pancreatic ductal dilation. No evidence of biliary obstruction. 2. New small amount of ascites. 3. Gallbladder wall thickening and diffuse colon wall thickening is probably reactive secondary to ascites. Cannot entirely exclude colitis or cholecystitis. Clinical correlation with patient's laboratory values recommended. 4. Increasing patchy ground-glass nodules in the lower lungs bilaterally may represent increasing metastatic disease. Infectious/inflammatory process is not entirely excluded. COVID 19 pneumonia could have this appearance. Retroperitoneal Abscess Drainage 10/22/20 10:32 IMPRESSION: 1. Successful percutaneous cholecystostomy tube placement. 2. Successful catheter placement in the pericholecystic fluid collection. 3. Purulent fluid was aspirated from both the gallbladder and pericholecystic fluid collections. These were sent to pathology for evaluation. Assessment & Plan - Diagnosis (1) Pancreatic cancer Qualifiers: Pancreatic malignancy location: head of pancreas Qualified Code(s): C25.0 - Malignant neoplasm of head of pancreas Is this a current diagnosis for this admission?: Yes (2) Acute cholecystitis Is this a current diagnosis for this admission?: Yes (3) Secondary diabetes Is this a current diagnosis for this admission?: Yes (4) Pain, neoplasm-related Is this a current diagnosis for this admission?: Yes - Time Time Spent with patient: Less than 15 minutes Level of Care: MEDICAL Medications reviewed and adjusted accordingly: Yes Anticipated discharge: Home Anticipated DC Timeframe: within 24 hours
[2020-10-30 20:42] VITALS: BP 133/74
[2020-10-30] MEDS: ONDANSETRON HCL INJ/PF 4 MG/2 ML SDV IV PRN (22:15)
[2020-10-31] MEDS: NORMAL SALINE 1000 ML 1,000 ML IV PRN (06:02)
[2020-10-31] MEDS: DILTIAZEM HCL 30 MG TABLET PO SCH (06:04)
[2020-10-31] MEDS: ONDANSETRON HCL INJ/PF 4 MG/2 ML SDV IV PRN (06:50)
--- NOTE | 2020-10-31 08:41 | PDOC PROGRESS REPORT ---
Subjective Date:: 10/31/20 Subjective:: Home hospice is set up, we will change patch this morning. Placed discharge order. Reason For Visit: PANCREATIC CANCER,ABDOMINAL PAIN Physical Exam Vital Signs: Temp Pulse Resp BP Pulse Ox 98.0 F 111 H 16 133/74 H 95 10/31/20 08:00 10/31/20 08:00 10/31/20 08:00 10/30/20 20:40 10/31/20 08:00 Intake & Output 10/30/20 10/31/20 11/01/20 06:59 06:59 06:59 Intake Total 1940 3045 Output Total 1000 600 Balance 940 2445 Weight 70.5 kg General appearance: PRESENT: no acute distress, well-developed, well-nourished Head exam: PRESENT: atraumatic, normocephalic Eye exam: PRESENT: conjunctiva pink, EOMI, PERRLA. ABSENT: scleral icterus Ear exam: PRESENT: normal external ear exam Mouth exam: PRESENT: moist, tongue midline Neck exam: ABSENT: carotid bruit, JVD, lymphadenopathy, thyromegaly Respiratory exam: PRESENT: clear to auscultation anoop. ABSENT: rales, rhonchi, wheezes Cardiovascular exam: PRESENT: RRR. ABSENT: diastolic murmur, rubs, systolic murmur Pulses: PRESENT: normal dorsalis pedis pul Vascular exam: PRESENT: normal capillary refill GI/Abdominal exam: PRESENT: normal bowel sounds, soft. ABSENT: distended, guarding, mass, organolmegaly, rebound, tenderness Rectal exam: PRESENT: deferred Extremities exam: PRESENT: full ROM. ABSENT: calf tenderness, clubbing, pedal edema Neurological exam: PRESENT: alert, awake, oriented to person, oriented to place, oriented to time, oriented to situation, CN II-XII grossly intact. ABSENT: motor sensory deficit Psychiatric exam: PRESENT: appropriate affect, normal mood. ABSENT: homicidal ideation, suicidal ideation Skin exam: PRESENT: dry, intact, warm. ABSENT: cyanosis, rash Results Laboratory Results: 10/27/20 06:44 10/27/20 06:44 Impressions: Abdomen CT 10/20/20 15:39 IMPRESSION: 1. There is increasing size of the ill-defined mass at the pancreatic head since previous examination 09/07/2020. Worsening pancreatic ductal dilation. No evidence of biliary obstruction. 2. New small amount of ascites. 3. Gallbladder wall thickening and diffuse colon wall thickening is probably reactive secondary to ascites. Cannot entirely exclude colitis or cholecystitis. Clinical correlation with patient's laboratory values recommended. 4. Increasing patchy ground-glass nodules in the lower lungs bilaterally may rep resent increasing metastatic disease. Infectious/inflammatory process is not entirely excluded. COVID 19 pneumonia could have this appearance. Retroperitoneal Abscess Drainage 10/22/20 10:32 IMPRESSION: 1. Successful percutaneous cholecystostomy tube placement. 2. Successful catheter placement in the pericholecystic fluid collection. 3. Purulent fluid was aspirated from both the gallbladder and pericholecystic fluid collections. These were sent to pathology for evaluation. Assessment & Plan - Diagnosis (1) Acute cholecystitis Is this a current diagnosis for this admission?: Yes Plan: DC home on hospice (2) Adenocarcinoma of head of pancreas Is this a current diagnosis for this admission?: Yes Plan: DC home on hospice (3) Pain, neoplasm-related Is this a current diagnosis for this admission?: Yes Plan: Continue Dilaudid pump and fentanyl patch on hospice (4) Constipation Qualifiers: Constipation type: drug induced constipation Qualified Code(s): K59.03 - Drug induced constipation Is this a current diagnosis for this admission?: Yes - Time Time Spent with patient: 35 or more minutes
[2020-10-31] MEDS: HYDROMORPHONE HCL 30 MG/60 ML RTUINJ IV PRN (09:10)
[2020-10-31] MEDS: FENTANYL 25 MCG/HR PATCH.TD72 TD SCH (09:27)
[2020-10-31] MEDS ORDERED: HYDROMORPHONE HCL INJ/PF 2 MG/ML AMPULE ONE (11:07)
[2020-10-31] MEDS: MEGESTROL ACETATE SUSP 400 MG/10 ML UDCUP PO SCH (11:09)
[2020-10-31] MEDS: LOSARTAN POTASSIUM 50 MG TABLET PO SCH (11:09)
[2020-10-31] MEDS ORDERED: HYDROMORPHONE HCL INJ/PF 2 MG/ML AMPULE IV ONE (11:15)
--- NOTE | 2020-10-31 14:48 | PDOC DISCHARGE SUMMARY ---
Impression - Admit/DC Date/PCP Admission Date/Primary Care Provider: 10/20/20 19:26 CHELO MANNING PA-C Discharge Date: 10/31/20 - Discharge Diagnosis (1) Pancreatic cancer Is this a current diagnosis for this admission?: Yes (2) Acute cholecystitis Is this a current diagnosis for this admission?: Yes (3) Secondary diabetes Is this a current diagnosis for this admission?: Yes (4) Pain, neoplasm-related Is this a current diagnosis for this admission?: Yes - Additional Information Resuscitation Status: Do Not Resuscitate Discharge Diet: As Tolerated Referrals: ADELSO BENJAMIN MD [ACTIVE STAFF] - (Follow up as needed) CHELO IRVING PA-C [Primary Care Provider] - Follow up as needed Home Medications: Oxycodone HCl [Oxycodone HCl ER] 20 mg PO Q12 11/01/19 Potassium Chloride [Klor-Con M20] 20 meq PO DAILY 11/01/19 Promethazine HCl [Phenergan 25 mg Tablet] 25 mg PO Q6HP PRN 11/01/19 Gemcitabine HCl [Gemzar Inj 1000 mg Vial] 1,000 mg IV [id number] 10/21/20 Insulin Aspart [Novolog Flexpen] 5 unit SUBCUT AC 10/21/20 Insulin Glargine,Hum.rec.anlog [Lantus Insulin 100 Unit/mL Insulin Pen] 5 unit SUBCUT DAILY@1500 10/21/20 Linaclotide [Linzess 145 Mcg Capsule] 145 mcg PO DAILY 10/21/20 Losartan/Hydrochlorothiazide [Losartan-Hctz 100-25 mg Tab] 1 each PO DAILY 10/21/20 Megestrol Acetate [Megace Fadumo 400 mg/10 ml Udcup] 800 mg PO DAILY 10/21/20 Methylphenidate HCl [Ritalin 5 Mg Tablet] 5 mg PO Q12 10/21/20 Ondansetron HCl [Zofran 8 mg Tablet] 8 mg PO Q8HP PRN 10/21/20 Sennosides [Senna] 8.6 mg PO DAILY 10/21/20 History of Present Illiness History of Present Illness: DICKSON PANIAGUA is a 60 year old female She has the metastatic pancreatic cancer on palliative chemotherapy she came to the emergency room for evaluation of abdominal pain in the emergency room CAT scan of the abdomen and pelvis with IV contrast was obtained, it demonstrated patchy groundglass nodules/opacities in the left lower lobe and right middle lobe of the lung have increased in number and size since prior examination. No focal confluent consolidation or pleural effusion. The liver was normal in size no focal hepatic mass. The pancreatic stent remains present in the common bile duct. 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 An ill-defined pancreatic head mass has increased in size since August said to be difficult to measure separately from the pancreatic parenchyma however the pancreatic head measures 5.3 x 3.6 cm Previously 4.4 x 3.0 cm. There is soft tissue encasing the inferior vena cava at the level of the pancreatic head and partially encasing the superior mesenteric vein that is similar to the previous imaging there is moderate gallbladder distention with stones there is diffuse gallbladder wall thickening and pericholecystic fluid On the bowel there is diffuse colonic wall thickening. Interval development of a small amount of ascites no definite peritoneal nodularity. No pneumothorax no bowel obstruction. Hospital Course Hospital Course: . Patient was admitted for the management of abdominal pain, metastatic pancreatic cancer, acute cholecystitis. She was managed with cholecystotomy tube placement, she has metastatic pancreatic cancer diagnosed about a year ago. She has severe abdominal pain, she required [employer] analgesia pump to achieve pain control. She was seen by oncology, her care was transitioned to comfort care because it was felt that most of her symptoms is related to pancreatic cancer. She was on palliative chemotherapy for the cancer no intent to cure. patient condition deteriorate very rapidly, the oncologist Dr. Benjamin consulted with the family, patient spouse, consensus was reached that the best plan of care is to transition her to hospice. Patient was discharged home today with hospice. Physical Exam Vital Signs: Temp Pulse Resp BP Pulse Ox 98.0 F 111 H 9 L 133/74 H 95 10/31/20 10:00 10/31/20 09:48 10/31/20 09:48 10/31/20 09:48 10/31/20 10:45 Intake & Output 10/30/20 10/31/20 11/01/20 06:59 06:59 06:59 Intake Total 1940 3045 100 Output Total 1000 600 Balance 940 2445 100 Weight 70.5 kg General appearance: PRESENT: no acute distress Respiratory exam: PRESENT: clear to auscultation anoop Cardiovascular exam: PRESENT: +S1, +S2 Results Laboratory Results: WBC 19.9 10^3/uL (4.0-10.5) H 10/27/20 06:44 RBC 2.54 10^6/uL (3.72-5.28) L 10/27/20 06:44 Hgb 7.5 g/dL (12.0-15.5) L 10/27/20 06:44 Hct 23.5 % (36.0-47.0) L 10/27/20 06:44 MCV 93 fl (80-97) 10/27/20 06:44 MCH 29.5 pg (27.0-33.4) 10/27/20 06:44 MCHC 31.9 g/dL (32.0-36.0) L 10/27/20 06:44 RDW 19.9 % (11.5-14.0) H 10/27/20 06:44 Plt Count 206 10^3/uL (150-450) 10/27/20 06:44 Lymph % (Auto) Not Reportable 10/27/20 06:44 [place] % (Auto) Not Reportable 10/27/20 06:44 Eos % (Auto) Not Reportable 10/27/20 06:44 Baso % (Auto) Not Reportable 10/27/20 06:44 Absolute Neuts (auto) Not Reportable 10/27/20 06:44 Absolute Lymphs (auto) Not Reportable 10/27/20 06:44 Absolute Monos (auto) Not Reportable 10/27/20 06:44 Absolute Eos (auto) Not Reportable 10/27/20 06:44 Absolute Basos (auto) Not Reportable 10/27/20 06:44 Total Counted 100 10/27/20 06:44 Seg Neutrophils % Not Reportable 10/27/20 06:44 Seg Neuts % (Manual) 90 % (42-78) H 10/27/20 06:44 Band Neutrophils % 1 % (3-5) L 10/24/20 22:15 Lymphocytes % (Manual) 6 % (13-45) L 10/27/20 06:44 Atypical Lymphs % 1 % (0) 10/25/20 05:44 Monocytes % (Manual) 4 % (3-13) 10/27/20 06:44 Eosinophils % (Manual) 0 % (0-6) 10/27/20 06:44 Basophils % (Manual) 0 % (0-2) 10/27/20 06:44 Metamyelocytes % 1 % (0-1) 10/25/20 05:44 Abs Neuts (Manual) 17.9 10^3/uL (1.7-8.2) H 10/27/20 06:44 Abs Lymphs (Manual) 1.2 10^3/uL (0.5-4.7) 10/27/20 06:44 Abs Monocytes (Manual) 0.8 10^3/uL (0.1-1.4) 10/27/20 06:44 Absolute Eos (Manual) 0.0 10^3/uL (0.0-0.6) 10/27/20 06:44 Abs Basophils (Manual) 0.0 10^3/uL (0.0-0.2) 10/27/20 06:44 Nucleated RBCs 1 /100 WBC (0) 10/25/20 05:44 Toxic Granulation SLIGHT 10/25/20 05:44 Large Platelets PRESENT 10/26/20 11:05 Platelet Comment ADEQUATE 10/27/20 06:44 Polychromasia SLIGHT 10/27/20 06:44 Hypochromasia 1+ 10/26/20 11:05 Poikilocytosis 1+ 10/26/20 11:05 Anisocytosis 2+ 10/27/20 06:44 Ovalocytes SLIGHT 10/26/20 11:05 Delilah Cells 1+ 10/26/20 11:05 Schistocytes SLIGHT 10/25/20 05:44 PT 20.2 SEC (11.4-15.4) H 10/22/20 09:59 INR 1.71 10/22/20 09:59 APTT 41.9 SEC (23.5-35.8) H 10/22/20 09:59 Sodium 142.6 mmol/L (137-145) 10/27/20 06:44 Potassium 3.5 mmol/L (3.6-5.0) L 10/27/20 06:44 Chloride 117 mmol/L (98-107) H 10/27/20 06:44 Carbon Dioxide 14 mmol/L (22-30) L 10/27/20 06:44 Anion Gap 12 (5-19) 10/27/20 06:44 BUN 25 mg/dL (7-20) H 10/27/20 06:44 Creatinine 1.21 mg/dL (0.52-1.25) 10/27/20 06:44 Est GFR ( Amer) 55 (>60) L 10/27/20 06:44 Est GFR (MDRD) Non-Af 46 (>60) L 10/27/20 06:44 Glucose 115 mg/dL (75-110) H 10/27/20 06:44 POC Glucose 166 mg/dL (70-110) H 10/28/20 08:23 Calcium 8.1 mg/dL (8.4-10.2) L 10/27/20 06:44 Total Bilirubin 0.7 mg/dL (0.2-1.3) 10/27/20 06:44 Direct Bilirubin 0.5 mg/dL (0.0-0.4) H 10/27/20 06:44 Neonat Total Bilirubin Not Reportable 10/27/20 06:44 Neonat Direct Bilirubin Not Reportable 10/27/20 06:44 Neonat Indirect Bili Not Reportable 10/27/20 06:44 AST 23 U/L (14-36) 10/27/20 06:44 ALT 16 U/L (<35) 10/27/20 06:44 Alkaline Phosphatase 184 U/L (38-126) H 10/27/20 06:44 Total Protein 5.5 g/dL (6.3-8.2) L 10/27/20 06:44 Albumin 2.2 g/dL (3.5-5.0) L 10/27/20 06:44 Lipase < 10.0 U/L (23-300) L 10/20/20 16:10 Urine Color YELLOW 10/20/20 19:12 Urine Appearance SLIGHTLY-CLOUDY 10/20/20 19:12 Urine pH 5.0 (5.0-9.0) 10/20/20 19:12 Ur Specific [place] 1.025 10/20/20 19:12 Urine Protein 30 mg/dL (NEGATIVE) H 10/20/20 19:12 Urine Glucose (UA) NEGATIVE mg/dL (NEGATIVE) 10/20/20 19:12 Urine Ketones NEGATIVE mg/dL (NEGATIVE) 10/20/20 19:12 Urine Blood LARGE (NEGATIVE) H 10/20/20 19:12 Urine Nitrite NEGATIVE (NEGATIVE) 10/20/20 19:12 Urine Bilirubin NEGATIVE (NEGATIVE) 10/20/20 19:12 Urine Urobilinogen 2.0 mg/dL (<2.0) H 10/20/20 19:12 Ur Leukocyte Esterase NEGATIVE (NEGATIVE) 10/20/20 19:12 Urine WBC (Auto) 3 /HPF 10/20/20 19:12 Urine RBC (Auto) 123 /HPF 10/20/20 19:12 U Hyaline Cast (Auto) 7 /LPF 10/20/20 19:12 Urine Bacteria (Auto) TRACE /HPF 10/20/20 19:12 Squamous Epi Cells Auto 1 /HPF 10/20/20 19:12 Urine Mucus (Auto) RARE /LPF 10/20/20 19:12 Urine Ascorbic Acid NEGATIVE (NEGATIVE) 10/20/20 19:12 Urine Opiates Screen UNCONFIRMED POSITIVE 10/20/20 19:12 Urine Methadone Screen NEGATIVE 10/20/20 19:12 Ur Barbiturates Screen NEGATIVE 10/20/20 19:12 Ur Phencyclidine Scrn NEGATIVE 10/20/20 19:12 Ur Amphetamines Screen NEGATIVE 10/20/20 19:12 U Benzodiazepines Scrn NEGATIVE 10/20/20 19:12 Urine Cocaine Screen NEGATIVE 10/20/20 19:12 U Marijuana (THC) Screen NEGATIVE 10/20/20 19:12 COVID-19 Source Cancelled 10/22/20 10:38 COVID-19 (ANDRZEJ) Cancelled 10/22/20 10:38 Influenza A (RT-PCR) NEGATIVE (NEGATIVE) 10/22/20 10:38 Influenza B (RT-PCR) NEGATIVE (NEGATIVE) 10/22/20 10:38 RSV (RT-PCR) NEGATIVE (NEGATIVE) 10/22/20 10:38 SARS-CoV-2 Rap RNA(RT-PCR) NEGATIVE (NEGATIVE) 10/22/20 10:38 Impressions: Abdomen CT 10/20/20 15:39 IMPRESSION: 1. There is increasing size of the ill-defined mass at the pancreatic head since previous examination 09/07/2020. Worsening pancreatic ductal dilation. No evidence of biliary obstruction. 2. New small amount of ascites. 3. Gallbladder wall thickening and diffuse colon wall thickening is probably reactive secondary to ascites. Cannot entirely exclude colitis or cholecy stitis. Clinical correlation with patient's laboratory values recommended. 4. Increasing patchy ground-glass nodules in the lower lungs bilaterally may represent increasing metastatic disease. Infectious/inflammatory process is not entirely excluded. COVID 19 pneumonia could have this appearance. Retroperitoneal Abscess Drainage 10/22/20 10:32 IMPRESSION: 1. Successful percutaneous cholecystostomy tube placement. 2. Successful catheter placement in the pericholecystic fluid collection. 3. Purulent fluid was aspirated from both the gallbladder and pericholecystic fluid collections. These were sent to pathology for evaluation. Stroke Is this a Stroke Patient?: No Acute Heart Failure Is this a Heart Failure Patient?: No
== END 2020-10-31 11:30 | disposition hospice, home (50) | DRG 444 ==
LOC: ER 14:55 → EH 19:26 → 2N 22:05
PROVIDERS: ADMIT Internal Medicine; ATTEND Internal Medicine
PROC: 0F9430Z Drainage of Gallbladder with Drainage Device, Percutaneous Approach (ICD-10-PCS; principal; 2020-10-22)
DX: K80.00 Calculus of gallbladder with acute cholecystitis without obstruction (principal); D61.810 Antineoplastic chemotherapy induced pancytopenia; C25.0 Malignant neoplasm of head of pancreas; E11.649 Type 2 diabetes mellitus with hypoglycemia without coma; I95.9 Hypotension, unspecified; E86.0 Dehydration; B96.5 Pseudomonas (aeruginosa) (mallei) (pseudomallei) as the cause of diseases classified elsewhere; G89.3 Neoplasm related pain (acute) (chronic); R91.8 Other nonspecific abnormal finding of lung field; Z51.5 Encounter for palliative care; I10 Essential (primary) hypertension; K59.03 Drug induced constipation; T45.1X5A Adverse effect of antineoplastic and immunosuppressive drugs, initial encounter; R00.0 Tachycardia, unspecified; Z66 Do not resuscitate; N93.9 Abnormal uterine and vaginal bleeding, unspecified; Z79.4 Long term (current) use of insulin; Z79.899 Other long term (current) drug therapy; Z88.2 Allergy status to sulfonamides; Z91.09 Other allergy status, other than to drugs and biological substances; Z11.59 Encounter for screening for other viral diseases
CPT/HCPCS: 36415; 36591; 49406; 74160; 80053; 80307; 81001; 82962; 83690; 85025; 85027; 85610; 85730; 87040; 87070; 87075; 87077; 87186; 87205; 96361; 96374; 99285; 0241U; C1729; C1769; C1894; C9803; J0295; J0692; J1170; J1642; J1650; J1815; J2250; J2405; J3010; J3490; J7030; J7050